=== PATIENT | female | born 1960 | race Caucasian/White ===

== ENCOUNTER 2023-01-07 07:52 | Outpatient (OUT) | payer OTHER, SELFPAY ==
--- NOTE | 2023-01-07 08:11 | XR_ITS ---
The [address] [address] Patient Name: KEYON CHEATHAM MRN: [id number] date: 1960 Sex: F Assigned Patient Location: LAB Current Patient Location: LAB Accession/Order Number: [id number] Exam Date: 01/07/2023 08:23 Report Date: 01/07/2023 08:44 At the request of: KIMMIE NEUMANN Procedure: XR knee ANTONIA 3V EXAMINATION: XR knee ANTONIA 3V HISTORY: Bilateral Osteoarthritis Of Knee M17.0 ; chronic bilateral knee pain COMPARISON: No relevant comparison available. FINDINGS: RIGHT FINDINGS: BONES: No significant arthropathy or acute abnormality. SOFT TISSUES: No visible soft tissue swelling. OTHER: Negative. LEFT FINDINGS: BONES: No significant arthropathy or acute abnormality. SOFT TISSUES: No visible soft tissue swelling. OTHER: Negative. XR/XR knee ANTONIA 3V IMPRESSION: RIGHT CONCLUSION: Minimal degenerative joint disease. No acute findings. LEFT CONCLUSION: Minimal degenerative joint disease. No acute findings. Electronically authenticated by: TELLY LEW Date: 01/07/2023 08:44
[2023-01-07 08:19] LABS: Basophils Absolute Auto 0.1 10^3/uL (0.0-0.1); Basophils Percent Auto 1.3 % (0.2-2.0); Eosinophils Absolute Auto 0.1 10^3/uL (0.0-0.7); Eosinophils Percent Auto 1.9 % (0.9-7.0); Hematocrit 40.8 % (36.0-48.0); Hemoglobin 13.3 g/dL (12.0-16.0); Immature Granulocytes Abs Auto 0.02 10^3/uL (0.00-0.03); Immature Granulocytes Pct Auto 0.4 % (0.0-0.5); Lymphocytes Absolute Auto 1.7 10^3/uL (1.2-3.8); Lymphocytes Percent Auto 35.7 % (20.5-60.0); Mean Corpuscular HGB Conc 32.6 g/dL (29.9-35.2); Mean Corpuscular Hemoglobin 29.5 pg (26.7-34.0); Mean Corpuscular Volume 90.5 fL (81.0-99.0); Monocytes Absolute Auto 0.4 10^3/uL (0.3-0.8); Monocytes Percent Auto 8.2 % (1.7-12.0); Neutrophils Absolute Auto 2.5 10^3/uL (1.4-6.5); Neutrophils Percent Auto 52.5 % (43.0-75.0); Platelet Count 228 10^3/uL (150-450); Red Blood Count 4.51 10^6/uL (4.20-5.40); Red Cell Distribution Width 13.1 % (11.0-15.0); White Blood Count 4.7 10^3/uL (4.0-11.0)
[2023-01-07 08:36] LABS: Estimated Average Glucose 117 mg/dL; Glycohemoglobin A1C 5.7 % (4.5-6.2)
[2023-01-07 09:05] LABS: Alanine Aminotransferase 25 U/L (14-59); Albumin Level 3.6 g/dL (3.4-5.0); Alkaline Phosphatase 82 U/L (46-116); Anion Gap 12.8; Aspartate Amino Transferase 14 U/L (15-37); BUN Creatinine Ratio 18.1; Bilirubin Direct 0.1 mg/dL (0.0-0.2); Bilirubin Total 0.5 mg/dL (0.2-1.0); Calcium 8.6 mg/dL (8.5-10.1); Carbon Dioxide 27.8 mmol/L (21.0-32.0); Chloride 101 mmol/L (98-107); Chol HDL Ratio 3.6; Cholesterol 218 mg/dL (<=200); Estimated GFR (African America >60 (>=60); Estimated GFR (Non-African Ame >60 (>=60); Free T3 2.38 pg/mL (2.18-3.98); Globulin 3.5 g/dL; Glucose 136 mg/dL (74-106); HDL Cholesterol 61 mg/dL (40-60); Potassium 3.6 mmol/L (3.5-5.1); Sodium 138 mmol/L (136-145); Thyroid Stimulating Hormone 1.186 uIU/mL (0.358-3.740); Total Protein 7.1 g/dL (6.4-8.2); Triglycerides 191 mg/dL (<=150); VLDL CHOLESTEROL 38.2 mg/dL
[2023-01-07 10:03] LABS: Free T4 1.13 ng/dL (0.76-1.46)
== END 2023-01-07 07:53 | disposition home or self-care (01) ==
LOC: LAB 07:55
PROVIDERS: PCP Family Medicine; Visit Provider Family Medicine
DX: E55.9 Vitamin D deficiency, unspecified (principal); I10 Essential (primary) hypertension; Z79.899 Other long term (current) drug therapy; E03.9 Hypothyroidism, unspecified; R73.03 Prediabetes; E78.5 Hyperlipidemia, unspecified; M17.0 Bilateral primary osteoarthritis of knee
CPT/HCPCS: 36415; 73562; 80048; 80061; 80076; 82306; 83036; 84439; 84443; 84481; 85025

== ENCOUNTER 2023-02-18 09:43 | Outpatient (OUT) | payer OTHER, SELFPAY ==
--- NOTE | 2023-02-18 09:47 | MM_ITS ---
Patient Name: KEYON VALENZUELA MR#: [id number] : 1960 Exam Date: 02/18/2023 Ordering Doctor: DR Felton Puga . RADIOLOGY REPORT PROCEDURE: MM TOMOSYNTHESIS SCREENING BI COMPARISON: MG MAMM SCREEN 3D ANTONIA CAD, 02/14/2021. MG MAMM SCREEN 3D ANTONIA CAD, 02/17/2022. INDICATIONS: screening Calculator Name NCI Breast Cancer Risk Assessment Tool 5 Year Breast Cancer Risk 1.80% Lifetime Breast Cancer Risk 6.80% Personal Breast Cancer No Personal Ovarian Cancer No Treatments None Family Cancers None LOCATION: The [facility] BREAST COMPOSITION: Scattered areas fibroglandular density. FINDINGS: DIAGNOSTIC CATEGORY 2--BENIGN FINDING. NO CHANGE FROM COMPARISON. Scattered benign-appearing calcifications are present. Scattered benign-appearing lymph nodes are present. RIGHT BREAST: No significant suspicious finding. LEFT BREAST: No significant suspicious finding. RECOMMENDATIONS: ROUTINE MAMMOGRAM AND CLINICAL EVALUATION IN 12 MONTHS. PLEASE NOTE: A NORMAL MAMMOGRAM DOES NOT EXCLUDE THE POSSIBILITY OF BREAST CANCER. A CLINICALLY SUSPICIOUS PALPABLE LUMP SHOULD BE BIOPSIED. Dictated by: Clint Valenzuela MD on 02/18/2023 at 11:37 Approved by: Clint Valenzuela MD on 02/18/2023 at 11:38
--- OUTSIDE RECORDS SUMMARY | 2023-02-18 09:53 | XMS_ITS | CCD ---
Author Name Unknown Address [address] [place] [address] Organization [facility] Care Team Providers Care Wrap Yarn Sorter Name Role Phone Felton Neumann Primary Care Provider THIEN, FELTON DAVE Referring Unavailabl e NADERER, FELTON DAVE Primary Care Unavailabl e REQUEST, DR SEVILLA LISTED Admitting Unavaila ble RIOS, DR NICOLAS A Primary Care Unavailable REQUEST, DR SEVILLA LISTED Attending Unavaila ble REQUEST, DR SEVILLA LISTED Consulting Unavaila ble REQUEST, DR SEVILLA LISTED Admitting Unavaila ble NADERER, DR BURKS A Primary Care Unavailable REQUEST, DR SEVILLA LISTED Attending Unavaila ble REQUEST, DR SEVILLA LISTED Consulting Unavaila ble REQUEST, DR SEVILLA LISTED Consulting Unavaila ble REQUEST, DR SEVILLA LISTED Admitting Unavaila ble NADERER, DR BURKS A Primary Care Unavailable REQUEST, DR SEVILLA LISTED Attending Unavaila ble REQUEST, DR SEVILLA LISTED Admitting Unavaila ble REQUEST, DR SEVILLA LISTED Attending Unavaila ble NADERER, DR BURKS A Primary Care Unavailable ZiMalcolm ashford Consulting Unavailable NADERER, DR BURKS A Primary Care Unavailable NADERER, DR FELTON Lynn Admitting Unavailable NADERER, DR FELTON Lynn Attending Unavailable NADERER, DR FELTON Lynn Consulting Unavailable Problems Active Problems Problem Classification Problem Date Documented Da te Episodic/Chronic Unclassified (2 sources) Patient encounter status; Translations: [Breast cancer screening by mammogram] Past or Other Problems Problem Classification Problem Date Documented Da te Episodic/Chronic Other screening for suspected conditions (not mental disorders or infectious disease) (5 sources) Patient encounter status; Translations: [Encounter for screening mammogram for malignant neoplasm of breast] Onset: 02-17-2022 Episodic Results Test Name Value Interpretation Reference Range Facil ity ELDER - TSHon 06-04-2022 TSH 1.292 uIU/mL Normal 0.358-3.740 [facility] Comment on above: Performed By: #### D ATTSH #### [facility] [address] [address] [address] Mela Billingsley TSH RANGE SEE BELOW Normal [facility] Comment on above: Result Comment: <0.3 4 UIU/ml HYPERTHYROID 0.34-5.60 UIU/ml EUTHYROID >5.60 UIU/ml HYPOTHYROID Performed By: #### D ATTSH #### [facility] [address] [address] [address] Mela Billingsley GLYCOHEMOGLOBIN A1Con 2022 ADA RECOMMENDATION SEE BELOW Normal [facility] Comment on above: Result Comment: ADA RECOMMENDED LIMIT 4.0 - 6.0 ADA THERAPEUTIC TARGET < 7.0 ACTION SUGGESTED > 7.0 Performed By: #### D ATA1C #### [facility] [address] [address] [address] Mela Billingsley Glucose [Mass/Vol] 117 mg/dL Normal [facility] Comment on above: Performed By: #### D ATA1C #### [facility] [address] [address] [address] Mela Billingsley HbA1c (Bld) [Mass fraction] 5.7 % Normal 4.5-6.2 [facility] Comment on above: Performed By: #### D ATA1C #### [facility] [address] [address] [address] Mela Billingsley MG MAMM SCREEN 3D ANTONIA CADon 02-17-2022 MG MAMM SCREEN 3D ANTONIA CAD Patient: KEYON CHEATHAM Exam Date: 02/17/2022 : 1960 Gender:F Ordering : DR FELTON NEUMANN . Admission #: [id number] Family : Order #: [id number] CLICK HERE TO VIEW EXAM RADIOLOGY REPORT PROCEDURE: MAMMOGRAM SCREENING 3D BILATERAL CAD COMPARISON: MG MAMM SCREEN 3D ANTONIA CAD, 02/14/2021. MG MAMM SCREEN ANTONIA W CAD, 12/19/2016. INDICATIONS: Screening mammography Calculator Name NCI Breast Cancer Risk Assessment Tool 5 Year Breast Cancer Risk 1.70% Lifetime Breast Cancer Risk 7.00% Personal Breast Cancer No Personal Ovarian Cancer No Treatments None Family Cancers None LOCATION: [facility] BREAST COMPOSITION: Scattered areas fibroglandular density. FINDINGS: DIAGNOSTIC CATEGORY 2--BENIGN FINDING: RIGHT BREAST: No significant suspicious finding. Scattered benign-appearing nodules are present. No significant change has occurred. LEFT BREAST: No significant suspicious finding. Scattered benign-appearing nodules are present. No significant change has occurred. RECOMMENDATIONS: ROUTINE MAMMOGRAM AND CLINICAL EVALUATION IN 12 MONTHS. PLEASE NOTE: A NORMAL MAMMOGRAM DOES NOT EXCLUDE THE POSSIBILITY OF BREAST CANCER. A CLINICALLY SUSPICIOUS PALPABLE LUMP SHOULD BE BIOPSIED. Dictated by: Malcolm Gramajo M.D. on 02/18/2022 at 10:14 Approved by: Malcolm Gramajo M.D. on 02/18/2022 at 11:38 Normal [facility] ital ELDER - TSHon 11-12-2021 TSH 0.153 uIU/mL Critically low 0.358-3.740 [facility] Comment on above: Performed By: #### D ATTSH #### [facility] [address] [place] [address] Dr. Mela Billingsley TSH RANGE SEE BELOW Normal [facility] Comment on above: Result Comment: <0.3 4 UIU/ml HYPERTHYROID 0.34-5.60 UIU/ml EUTHYROID >5.60 UIU/ml HYPOTHYROID Performed By: #### D ATTSH #### [facility] [address] [place] [address] Dr. Mela Billingsley CBC AUTO DIFFon 10-07-2021 BASO # 0.1 103/ul Normal 0.0-0.1 [facility] Comment on above: Performed By: #### D ATCBC #### [facility] [address] [place] [address] Dr. Mela Billingsley Basophils/100 WBC (Bld) 1.3 % Normal 0.2-2.0 [facility] Comment on above: Performed By: #### D ATCBC #### [facility] [address] [place] [address] Dr. Mela Billingsley EO # 0.1 103/ul Normal 0.0-0.7 [facility] Comment on above: Performed By: #### D ATCBC #### [facility] [address] [place] [address] Dr. Mela Billingsley Eosinophils/100 WBC (Bld) 1.7 % Normal 0.9-7.0 [facility] Comment on above: Performed By: #### D ATCBC #### [facility] [address] [place] [address] Dr. Mela Billingsley Erythrocyte distribution wid th (RBC) [Ratio] 13.3 % Normal 11.0-15.0 [facility] Comment on above: Performed By: #### D ATCBC #### [facility] [address] [place] [address] Dr. Mela Billingsley Hematocrit (Bld) [Volume fraction] 40.1 % Normal 3 6.0-48.0 [facility] Comment on above: Performed By: #### D ATCBC #### [facility] [address] [place] [address] Dr. Mela Billingsley Hemoglobin (Bld) [Mass/Vol] 13.1 g/dL Normal 12.0-16. 0 [facility] Comment on above: Performed By: #### D ATCBC #### [facility] [address] [place] [address] Dr. Mela Billingsley IG # 0.03 10e3/ul Normal 0.00-0.03 [facility] Comment on above: Performed By: #### D ATCBC #### [facility] [address] [place] [address] Dr. Mela Billingsley IG % 0.6 % Critically high 0.0-0.5 [facility] Comment on above: Performed By: #### D ATCBC #### [facility] [address] [place] [address] Dr. Mela Billingsley LYMPH # 1.6 103/ul Normal 1.2-3.8 [facility] Comment on above: Performed By: #### D ATCBC #### [facility] [address] [place] [address] Dr. Mela Billingsley Lymphocytes/100 WBC (Bld) 34.4 % Normal 20.5-60.0 [facility] Comment on above: Performed By: #### D ATCBC #### [facility] [address] [place] [address] Dr. Mela Billingsley MCH (RBC) [Entitic mass] 29.5 pg Normal 26.7-34.0 [facility] Comment on above: Performed By: #### D ATCBC #### [facility] [address] [place] [address] Dr. Mela Billingsley MCHC (RBC) [Mass/Vol] 32.7 g/dL Normal 29.9-35.2 [facility] Comment on above: Performed By: #### D ATCBC #### [facility] [address] [place] [address] Dr. Mela Billingsley MCV (RBC) [Entitic vol] 90.3 fL Normal 81.0-99.0 [facility] Comment on above: Performed By: #### D ATCBC #### [facility] [address] [place] [address] Dr. Mela Billingsley MONO # 0.4 103/ul Normal 0.3-0.8 [facility] Comment on above: Performed By: #### D ATCBC #### [facility] [address] [place] [address] Dr. Mela Billingsley Monocytes/100 WBC (Bld) 9.0 % Normal 1.7-12.0 [facility] Comment on above: Performed By: #### D ATCBC #### [facility] [address] [place] [address] Dr. Mela Billingsley NEUT # 2.5 103/ul Normal 1.4-6.5 [facility] Comment on above: Performed By: #### D ATCBC #### [facility] [address] [place] [address] Dr. Mela Billingsley Neutrophils/100 WBC (Bld) 53.0 % Normal 43.0-75.0 [facility] Comment on above: Performed By: #### D ATCBC #### [facility] [address] [place] [address] Dr. Mela Billingsley Platelet mean volume (Bld) [ Entitic vol] 10.0 fL Normal 9.5-13.5 [facility] pital Comment on above: Performed By: #### D ATCBC #### [facility] [address] [place] [address] Dr. Mela Billingsley PLT 243 103/ul Normal 150-450 [facility] Comment on above: Performed By: #### D ATCBC #### [facility] [address] [place] [address] Dr. Mela Billingsley RBC 4.44 106/ul Normal 4.20-5.40 [facility] Comment on above: Performed By: #### D ATCBC #### [facility] [address] [place] [address] Dr. Mela Billingsley WBC 4.8 103/ul Normal 4.0-11.0 [facility] Comment on above: Performed By: #### D ATCBC #### [facility] [address] [place] [address] Dr. Mela Billingsley ELDER - TSHon 10-07-2021 TSH 0.178 uIU/mL Critically low 0.358-3.[address] [facility] Comment on above: Performed By: #### D ATBMP, DATTS #### [facility] [address] [place] [address] Dr. Mela Billingsley TSH RANGE SEE BELOW Normal [facility] Comment on above: Result Comment: <0.3 4 UIU/ml HYPERTHYROID 0.34-5.60 UIU/ml EUTHYROID >5.60 UIU/ml HYPOTHYROID Performed By: #### D ATBMP, DATTSH #### [facility] [address] [place] [address] Dr. Mela Billingsley ELDER- BMP WITH LIPIDon 2021 Anion gap [Moles/Vol] 13.1 mmol/L Normal [facility] Comment on above: Performed By: #### D ATBMP, DATTSH #### [facility] [address] [place] [address] Dr. Mela Billingsley Calcium [Mass/Vol] 9.0 mg/dL Normal 8.5-10.[address] [facility] Comment on above: Performed By: #### D ATBMP, DATTS #### [facility] [address] [address] [address] Mela Billingsley Chloride [Moles/Vol] 104 mmol/L Normal 98-107 [facility] Comment on above: Performed By: #### D ATBMP, DATTSH #### [facility] [address] [address] [address] Mela Billingsley Cholesterol [Mass/Vol] 193 mg/dL Normal <=200 [facility] Comment on above: Performed By: #### D ATP, DATTSH #### [facility] [address] [place] [address] Dr. Mela Billingsley Cholesterol in HDL [Mass/Vol] 62 mg/dL Critically high 4 0-60 [facility] Comment on above: Performed By: #### D ATBMP, DATTSH #### [facility] [address] [place] [address] Dr. Mela Billingsley Cholesterol in LDL [Mass/Vol] 120.0 mg/dL Normal [facility] Comment on above: Performed By: #### D ATP, DATTSH #### [facility] [address] [place] [address] Dr. Mela Billingsley CO2 [Moles/Vol] 27.0 mmol/L Normal 21.0-32.0 [facility] Comment on above: Performed By: #### D ATBMP, DATTSH #### [facility] [address] [place] [address] Dr. Mela Billingsley Creatinine [Mass/Vol] 0.86 mg/dL Normal 0.55-1.02 [facility] Comment on above: Performed By: #### D ATBMP, DATTSH #### [facility] [address] [place] [address] Dr. Mela Billingsley EGFR-AF PARAGUAYAN >60 Normal >=60 [facility] Comment on above: Performed By: #### D ATBMP, DATTSH #### [facility] [address] [address] [address] Mela Billingsley EGFR-NON AF PARAGUAYAN >60 Normal >=60 [facility] Comment on above: Performed By: #### D ATP, DATTSH #### [facility] [address] [address] [address] Mela Billingsley HDL NORMAL > or = 60 mg/dl - LO W CARDIOVASCULAR RISK <40 mg/dl - HIGH CARDIOVASCULAR RISK Normal [facility] Comment on above: Performed By: #### D [facility], DATTSH #### [facility] [address] [address] [address] Mela Billingsley LDL CALC NORMAL SEE BELOW Normal [facility] Comment on above: Result Comment: <100 mg/dl OPTIMAL 100 - 129 mg/dl NEAR OR ABOVE OPTIMAL 130 - 159 mg/dl BORDERLINE HIGH 160 - 189 mg/dl HIGH >190 mg/dl VERY HIGH Performed By: #### D [facility], DATTS #### [facility] [address] [address] [address] Mela Billingsley Potassium [Moles/Vol] 4.1 mmol/L Normal 3.5-5.1 [facility] Comment on above: Performed By: #### D [facility], DATTSH #### [facility] [address] [address] [address] Mela Billingsley Sodium [Moles/Vol] 140 mmol/L Normal 136-[address] [facility] Comment on above: Performed By: #### D [facility], DATTSH #### [facility] [address] [address] [address] Mela Billingsley Triglyceride [Mass/Vol] 55 mg/dL Normal <=150 [facility] Comment on above: Performed By: #### D ATP, DATTSH #### [facility] [address] [address] [address] Mela Billingsley Urea nitrogen [Mass/Vol] 14.0 mg/dL Normal 7.0-18.0 [facility] Comment on above: Performed By: #### D [facility], DATTSH #### [facility] [address] [address] [address] Mela Billingsley Urea nitrogen/Creatinine [Mass ratio] 16.3 mg/mg Normal [facility] Comment on above: Performed By: #### D ATBMP, DATTSH #### [facility] [address] [address] [address] Mela Billingsley VLDL CALC 11.0 mg/dL Normal [facility] Comment on above: Performed By: #### D ATBMP, DATTSH #### [facility] [address] [address] [address] Mela Billingsley GLYCOHEMOGLOBIN A1Con 2021 ADA RECOMMENDATION SEE BELOW Normal [facility] Comment on above: Result Comment: ADA RECOMMENDED LIMIT 4.0 - 6.0 ADA THERAPEUTIC TARGET < 7.0 ACTION SUGGESTED > 7.0 Performed By: #### D ATA1C #### [facility] [address] [place] [address] Dr. Mela Billingsley Glucose [Mass/Vol] 111 mg/dL Critically high 74-106 T [facility] Comment on above: Performed By: #### D ATA1C #### [facility] [address] [address] [address] Mela Billingsley Performed By: #### D ATBMP, DATTS #### [facility] [address] [address] [address] Mela Billingsley HbA1c (Bld) [Mass fraction] 5.5 % Normal 4.5-6.2 [facility] Comment on above: Performed By: #### D ATA1C #### [facility] [address] [place] [address] Dr. Mela Billingsley [facility] DIGITAL SCREEN TANO [place] 02-14-2021 [facility] DIGITAL SCREEN BILATERAL EXAMINATION: SCREENING DIGITAL BILATERAL MAMMOGRAM WITH TOMOSYNTHESIS, 02/14/2021 TECHNIQUE: Screening mammography was performed with tomosynthesis including MLO and CC views of the bilateral breasts. Computer aided detection was used for the interpretation of this exam. COMPARISON: December 06, 2019 and November 30, 2018 HISTORY: Screening. FINDINGS: The breasts are composed of scattered fibroglandular densities. No dominant mass, architectural distortion or concerning grouping of microcalcification in either breast. IMPRESSION: No mammographic evidence of malignancy. BIRADS: BIRADS - CATEGORY 1 Negative. Normal interval follow-up is recommended in 12 months. OVERALL ASSESSMENT - NEGATIVE A letter of notification will be sent to the patient regarding the results. The [employer] recommends annual mammograms for women 40 years and older. Interpreted by: Case Licona DO Signed by: Case Licona DO 02/14/21 Final result [facility] No mammographic evid ence of malignancy. BIRADS: BIRADS - CATEGORY 1 Negative. Normal interval follow-up is recommended in 12 months. OVERALL ASSESSMENT - NEGATIVE A letter of notification will be sent to the patient regarding the results. The [employer] recommends annual mammograms for women 40 years and older. [facility] D EXAMINATION: SCREENING DIGITAL BILATERAL MAMMOGRAM WITH TOMOSYNTHESIS, 02/14/2021 TECHNIQUE: Screening mammography was performed with tomosynthesis including MLO and CC views of the bilateral breasts. Computer aided detection was used for the interpretation of this exam. COMPARISON: December 06, 2019 and November 30, 2018 HISTORY: Screening. FINDINGS: The breasts are composed of scattered fibroglandular densities. No dominant mass, architectural distortion or concerning grouping of microcalcification in either breast. [facility] R[facility] D Radiology Study observation (narrative) [facility] Work Phone: [facility] DIGITAL SCREEN BILA TERALOrdered By: Case Licona on 02-14-2021 [facility] Work Phone: [facility] DIGITAL SCREEN BILA TERALon 12-06-2019 No evidence of malig frida. Advise annual screening mammography. BI-RADS 1 BIRADS: BIRADS - CATEGORY 1 Negative, no evidence of malignancy in either breast. OVERALL ASSESSMENT - NEGATIVE A letter of notification will be sent to the patient regarding the results. RECOMMENDATION: Routine bilateral annual screening mammography is recommended. Follow-up screening mammogram in 1 year is advised. [facility] [place] [place] EXAMINATION: SCREENI NG DIGITAL BILATERAL MAMMOGRAM WITH TOMOSYNTHESIS, 12/06/2019 TECHNIQUE: Screening mammography was performed with tomosynthesis including MLO and CC views of the bilateral breasts. Computer aided detection was used for the interpretation of this exam. COMPARISON: 30 November 2018, [facility]; 29 February 2016[facility] HISTORY: Screening. Negative family history of breast cancer. Negative history of hormonal replacement therapy. No prior breast interventions. FINDINGS: The breasts are composed of scattered fibroglandular densities. No skin thickening, nipple contour changes, malignant type microcalcifications, areas of architectural distortion, or significant interval changes are noted. [facility] [place] Nayan, Mhpn Incoming R adiant Results From [employer] - 12/06/2019 1:27 PM EDT EXAMINATION: SCREENING DIGITAL BILATERAL MAMMOGRAM WITH TOMOSYNTHESIS, 12/06/2019 TECHNIQUE: Screening mammography was performed with tomosynthesis including MLO and CC views of the bilateral breasts. Computer aided detection was used for the interpretation of this exam. COMPARISON: 30 November 2018, [facility]; 29 February 2016[facility] HISTORY: Screening. Negative family history of breast cancer. Negative history of hormonal replacement therapy. No prior breast interventions. FINDINGS: The breasts are composed of scattered fibroglandular densities. No skin thickening, nipple contour changes, malignant type microcalcifications, areas of architectural distortion, or significant interval changes are noted. IMPRESSION: No evidence of malignancy. Advise annual screening mammography. BI-RADS 1 BIRADS: BIRADS - CATEGORY 1 Negative, no evidence of malignancy in either breast. OVERALL ASSESSMENT - NEGATIVE A letter of notification will be sent to the patient regarding the results. RECOMMENDATION: Routine bilateral annual screening mammography is recommended. Follow-up screening mammogram in 1 year is advised. [facility] LINO TUYET DIGITAL SCREEN W OR WO C AD BILATERALon 11-30-2018 No evidence of malig frida. Advise annual screening mammography. BI-RADS 1 BIRADS: BIRADS - CATEGORY 1 Negative, no evidence of malignancy in either breast. OVERALL ASSESSMENT - NEGATIVE A letter of notification will be sent to the patient regarding the results. RECOMMENDATION: Routine bilateral annual screening mammography is recommended. Follow-up screening mammogram in 1 year is advised. [facility]: BILATER AL DIGITAL SCREENING MAMMOGRAM, 11/30/2018 TECHNIQUE: CC and MLO views of the left and right breasts were obtained. Computer aided detection was utilized in the interpretation of this exam. 3D tomosynthesis images were obtained. COMPARISON: 19 December 2016; 22 February 2016 from [facility]. HISTORY: Screening. Negative family history of breast cancer. Oral contraceptive usage times 6 months. Hormonal replacement therapy times 10 years. No prior breast interventions. FINDINGS: The breasts are composed of scattered fibroglandular densities. No skin thickening, nipple contour changes, or areas of architectural distortion are noted. Prior nodule in the outer half of the right breast is not redemonstrated. [facility] LINO Nayan, Mhpn Incoming R adiant Results From [employer] - 11/30/2018 5:32 PM EDT EXAMINATION: BILATERAL DIGITAL SCREENING MAMMOGRAM, 11/30/2018 TECHNIQUE: CC and MLO views of the left and right breasts were obtained. Computer aided detection was utilized in the interpretation of this exam. 3D tomosynthesis images were obtained. COMPARISON: 19 December 2016; 22 February 2016 from [facility]. HISTORY: Screening. Negative family history of breast cancer. Oral contraceptive usage times 6 months. Hormonal replacement therapy times 10 years. No prior breast interventions. FINDINGS: The breasts are composed of scattered fibroglandular densities. No skin thickening, nipple contour changes, or areas of architectural distortion are noted. Prior nodule in the outer half of the right breast is not redemonstrated. IMPRESSION: No evidence of malignancy. Advise annual screening mammography. BI-RADS 1 BIRADS: BIRADS - CATEGORY 1 Negative, no evidence of malignancy in either breast. OVERALL ASSESSMENT - NEGATIVE A letter of notification will be sent to the patient regarding the results. RECOMMENDATION: Routine bilateral annual screening mammography is recommended. Follow-up screening mammogram in 1 year is advised. [facility] LINO Encounters Encounter Date Encounter Type Care Provider Facility Start: 06-04-2022 End: 06-05-[address] NONE LISTED REQUEST Facility:[facility] Start: 02-17-2022 End: 02-18-2022 ambulatory Malcolm Gramajo Facility:[facility] Start: 11-12-2021 End: 11-13-2021 ambulatory NONE LISTED REQUEST Facility:[facility] Start: 10-07-2021 End: 10-08-[address] NONE LISTED REQUEST Facility:[facility] Start: 10-02-2021 End: 10-03-[address] NONE LISTED REQUEST Facility:[facility] Start: 02-14-2021 End: 02-17-2021 ambulatory FELTON NEUMANN [facility] Start: 02-14-2021 End: 02-16-2021 Subsequent hospital visit by physician [facility] Mammography Room At [facility] Mammography Comment on above: Breast cancer screen ing by mammogram Start: 12-06-2019 End: 12-08-2019 Subsequent hospital visit by physician [facility] Mammography Room At [facility] Mammography Comment on above: Breast cancer screen ing by mammogram Start: 11-30-2018 End: 12-02-2018 Subsequent hospital visit by physician [facility] Mammography Room At [facility] Mammography Comment on above: Breast cancer screen ing by mammogram Procedures Date Procedure Procedure Detail Performing Clinician Start: 02-14-2021 Screening mammograph y bi 2-view breast inc cad Felton Neumann MD Work Phone: Start: 12-06-2019 Screening mammograph y bi 2-view breast inc cad Felton Neumann Work Phone: Start: 11-30-2018 Screening digital br east tomosynthesis bi Felton Neumann Work Phone: Plan of Treatment Date Care Activity Detail Author Start: 02-14-2023 Screening for malign ant neoplasm of breast Breast cancer screen [facility] Start: 12-05-2021 Screening for malign ant neoplasm of breast Breast cancer screen [place], [place] Start: 11-30-2020 Breast cancer screen Breast cancer s creen [place] Start: 10-31-2020 Influenza vaccination Flu vaccine (# 1) [facility] Start: 11-01-2019 Influenza vaccination Flu vaccine (# 1) [place] Start: 10-31-2018 Influenza vaccination Flu vaccine (# 1) [place] Start: 01-19-2008 Colon cancer screen colonoscopy Colon cancer screen colonoscopy [place] Start: 01-19-2008 Screening for malign ant neoplasm of colon Colon cancer screen colonoscopy [place] Start: 01-19-2008 Shingles Vaccine (1 of 2) Shingles Vaccine (1 of 2) [facility] Start: 2003 Screening for malign ant neoplasm of colon Colon cancer screen colonoscopy [facility] Start: 1998 Lipid panel Lipid screen [facility] Start: 1998 Lipid screen Lipid screen [place], [place] Start: 01-19-1988 Screening for malign ant neoplasm of cervix [facility] Start: 1979 Cervical cancer screen Cervical canc er screen [place], [place] Start: 1979 Screening for malign ant neoplasm of cervix [facility] Start: 1977 DTaP/Tdap/Td vaccine (1 - Tdap) DTaP/Tdap/Td vaccine (1 - Tdap) [facility] Start: 1973 HIV screen HIV screen [place], [place] Start: 1973 HIV screening HIV screen [facility] Start: 1970 COVID-19 Vaccine (1) COVID-19 Vaccin e (1) [facility] Start: 1960 Hepatitis C screen Hepatitis C scree n [place], [place] Start: 1958 Hepatitis C screening Hepatitis C sc reen [facility] Payers Date Payer Category Payer Unknown [id number] 2018 Unknown [employer] Pablo [facility] xxxxxxxxxxxx 2018-Present [phone] [address] [place] [address] xxxxxxxxxxxx [id number] 2018 Unknown [employer] Pablo [place] - EXCHANGE [id number] 2018-Present [phone] [address] [place] [address] [id number] 1959 Self-pay 1960 Unknown [id number] 1960 Unknown [id number] Unknown [id number] Unknown Unknown [id number] Unknown [id number] Unknown [id number] Social History Date Type Detail Facility Tobacco smoking stat [facility] Unknown if ever smoked [facility] Start: 1960 Sex Assigned At Not on file [facility] Exposure to SARS-CoV -2 (event) Not sure [place] Tobacco smoking stat [facility] Tobacco smoking consumption unknown [facility] [employer]: Evaluation note Note Date & Type Note Facility Evaluation note Diagnosis Breast cancer screening by mammogram documented in this encounter [facility] [employer]: Reason for Referral Status Reason Specialty Diagnoses / Procedures Referre d By Contact Referred To Contact Closed Radiology Diagnoses Breast cancer screening by mammogram Procedures TUYET DIGITAL SCREEN W OR WO CAD BILATERAL Felton Neumann MD [address] [place] [address] Status Reason Specialty Diagnoses / Procedures Referred By Contact Referred To Contact Authorized Radiology Diagnoses Breast cancer screening by mammogram Procedures TUYET QUEENIE DIGITAL SCREEN BILATERAL Felton Neumann MD [address] [place] [address] Specialty Diagnoses / Procedures Referred By Contac t Referred To Contact Radiology Diagnoses Breast cancer screening by mammogram Procedures TUYET QUEENIE DIGITAL SCREEN BILATERAL Felton Neumann MD [address] [place] [address] Referral ID Status Reason Start Date Expiration Date Visits Re quested Visits Authorized [id number] Closed 11/29/2020 11/29/2021 1 1 Assessments Diagnosis Breast cancer screening by mammogram Diagnosis Breast cancer screening by mammogram Advance Directives No Advanced Directives Records FoundDocuments on File Type Date 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 Advance Directives and Living Will Power of Word Processor Technician Documents on File Type Date 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 ACP-Advance Directive ACP-Power of Word Processor Technician Summary Purpose Family History No Family History Records FoundNo Family History Records Found Additional Source Comments Reason for Visit (unrecogniz ed section and content) Status Reason Specialty Diagnoses / Procedures Referre d By Contact Referred To Contact Closed Radiology Diagnoses Breast cancer screening by mammogram Procedures TUYET DIGITAL SCREEN W OR WO CAD BILATERAL Felton Neumann MD [address] [place] [address] Status Reason Specialty Diagnoses / Procedures Referred By Contact Referred To Contact Pending Review Radiology Diagnoses Encounter for screening mammogram for malignant neoplasm of breast Procedures HC MAMMOGRAM DIGITAL SCREEN BILAT Felton Neumann MD [address] [place] [address] [facility] [address] [address] Specialty Diagnoses / Procedures Referred By Contac t Referred To Contact Radiology Diagnoses Breast cancer screening by mammogram Procedures TUYET QUEENIE DIGITAL SCREEN BILATERAL Felton Neumann MD [address] [place] [address] Referral ID Status Reason Start Date Expiration Date Visits Re quested Visits Authorized [id number] Closed 11/29/2020 11/29/2021 1 1 Care Teams (unrecognized sec tion and content) Wrap Yarn Sorter Relationship Specialty Start Date End Date Felton Neumann MD [address] [place], [place] [address] PCP - General Family Medicine 11/02/18 INFORMATION SOURCE (unrecogn ized section and content) DATE CREATED AUTHOR 02/17/2021 [facility] DATE CREATED AUTHOR AUTHOR'S ORGANIZ ATION 06/06/2022 [facility] FOR RECORDS PERTAINING TO PATIENTS WHO ARE OR HAVE BEEN ENROLLED IN A CHEMICAL DEPENDENCY/SUBSTANCEABUSE PROGRAM, SOME INFORMATION MAY BE OMITTED. This clinical summary was aggregated from multiple sources. Caution should be exercised in using it in the provision of clinical care. This summary normalizes information from multiple sources, and as a consequence, information in this document may materially change the coding, format and clinical context of patient data. In addition, data may be omitted in some cases. CLINICAL DECISIONS SHOULD BE BASED ON THE PRIMARY CLINICAL RECORDS. [facility] [employer] [facility]. provides no warranty or guarantee of the accuracy or completeness of information in this document.
== END 2023-02-18 09:44 | disposition home or self-care (01) ==
LOC: MAMMO 09:44
PROVIDERS: PCP Family Medicine; Visit Provider Family Medicine
DX: Z12.31 Encounter for screening mammogram for malignant neoplasm of breast (principal)
CPT/HCPCS: 77063; 77067

== ENCOUNTER 2023-02-24 08:16 | Outpatient (OUT) | payer OTHER, SELFPAY ==
--- NOTE | 2023-02-24 08:20 | XR_ITS ---
[address] [address] Patient Name: KEYON CHEATHAM MRN: [id number] date: 1960 Sex: F Assigned Patient Location: RAD Current Patient Location: RAD Accession/Order Number: [id number] Exam Date: 02/24/2023 08:30 Report Date: 02/24/2023 08:47 At the request of: KIMMIE NEUMANN Procedure: XR DEXA axial skeleton EXAMINATION: XR DEXA axial skeleton HISTORY: osteoporosis, post-menopausal M81.0 COMPARISON: DEXA bone densitometry 03/24/2017 TECHNIQUE: Dual-energy X-ray absorptiometry (DXA) was performed. FINDINGS: SPINE ANALYSIS: Average bone mineral density is 0.953 g/cm2. T-score (standard deviation relative to young adult mean): -2.1 . +7.8% change since prior study. HIP ANALYSIS: Lowest bone mineral density is within the femoral trochanter, 0.816 g/cm2. T-score (standard deviation relative to young adult mean): -0.3 . -3.2% change since prior study. XR/XR DEXA axial skeleton IMPRESSION: World [employer] Classification: Osteopenia - Moderate Fracture Risk Electronically authenticated by: TELLY LEW Date: 02/24/2023 08:47
== END 2023-02-24 08:17 | disposition home or self-care (01) ==
LOC: RAD 08:16
PROVIDERS: PCP Family Medicine; Visit Provider Family Medicine
DX: M81.0 Age-related osteoporosis without current pathological fracture (principal); M85.80 Other specified disorders of bone density and structure, unspecified site
CPT/HCPCS: 77080

== ENCOUNTER 2023-04-14 13:48 | Outpatient (OUT) | payer OTHER, SELFPAY ==
--- OUTSIDE RECORDS SUMMARY | 2023-04-14 14:10 | XMS_ITS | CCD ---
Author Name Unknown Address [address] [place] [address] Organization [facility] Care Team Providers Care Arbitrator Name Role Phone Felton Neumann Primary Care Provider [phone] THIEN, FELTON DAVE Referring Unavailabl e NADERER, [...] NADERER, DR BURKS A Primary Care Unavailable ZiebMalcolm aguila Consulting Unavailable NADERER, DR FELTON Lynn Primary Care Unavailable NADERER, DR FELTON Lynn Admitting Unavailable NADERER, DR FELTON Lynn Attending Unavailable NADERER, DR FELTON Lynn Consulting Unavailable NILL, Marcin Pinedo Attending Unavailable NADERER, FELTON Referring Unavailable Allergies Allergy Classification Reported Allergen(s) Allergy Type Date of Onset Reaction(s) Facility (1 source) No Known Medication Allergies; Translations: [No Known Medication Allergies] Propensity to adverse reactions (disorder) [facility] Repository Problems Active Problems Problem Classification Problem Date [...] Results Test Name Value Interpretation Reference Range Facility Consent for Procedure/Surger na 04-09-2023 Consent for Procedure/Surgery [id number]#1.0 0TIFF Gerardo [facility] Ambulatory Visit Summaryon 0 04-07-2023 Ambulatory Visit Summary KEYON CHEATHAM :1960 Visit Date:04/07/2023 Ambulatory Visit Instructions Your Care Team Attending Physician - BARBIE VANEGAS, Marcin Pinedo Primary Care Physician - THIEN VANEGAS, FELTON Referring Physician - FELTON NEUMANN MD This Is Your Medications List Contact prescribing physician if questions or concerns hydrochlorothiazide-li sinopril (hydrochlorothiazide-l isinopril 12.5 mg-10 mg Tab) levothyroxine (levothyroxine 100 mcg (0.1 mg) Tab) meloxicam (meloxicam 15 mg Tab) montelukast (montelukast 10 mg Tab) raloxifene (raloxifene 60 mg Tab) Procedures Performed Cholecystectomy, Colonoscopy, MICHELLE BSO - Total abdominal hysterectomy and bilateral salpingo-oophorectomy. Discharge Vitals Heart Rate (Peripheral) 72 Respiratory Rate 16 Blood Pressure 124/88 Height 165 cm Height 65 in Weight 80.3 kg Weight 176.66 lb BMI 29.49 Medications What How Much When Instructions Unchanged hydrochlorothiazide-li sinopril (hydrochlorothiazide-l isinopril 12.5 mg-10 mg Tab) 1 Tablets By Mouth Every day 1 Unknown, Oral, 0 Refill(s), Take 1 tablet by mouth in the morning. Contact prescribing physician if questions or concerns Unchanged levothyroxine (levothyroxine 100 mcg (0.1 mg) Tab) 1 Tablets By Mouth Every day Contact prescribing physician if questions or concerns Unchanged meloxicam (meloxicam 15 mg Tab) 1 Tablets By Mouth Every day 1 Unknown, Oral, 0 Refill(s), Take 1 tablet by mouth in the morning. Contact prescribing physician if questions or concerns Unchanged montelukast (montelukast 10 mg Tab) 1 Tablets By Mouth Once a day (in the evening) Contact prescribing physician if questions or concerns Unchanged raloxifene (raloxifene 60 mg Tab) 1 Tablets By Mouth Every day 1 Unknown, Oral, 0 Refill(s), Take 1 tablet by mouth in the morning. Contact prescribing physician if questions or concerns Medications and Immunizations Administered Not Given influenza virus vaccine, inactivated, Patient Refuses Allergies No Known Allergies No Known Medication Allergies Problems Ongoing - Any problem that you are currently receiving treatment for. Allergic rhinitis due to pollen Benign essential hypertension BMI 29.0-29.9,adult Dyslipidemia Family history of colon cancer Gastroesophageal reflux disease Overweight Postmenopausal osteoporosis Prediabetes Primary hypothyroidism Screening for colorectal cancer Vitamin D deficiency Patient Survey You may receive a survey via text or e-mail asking about your office visit. Please share your experience with us by completing your survey. We appreciate your feedback and thank you for choosing us for your care. Normal [facility] Facesheeton 04-07-2023 Facesheet [id number] 02 [id number]#1. 00TIFF [facility] Insurance Correspondenceon 0 04-07-2023 Insurance Correspondence [id number]#1. 00TIFF Normal [facility] Physician Referralon 024 Physician Referral [id number]#1.0 0TIFF [facility] Physician Referralon 023 Physician Referral [id number] 20 [id number]#1.0 0TIFF [facility] ELDER - TSHon 06-04-2022 TSH 1.292 uIU/mL Normal 0.358-3.740 [facility] Comment on above: Performed By: #### D ATTSH #### [facility] [address] [address] [address] Mela Billingsley TSH RANGE SEE BELOW Normal [facility] Comment on above: Result Comment: <0.3 4 UIU/ml HYPERTHYROID 0.34-5.60 UIU/ml EUTHYROID >5.60 UIU/ml HYPOTHYROID Performed By: #### D ATTSH #### [facility] [address] [address] [address] Mela Billingsley GLYCOHEMOGLOBIN A1Con 2022 ADA RECOMMENDATION SEE BELOW Normal [facility] Comment on above: Result Comment: ADA RECOMMENDED LIMIT 4.0 - 6.0 ADA THERAPEUTIC TARGET < 7.0 ACTION SUGGESTED > 7.0 Performed By: #### D ATA1C #### [facility] [address] [address] [address] Mela Billingsley Glucose [Mass/Vol] 117 mg/dL Normal [facility] Comment on above: Performed By: #### D ATA1C #### [facility] [address] [address] [address] Mela Billingsley HbA1c (Bld) [Mass fraction] 5.7 % Normal 4.5-6.2 [facility] Comment on above: Performed By: #### D ATA1C #### [facility] [address] [address] [address] Mela Billingsley MG MAMM SCREEN 3D ANTONIA CADon 02-17-2022 MG MAMM SCREEN 3D ANTONIA CAD Patient: KEYON CHEATHAM Exam Date: 02/17/2022 : 1960 Gender:F Ordering : DR FELTON NEUMANN . Admission #: [id number] Family : Order #: [id number] CLICK HERE TO VIEW EXAM RADIOLOGY REPORT [...] Treatments None Family Cancers None LOCATION: [facility] BREAST COMPOSITION: Scattered areas fibroglandular density. FINDINGS: [...] M.D. on 02/18/2022 at 11:38 Normal [facility] ELDER - TSHon 11-12-2021 TSH 0.153 uIU/mL Critically low 0.358-3.740 [facility] Comment on above: Performed By: #### D ATTSH #### [facility] [address] [place] [address] Dr. Mela Billingsley TSH RANGE SEE BELOW Normal [facility] Comment on above: Result Comment: <0.3 4 UIU/ml HYPERTHYROID 0.34-5.60 UIU/ml EUTHYROID >5.60 UIU/ml HYPOTHYROID Performed By: #### D ATTSH #### [facility] [address] [place] [address] Dr. Mela Billingsley CBC AUTO DIFFon 10-07-2021 BASO # 0.1 103/ul Normal 0.0-0.1 [facility] Comment on above: Performed By: #### D ATCBC #### [facility] [address] [place] [address] Dr. Mela Billingsley Basophils/100 WBC (Bld) 1.3 % Normal 0.2-2.0 [facility] Comment on above: Performed By: #### D ATCBC #### [facility] [address] [place] [address] Dr. Mela Billingsley EO # 0.1 103/ul Normal 0.0-0.7 [facility] Comment on above: Performed By: #### D ATCBC #### [facility] [address] [place] [address] Dr. Mela Billingsley Eosinophils/100 WBC (Bld) 1.7 % Normal 0.9-7.0 [facility] Comment on above: Performed By: #### D ATCBC #### [facility] [address] [place] [address] Dr. Mela Billingsley Erythrocyte distribution width (RBC) [Ratio] 13.3 % Normal 11.0-15.0 [facility] Comment on above: Performed By: #### D ATCBC #### [facility] [address] [address] [address] Mela Billingsley Hematocrit (Bld) [Volume fraction] 40.1 % Normal 36.0-48.0 [facility] Comment on above: Performed By: #### D ATCBC #### [facility] [address] [place] [address] Dr. Mela Billingsley Hemoglobin (Bld) [Mass/Vol] 13.1 g/dL Normal 12.0-16.0 [facility] Comment on above: Performed By: #### D ATCBC #### [facility] [address] [place] [address] Dr. Mela Billingsley IG # 0.03 10e3/ul Normal 0.00-0.03 [facility] Comment on above: Performed By: #### D ATCBC #### [facility] [address] [place] [address] Dr. Mela Billingsley IG % 0.6 % Critically high 0.0-0.5 [facility] Comment on above: Performed By: #### D ATCBC #### [facility] [address] [place] [address] Dr. Mela Billingsley LYMPH # 1.6 103/ul Normal 1.2-3.8 [facility] Comment on above: Performed By: #### D ATCBC #### [facility] [address] [place] [address] Dr. Mela Billingsley Lymphocytes/100 WBC (Bld) 34.4 % Normal 20.5-60.0 [facility] Comment on above: Performed By: #### D ATCBC #### [facility] [address] [place] [address] Dr. Mela Billingsley MCH (RBC) [Entitic mass] 29.5 pg Normal 26.7-34.0 [facility] Comment on above: Performed By: #### D ATCBC #### [facility] [address] [place] [address] Dr. Mela Billingsley MCHC (RBC) [Mass/Vol] 32.7 g/dL Normal 29.9-35.2 [facility] Comment on above: Performed By: #### D ATCBC #### [facility] [address] [address] [address] Mela Billingsley MCV (RBC) [Entitic vol] 90.3 fL Normal 81.0-99.0 [facility] Comment on above: Performed By: #### D ATCBC #### [facility] [address] [address] [address] Mela Billingsley MONO # 0.4 103/ul Normal 0.3-0.8 [facility] Comment on above: Performed By: #### D ATCBC #### [facility] [address] [address] [address] Mela Billingsley Monocytes/100 WBC (Bld) 9.0 % Normal 1.7-12.0 [facility] Comment on above: Performed By: #### D ATCBC #### [facility] [address] [place] [address] Dr. Mela Billingsley NEUT # 2.5 103/ul Normal 1.4-6.5 [facility] Comment on above: Performed By: #### D ATCBC #### [facility] [address] [place] [address] Dr. Mela Billingsley Neutrophils/100 WBC (Bld) 53.0 % Normal 43.0-75.0 [facility] Comment on above: Performed By: #### D ATCBC #### [facility] [address] [place] [address] Dr. Mela Billingsley Platelet mean volume (Bld) [Entitic vol] 10.0 fL Normal 9.5-13.5 [facility] Comment on above: Performed By: #### D ATCBC #### [facility] [address] [place] [address] Dr. Mela Billingsley PLT 243 103/ul Normal 150-450 [facility] Comment on above: Performed By: #### D ATCBC #### [facility] [address] [place] [address] Dr. Mela Billingsley RBC 4.44 106/ul Normal 4.20-5.40 [facility] Comment on above: Performed By: #### D ATCBC #### [facility] [address] [place] [address] Dr. Mela Billingsley WBC 4.8 103/ul Normal 4.0-11.0 [facility] Comment on above: Performed By: #### D ATCBC #### [facility] [address] [place] [address] Dr. Mela Billingsley ELDER - TSHon 10-07-2021 TSH 0.178 uIU/mL Critically low 0.358-3.740 [facility] Comment on above: Performed By: #### D ATBMP, DATTS #### [facility] [address] [place] [address] Dr. Mela Billingsley TSH RANGE SEE BELOW Normal [facility] Comment on above: Result Comment: <0.3 4 UIU/ml HYPERTHYROID 0.34-5.60 UIU/ml EUTHYROID >5.60 UIU/ml HYPOTHYROID Performed By: #### D ATBMP, DATTS #### [facility] [address] [place] [address] Dr. Mela Billingsley ELDER- BMP WITH LIPIDon 2021 Anion gap [Moles/Vol] 13.1 mmol/L Normal [facility] Comment on above: Performed By: #### D ATBMP, DATTSH #### [facility] [address] [place] [address] Dr. Mela Billingsley Calcium [Mass/Vol] 9.0 mg/dL Normal 8.5-10.1 [facility] Comment on above: Performed By: #### D ATBMP, DATTSH #### [facility] [address] [place] [address] Dr. Mela Billingsley Chloride [Moles/Vol] 104 mmol/L Normal 98-107 [facility] Comment on above: Performed By: #### D ATBMP, DATTSH #### [facility] [address] [place] [address] Dr. Mela Billingsley Cholesterol [Mass/Vol] 193 mg/dL Normal <=200 [facility] Comment on above: Performed By: #### D ATBMP, DATTSH #### [facility] [address] [address] [address] Mela Billingsley Cholesterol in HDL [Mass/Vol] 62 mg/dL Critically high 40-60 [facility] Comment on above: Performed By: #### D ATBMP, DATTSH #### [facility] [address] [address] [address] Mela Billingsley Cholesterol in LDL [Mass/Vol] 120.0 mg/dL Normal [facility] Comment on above: Performed By: #### D ATBMP, DATTSH #### [facility] [address] [address] [address] Mela Billingsley CO2 [Moles/Vol] 27.0 mmol/L Normal 21.0-32.0 [facility] Comment on above: Performed By: #### D ATBMP, DATTSH #### [facility] [address] [address] [address] Mela Billingsley Creatinine [Mass/Vol] 0.86 mg/dL Normal 0.55-1.02 [facility] Comment on above: Performed By: #### D ATBMP, DATTSH #### [facility] [address] [place] [address] Dr. Mela Billingsley EGFR-AF PAKISTANI >60 Normal >=60 [facility] Comment on above: Performed By: #### D ATBMP, DATTSH #### [facility] [address] [address] [address] Mela Billingsley EGFR-NON AF PAKISTANI >60 Normal >=60 [facility] Comment on above: Performed By: #### D ATBMP, DATTSH #### [facility] [address] [address] [address] Mela Billingsley HDL NORMAL > or = 60 mg/dl - LO W CARDIOVASCULAR RISK <40 mg/dl - HIGH CARDIOVASCULAR RISK Normal [facility] Comment on above: Performed By: #### D ATBMP, DATTSH #### [facility] [address] [address] [address] Mela Billingsley LDL CALC NORMAL SEE BELOW Normal [facility] Comment on above: Result Comment: <100 mg/dl OPTIMAL 100 - 129 mg/dl NEAR OR ABOVE OPTIMAL 130 - 159 mg/dl BORDERLINE HIGH 160 - 189 mg/dl HIGH >190 mg/dl VERY HIGH Performed By: #### D ATBMP, DATTSH #### [facility] [address] [address] [address] Mela Billingsley Potassium [Moles/Vol] 4.1 mmol/L Normal 3.5-5.1 [facility] Comment on above: Performed By: #### D ATP, DATTSH #### [facility] [address] [address] [address] Mela Billingsley Sodium [Moles/Vol] 140 mmol/L Normal 136-145 [facility] Comment on above: Performed By: #### D ATP, DATTSH #### [facility] [address] [address] [address] Mela Billingsley Triglyceride [Mass/Vol] 55 mg/dL Normal <=150 [facility] Comment on above: Performed By: #### D [facility], DATTSH #### [facility] [address] [address] [address] Mela Billingsley Urea nitrogen [Mass/Vol] 14.0 mg/dL Normal 7.0-18.0 [facility] Comment on above: Performed By: #### D [facility], DATTS #### [facility] [address] [address] [address] Mela Billingsley Urea nitrogen/Creatinine [Mass ratio] 16.3 mg/mg Normal [facility] Comment on above: Performed By: #### D ATP, DATTSH #### [facility] [address] [address] [address] Mela Billingsley VLDL CALC 11.0 mg/dL Normal [facility] Comment on above: Performed By: #### D ATBMP, DATTSH #### [facility] [address] [address] [address] Mela Billingsley GLYCOHEMOGLOBIN A1Con 2021 ADA RECOMMENDATION SEE BELOW Normal [facility] Comment on above: Result Comment: ADA RECOMMENDED LIMIT 4.0 - 6.0 ADA THERAPEUTIC TARGET < 7.0 ACTION SUGGESTED > 7.0 Performed By: #### D ATA1C #### [facility] [address] [address] [address] Mela Billingsley Glucose [Mass/Vol] 111 mg/dL Critically high 74-106 [facility] Comment on above: Performed By: #### D ATA1C #### [facility] [address] [address] [address] Mela Billingsley Performed By: #### D ATBMP, DATTSH #### [facility] [address] [address] [address] Mela Billingsley HbA1c (Bld) [Mass fraction] 5.5 % Normal 4.5-6.2 [facility] Comment on above: Performed By: #### D ATA1C #### [facility] [address] [place] [address] Dr. Mela Billingsley [facility] [place] DIGITAL SCREEN [facility] 02-14-2021 [facility] [place] DIGITAL SCREEN BILATERAL EXAMINATION: SCREENING [...] to the patient regarding the results. [employer] recommends annual mammograms for women 40 years and older. Interpreted by: Case Licona DO Signed by: Case Licona DO 02/14/21 Final result Normal [facility] No mammographic evidence of malignancy. BIRADS: BIRADS - CATEGORY 1 Negative. Normal interval follow-up is recommended in 12 months. OVERALL ASSESSMENT - NEGATIVE A letter of notification will be sent to the patient regarding the results. [employer] recommends annual mammograms for women 40 years and older. [facility] EXAMINATION: SCREENING DIGITAL BILATERAL MAMMOGRAM WITH TOMOSYNTHESIS, [...] concerning grouping of microcalcification in either breast. [facility] Radiology Study observation (narrative) [employer] Phone: [employer] [place] DIGITAL SCREEN BILA TERALOrdered By: Case Licona on 02-14-2021 [employer] Phone: [facility] [place] DIGITAL SCREEN BILA TERALon 12-06-2019 No evidence of malignancy. Advise annual screening mammography. BI-RADS 1 BIRADS: BIRADS - CATEGORY 1 Negative, no evidence of malignancy in either breast. OVERALL ASSESSMENT - NEGATIVE A letter of notification will be sent to the patient regarding the results. RECOMMENDATION: Routine bilateral annual screening mammography is recommended. Follow-up screening mammogram in 1 year is advised. [place] EXAMINATION: SCREENI NG DIGITAL BILATERAL MAMMOGRAM WITH TOMOSYNTHESIS, 12/06/2019 TECHNIQUE: Screening mammography was performed with tomosynthesis including MLO and CC views of the bilateral breasts. Computer aided detection was used for the interpretation of this exam. COMPARISON: 30 November 2018, [facility]; 29 February 2016, [facility] HISTORY: Screening. Negative family history of breast cancer. Negative history of hormonal replacement therapy. No prior breast interventions. FINDINGS: The breasts are composed of scattered fibroglandular densities. No skin thickening, nipple contour changes, malignant type microcalcifications, areas of architectural distortion, or significant interval changes are noted. [place], [place] Nayan, [facility] Incoming Radiant Results From [employer] - 12/06/2019 1:27 PM EDT EXAMINATION: SCREENING DIGITAL BILATERAL MAMMOGRAM WITH TOMOSYNTHESIS, 12/06/2019 TECHNIQUE: Screening mammography was performed with tomosynthesis including MLO and CC views of the bilateral breasts. Computer aided detection was used for the interpretation of this exam. COMPARISON: 30 November 2018, [facility]; 29 February 2016, [facility] HISTORY: Screening. Negative family history of breast [...] screening mammogram in 1 year is advised. [facility] [place] DIGITAL SCREEN W OR WO C AD BILATERALon 11-30-2018 No evidence of malignancy. Advise annual screening mammography. BI-RADS 1 BIRADS: BIRADS - CATEGORY 1 Negative, no evidence of malignancy in either breast. OVERALL ASSESSMENT - NEGATIVE A letter of notification will be sent to the patient regarding the results. RECOMMENDATION: Routine bilateral annual screening mammography is recommended. Follow-up screening mammogram in 1 year is advised. [facility] EX[facility]ATION: BILATER AL DIGITAL SCREENING MAMMOGRAM, 11/30/2018 TECHNIQUE: CC and MLO views of the left and right breasts were obtained. Computer aided detection was utilized in the interpretation of this exam. 3D tomosynthesis images were obtained. COMPARISON: 19 December 2016; 22 February 2016 from [facility]. HISTORY: Screening. Negative family history of breast cancer. Oral contraceptive usage times 6 months. Hormonal replacement therapy times 10 years. No prior breast interventions. FINDINGS: The breasts are composed of scattered fibroglandular densities. No skin thickening, nipple contour changes, or areas of architectural distortion are noted. Prior nodule in the outer half of the right breast is not redemonstrated. [facility] [place] Nayan, [employer] Incoming Radiant Results From [employer] - 11/30/2018 5:32 PM EDT EXAMINATION: BILATERAL DIGITAL SCREENING MAMMOGRAM, 11/30/2018 TECHNIQUE: CC and MLO views of the left and right breasts were obtained. Computer aided detection was utilized in the interpretation of this exam. 3D tomosynthesis images were obtained. COMPARISON: 19 December 2016; 22 February 2016 from [facility]. HISTORY: Screening. Negative family history of breast [...] screening mammogram in 1 year is advised. [place], [place] Encounters Encounter Date Encounter Type Care Provider Facility Start: 04-07-2023 End: 04-08-2023 ambulatory Marcin VALENTIN Facility:[facility] Start: 02-20-2023 ambulatory Marcin VALENTIN Facility:[facility] [place] Start: 06-04-2022 End: 06-05-[address] NONE LISTED REQUEST Facility:[facility] Start: 02-17-2022 End: 02-18-2022 ambulatory Malcolm Gramajo Facility:[facility] Start: 11-12-2021 End: 11-13-[address] NONE LISTED REQUEST Facility:[facility] Start: 10-07-2021 End: 10-08-[address] NONE LISTED REQUEST Facility:[facility] Start: 10-02-2021 End: 10-03-[address] NONE LISTED REQUEST Facility: Start: 02-14-2021 End: 02-17-2021 ambulatory FELTON NEUMANN [facility] Start: 02-14-2021 End: 02-16-2021 Subsequent hospital visit by physician [facility] Mammography Room At [facility] Mammography Comment on above: Breast cancer screen ing by mammogram Start: 12-06-2019 End: 12-08-2019 Subsequent hospital visit by physician [facility] Mammography Room At [facility] Mammography Comment on above: Breast cancer screen ing by mammogram Start: 11-30-2018 End: 12-02-2018 Subsequent hospital visit by physician [facility] Mammography Room At [facility] Mammography Comment on above: Breast cancer screen [...] ant neoplasm of breast Breast cancer screen [facility] Start: 12-05-2021 Screening for malign ant neoplasm of breast Breast cancer screen [place], [place] Start: 11-30-2020 Breast cancer screen Breast cancer s creen [place], [place] Start: 10-31-2020 Influenza vaccination Flu vaccine (# 1) [facility] Start: 11-01-2019 Influenza vaccination Flu vaccine (# 1) [place], [place] Start: 10-31-2018 Influenza vaccination Flu vaccine (# 1) [place], [place] Start: 01-19-2008 Colon cancer screen colonoscopy Colon cancer screen colonoscopy [place], [place] Start: 01-19-2008 Screening for malign ant neoplasm of colon Colon cancer screen colonoscopy [place], [place] Start: 01-19-2008 Shingles Vaccine (1 of 2) Shingles Vaccine (1 of 2) [facility] Start: 2003 Screening for malign ant neoplasm of colon Colon cancer screen colonoscopy [facility] Start: 1998 Lipid panel Lipid screen [facility] Start: 1998 Lipid screen Lipid screen [place], [place] Start: 01-19-1988 Screening for malign ant neoplasm of cervix [facility] Start: 1979 Cervical cancer screen Cervical canc er screen [place], [place] Start: 1979 Screening for malign ant neoplasm of cervix [facility] Start: 1977 DTaP/Tdap/Td vaccine (1 - Tdap) DTaP/Tdap/Td vaccine (1 - Tdap) [facility] Start: 1973 HIV screen HIV screen [place], [place] Start: 1973 HIV screening HIV screen [facility] Start: 1970 COVID-19 Vaccine (1) COVID-19 Vaccin e (1) [facility] Start: 1958 Hepatitis C screen Hepatitis C callie blackwell [place], [place] Start: 1958 Hepatitis C screening Hepatitis C pr margarita [facility] Payers Date Payer Category Payer Medicare [id number] 2020 Unknown [id number] 2018 Unknown [employer] Pablo JOHNSON HMO NN xxxxxxxxxxxx 2018-Present [phone] [address] [place] [address] xxxxxxxxxxxx [id number] 2018 Unknown [employer] M JEREMY CRAWLEY VIKI - EXCHANGE [id number] 2018-Present [phone] [address] [place] [address] [id number] 1959 Self-pay 1958 Unknown [id number] 1958 Unknown [id number] 1958 Unknown [id number] Unknown [id number] Unknown Unknown [id number] Unknown [id number] Unknown [id number] Social History Date Type Detail Facility Tobacco smoking stat [facility] Unknown if ever smoked [place], [place] Start: 1960 Sex Assigned At Not on file [place] Exposure to SARS-CoV -2 (event) Not sure [place], [place] Tobacco smoking stat [facility] Tobacco smoking consumption unknown [facility] Work Phone: Clinical Note 04-07-2023 Note Date & Type Note Facility 04-07-2023 Note Chief Complaint consultation for colonoscopy HPI Staff 63 year old female presents on consultation from Dr. Neumann for screening colonoscopy. Denies abdominal or rectal pain. No rectal bleeding or change in bowel habits. Denies nausea or vomiting. No unexplained weight loss. Last colonoscopy completed greater than 10 years ago and reported normal per patient. Sister with history of colon cancer, diagnosed age 52. History of Present Illness 63 yo female with h/o htn, hypothyroidism, GERD, referred for colorectal screening; denies change in bms or blood in stools; no abdominal complaints; denies asa, on Meloxicam prn, no SBE prophylaxis; abdominal operations significant for cholecystectomy and MICHELLE, last colonoscopy over 10 years ago, reportedly normal; fmhx of colon cancer in patient's sister, dx at 52, no fmhx of IBD; no tobacco use. Review of Systems PHQ Score Initial Depression Screen Score: 0 SCORE ROS - Provider Constitutional: no fever, no sweats, no weight loss. Eyes: no glasses, no blurred vision, no visual loss. ENMT: no dentures, no hoarseness, no swallowing difficulties, no hearing loss, no ear infection(s), no nose bleeds. Cardiovascular: normal blood pressure, no chest pain, regular heartbeat, no heart murmur. Respiratory: no shortness of breath, no cough, no asthma, no wheezing. Gastrointestinal: no nausea, no vomiting, no diarrhea, no constipation, no blood in stool, no change in bowel habits, no abdominal pain, no hepatitis. Genitourinary: no kidney stones, no urine infection, no dysuria. Musculoskeletal: no pain, no weakness. Skin: no changing moles, no rash, no skin lumps. Neurologic: no seizures, no epilepsy, no headache. Psychiatric: no emotional or psychiatric problem. Heme/Lymph: no bleeding problems, no anemia, no blood clots, no transfusions. Allergy/Immunologic: no swollen lymph nodes/glands, no IV drug abuse. Other: Additional ROS info: Except as noted in the above Review of Systems and in the History of Present Illness, all other systems have been reviewed and are negative or noncontributory. Physical Exam Vitals & Measurements HR: 72(Peripheral) RR: 16 BP: 124/88 HT: 65 in HT: 165 cm WT: 80.3 kg WT: 176.66 lb BMI: 29.49 HEENT: normal conjunctiva, sclera clear, no scleral icterus, EOM intact, PERRLA, oral mucosa moist without lesions. Neck: trachea midline, no mass, symmetric, no thyromegaly or nodules, no adenopathy Respiratory: lungs CTA, respirations non labored. Cardiovascular: regular rate and rhythm, no murmur, no pedal edema or varicosities. Gastrointestinal: obese, soft, non distended, no tenderness, no masses, no palpable hernias, diastasis recti no, no hepatosplenomegaly; normal bs Lymphatic: no cervical adenopathy, no supraclavicular adenopathy. Musculoskeletal: normal gait, digits and nails without infection, nodes, cyanosis, clubbing. Skin: no rashes, no lesions, no ulcers, no subcutaneous nodules, induration. Psychiatric/Neuro: oriented to time, place, person, judgement normal, affect appropriate for age, insight intact, no focal deficits. Tests: review of old records completed , Discussed surgical options, risks, and possible complications with patient. Assessment/Plan 1. Screening for malignant neoplasm of colon (Z12.11: Encounter for screening for malignant neoplasm of colon) plan colonoscopy under anesthesia, informed consent obtained. 2. Family history of colon cancer (Z80.0: Family history of malignant neoplasm of digestive organs) see # 1 Follow-up No qualifying data available Problem List/Past Medical History Ongoing Allergic rhinitis due to pollen Benign essential hypertension BMI 29.0-29.9,adult Dyslipidemia Family history of colon cancer Gastroesophageal reflux disease Overweight Postmenopausal osteoporosis Prediabetes Primary hypothyroidism Screening for colorectal cancer Screening for malignant neoplasm of colon Vitamin D deficiency Historical No qualifying data Procedure/Surgical History Cholecystectomy, Colonoscopy, MICHELLE BSO - Total abdominal hysterectomy and bilateral salpingo-oophorectomy. Medications hydrochlorothiazide-lisinopril 12.5 mg-10 mg Tab, 1 tab(s), Oral, Daily levothyroxine 100 mcg (0.1 mg) Tab, 100 mcg= 1 tab(s), Oral, Daily meloxicam 15 mg Tab, 15 mg= 1 tab(s), Oral, Daily montelukast 10 mg Tab, 10 mg= 1 tab(s), Oral, qPM raloxifene 60 mg Tab, 60 mg= 1 tab(s), Oral, Daily Allergies No Known Allergies No Known Medication Allergies Social History Alcohol Current, Wine, 3-5 times per week, 04/07/2023 Substance Abuse - Denies Substance Abuse, 04/07/2023 Tobacco Former smoker, quit more than 30 days ago Tobacco Use:. Never Smokeless Tobacco Use:. Cigarettes, 3 per day. Started age 28.0 Years. Stopped age 38 Years., 04/07/2023 Family History Aneurysm: Father. Primary malignant neoplasm of colon: Sister. Immunizations Vaccine Date Status Comments influenza virus vaccine, keisha (more content not included)... [facility] Comment on above: Result Comment: Elec tronically Signed By: BARBIE VANEGAS, Marcin Diaz\Date and Time Signed: 04/07/23 19:36 EST Evaluation note Note Date & Type Note Facility Evaluation note Diagnosis Breast cancer screening by mammogram documented in this encounter [facility] Phone: Reason for Referral Status Reason Specialty Diagnoses / Procedures Referre d By Contact Referred To Contact Closed Radiology Diagnoses Breast cancer screening by mammogram Procedures [facility] DIGITAL SCREEN W OR WO CAD BILATERAL Felton Neumann MD [address] [place] [address] Status Reason Specialty Diagnoses / Procedures Referred By Contact Referred To Contact Authorized Radiology Diagnoses Breast cancer screening by mammogram Procedures [facility] QEUENIE DIGITAL SCREEN BILATERAL Felton Neumann MD [address] [place] [address] Specialty Diagnoses / Procedures Referred By Contac t Referred To Contact Radiology Diagnoses Breast cancer screening by mammogram Procedures [facility] DIGITAL SCREEN BILATERAL Felton Neumann MD [address] [place] [address] Referral ID Status Reason Start Date Expiration Date Visits Re quested Visits Authorized [id number] Closed 11/29/2020 11/29/2021 1 1 Assessments Diagnosis Breast cancer screening by mammogram Diagnosis Breast cancer screening by mammogram Advance Directives No Advanced Directives Records FoundDocuments on File Type Date Recorded 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 Expl anation Advance Directives and Living Will Power of Callisthenics Instructor Documents on File Type Date Recorded 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 Expl anation ACP-Advance Directive ACP-Power of Callisthenics Instructor Summary Purpose Family History No Family History Records FoundNo Family History Records FoundNo Family History Records Found Additional Source Comments Reason for Visit (unrecogniz ed section and content) Status Reason Specialty Diagnoses / Procedures Referre d By Contact Referred To Contact Closed Radiology Diagnoses Breast cancer screening by mammogram Procedures [facility] DIGITAL SCREEN W OR WO CAD BILATERAL Felton Neumann MD [address] [place] [address] Status Reason Specialty Diagnoses / Procedures Referred By Contact Referred To Contact Pending Review Radiology Diagnoses Encounter for screening mammogram for malignant neoplasm of breast Procedures [facility] DIGITAL SCREEN BILAT Felton Neumann MD [address] [place] [address] [facility] [address] [address] Specialty Diagnoses / Procedures Referred By Contac t Referred To Contact Radiology Diagnoses Breast cancer screening by mammogram Procedures [facility] [place] DIGITAL SCREEN BILATERAL Felton Neumann MD [address] [place] [address] Referral ID Status Reason Start Date Expiration Date Visits Re quested Visits Authorized [id number] Closed 11/29/2020 11/29/2021 1 1 Care Teams (unrecognized sec tion and content) Arbitrator Relationship Specialty Start Date End Date Felton Neumann MD [address] [place] [address] PCP - General Family Medicine 11/02/18 INFORMATION SOURCE (unrecogn ized section and content) DATE CREATED AUTHOR 02/17/2021 [facility] DATE CREATED AUTHOR AUTHOR'S ORGANIZ ATION 06/06/2022 [facility] DATE CREATED AUTHOR AUTHOR'S ORGANIZ ATION 04/10/2023 [facility] FOR RECORDS PERTAINING TO PATIENTS WHO ARE [...] BE BASED ON THE PRIMARY CLINICAL RECORDS. [facility]. provides no warranty or guarantee of the accuracy or completeness of information in this document.
== END 2023-04-14 13:49 | disposition home or self-care (01) ==
LOC: PST 13:59
PROVIDERS: PCP Family Medicine; Visit Provider Surgery
DX: Z12.11 Encounter for screening for malignant neoplasm of colon (principal)

== ENCOUNTER 2023-04-29 06:15 | Day surgery (SDC) | payer OTHER, SELFPAY ==
--- NOTE | 2023-04-29 | OP_ITS ---
OPERATION DATE: 04/29/2023 PREOPERATIVE DIAGNOSIS: Colorectal screening. POSTOPERATIVE DIAGNOSIS: Mild sigmoid diverticulosis as well as 3 mm rectal polyp. PROCEDURE: Colonoscopy to cecum with cold forceps polypectomy x1 for rectal polyp. SURGEON: Marcin Campos M.D. ANESTHESIA: Monitored anesthesia care. ESTIMATED BLOOD LOSS: Less than 1 mL. INDICATIONS AND CONSENT: Patient is a 63-year-old female presents for colorectal screening. Indications, risks, benefits, alternatives of proceeding with colonoscopy were explained extensively to the patient, including the risks of bleeding, colon perforation or anesthetic complications. All of her questions were answered. Informed consent was obtained. PROCEDURE: Patient brought to the operating room, placed in the left lateral decubitus position. Monitored anesthesia care was provided. Rectal exam was performed which showed no masses or blood. The scope was inserted into the anal canal. Under direct visualization was advanced. It was advanced to the cecum where cecal markings were clearly identified. There was noted to be a good prep. Upon withdrawal of the scope, mucosal surfaces were carefully examined. There were no mass lesions or inflammatory changes. There was mild sigmoid diverticulosis without inflammatory changes or scarring. There also appeared to be a large diverticulum in the cecum, containing some inspissated stool. Within the rectum, there was noted to be a 3 mm, sessile polyp that appeared to be likely hyperplastic. This was removed with cold biopsy forceps with good hemostasis. The scope was retroflexed in the anal canal. There was no significant hemorrhoidal disease. The scope was then withdrawn. Patient tolerated procedure well, was sent to recovery room in good condition. Follow up colonoscopy likely in 10 years, but will depend on the pathology report. CC: Felton Puga M.D. [place]
--- OUTSIDE RECORDS SUMMARY | 2023-04-29 06:18 | XMS_ITS | CCD ---
Author Name Unknown Address [address] [place] [address] Organization [facility] Care Team Providers Care Websphere Architect Name Role Phone Felton Neumann Primary Care [...] Medication Allergies] Propensity to adverse reactions (disorder) [facility] Repository Problems Active Problems Problem Classification Problem [...] for Procedure/Surger na 04-09-2023 Consent for Procedure/Surgery [id number]#1.[address] [facility] Ambulatory Visit Summaryon 0 04-07-2023 Ambulatory Visit [...] for choosing us for your care. Normal [facility] Facesheeton 04-07-2023 Facesheet [id number] 02 [id number]#1. 00TIFF [facility] Insurance Correspondenceon 0 04-07-2023 Insurance Correspondence [id number]#1. 00TIFF Normal [facility] Physician Referralon 024 Physician Referral [id number] 10 [id number]#1.0 0TIFF [facility] Physician Referralon 023 Physician Referral [id number] 20 [id number]#1.0 0TIFF [facility] ELDER - TSHon 06-04-2022 TSH 1.292 uIU/mL Normal 0.358-3.740 [facility] Comment on above: Performed By: #### D ATTSH #### [facility] [address] [address] [address] Mela Billingsley TSH RANGE SEE BELOW Normal [facility] Comment on above: Result Comment: <0.3 4 UIU/ml HYPERTHYROID 0.34-5.60 UIU/ml EUTHYROID >5.60 UIU/ml HYPOTHYROID Performed By: #### D ATTSH #### [facility] [address] [address] [address] Mela Billingsley GLYCOHEMOGLOBIN A1Con 2022 ADA RECOMMENDATION SEE BELOW Normal [facility] Comment on above: Result Comment: ADA RECOMMENDED LIMIT 4.0 - 6.0 ADA THERAPEUTIC TARGET < 7.0 ACTION SUGGESTED > 7.0 Performed By: #### D ATA1C #### [facility] [address] [address] [address] Mela Billingsley Glucose [Mass/Vol] 117 mg/dL Normal [facility] Comment on above: Performed By: #### D ATA1C #### [facility] [address] [address] [address] Mela Billingsley HbA1c (Bld) [Mass fraction] 5.7 % Normal 4.5-6.2 [facility] Comment on above: Performed By: #### D ATA1C #### [facility] [address] [address] [address] Mela Billingsley MG MAMM SCREEN 3D ANTONIA CADon 02-17-2022 MG MAMM SCREEN 3D ANTONIA CAD Patient: KEYON CHEATHAM Exam Date: 02/17/2022 : 1960 Gender:F Ordering : DR FELTON NEUMANN . Admission #: [id number] Family : Order #: [id number] CLICK HERE TO VIEW EXAM RADIOLOGY REPORT [...] Treatments None Family Cancers None LOCATION: [facility] BREAST COMPOSITION: Scattered areas fibroglandular density. FINDINGS: [...] M.D. on 02/18/2022 at 11:38 Normal [facility] ELDER - TSHon 11-12-2021 TSH 0.153 uIU/mL Critically low 0.358-3.740 [facility] Comment on above: Performed By: #### D ATTSH #### [facility] [address] [place] [address] Dr. Mela Billingsley TSH RANGE SEE BELOW Normal [facility] Comment on above: Result Comment: <0.3 4 UIU/ml HYPERTHYROID 0.34-5.60 UIU/ml EUTHYROID >5.60 UIU/ml HYPOTHYROID Performed By: #### D ATTSH #### [facility] [address] [place] [address] Dr. Mela Billingsley CBC AUTO DIFFon 10-07-2021 BASO # 0.1 103/ul Normal 0.0-0.1 [facility] Comment on above: Performed By: #### D ATCBC #### [facility] [address] [place] [address] Dr. Mela Billingsley Basophils/100 WBC (Bld) 1.3 % Normal 0.2-2.0 [facility] Comment on above: Performed By: #### D ATCBC #### [facility] [address] [place] [address] Dr. Mela Billingsley EO # 0.1 103/ul Normal 0.0-0.7 [facility] Comment on above: Performed By: #### D ATCBC #### [facility] [address] [place] [address] Dr. Mela Billingsley Eosinophils/100 WBC (Bld) 1.7 % Normal 0.9-7.0 [facility] Comment on above: Performed By: #### D ATCBC #### [facility] [address] [place] [address] Dr. Mela Billingsley Erythrocyte distribution width (RBC) [Ratio] 13.3 % Normal 11.0-15.0 [facility] Comment on above: Performed By: #### D ATCBC #### [facility] [address] [address] [address] Mela Billingsley Hematocrit (Bld) [Volume fraction] 40.1 % Normal 36.0-48.0 [facility] Comment on above: Performed By: #### D ATCBC #### [facility] [address] [place] [address] Dr. Mela Billignsley Hemoglobin (Bld) [Mass/Vol] 13.1 g/dL Normal 12.0-16.0 [facility] Comment on above: Performed By: #### D ATCBC #### [facility] [address] [place] [address] Dr. Mela Billingsley IG # 0.03 10e3/ul Normal 0.00-0.03 [facility] Comment on above: Performed By: #### D ATCBC #### [facility] [address] [place] [address] Dr. Mela Billingsley IG % 0.6 % Critically high 0.0-0.5 [facility] Comment on above: Performed By: #### D ATCBC #### [facility] [address] [place] [address] Dr. Mela Billingsley LYMPH # 1.6 103/ul Normal 1.2-3.8 [facility] Comment on above: Performed By: #### D ATCBC #### [facility] [address] [place] [address] Dr. Mela Billingsley Lymphocytes/100 WBC (Bld) 34.4 % Normal 20.5-60.0 [facility] Comment on above: Performed By: #### D ATCBC #### [facility] [address] [place] [address] Dr. Mela Billingsley MCH (RBC) [Entitic mass] 29.5 pg Normal 26.7-34.0 [facility] Comment on above: Performed By: #### D ATCBC #### [facility] [address] [place] [address] Dr. Mela Billingsley MCHC (RBC) [Mass/Vol] 32.7 g/dL Normal 29.9-35.2 [facility] Comment on above: Performed By: #### D ATCBC #### [facility] [address] [address] [address] Mela Billingsley MCV (RBC) [Entitic vol] 90.3 fL Normal 81.0-99.0 [facility] Comment on above: Performed By: #### D ATCBC #### [facility] [address] [address] [address] Mela Billingsley MONO # 0.4 103/ul Normal 0.3-0.8 [facility] Comment on above: Performed By: #### D ATCBC #### [facility] [address] [address] [address] Mela Billingsley Monocytes/100 WBC (Bld) 9.0 % Normal 1.7-12.0 [facility] Comment on above: Performed By: #### D ATCBC #### [facility] [address] [place] [address] Dr. Mela Billingsley NEUT # 2.5 103/ul Normal 1.4-6.5 [facility] Comment on above: Performed By: #### D ATCBC #### [facility] [address] [place] [address] Dr. Mela Billingsley Neutrophils/100 WBC (Bld) 53.0 % Normal 43.0-75.0 [facility] Comment on above: Performed By: #### D ATCBC #### [facility] [address] [place] [address] Dr. Mela Billingsley Platelet mean volume (Bld) [Entitic vol] 10.0 fL Normal 9.5-13.5 [facility] Comment on above: Performed By: #### D ATCBC #### [facility] [address] [place] [address] Dr. Mela Billingsley PLT 243 103/ul Normal 150-450 [facility] Comment on above: Performed By: #### D ATCBC #### [facility] [address] [place] [address] Dr. Mela Billingsley RBC 4.44 106/ul Normal 4.20-5.40 [facility] Comment on above: Performed By: #### D ATCBC #### [facility] [address] [place] [address] Dr. Mela Billingsley WBC 4.8 103/ul Normal 4.0-11.0 [facility] Comment on above: Performed By: #### D ATCBC #### [facility] [address] [place] [address] Dr. Mela Billingsley ELDER - TSHon 10-07-2021 TSH 0.178 uIU/mL Critically low 0.358-3.740 [facility] Comment on above: Performed By: #### D ATBMP, DATTS #### [facility] [address] [place] [address] Dr. Mela Billingsley TSH RANGE SEE BELOW Normal [facility] Comment on above: Result Comment: <0.3 4 UIU/ml HYPERTHYROID 0.34-5.60 UIU/ml EUTHYROID >5.60 UIU/ml HYPOTHYROID Performed By: #### D ATBMP, DATTS #### [facility] [address] [place] [address] Dr. Mela Billingsley ELDER- BMP WITH LIPIDon 2021 Anion gap [Moles/Vol] 13.1 mmol/L Normal [facility] Comment on above: Performed By: #### D ATBMP, DATTSH #### [facility] [address] [place] [address] Dr. Mela Billingsley Calcium [Mass/Vol] 9.0 mg/dL Normal 8.5-10.1 [facility] Comment on above: Performed By: #### D ATBMP, DATTSH #### [facility] [address] [place] [address] Dr. Mela Billingsley Chloride [Moles/Vol] 104 mmol/L Normal 98-107 [facility] Comment on above: Performed By: #### D ATBMP, DATTSH #### [facility] [address] [place] [address] Dr. Mela Billingsley Cholesterol [Mass/Vol] 193 mg/dL Normal <=200 [facility] Comment on above: Performed By: #### D ATBMP, DATTSH #### [facility] [address] [address] [address] Mela Billingsley Cholesterol in HDL [Mass/Vol] 62 mg/dL Critically high 40-60 [facility] Comment on above: Performed By: #### D ATBMP, DATTSH #### [facility] [address] [address] [address] Mela Billingsley Cholesterol in LDL [Mass/Vol] 120.0 mg/dL Normal [facility] Comment on above: Performed By: #### D ATBMP, DATTSH #### [facility] [address] [address] [address] Mela Billingsley CO2 [Moles/Vol] 27.0 mmol/L Normal 21.0-32.0 [facility] Comment on above: Performed By: #### D ATBMP, DATTSH #### [facility] [address] [address] [address] Mela Billingsley Creatinine [Mass/Vol] 0.86 mg/dL Normal 0.55-1.02 [facility] Comment on above: Performed By: #### D ATBMP, DATTSH #### [facility] [address] [place] [address] Dr. Mela Billingsley EGFR-AF MAURITANIAN >60 Normal >=60 [facility] Comment on above: Performed By: #### D ATBMP, DATTSH #### [facility] [address] [address] [address] Mela Billingsley EGFR-NON AF MAURITANIAN >60 Normal >=60 [facility] Comment on above: Performed By: #### D ATBMP, DATTSH #### [facility] [address] [address] [address] Mela Billingsley HDL NORMAL > or = 60 mg/dl - LO W CARDIOVASCULAR RISK <40 mg/dl - HIGH CARDIOVASCULAR RISK Normal [facility] Comment on above: Performed By: #### D ATBMP, DATTSH #### [facility] [address] [address] [address] Mela Billingsley LDL CALC NORMAL SEE BELOW Normal [facility] Comment on above: Result Comment: <100 mg/dl OPTIMAL 100 - 129 mg/dl NEAR OR ABOVE OPTIMAL 130 - 159 mg/dl BORDERLINE HIGH 160 - 189 mg/dl HIGH >190 mg/dl VERY HIGH Performed By: #### D ATBMP, DATTSH #### [facility] [address] [address] [address] Mela Billingsley Potassium [Moles/Vol] 4.1 mmol/L Normal 3.5-5.1 [facility] Comment on above: Performed By: #### D ATP, DATTSH #### [facility] [address] [address] [address] Mela Billingsley Sodium [Moles/Vol] 140 mmol/L Normal 136-145 [facility] Comment on above: Performed By: #### D ATP, DATTSH #### [facility] [address] [address] [address] Mela Billingsley Triglyceride [Mass/Vol] 55 mg/dL Normal <=150 [facility] Comment on above: Performed By: #### [facility], [facility] #### [facility] [address] [address] [address] Mela Billingsley Urea nitrogen [Mass/Vol] 14.0 mg/dL Normal 7.0-18.0 [facility] Comment on above: Performed By: #### [facility], DATTS #### [facility] [address] [address] [address] Mela Billingsley Urea nitrogen/Creatinine [Mass ratio] 16.3 mg/mg Normal [facility] Comment on above: Performed By: #### D ATP, DATTSH #### [facility] [address] [address] [address] Mela Billingsley VLDL CALC 11.0 mg/dL Normal [facility] Comment on above: Performed By: #### D ATBMP, DATTSH #### [facility] [address] [address] [address] Mela Billingsley GLYCOHEMOGLOBIN A1Con 2021 ADA RECOMMENDATION SEE BELOW Normal [facility] Comment on above: Result Comment: ADA RECOMMENDED LIMIT 4.0 - 6.0 ADA THERAPEUTIC TARGET < 7.0 ACTION SUGGESTED > 7.0 Performed By: #### D ATA1C #### [facility] [address] [address] [address] Mela Billingsley Glucose [Mass/Vol] 111 mg/dL Critically high 74-106 [facility] Comment on above: Performed By: #### D ATA1C #### [facility] [address] [address] [address] Mela Billingsley Performed By: #### D ATBMP, DATTSH #### [facility] [address] [address] [address] Mela Billingsley HbA1c (Bld) [Mass fraction] 5.5 % Normal 4.5-6.2 [facility] Comment on above: Performed By: #### D ATA1C #### [facility] [address] [place] [address] Dr. Mela Billingsley [facility] DIGITAL SCREEN [facility] 02-14-2021 [facility] DIGITAL SCREEN BILATERAL EXAMINATION: SCREENING DIGITAL [...] to the patient regarding the results. [employer] recommends annual mammograms for women 40 years and older. Interpreted by: Case Licona DO Signed by: Case Licona DO 02/14/21 Final result Normal [facility] No mammographic evidence of malignancy. BIRADS: BIRADS - CATEGORY 1 Negative. Normal interval follow-up is recommended in 12 months. OVERALL ASSESSMENT - NEGATIVE A letter of notification will be sent to the patient regarding the results. [employer] recommends annual mammograms for women 40 years and older[address] [facility] EXAMINATION: SCREENING DIGITAL BILATERAL MAMMOGRAM WITH [...] concerning grouping of microcalcification in either breast. [facility] Radiology Study observation (narrative) [employer] Phone: [facility] DIGITAL SCREEN BILA TERALOrdered By: Case Licona on 02-14-2021 [employer] Phone: [facility] DIGITAL SCREEN BILA TERALon 12-06-2019 No evidence of malignancy. Advise annual screening mammography. BI-RADS 1 BIRADS: BIRADS - CATEGORY 1 Negative, no evidence of malignancy in either breast. OVERALL ASSESSMENT - NEGATIVE A letter of notification will be sent to the patient regarding the results. RECOMMENDATION: Routine bilateral annual screening mammography is recommended. Follow-up screening mammogram in 1 year is advised. [facility] EXAMINATION: SCREENI NG DIGITAL BILATERAL MAMMOGRAM WITH TOMOSYNTHESIS, 12/06/2019 TECHNIQUE: Screening mammography was performed with tomosynthesis including MLO and CC views of the bilateral breasts. Computer aided detection was used for the interpretation of this exam. COMPARISON: 30 November 2018, [facility]; 29 February 2016, [facility] HISTORY: Screening. Negative family history of breast cancer. Negative history of hormonal replacement therapy. No prior breast interventions. FINDINGS: The breasts are composed of scattered fibroglandular densities. No skin thickening, nipple contour changes, malignant type microcalcifications, areas of architectural distortion, or significant interval changes are noted. [employer] [place], [place], [facility] Incoming Radiant Results From [employer] - 12/06/2019 1:27 PM EDT EXAMINATION: SCREENING DIGITAL BILATERAL MAMMOGRAM WITH TOMOSYNTHESIS, 12/06/2019 TECHNIQUE: Screening mammography was performed with tomosynthesis including MLO and CC views of the bilateral breasts. Computer aided detection was used for the interpretation of this exam. COMPARISON: 30 November 2018, [facility]; 29 February 2016, [facility] HISTORY: Screening. Negative family history of breast [...] screening mammogram in 1 year is advised. [facility] [place] DIGITAL SCREEN W OR WO C AD [...] screening mammogram in 1 year is advised. [email or web address] [place] EXAM[facility]ATION: BILATER AL DIGITAL SCREENING MAMMOGRAM, 11/30/2018 TECHNIQUE: CC and MLO views of the left and right breasts were obtained. Computer aided detection was utilized in the interpretation of this exam. 3D tomosynthesis images were obtained. COMPARISON: 19 December 2016; 22 February 2016 from [facility]. HISTORY: Screening. Negative family history of breast cancer. Oral contraceptive usage times 6 months. Hormonal replacement therapy times 10 years. No prior breast interventions. FINDINGS: The breasts are composed of scattered fibroglandular densities. No skin thickening, nipple contour changes, or areas of architectural distortion are noted. Prior nodule in the outer half of the right breast is not redemonstrated. [facility] [place], [facility] Incoming Radiant Results From [employer] - 11/30/2018 5:32 PM EDT EXAMINATION: BILATERAL DIGITAL SCREENING MAMMOGRAM, 11/30/2018 TECHNIQUE: CC and MLO views of the left and right breasts were obtained. Computer aided detection was utilized in the interpretation of this exam. 3D tomosynthesis images were obtained. COMPARISON: 19 December 2016; 22 February 2016 from [facility]. HISTORY: Screening. Negative family history of breast [...] screening mammogram in 1 year is advised. [place], [place] Encounters Encounter Date Encounter Type Care Provider Facility Start: 04-07-2023 End: 04-08-2023 ambulatory Marcin VALENTIN Facility:[facility] Start: 02-20-2023 ambulatory Marcin VALENTIN Facility:[facility] Start: 06-04-2022 End: 06-05-[address] NONE LISTED REQUEST Facility:[facility] Start: 02-17-2022 End: 02-18-2022 ambulatory Malcolm Gramajo Facility:[facility] Start: 11-12-2021 End: 11-13-[address] NONE LISTED REQUEST Facility:[facility] Start: 10-07-2021 End: 10-08-[address] NONE LISTED REQUEST Facility:[facility] Start: 10-02-2021 End: 10-03-[address] NONE LISTED REQUEST Facility: Start: 02-14-2021 End: 02-17-2021 ambulatory FELTON NEUMANN [facility] Start: 02-14-2021 End: 02-16-2021 Subsequent hospital visit by physician [facility] Mammography Room At [facility] Mamm[facility] Comment on above: Breast cancer screen ing by mammogram Start: 12-06-2019 End: 12-08-2019 Subsequent hospital visit by physician [facility] Mamm[facility] Room At [facility] Mammography Comment on above: Breast cancer screen ing by mammogram Start: 11-30-2018 End: 12-02-2018 Subsequent hospital visit by physician [facility] Mammography Room At [facility] Mammography Comment on above: Breast cancer screen [...] ant neoplasm of breast Breast cancer screen [facility] Start: 12-05-2021 Screening for malign ant neoplasm of breast Breast cancer screen [place], [place] Start: 11-30-2020 Breast cancer screen Breast cancer s creen [place] Start: 10-31-2020 Influenza vaccination Flu vaccine (# 1) [facility] Start: 11-01-2019 Influenza vaccination Flu vaccine (# 1) [place] Start: 10-31-2018 Influenza vaccination Flu vaccine (# 1) [place] Start: 01-19-2008 Colon cancer screen colonoscopy Colon cancer screen colonoscopy [place] Start: 01-19-2008 Screening for malign ant neoplasm of colon Colon cancer screen colonoscopy [place] Start: 01-19-2008 Shingles Vaccine (1 of 2) Shingles Vaccine (1 of 2) [facility] Start: 2003 Screening for malign ant neoplasm of colon Colon cancer screen colonoscopy [facility] Start: 1998 Lipid panel Lipid screen [facility] Start: 1998 Lipid screen Lipid screen [place], [place] Start: 01-19-1988 Screening for malign ant neoplasm of cervix [facility] Start: 1979 Cervical cancer screen Cervical canc er screen [place], [place] Start: 1979 Screening for malign ant neoplasm of cervix [facility] Start: 1977 DTaP/Tdap/Td vaccine (1 - Tdap) DTaP/Tdap/Td vaccine (1 - Tdap) [facility] Start: 1973 HIV screen HIV screen [place], [place] Start: 1973 HIV screening HIV screen [facility] Start: 1970 COVID-19 Vaccine (1) COVID-19 Vaccin e (1) [facility] Start: 1960 Hepatitis C screen Hepatitis C callie blackwell [place], [place] Start: 1960 Hepatitis C screening Hepatitis C wa margarita [facility] Payers Date Payer Category Payer Medicare [id number] 2020 Unknown [id number] 2018 Unknown [employer] Pablo JOHNSON HMO NN xxxxxxxxxxxx 2018-Present [phone] [address] [place] [address] xxxxxxxxxxxx [id number] 2018 Unknown [employer] M JEREMY CRAWLEY VIKI - EXCHANGE [id number] 2018-Present [phone] [address] [place] [address] [id number] 1959 Self-pay 1960 Unknown [id number] 1960 Unknown [id number] 1960 Unknown [id number] Unknown [id number] Unknown Unknown [id number] Unknown [id number] Unknown [id number] Social History Date Type Detail Facility Tobacco smoking stat [facility] Unknown if ever smoked [place], [place] Start: 1960 Sex Assigned At Not on file [place] Exposure to SARS-CoV -2 (event) Not sure [place], [place] Tobacco smoking stat [facility] Tobacco smoking consumption unknown [facility] Work Phone: Clinical Note 04-07-2023 Note Date [...] virus vaccine, keisha (more content not included)... [facility] Comment on above: Result Comment: Elec tronically Signed By: BARBIE VANEGAS, Marcin Diaz\Date and Time Signed: 04/07/23 19:36 EST Evaluation note Note Date & Type Note Facility Evaluation note Diagnosis Breast cancer screening by mammogram documented in this encounter [employer] Phone: Reason for Referral Status Reason Specialty Diagnoses / Procedures Referre d By Contact Referred To Contact Closed Radiology Diagnoses Breast cancer screening by mammogram Procedures [facility] DIGITAL SCREEN W OR WO CAD BILATERAL Felton Neumann MD [address] [place] [address] Status Reason Specialty Diagnoses / Procedures Referred By Contact Referred To Contact Authorized Radiology Diagnoses Breast cancer screening by mammogram Procedures [facility] DIGITAL SCREEN BILATERAL Felton Neumann MD [address] [place] [address] Specialty Diagnoses / Procedures Referred By Contac t Referred To Contact Radiology Diagnoses Breast cancer screening by mammogram Procedures [facility] [facility] DIGITAL SCREEN BILATERAL Felton Neumann MD [address] [place] [address] Referral ID Status Reason Start Date Expiration Date Visits Re quested Visits Authorized [id number] Closed 11/29/2020 11/29/2021 1 1 Assessments Diagnosis Breast cancer screening by mammogram Diagnosis Breast cancer screening by mammogram Advance Directives No Advanced Directives Records FoundDocuments on File Type Date Recorded 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 Advance Directives and Living Will Power of Tractor Mechanic Documents on File Type Date Recorded 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 ACP-Advance Directive ACP-Power of Tractor Mechanic Summary Purpose Family History No Family History [...] Felton Neumann MD [address] [place] [address] Status Reason Specialty Diagnoses / Procedures Referred By Contact Referred To Contact Pending Review Radiology Diagnoses Encounter for screening mammogram for malignant neoplasm of breast Procedures [facility] DIGITAL SCREEN BILAT Felton Neumann MD [address] [place] [address] [facility] [address] [address] Specialty Diagnoses / Procedures Referred By Contac t Referred To Contact Radiology Diagnoses Breast cancer screening by mammogram Procedures [facility] DIGITAL SCREEN BILATERAL Felton Neumann MD [address] [place] [address] Referral ID Status Reason Start Date Expiration Date Visits Re quested Visits Authorized [id number] Closed 11/29/2020 11/29/2021 1 1 Care Teams (unrecognized sec tion and content) Websphere Architect Relationship Specialty Start Date End Date Felton Neumann MD [address] [place] [address] PCP - General Family Medicine 11/02/18 INFORMATION SOURCE (unrecogn ized section and content) DATE CREATED AUTHOR 02/17/2021 [facility] DATE CREATED AUTHOR AUTHOR'S ORGANIZ ATION 06/06/2022 [facility] DATE CREATED AUTHOR AUTHOR'S ORGANIZ ATION 04/10/2023 [facility] FOR RECORDS PERTAINING TO PATIENTS WHO [...] BE BASED ON THE PRIMARY CLINICAL RECORDS. [facility]. provides no warranty or guarantee of the accuracy or completeness of information in this document.
[2023-04-29 06:35] VITALS: BP 164/92; PULSE 77; RESP 16; TEMP 36.2; O2SAT 98; BMI 28.8
[2023-04-29] MEDS: LACTATED RINGER'S SOLUTION 1,000 ML 50 ML IV (06:57)
[2023-04-29 07:47] VITALS: BP 106/59; PULSE 80; RESP 16; O2SAT 99
[2023-04-29 08:04] VITALS: BP 109/56; PULSE 69; RESP 16; O2SAT 97
== END 2023-04-29 08:18 | disposition home or self-care (01) ==
PROVIDERS: PCP Family Medicine; Visit Provider Surgery
PROC: (CPT 811; principal; 2023-04-29 07:30)
DX: Z12.11 Encounter for screening for malignant neoplasm of colon (principal); K57.30 Diverticulosis of large intestine without perforation or abscess without bleeding; K62.1 Rectal polyp; I10 Essential (primary) hypertension; E78.2 Mixed hyperlipidemia; K21.9 Gastro-esophageal reflux disease without esophagitis; E03.9 Hypothyroidism, unspecified; M81.0 Age-related osteoporosis without current pathological fracture; E55.9 Vitamin D deficiency, unspecified; Z90.49 Acquired absence of other specified parts of digestive tract; Z90.710 Acquired absence of both cervix and uterus; Z80.0 Family history of malignant neoplasm of digestive organs; Z87.891 Personal history of nicotine dependence
CPT/HCPCS: 45380; 88305; 99999; J2704

== ENCOUNTER 2023-10-08 11:04 | Outpatient (OUT) | payer OTHER, SELFPAY ==
--- NOTE | 2023-10-08 | XR_ITS ---
The [address] [address] Patient Name: KEYON CHEATHAM MRN: [id number] date: 1960 Sex: F Assigned Patient Location: Current Patient Location: Accession/Order Number: [id number] Exam Date: 10/08/2023 11:08 Report Date: 10/12/2023 13:55 At the request of: BYRON ALVAREZ Procedure: XR foot RT min 3V PROCEDURE: XR foot RT min 3V COMPARISON: None. HISTORY: RIGHT FOOT PAIN FINDINGS: BONES:No acute fracture or dislocation. Moderate enthesopathic spurring of the calcaneus at the Achilles and plantar insertions SOFT TISSUES:Negative. No visible soft tissue swelling. EFFUSION:None visible. OTHER: Negative. XR/XR foot RT min 3V IMPRESSION: Mild calcaneal enthesopathy Electronically authenticated by: SHANNA CHEATHAM Date: 10/12/2023 13:55
--- OUTSIDE RECORDS SUMMARY | 2023-10-08 11:08 | XMS_ITS | CCD ---
Author Organization [facility] Care Team Providers Care Mouthpiece Maker Name Role Phone Felton Neumann Primary Care [...] NADERER, DR BURKS A Primary Care Unavailable ZieberMalcolm Consulting Unavailable NADERER, DR FELTON Lynn Primary Care Unavailable NADERER, DR FELTON Lynn Admitting Unavailable NADERER, DR FELTON Lynn Attending Unavailable NADERER, DR FELTON Lynn Consulting Unavailable Nill, Marcin Pinedo Attending Unavailable Nill, Marcin Pinedo Admitting Unavailable NADERER, FELTON Primary Care Physician Marcin CAMPOS Attending Unavailable NADERER, FELTON Referring Unavailable NILL, Marcin Pinedo Attending Unavailable NILL, Marcin Pinedo Attending Unavailable NADERER, FELTON Attending Unavailable NADERER, FELTON Attending Unavailable NADERER, FELTON Attending Unavailable Allergies Allergy Classification Reported Allergen(s) Allergy Type Date of Onset Reaction(s) Facility (1 source) No Known Medication Allergies; Translations: [No Known Medication Allergies] Propensity to adverse reactions (disorder) [facility] Repository Medications Current Medications Medication Drug Class(es) Dates Sig (Normalized) Sig (Original) levothyroxine sodium 0.1 mg oral tablet (1 source) l-Thyroxine Start: 03-18-2023 take 1 tablet by mouth once daily levothyroxine 100 mcg (0.1 mg) Tab 100 mcg = 1 tab(s), Oral, Daily, Refills(s) 0 Start Date: 03/18/23 Status: Ordered montelukast 10 mg oral tablet (1 source) Leukotriene Receptor Antagonist Start: 02-01-2023 take 1 tablet by mouth once daily in the evening montelukast 10 mg Tab 10 mg = 1 tab(s), Oral, qPM, Refills(s) 0 Start Date: 02/01/23 Status: Ordered Completed/Discontinued Medications Medication Drug Class(es) Dates Sig (Normalized) Sig (Original) hydroCHLOROthiazide 12.5 mg / lisinopril 10 mg oral tablet (1 source) Thiazide Diuretic, Angiotensin Converting Enzyme Inhibitor Start: 11-23-2022 meloxicam 15 mg oral tablet (1 source) Nonsteroidal Anti-inflammatory Drug Start: 01-08-2023 raloxifene hydrochloride 60 mg oral tablet (1 source) Estrogen Agonist/Antagonist Start: 01-08-2023 Problems Active Problems Problem Classification Problem Date Documented Date Episodic/Chronic Anal and rectal conditions (1 source) Rectal polyp; Translations: [Rectal polyp] Onset: 05-12-2023 Episodic Diabetes mellitus without complication (1 source) Prediabetes Onset: 02-18-2023 03-18-2023 Episodic Disorders of lipid metabolism (1 source) Dyslipidemia Onset: 02-18-2023 03-18-2023 Chronic Esophageal disorders (1 source) Gastroesophageal reflux disease Onset: 02-18-2023 03-18-2023 Chronic Essential hypertension (1 source) Benign essential hypertension Onset: 02-18-2023 03-18-2023 Chronic Comment on above: Outside Source Comme nt: Last Assessment & Plan: BP controlled and monitor PRN. Nutritional deficiencies (1 source) Vitamin D deficiency Onset: 02-18-2023 03-18-2023 Chronic Osteoporosis (1 source) Postmenopausal osteoporosis Onset: 02-18-2023 03-18-2023 Chronic Other and unspecified benign neoplasm (1 source) Hyperplastic polyp of large intestine 05-12-2023 Episodic Other nutritional; endocrine; and metabolic disorders (1 source) Overweight 04-07-2023 Episodic Other nutritional; endocrine; and metabolic disorders (1 source) Overweight in adulthood with body mass index of 25 or more but less than 30 04-07-2023 Episodic Other upper respiratory disease (1 source) Allergic rhinitis due to pollen Onset: 02-18-2023 03-18-2023 Chronic Comment on above: Outside Source Comme nt: Last Assessment & Plan: Symptoms controlled with medication and continue. Residual codes; unclassified (1 source) Family history of cancer of colon 04-07-2023 Episodic Unclassified (4 sources) Patient encounter status; Translations: [Breast cancer screening by mammogram] 03-18-2023 Unclassified (1 source) Primary hypothyroidism Onset: 02-18-2023 03-18-2023 Comment on above: Outside Source Comme nt: Last Assessment & Plan: No signs of low thyroid and recent labs normal. Continue synthroid. Past or Other Problems Problem Classification Problem Date Documented Da te Episodic/Chronic Other screening for suspected conditions (not mental disorders or infectious disease) (5 sources) Patient encounter status; Translations: [Encounter for screening mammogram for malignant neoplasm of breast] Onset: 02-17-2022 Episodic Results Test Name Value Interpretation Reference Range Facility Ambulatory Visit Summaryon 0 05-12-2023 Ambulatory Visit Summary KEYON CHEATHAM :1960 Visit Date:05/12/2023 Ambulatory Visit Instructions Your Diagnosis Hyperplastic rectal polyp Your Care Team Attending Physician - BARBIE VANEGAS, Marcin Pinedo Primary Care Physician - FELTON NEUMANN MD This Is Your Medications List Contact prescribing physician if questions or concerns hydrochlorothiazide-li sinopril (hydrochlorothiazide-l isinopril 12.5 mg-10 mg Tab) levothyroxine (levothyroxine 100 mcg (0.1 mg) Tab) meloxicam (meloxicam 15 mg Tab) montelukast (montelukast 10 mg Tab) raloxifene (raloxifene 60 mg Tab) Procedures Performed Colonoscopy (04/29/2023), Cholecystectomy, Colonoscopy, MICHELLE BSO - Total abdominal hysterectomy and bilateral salpingo-oophorectomy. Medications What How Much When Instructions Unchanged [...] Contact prescribing physician if questions or concerns Allergies No Known Allergies No Known Medication Allergies Problems Ongoing - Any problem that you are currently receiving treatment for. Allergic rhinitis due to pollen Benign essential hypertension BMI 29.0-29.9,adult Dyslipidemia Family history of colon cancer Gastroesophageal reflux disease Hyperplastic rectal polyp Overweight Postmenopausal osteoporosis Prediabetes Primary hypothyroidism Screening for colorectal cancer Screening for malignant neoplasm of colon Vitamin D deficiency Patient Survey You may receive a survey via text or e-mail asking about your office visit. Please share your experience with us by completing your survey. We appreciate your feedback and thank you for choosing us for your care. Greardo Rice [facility] General Surgery Office/Clini c Noteon 05-12-2023 General Surgery Office/Clinic Note Chief Complaint colonoscopy follow up HPI Staff 13 day post operative follow up post colonoscopy with rectal polypectomy. History of Present Illness s/p colonoscopy with removal of 3 mm serrated hyperplastic rectal polyp, some sigmoid diverticulosis; doing well, denies pain or blood in stools. Review of Systems ROS - Provider Constitutional: no fever, no [...] been reviewed and are negative or noncontributory. Assessment/Plan 1. Hyperplastic rectal polyp (K62.1: Rectal polyp) plan surveillance colonoscopy in 5 years due to fmhx of colon cancer, call sooner if problems/questions. Follow-up No qualifying data available Problem List/Past Medical History Ongoing Allergic rhinitis due to pollen Benign essential hypertension BMI 29.0-29.9,adult Dyslipidemia Family history of colon cancer Gastroesophageal reflux disease Hyperplastic rectal polyp Overweight Postmenopausal osteoporosis Prediabetes Primary hypothyroidism Screening for colorectal cancer Screening for malignant neoplasm of colon Vitamin D deficiency Historical No qualifying data Procedure/Surgical History Colonoscopy (04/29/2023), Cholecystectomy, Colonoscopy, MICHELLE BSO - Total abdominal hysterectomy and bilateral salpingo-oophorectomy. Medications hydrochlorothiazide-li sinopril 12.5 mg-10 mg Tab, 1 tab(s), Oral, [...] Vaccine Date Status Comments influenza virus vaccine, inactivated - Not Given Patient Refuses SARS-CoV-2 (COVID-19) mRNA-1273 vaccine 06/15/2021 Recorded SARS-CoV-2 (COVID-19) mRNA-1273 vaccine 01/03/2021 Recorded SARS-CoV-2 (COVID-19) mRNA-1273 vaccine 06/10/2020 Recorded SARS-CoV-2 (COVID-19) mRNA-1273 vaccine 05/14/2020 Recorded 2023-03-18: [id number] [facility] Comment on above: Result Comment: Elec tronically Signed By: BARBIE VANEGAS, Marcin Diaz\Date and Time Signed: 05/12/23 13:08 EDT Reminderson 05-12-2023 Reminders - From: Nasima Truong LPN To: GSN - Clinical; Sent: 05/12/2023 13:00:44 EDT Show up: 03/29/2028 07:00:00 EST Subject: colonoscopy recall Due Date/Time: 04/29/2028 07:00:00 EST Reminder/Recall Patient due for surveillance colonoscopy 04/29/2028 due to family history of colon cancer. [facility] Pathology Noteon 05-06-2023 Pathology Note [id number]#1.0 0TIFF [facility] Outside Colonoscopyon 2023 Outside Colonoscopy [id number] 20 [id number]#1.0 0TIFF [facility] Victorino 04-29-2023 L Specimen: [id number] Received: 05/01/23-1151 Status: JACQUELIN Alonso Num: [id number] Spec Type: Surgical Subm Dr: Marcin Campos MD FACS Tissues: A Colon Biopsy (RECTAL POLYP) Procedures: HE/2, Gross/Micro L4 Age/ Patient Sex Location Account Attending Physician Keyon Cheatham Xochitl 63/F LABELL [id number] Marcin Campos MD FACS SPEC NUM: [id number] RECD: 05/01/23 STATUS: JACQUELIN ALONSO NUM: [id number] ANDREA: 04/29/23 [facility] DR: Marcin Campos MD FACS ENTERED: 05/01/23 [facility] DR: Magy,Lab SPEC TYPE: Surgical DEPT: OSWALD RADER ORDERED: HE/2, Gross/Micro L4 ORDERED: HE/2, Gross/Micro L4 Pathological Diagnosis Rectal polyp biopsy: -Small serrated hyperplastic polyp Clinical Information Rectal polyp, sigmoid diverticulosis Gross Description Received in formalin labeled with the patient's name, date of and rectal polyp is one reyna tissue measuring 0.3 cm. Entirely submitted in one cassette labeled A1. CPT Codes 59487 ---- ---- Specimen: [id number] Received: 05/01/23 Status: JACQUELIN Alonso Num: [id number] Spec Type: Surgical Subm Dr: Marcin Campos MD FACS Tissues: A Colon Biopsy (RECTAL POLYP) Procedures: HE/2, Gross/Micro L4 ---- Patient: NicolasKeyon D [id number] (Continued) ---- Signed (signature on file) Hugo-Fernando Billingsley MD 05/04/23 1840 [facility] Consent for Procedure/Surger yon 04-09-2023 Consent for Procedure/Surgery [id number]#1.0 0TIFF [facility] Ambulatory Visit Summaryon 0 04-07-2023 Ambulatory Visit Summary KEYON CHEATHAM :1960 Visit Date:04/07/2023 Ambulatory Visit Instructions Your Care Team Attending Physician - BARBIE VANEGAS, Marcin Pinedo Primary Care Physician - THIEN VANEGAS, FELTON Referring Physician - THIEN VANEGAS, FELTON This Is Your Medications List Contact prescribing [...] you for choosing us for your care. [facility] Facesheeton 04-07-2023 Facesheet [id number]#1. 00TIFF [facility] Insurance Correspondenceon 0 04-07-2023 Insurance Correspondence [id number]#1. 00TIFF [facility] Physician Referralon 024 Physician Referral [id number]#1.0 0TIFF [facility] Physician Referralon 023 Physician Referral [id number]#1.0 0TIFF [facility] - TSHon 06-04-2022 TSH 1.292 uIU/mL Normal 0.358-3.740 [facility] Comment on above: Performed By: #### D ATTSH #### [facility] [address] [address] [address] Mela Billingsley TSH RANGE SEE BELOW Normal [facility] Comment on above: Result Comment: <0.3 4 UIU/ml HYPERTHYROID 0.34-5.60 UIU/ml EUTHYROID >5.60 UIU/ml HYPOTHYROID Performed By: #### D ATTSH #### [facility] [address] [address] [address] Mela Billingsley GLYCOHEMOGLOBIN A1Con 2022 ADA RECOMMENDATION SEE BELOW Normal [facility] Comment on above: Result Comment: ADA RECOMMENDED LIMIT 4.0 - 6.0 ADA THERAPEUTIC TARGET < 7.0 ACTION SUGGESTED > 7.0 Performed By: #### D ATA1C #### [facility] [address] [address] [address] Mela Billingsley Glucose [Mass/Vol] 117 mg/dL Normal [facility] Comment on above: Performed By: #### D ATA1C #### [facility] [address] [address] [address] Mela Billingsley HbA1c (Bld) [Mass fraction] 5.7 % Normal 4.5-6.2 [facility] Comment on above: Performed By: #### D ATA1C #### [facility] [address] [address] [address] Mela Billingsley MG MAMM SCREEN 3D ANTONIA CADon 02-17-2022 MG MAMM SCREEN 3D ANTONIA CAD Patient: KEYON CHEATHAM Exam Date: 02/17/2022 : 1960 Gender:F Ordering : DR FELTON NEUMANN . Admission #: [id number] Family : Order #: [id number] CLICK HERE TO VIEW EXAM RADIOLOGY REPORT [...] Family Cancers None LOCATION: [facility] BREAST COMPOSITION: Scattered areas fibroglandular density. FINDINGS: [...] 02/18/2022 at 11:38 Normal [facility] ELDER - TSHon 11-12-2021 TSH 0.153 uIU/mL Critically low 0.358-3.740 [facility] Comment on above: Performed By: #### D ATTSH #### [facility] [address] [place] [address] Dr. Mela Billingsley TSH RANGE SEE BELOW Normal [facility] Comment on above: Result Comment: <0.3 4 UIU/ml HYPERTHYROID 0.34-5.60 UIU/ml EUTHYROID >5.60 UIU/ml HYPOTHYROID Performed By: #### D ATTSH #### [facility] [address] [place] [address] Dr. Mela Billingsley CBC AUTO DIFFon 10-07-2021 BASO # 0.1 103/ul Normal 0.0-0.1 [facility] Comment on above: Performed By: #### D ATCBC #### [facility] [address] [place] [address] Dr. Mela Billingsley Basophils/100 WBC (Bld) 1.3 % Normal 0.2-2.0 [facility] Comment on above: Performed By: #### D ATCBC #### [facility] [address] [place] [address] Dr. Mela Billingsley EO # 0.1 103/ul Normal 0.0-0.7 [facility] Comment on above: Performed By: #### D ATCBC #### [facility] [address] [place] [address] Dr. Mela Billingsley Eosinophils/100 WBC (Bld) 1.7 % Normal 0.9-7.0 [facility] Comment on above: Performed By: #### D ATCBC #### [facility] [address] [place] [address] Dr. Mela Billingsley Erythrocyte distribution width (RBC) [Ratio] 13.3 % Normal 11.0-15.0 [facility] Comment on above: Performed By: #### D ATCBC #### [facility] [address] [place] [address] Dr. Mela Billingsley Hematocrit (Bld) [Volume fraction] 40.1 % Normal 36.0-48.0 [facility] Comment on above: Performed By: #### D ATCBC #### [facility] [address] [place] [address] Dr. Mela Billingsley Hemoglobin (Bld) [Mass/Vol] 13.1 g/dL Normal 12.0-16.0 [facility] Comment on above: Performed By: #### D ATCBC #### [facility] [address] [place] [address] Dr. Mela Billingsley IG # 0.03 10e3/ul Normal 0.00-0.03 [facility] Comment on above: Performed By: #### D ATCBC #### [facility] [address] [place] [address] Dr. Mela Billingsley IG % 0.6 % Critically high 0.0-0.5 [facility] Comment on above: Performed By: #### D ATCBC #### [facility] [address] [place] [address] Dr. Mela Billingsley LYMPH # 1.6 103/ul Normal 1.2-3.8 [facility] Comment on above: Performed By: #### D ATCBC #### [facility] [address] [place] [address] Dr. Mela Billingsley Lymphocytes/100 WBC (Bld) 34.4 % Normal 20.5-60.0 [facility] Comment on above: Performed By: #### D ATCBC #### [facility] [address] [place] [address] Dr. Mela iBllingsley MCH (RBC) [Entitic mass] 29.5 pg Normal 26.7-34.0 [facility] Comment on above: Performed By: #### D ATCBC #### [facility] [address] [place] [address] Dr. Mela Billingsley MCHC (RBC) [Mass/Vol] 32.7 g/dL Normal 29.9-35.2 [facility] Comment on above: Performed By: #### D ATCBC #### [facility] [address] [place] [address] Dr. Mela Billingsley MCV (RBC) [Entitic vol] 90.3 fL Normal 81.0-99.0 [facility] Comment on above: Performed By: #### D ATCBC #### [facility] [address] [place] [address] Dr. Mela Billingsley MONO # 0.4 103/ul Normal 0.3-0.8 [facility] Comment on above: Performed By: #### D ATCBC #### [facility] [address] [place] [address] Dr. Mela Billingsley Monocytes/100 WBC (Bld) 9.0 % Normal 1.7-12.0 [facility] Comment on above: Performed By: #### D ATCBC #### [facility] [address] [place] [address] Dr. Mela Billingsley NEUT # 2.5 103/ul Normal 1.4-6.5 [facility] Comment on above: Performed By: #### D ATCBC #### [facility] [address] [place] [address] Dr. Mela Billingsley Neutrophils/100 WBC (Bld) 53.0 % Normal 43.0-75.0 [facility] Comment on above: Performed By: #### D ATCBC #### [facility] [address] [place] [address] Dr. Mela Billingsley Platelet mean volume (Bld) [Entitic vol] 10.0 fL Normal 9.5-13.5 [facility] Comment on above: Performed By: #### D ATCBC #### [facility] [address] [place] [address] Dr. Mela Billingsley PLT 243 103/ul Normal 150-450 [facility] Comment on above: Performed By: #### D ATCBC #### [facility] [address] [place] [address] Dr. Mela Billingsley RBC 4.44 106/ul Normal 4.20-5.40 [facility] Comment on above: Performed By: #### D ATCBC #### [facility] [address] [place] [address] Dr. Mela Billingsley WBC 4.8 103/ul Normal 4.0-11.0 [facility] Comment on above: Performed By: #### D ATCBC #### [facility] [address] [place] [address] Dr. Mela Billingsley ELDER - TSHon 10-07-2021 TSH 0.178 uIU/mL Critically low 0.358-3.740 [facility] Comment on above: Performed By: #### D ATBMP, DATTS #### [facility] [address] [place] [address] Dr. Mela Billingsley TSH RANGE SEE BELOW Normal [facility] Comment on above: Result Comment: <0.3 4 UIU/ml HYPERTHYROID 0.34-5.60 UIU/ml EUTHYROID >5.60 UIU/ml HYPOTHYROID Performed By: #### D ATBMP, DATTSH #### [facility] [address] [place] [address] Dr. Mela Billingsley ELDER- BMP WITH LIPIDon 2021 Anion gap [Moles/Vol] 13.1 mmol/L Normal [facility] Comment on above: Performed By: #### D ATBMP, DATTSH #### [facility] [address] [place] [address] Dr. Mela Billingsley Calcium [Mass/Vol] 9.0 mg/dL Normal 8.5-10.1 [facility] Comment on above: Performed By: #### D ATBMP, DATTSH #### [facility] [address] [place] [address] Dr. Mela Billingsley Chloride [Moles/Vol] 104 mmol/L Normal 98-107 [facility] Comment on above: Performed By: #### D ATBMP, DATTSH #### [facility] [address] [address] [address] Mela Billingsley Cholesterol [Mass/Vol] 193 mg/dL Normal <=200 [facility] Comment on above: Performed By: #### D ATBMP, DATTSH #### [facility] [address] [place] [address] Dr. Mela Billingsley Cholesterol in HDL [Mass/Vol] 62 mg/dL Critically high 40-60 [facility] Comment on above: Performed By: #### D ATBMP, DATTSH #### [facility] [address] [place] [address] Dr. Mela Billingsley Cholesterol in LDL [Mass/Vol] 120.0 mg/dL Normal [facility] Comment on above: Performed By: #### D ATBMP, DATTSH #### [facility] [address] [place] [address] Dr. Mela Billingsley CO2 [Moles/Vol] 27.0 mmol/L Normal 21.0-32.0 [facility] Comment on above: Performed By: #### D ATBMP, DATTSH #### [facility] [address] [place] [address] Dr. Mela Billingsley Creatinine [Mass/Vol] 0.86 mg/dL Normal 0.55-1.02 [facility] Comment on above: Performed By: #### D ATBMP, DATTSH #### [facility] [address] [place] [address] Dr. Mela Billingsley EGFR-AF PANAMANIAN >60 Normal >=60 [facility] Comment on above: Performed By: #### D ATBMP, DATTSH #### [facility] [address] [address] [address] Mela Billingsley EGFR-NON AF PANAMANIAN >60 Normal >=60 [facility] Comment on above: Performed By: #### D ATP, DATTSH #### [facility] [address] [address] [address] Mela Billingsley HDL NORMAL > or = 60 mg/dl - LO W CARDIOVASCULAR RISK <40 mg/dl - HIGH CARDIOVASCULAR RISK Normal [facility] Comment on above: Performed By: #### D [facility], DATTSH #### [facility] [address] [address] [address] Mela Billingsley LDL CALC NORMAL SEE BELOW Normal [facility] Comment on above: Result Comment: <100 mg/dl OPTIMAL 100 - 129 mg/dl NEAR OR ABOVE OPTIMAL 130 - 159 mg/dl BORDERLINE HIGH 160 - 189 mg/dl HIGH >190 mg/dl VERY HIGH Performed By: #### D ATBMP, DATTSH #### [facility] [address] [address] [address] Mela Billingsley Potassium [Moles/Vol] 4.1 mmol/L Normal 3.5-5.1 [facility] Comment on above: Performed By: #### [facility], DATTSH #### [facility] [address] [address] [address] Mela Billingsley Sodium [Moles/Vol] 140 mmol/L Normal 136-145 [facility] Comment on above: Performed By: #### D [facility], DATTSH #### [facility] [address] [address] [address] Mela Billingsley Triglyceride [Mass/Vol] 55 mg/dL Normal <=150 [facility] Comment on above: Performed By: #### D ATP, DATTSH #### [facility] [address] [address] [address] Mela Billingsley Urea nitrogen [Mass/Vol] 14.0 mg/dL Normal 7.0-18.0 [facility] Comment on above: Performed By: #### D ATP, DATTSH #### [facility] [address] [address] [address] Mela Billingsley Urea nitrogen/Creatinine [Mass ratio] 16.3 mg/mg Normal [facility] Comment on above: Performed By: #### D ATBMP, DATTS #### [facility] [address] [address] [address] Mela Billingsley VLDL CALC 11.0 mg/dL Normal [facility] Comment on above: Performed By: #### D ATBMP, DATTSH #### [facility] [address] [address] [address] Mela Billingsley GLYCOHEMOGLOBIN A1Con 2021 ADA RECOMMENDATION SEE BELOW Normal [facility] Comment on above: Result Comment: ADA RECOMMENDED LIMIT 4.0 - 6.0 ADA THERAPEUTIC TARGET < 7.0 ACTION SUGGESTED > 7.0 Performed By: #### D ATA1C #### [facility] [address] [place] [address] Dr. Mela Billingsley Glucose [Mass/Vol] 111 mg/dL Critically high 74-106 [facility] Comment on above: Performed By: #### D ATA1C #### [facility] [address] [address] [address] Mela Billingsley Performed By: #### D ATBMP, DATTS #### [facility] [address] [address] [address] Mela Billingsley HbA1c (Bld) [Mass fraction] 5.5 % Normal 4.5-6.2 [facility] Comment on above: Performed By: #### D ATA1C #### [facility] [address] [address] [address] Mela Billingsley [facility] DIGITAL SCREEN TANO [place] 02-14-2021 [facility] DIGITAL SCREEN BILATERAL EXAMINATION: [...] to the patient regarding the results. [employer] recommends annual mammograms for women 40 years and older. Interpreted by: Case Licona DO Signed by: Case Licona DO 02/14/21 Final result Normal [facility] No mammographic evidence of malignancy. BIRADS: BIRADS - CATEGORY 1 Negative. Normal interval follow-up is recommended in 12 months. OVERALL ASSESSMENT - NEGATIVE A letter of notification will be sent to the patient regarding the results. [employer] recommends annual mammograms for women 40 years and older. [facility] EXAMINATION: SCREENING DIGITAL BILATERAL MAMMOGRAM [...] concerning grouping of microcalcification in either breast. [facility] Radiology Study observation (narrative) [facility] Phone: [facility] DIGITAL SCREEN BILA TERALOrdered By: Case Licona on 02-14-2021 [facility] Phone: [facility] DIGITAL SCREEN BILA TERALon [...] screening mammogram in 1 year is advised. [facility] [place] EXAMINATION: SCREENI NG DIGITAL BILATERAL MAMMOGRAM WITH TOMOSYNTHESIS, 12/06/2019 TECHNIQUE: Screening mammography was performed with tomosynthesis including MLO and CC views of the bilateral breasts. Computer aided detection was used for the interpretation of this exam. COMPARISON: 30 November 2018, [facility]; 29 February 2016, [facility] HISTORY: Screening. Negative family history of breast cancer. Negative history of hormonal replacement therapy. No prior breast interventions. FINDINGS: The breasts are composed of scattered fibroglandular densities. No skin thickening, nipple contour changes, malignant type microcalcifications, areas of architectural distortion, or significant interval changes are noted. [facility] Incoming Radiant Results From [employer] - 12/06/2019 1:27 PM EDT EXAMINATION: SCREENING DIGITAL BILATERAL MAMMOGRAM WITH TOMOSYNTHESIS, 12/06/2019 TECHNIQUE: Screening mammography was performed with tomosynthesis including MLO and CC views of the bilateral breasts. Computer aided detection was used for the interpretation of this exam. COMPARISON: 30 November 2018, [facility]; 29 February 2016, [facility] HISTORY: Screening. Negative family history of breast [...] mammogram in 1 year is advised. [facility] DIGITAL SCREEN W OR WO C AD [...] mammogram in 1 year is advised. [facility] EXAMINATION: BILATER AL DIGITAL SCREENING MAMMOGRAM, 11/30/2018 TECHNIQUE: CC and MLO views of the left and right breasts were obtained. Computer aided detection was utilized in the interpretation of this exam. 3D tomosynthesis images were obtained. COMPARISON: 19 December 2016; 22 February 2016 from [facility]. HISTORY: Screening. Negative family history of breast cancer. Oral contraceptive usage times 6 months. Hormonal replacement therapy times 10 years. No prior breast interventions. FINDINGS: The breasts are composed of scattered fibroglandular densities. No skin thickening, nipple contour changes, or areas of architectural distortion are noted. Prior nodule in the outer half of the right breast is not redemonstrated. [place], [place] Nayan, Mhpn Incoming Radiant Results From [employer] - 11/30/2018 5:32 PM EDT EXAMINATION: BILATERAL DIGITAL SCREENING MAMMOGRAM, 11/30/2018 TECHNIQUE: CC and MLO views of the left and right breasts were obtained. Computer aided detection was utilized in the interpretation of this exam. 3D tomosynthesis images were obtained. COMPARISON: 19 December 2016; 22 February 2016 from [facility]. HISTORY: Screening. Negative family history of breast [...] screening mammogram in 1 year is advised. [place], [place] Encounters Encounter Date Encounter Type Care Provider Facility Start: 09-29-2023 End: 09-29-2023 ambulatory FELTON NEUMANN Not Available Start: 08-19-2023 End: 08-19-2023 ambulatory FELTON NEUMANN Not Available Start: 05-12-2023 End: 05-13-2023 ambulatory Marcin CAMPOS Facility: [facility] Start: 05-12-2023 End: 05-12-2023 Patient encounter procedure Marcin CAMPOS General Surgery [facility] Start: 04-29-2023 End: 04-30-2023 ambulatory Marcin Campos Facility:[facility] Start: 04-07-2023 End: 04-08-2023 ambulatory FELTON NEUMANN [facility] Start: 02-20-2023 ambulatory Marcin CAMPOS Facility:[facility] Start: 02-18-2023 End: 02-18-2023 ambulatory FELTON NEUMANN Not Available Start: 06-04-2022 End: 06-05-[address] NONE LISTED REQUEST Facility:[facility] Start: 02-17-2022 End: 02-18-2022 ambulatory Malcolm Rox Facility:[facility] Start: 11-12-2021 End: 11-13-[address] NONE LISTED REQUEST Facility:[facility] Start: 10-07-2021 End: 10-08-[address] NONE LISTED REQUEST Facility:[facility] Start: 10-02-2021 End: 10-03-[address] NONE LISTED REQUEST Facility: Start: 02-14-2021 End: 02-17-2021 [facility] Start: 02-14-2021 End: 02-16-2021 Subsequent hospital visit by physician [facility] Comment on above: Breast cancer screen ing by mammogram Start: 12-06-2019 End: 12-08-2019 Subsequent hospital visit by physician [facility] Comment on above: Breast cancer screen ing by mammogram Start: 11-30-2018 End: 12-02-2018 Subsequent hospital visit by physician [facility] Comment on above: Breast cancer screen ing by mammogram Procedures Date Procedure Procedure Detail Performing Clinician Start: 04-29-2023 Colonoscopy Marcin HIRSCH Start: 02-14-2021 Screening mammograph y bi 2-view breast inc cad Felton Neumann MD Work Phone: Start: 12-06-2019 Screening mammograph y bi 2-view breast inc cad Felton Neumann Work Phone: Start: 11-30-2018 Screening digital br east tomosynthesis bi Felton Neumann Work Phone: Cholecystectomy Marcin CAMPOS Colonoscopy Marcin CAMPOS Total abdominal hyst erectomy with bilateral salpingo-oophorectomy Marcin CAMPOS Plan of Treatment Date Care Activity Detail Author Start: 02-14-2023 Screening for malign ant neoplasm of breast Breast cancer screen [facility] Start: 12-05-2021 Screening for malign ant neoplasm of breast Breast cancer screen [place], [place] Start: 11-30-2020 Breast cancer screen Breast cancer s creen [place] Start: 10-31-2020 Influenza vaccination Flu vaccine (# 1) [facility] Start: 11-01-2019 Influenza vaccination Flu vaccine (# 1) [place] Start: 10-31-2018 Influenza vaccination Flu vaccine (# 1) [place] Start: 01-19-2008 Colon cancer screen colonoscopy Colon cancer screen colonoscopy [place] Start: 01-19-2008 Screening for malign ant neoplasm of colon Colon cancer screen colonoscopy [place] Start: 01-19-2008 Shingles Vaccine (1 of 2) Shingles Vaccine (1 of 2) [facility] Start: 2003 Screening for malign ant neoplasm of colon Colon cancer screen colonoscopy [facility] Start: 1998 Lipid panel Lipid screen [facility] Start: 1998 Lipid screen Lipid screen [place], [place] Start: 01-19-1988 Screening for malign ant neoplasm of cervix [facility] Start: 1979 Cervical cancer screen Cervical canc er screen [place], [place] Start: 1979 Screening for malign ant neoplasm of cervix [facility] Start: 1977 DTaP/Tdap/Td vaccine (1 - Tdap) DTaP/Tdap/Td vaccine (1 - Tdap) [facility] Start: 1973 HIV screen HIV screen [place], [place] Start: 1973 HIV screening HIV screen [facility] Start: 1970 COVID-19 Vaccine (1) COVID-19 Vaccin e (1) [facility] Start: 1958 Hepatitis C screen Hepatitis C scree n [place], [place] Start: 1958 Hepatitis C screening Hepatitis C sc reen [facility] Immunizations Immunization Date Immunization Notes Care Provider Fa cility 06-15-2021 SARS-CoV-2 (COVID-19 ) mRNA-1273 vaccine Marcin NILL [facility] 01-03-2021 SARS-CoV-2 (COVID-19 ) mRNA-1273 vaccine Marcin NILL [facility] 06-10-2020 SARS-CoV-2 (COVID-19 ) mRNA-1273 vaccine Marcin NILL [facility] 05-14-2020 SARS-CoV-2 (COVID-19 ) mRNA-1273 vaccine Marcin NILL [facility] Comment on above: Result Comment: 2023: [id number] NEGATED: Highlighted row has not occurred!04-07-2023 influenza virus vaccine, unspecified formulation Marcin PEARSONL [facility] Payers Date Payer Category Payer Medicare [id number] 2020 Unknown [id number] 2018 Unknown [employer] [facility] xxxxxxxxxxxx 2018-Present [phone] [address] [place] [address] xxxxxxxxxxxx [id number] 2018 Unknown MEDICAL MISBAH CRAWLEY VIKI - EXCHANGE [id number] 2018-Present [phone] [address] [place] [address] [id number] 1959 Self-pay 1958 Unknown [id number] 1958 Unknown [id number] 1958 Unknown [id number] 1958 Unknown [id number] 1958 Unknown [id number] 1958 Unknown [id number] [id number] 9 1958 Unknown [id number] 9 1958 Unknown [id number] 9 Unknown [id number] Unknown Unknown [id number] Unknown [id number] Unknown [id number] Social History Date Type Detail [facility] [place] Start: 1960 Sex Assigned At Not on file [place] Exposure to SARS-CoV -2 (event) Not sure [place] [facility] consumption unknown [employer] Work Phone: Start: 04-07-2023 Tobacco smoking status Ex-smoker (fi nding) [facility] Tobacco smoking status Never [facility] Sex Assigned At [facility] Clinical Note 04-07-2023 Note Date & Type [...] virus vaccine, keisha (more content not included)... [facility] Comment on above: Result Comment: Elec tronically Signed By: BARBIE VANEGAS, Marcin Diaz\Date and Time Signed: 04/07/23 19:36 EST Evaluation + Plan note Note Date & Type Note Facility Evaluation + Plan note No data available for this section [facility] Evaluation note Note Date & Type Note Facility Evaluation note Diagnosis Breast cancer screening by mammogram documented in this encounter [facility] Phone: Hospital Discharge instructions Note Date & Type Note Facility Hospital Discharge instructions No data available for this section [facility] Progress note Note Date & Type Note Facility Progress note No data available for this section [facility] Reason for Referral Status Reason Specialty Diagnoses / Procedures Referre d By Contact Referred To Contact Closed Radiology Diagnoses Breast cancer screening by mammogram Procedures TUYET DIGITAL SCREEN W OR WO CAD BILATERAL Felton Neumann MD [address] [place] [address] Status Reason Specialty Diagnoses / Procedures Referred By Contact Referred To Contact Authorized Radiology Diagnoses Breast cancer screening by mammogram Procedures TUYET [facility] DIGITAL SCREEN BILATERAL Felton Neumann MD [address] [place] [address] Specialty Diagnoses / Procedures Referred By Contac t Referred To Contact Radiology Diagnoses Breast cancer screening by mammogram Procedures TUYET [place] DIGITAL SCREEN BILATERAL Felton Neumann MD [address] [place] [address] Referral ID Status Reason Start Date Expiration Date Visits Re quested Visits Authorized [id number] Closed 11/29/2020 11/29/2021 1 1 Assessments Diagnosis Breast cancer screening by mammogram Diagnosis Breast cancer screening by mammogram Advance Directives No Advanced Directives Records FoundDocuments on File Type Date Recorded Patient Orthopedic Podiatrist Expl anation Advance Directives and Living Will Power of Draw Frame Operator Documents on File Type Date Recorded Patient Orthopedic Podiatrist Expl anation ACP-Advance Directive ACP-Power of Draw Frame Operator Summary Purpose Family History No Family History Records FoundNo Family History Records FoundNo Family History Records Found No data available for this section No Family History Records FoundNo Family History Records Found Additional Source Comments Reason for Visit (unrecogniz ed section and content) Status Reason Specialty Diagnoses / Procedures Referre d By Contact Referred To Contact Closed Radiology Diagnoses Breast cancer screening by mammogram Procedures TUYET DIGITAL SCREEN W OR WO CAD BILATERAL Felton Neumann MD [address] [place] [address] Status Reason Specialty Diagnoses / Procedures Referred By Contact Referred To Contact Pending Review Radiology Diagnoses Encounter for screening mammogram for malignant neoplasm of breast Procedures [facility] MAMMOGRAM DIGITAL SCREEN BILAT Felton Neumann MD [address] [place] [address] [facility] [address] [address] Specialty Diagnoses / Procedures Referred By Contac t Referred To Contact Radiology Diagnoses Breast cancer screening by mammogram Procedures TUYET [place] DIGITAL SCREEN BILATERAL Felton Neumann MD [address] [place] [address] Referral ID Status Reason Start Date Expiration Date Visits Re quested Visits Authorized [id number] Closed 11/29/2020 11/29/2021 1 1 Care Teams (unrecognized sec tion and content) Mouthpiece Maker Relationship Specialty Start Date End Date Felton Neumann MD [address] [place] [address] PCP - General Family Medicine 11/02/18 INFORMATION SOURCE (unrecogn ized section and content) DATE CREATED AUTHOR 02/17/2021 [facility] DATE CREATED AUTHOR AUTHOR'S ORGANIZ ATION 06/06/2022 [facility] DATE CREATED AUTHOR AUTHOR'S ORGANIZ ATION 05/05/2023 [facility] DATE CREATED AUTHOR AUTHOR'S ORGANIZ ATION 05/13/2023 [facility] DATE CREATED AUTHOR AUTHOR'S ORGANIZ ATION 10/01/2023 [facility] FOR RECORDS PERTAINING TO PATIENTS WHO ARE [...] BE BASED ON THE PRIMARY CLINICAL RECORDS. [employer] provides no warranty or guarantee of the accuracy or completeness of information in this document.
== END 2023-10-08 11:05 | disposition home or self-care (01) ==
LOC: EC 11:04
PROVIDERS: PCP Family Medicine; Visit Provider Physician Assistant
DX: M79.671 Pain in right foot (principal); M77.31 Calcaneal spur, right foot
CPT/HCPCS: 73630

== ENCOUNTER 2023-10-16 08:49 | Outpatient (RCR) | payer OTHER, SELFPAY | END 2023-10-30 09:56 | disposition home or self-care (01) | LOC: PT 08:49 | PROVIDERS: PCP Family Medicine; Visit Provider Physician Assistant | DX: M72.2 Plantar fascial fibromatosis (principal) | CPT/HCPCS: 97110; 97112; 97140; 97162 ==

== ENCOUNTER 2024-02-16 08:54 | Outpatient (REF) | payer OTHER, SELFPAY | END 2024-02-16 08:55 | disposition home or self-care (01) | LOC: LAB 08:54 | PROVIDERS: PCP Family Medicine; Visit Provider Otolaryngology | DX: G96.01 Cranial cerebrospinal fluid leak, spontaneous (principal) | CPT/HCPCS: 36415; 86335 ==

== ENCOUNTER 2024-02-25 10:08 | Outpatient (OUT) | payer OTHER, SELFPAY ==
--- OUTSIDE RECORDS SUMMARY | 2024-02-25 10:27 | XMS_ITS | CCD ---
Author Organization [facility] Care Team Providers Care Paralegal Supervisor Name Role Phone Felton Neumann Primary Care Provider FELTON NEUMANN Referring Unavailabl e NADERER, FELTON DAVE Primary [...] DR BURKS A Primary Care Unavailable REQUEST, NONE LISTED Attending Unavaila ble REQUEST, DR SEVILLA [...] Referring Unavailable NILL, Marcin Pinedo Attending Unavailable NILEli, Marcin Pinedo Attending Unavailable Felton Neumann MD Unavailable Felton Neumann MD Primary Care Provider FELTON NEUMANN Attending Unavailable NADERER, FELTON Attending Unavailable NADERER, FELTON Attending Unavailable NADERER, FELTON Attending Unavailable NADERER, FELTON Attending Unavailable MADELINE SYKES Attending Unavailable THIEN, FELTON Referring Unavailable Felton Neumann MD Unavailable Allergies Allergy Classification Reported Allergen(s) Allergy Type Date of Onset Reaction(s) Facility (1 source) No Known Medication Allergies; Translations: [No Known Medication Allergies] Propensity to adverse reactions (disorder) [facility] Repository Medications Current Medications Medication Drug Class(es) Dates Sig (Normalized) Sig (Original) calcium carbonate 600 mg / cholecalciferol 0.01 mg oral tablet (10 sources) Vitamin D Start: 01-26-2023 take 1 tablet by mouth in the morning Calcium Carb-Cholecalcife rol 600-10 MG-MCG tablet Take 1 tablet by mouth in the morning and 1 tablet before bedtime. 01/26/2023 Active ciprofloxacin 3 mg/ml / dexamethasone 1 mg/ml otic suspension (3 sources) Corticosteroid, Quinolone Antimicrobial Start: 02-16-2024 End: 02-23-2024 ciprofloxacin-dex AMETHasone (CiproDEX) otic suspension Indications: Chronic myringitis of left ear Administer 4 drops into the left ear in the morning and 4 drops before bedtime. Do all this for 7 days. 7.5 mL 02/16/2024 02/23/2024 Active clotrimazole 10 mg/ml topical solution (3 sources) Azole Antifungal Start: 02-16-2024 clotrimazole (Lotrimin) 1 % external solution Indications: Chronic myringitis of left ear 4 drops to left ear 2 times daily for 7 days 10 mL 1 02/16/2024 Active Start: 02-16-2024 clotrimazole ( Lotrimin) 1 % external solution Indications: Chronic myringitis of left ear 4 drops to left ear 2 times daily for 7 days 10 mL 1 02/16/2024 Active FLUoxetine 20 mg oral capsule (10 sources) Serotonin Reuptake Inhibitor Start: 01-12-2024 take 1 capsule by mouth once daily FLUoxetine (PROzac) 20 MG capsule Indications: ZEESHAN (generalized anxiety disorder) (CMS/HCC) TAKE 1 CAPSULE BY MOUTH DAILY 30 capsule 3 01/12/2024 Active Start: 09-29-2023 take 1 capsule by mo [facility] once daily FLUoxetine (PROzac) 20 MG capsule Indications: ZEESHAN (generalized anxiety disorder) (CMS/HCC) Take 1 capsule (20 mg) by mouth Daily 30 capsule 3 09/29/2023 Active hydroCHLOROthiazide 12.5 mg / lisinopril 10 mg oral tablet (11 sources) Thiazide Diuretic, Angiotensin Converting Enzyme Inhibitor Start: 06-03-2023 End: 11-04-2024 take 1 tablet by mouth once daily lisinopril-hydroCHLOROthiazide 10-12.5 MG tablet Indications: Essential hypertension, benign (CMS/HCC) TAKE 1 TABLET BY MOUTH DAILY 30 tablet 3 11/05/2023 11/04/2024 Active Start: 11-23-2022 levothyroxine sodium 0.1 mg oral tablet (11 sources) l-Thyroxine Start: 11-05-2023 take 1 tablet by mouth once daily levothyroxine (Synthroid, Levoxyl) 100 MCG tablet Indications: Hypothyroidism, unspecified (CMS/HCC) TAKE 1 TABLET BY MOUTH DAILY 90 tablet 3 11/05/2023 Active Start: 03-18-2023 take 1 tablet by [facility] once daily levothyroxine 100 mcg (0.1 mg) Tab 100 mcg = 1 tab(s), Oral, Daily, Refills(s) 0 Start Date: 03/18/23 Status: Ordered take 1 tablet by chevy [facility] before mealtime Synthroid 100 MCG tablet Take 100 mcg by mouth in the morning. Take before meals. Active meloxicam 15 mg oral tablet (11 sources) Nonsteroidal Anti-inflammatory Drug Start: 01-08-2023 take 1 tablet by mouth in the morning meloxicam (Mobic) 15 MG tablet Take 1 tablet by mouth in the morning. 01/09/2023 Active montelukast 10 mg oral tablet (10 sources) Leukotriene Receptor Antagonist Start: 09-08-2023 End: 02-16-2024 take 1 tablet by mouth at bedtime montelukast (Singulair) 10 MG tablet Indications: Allergic rhinitis due to pollen TAKE 1 TABLET BY MOUTH AT BEDTIME 90 tablet 3 09/08/2023 02/16/2024 Discontinued (Therapy completed) Start: 02-01-2023 take 1 tablet by chevy [facility] once daily in the evening montelukast 10 mg Tab 10 mg = 1 tab(s), Oral, qPM, Refills(s) 0 Start Date: 02/01/23 Status: Ordered predniSONE 10 mg oral tablet (3 sources) Start: 09-29-2023 End: 10-30-2023 take 6 tablets by mouth once daily, then take 4 tablets by mouth once daily, then take 2 tablets by mouth once daily, then take 1 tablet by mouth once daily predniSONE (Deltasone) 10 MG tablet Indications: Plantar fasciitis of right foot 6 PO daily x 3 days, 4 PO daily x 3 days, 2 PO daily x 3 days, 1 PO daily x 3 days 39 tablet 09/29/2023 10/30/2023 Discontinued raloxifene hydrochloride 60 mg oral tablet (11 sources) Estrogen Agonist/Antagon ist Start: 07-07-2023 take 1 tablet by mouth once daily raloxifene (Evista) 60 MG tablet Indications: Age-related osteoporosis without current pathological fracture (CMS/HCC) TAKE 1 TABLET BY MOUTH DAILY 90 tablet 3 07/07/2023 Active Start: 01-08-2023 Problems Active Problems Problem Classification Problem Date Documented Date Episodic/Chronic Anal and rectal conditions (1 source) Rectal polyp; Translations: [Rectal polyp] Onset: 05-12-2023 Episodic Anxiety disorders (12 sources) Generalized anxiety disorder; Translations: [Generalized anxiety disorder] Onset: 09-29-2023 09-29-2023 Chronic Disorders of lipid metabolism (13 sources) Dyslipidemia; Translations: [Hyperlipidemia, unspecified] Onset: 02-18-2023 03-18-2023 Chronic Esophageal disorders (11 sources) Gastroesophageal reflux disease; Translations: [Gastro-esophageal reflux disease without esophagitis] Onset: 02-18-2023 03-18-2023 Chronic Essential hypertension (15 sources) Benign essential hypertension; Translations: [Essential (primary) hypertension] Onset: 02-18-2023 03-18-2023 Chronic Comment on above: Outside Source Comme nt: Last Assessment & Plan: BP controlled and monitor PRN. Nutritional deficiencies (11 sources) Vitamin D deficiency; Translations: [Vitamin D deficiency, unspecified] Onset: 02-18-2023 03-18-2023 Chronic Osteoarthritis (10 sources) Primary gonarthrosis, bilateral; Translations: [Bilateral primary osteoarthritis of knee] Onset: 02-18-2023 02-18-2023 Chronic Osteoporosis (11 sources) Postmenopausal osteoporosis; Translations: [Age-related osteoporosis without current pathological fracture] Onset: 02-18-2023 03-18-2023 Chronic Other aftercare (8 sources) Long-term current use of drug therapy; Translations: [Other care home (current) drug therapy] Onset: 02-11-2024 02-11-2024 Episodic Other and unspecified benign neoplasm (1 source) Hyperplastic polyp of large intestine 05-12-2023 Episodic Other ear and sense organ disorders (2 sources) Hearing loss of left ear; Translations: [Other specified hearing loss, left ear] 02-16-2024 Chronic Other ear and sense organ disorders (2 sources) Chronic left myringitis; Translations: [Chronic myringitis, left ear] 02-16-2024 Chronic Other ear and sense organ disorders (10 sources) Otorrhea of left ear; Translations: [Otorrhea, left ear] Onset: 02-11-2024 02-11-2024 Episodic Other ear and sense organ disorders (2 sources) Cerebrospinal fluid otorrhea; Translations: [CSF otorrhea] 02-16-2024 Episodic Other injuries and conditions due to external causes (2 sources) Foreign body in left ear; Translations: [Foreign body in left ear, initial encounter] 02-16-2024 Episodic Other non-traumatic joint disorders (2 sources) Joint pain; Translations: [Pain in unspecified joint] 02-11-2024 Episodic Other nutritional; endocrine; and metabolic disorders (1 source) Overweight 04-07-2023 Episodic Other nutritional; endocrine; and metabolic disorders (1 source) Overweight in adulthood with body mass index of 25 or more but less than 30 04-07-2023 Episodic Other upper respiratory disease (11 sources) Allergic rhinitis due to pollen; Translations: [Allergic rhinitis due to pollen] Onset: 02-18-2023 03-18-2023 Chronic Comment on above: Outside Source Comme nt: Last Assessment & Plan: Symptoms controlled with medication and continue. Otitis media and related conditions (2 sources) Dysfunction of left eustachian tube; Translations: [Unspecified Eustachian tube disorder, left ear] 02-16-2024 Episodic Residual codes; unclassified (1 source) Family history of cancer of colon 04-07-2023 Episodic Thyroid disorders (12 sources) Hypothyroidism, unspecified; Translations: [Unspecified acquired hypothyroidism] Onset: 02-18-2023 02-18-2023 Chronic Unclassified (4 sources) Patient encounter status; Translations: [Breast cancer screening by mammogram] 03-18-2023 Unclassified (1 source) Primary hypothyroidism Onset: 02-18-2023 03-18-2023 Comment on above: Outside Source Comme nt: Last Assessment & Plan: No signs of low thyroid and recent labs normal. Continue synthroid. Past or Other Problems Problem Classification Problem Date Documented Da te Episodic/Chronic Diabetes mellitus without complication (13 sources) Prediabetes; Translations: [Prediabetes] Onset: 02-18-2023 03-18-2023 Episodic Mood disorders (6 sources) Mood disorders Onset: 02-11-2024 02-11-2024 Other connective tissue disease (10 sources) Plantar fasciitis of right foot; Translations: [Plantar fascial fibromatosis] Onset: 08-19-2023 08-19-2023 Episodic Other screening for suspected conditions (not mental disorders or infectious disease) (15 sources) Patient encounter status; Translations: [Encounter for screening mammogram for malignant neoplasm of breast] Onset: 02-17-2022 Episodic Results Test Name Value Interpretation Reference Range Facility ALL MISCELLANEOUS TESTon MISCELLANEOUS TEST COMMENT . [facility] Comment on above: Test Ordered: [id number] Beta-2 Transferrin Beta-2 Transferrin Note: Y8 Not Detected Reference Range: . The sample volume provided is insufficient to achieve the desired testing concentration. This may potentially compromise the assay's sensitivity. If there is a clinical need, it is recommended to submit a new specimen. INTERPRETIVE INFORMATION: Beta-2 Transferrin Detection of a beta-2 transferrin band by immunofixation is indicative of the presence of cerebrospinal fluid in the specimen. This test was developed and its performance characteristics determined by [facility]. It has not been cleared or approved by the [place] Food and Drug Administration. This test was performed in a CLIA certified laboratory and is intended for clinical purposes. Performed at: [facility] [address] [id number] Boat Mechanic: Jarocho Fournier [facility], Phone: [phone] Performed at: [address] [id number] Boat Mechanic: Sam Landin PhD, Phone: [phone] LEFT EAR [id number] Beta-2 Transferrin [facility] Ambulatory Visit Summaryon 0 05-12-2023 Ambulatory Visit Summary KEYON CHEATHAM :1960 Visit Date:05/12/2023 Ambulatory Visit Instructions Your Diagnosis Hyperplastic rectal polyp Your Care Team Attending Physician - BETH VANEGAS, Marcin Pinedo Primary Care Physician - THIEN VANEGAS, FELTON This Is [...] you for choosing us for your care. Gerardo [facility] General Surgery Office/Clini c Noteon 05-12-2023 General [...] data Procedure/Surgical History Colonoscopy (04/29/2023), Cholecystectomy, Colonoscopy, MIHCELLE BSO - Total abdominal hysterectomy and bilateral [...] (COVID-19) mRNA-1273 vaccine 05/14/2020 Recorded 2023-03-18: [id number] Normal [facility] Comment on above: Result Comment: Elec tronically Signed By: BETH VANEGAS, Marcin Diaz\Date and Time Signed: 05/12/23 13:08 EDT Reminderson 05-12-2023 Reminders - From: Nasima Truong LPN To: N - Clinical; Sent: 05/12/2023 13:00:44 EDT Show up: 03/29/2028 07:00:00 EST Subject: colonoscopy recall Due Date/Time: 04/29/2028 07:00:00 EST Reminder/Recall Patient due for surveillance colonoscopy 04/29/2028 due to family history of colon cancer. Normal [facility] Pathology Noteon 05-06-2023 Pathology Note [id number]#1.[address] [facility] Outside Colonoscopyon 2023 Outside Colonoscopy [id number]#1.[address] [facility] Victorino 04-29-2023 L Specimen: [id number] Received: 05/01/23 Status: JACQUELIN Parsonalfred Num: [id number] Spec Type: Surgical Subm Dr: Marcin Campos MD FACS Tissues: A Colon Biopsy (RECTAL POLYP) Procedures: HE/2, Gross/Micro L4 Age/ Patient Sex Location Account Attending Physician Keyon Cheatham 63/F LABELL [id number] Marcin Campos MD FACS SPEC NUM: [id number] RECD: 05/01/23 STATUS: JACQUELIN ALONSO NUM: [id number] ANDREA: 04/29/[address]: Marcin Campos MD FACS ENTERED: 05/01/[address] [facility] DR: Magy,Binta SPEC TYPE: Surgical DEPT: OSWALD RADER ORDERED: HE/2, Gross/Micro L4 ORDERED: HE/2, Gross/Micro L4 Pathological Diagnosis Rectal polyp biopsy: -Small serrated hyperplastic polyp Clinical Information Rectal polyp, sigmoid diverticulosis Gross Description Received in formalin labeled with the patient's name, date of and rectal polyp is one reyna tissue measuring 0.3 cm. Entirely submitted in one cassette labeled A1. CPT Codes 46840 ---- ---- Specimen: [id number] Received: 05/01/23 Status: JACQUELIN Alonso Num: [id number] Spec Type: Surgical Subm Dr: Marcin Campos MD FACS Tissues: A Colon Biopsy (RECTAL POLYP) Procedures: HE/Karthikeyan, Gross/Micro L4 ---- Patient: Keyon Cheatham [id number] (Continued) ---- Signed (signature on file) Enriqueta Billingsley MD 05/04/23 1840 [facility] Consent for Procedure/Surger yon 04-09-2023 Consent for Procedure/Surgery [id number]#1.0 0TIFF [facility] Ambulatory Visit Summaryon 0 04-07-2023 Ambulatory Visit Summary KEYON CHEATHAM :1960 Visit Date:04/07/2023 Ambulatory Visit Instructions Your Care Team Attending Physician - BETH VANEGAS, Marcin Pinedo Primary Care Physician - [...] for choosing us for your care. Normal [facility] Facesheeton 04-07-2023 Facesheet [id number]#1. 00TIFF Normal [facility] Insurance Correspondenceon 0 04-07-2023 Insurance Correspondence [id number]#1. 00TIFF Normal [facility] Physician Referralon 024 Physician Referral [id number]#1.0 0TIFF [facility] Physician Referralon 023 Physician Referral [id number]#1.0 0TIFF [facility] ELDER - TSHon 06-04-2022 TSH 1.292 uIU/mL Normal 0.358-3.740 [facility] Comment on above: Performed By: #### D ATTSH #### [facility] [address] [place] [address] Dr. Mela Billingsley TSH RANGE SEE BELOW Normal [facility] Comment on above: Result Comment: <0.3 4 UIU/ml HYPERTHYROID 0.34-5.60 UIU/ml EUTHYROID >5.60 UIU/ml HYPOTHYROID Performed By: #### D ATTSH #### [facility] [address] [place] [address] Dr. Mela Billingsley GLYCOHEMOGLOBIN A1Con 2022 ADA RECOMMENDATION SEE BELOW Normal [facility] Comment on above: Result Comment: ADA RECOMMENDED LIMIT 4.0 - 6.0 ADA THERAPEUTIC TARGET < 7.0 ACTION SUGGESTED > 7.0 Performed By: #### D ATA1C #### [facility] [address] [place] [address] Dr. Mela Billingsley Glucose [Mass/Vol] 117 mg/dL Normal [facility] Comment on above: Performed By: #### D ATA1C #### [facility] [address] [address] [address] Mela Billingsley HbA1c (Bld) [Mass fraction] 5.7 % Normal 4.5-6.2 [facility] Comment on above: Performed By: #### D ATA1C #### [facility] [address] [address] [address] Mela Billingsley MG MAMM SCREEN 3D ANTONIA CADon 02-17-2022 MG MAMM SCREEN 3D ANTONIA CAD Patient: KEYON CHEATHAM Exam Date: 02/17/2022 : 1960 Gender:F Ordering : DR FELTON NEUMANN . Admission #: [id number] Family : Order #: [id number] CLICK HERE TO VIEW EXAM RADIOLOGY REPORT [...] Treatments None Family Cancers None LOCATION: [facility] BREAST COMPOSITION: Scattered areas fibroglandular density. FINDINGS: [...] M.D. on 02/18/2022 at 11:38 Normal [facility] ELDER - TSHon 11-12-2021 TSH 0.153 uIU/mL Critically low 0.358-3.740 [place] Comment on above: Performed By: #### D ATTSH #### [facility] [address] [address] [address] Mela Billingsley TSH RANGE SEE BELOW Normal [facility] Comment on above: Result Comment: <0.3 4 UIU/ml HYPERTHYROID 0.34-5.60 UIU/ml EUTHYROID >5.60 UIU/ml HYPOTHYROID Performed By: #### D ATTSH #### [facility] [address] [place] [address] Dr. Mela Billingsley CBC AUTO DIFFon 10-07-2021 BASO # 0.1 103/ul Normal 0.0-0.1 [facility] Comment on above: Performed By: #### D ATCBC #### [facility] [address] [place] [address] Dr. Mela Billingsley Basophils/100 WBC (Bld) 1.3 % Normal 0.2-2.0 [facility] Comment on above: Performed By: #### D ATCBC #### [facility] [address] [place] [address] Dr. Mela Billingsley EO # 0.1 103/ul Normal 0.0-0.7 [facility] Comment on above: Performed By: #### D ATCBC #### [facility] [address] [place] [address] Dr. Mela Billingsley Eosinophils/100 WBC (Bld) 1.7 % Normal 0.9-7.0 [facility] Comment on above: Performed By: #### D ATCBC #### [facility] [address] [place] [address] Dr. Mela Billingsley Erythrocyte distribution width (RBC) [Ratio] 13.3 % Normal 11.0-15.0 [facility] Comment on above: Performed By: #### D ATCBC #### [facility] [address] [place] [address] Dr. Mela Billingsley Hematocrit (Bld) [Volume fraction] 40.1 % Normal 36.0-48.0 [facility] Comment on above: Performed By: #### D ATCBC #### [facility] [address] [place] [address] Dr. Mela Billingsley Hemoglobin (Bld) [Mass/Vol] 13.1 g/dL Normal 12.0-16.0 [facility] Comment on above: Performed By: #### D ATCBC #### [facility] [address] [address] [address] Mela Billingsley IG # 0.03 10e3/ul Normal 0.00-0.03 [facility] Comment on above: Performed By: #### D ATCBC #### [facility] [address] [address] [address] Mela Billingsley IG % 0.6 % Critically high 0.0-0.5 [facility] Comment on above: Performed By: #### D ATCBC #### [facility] [address] [address] [address] Mela Billingsley LYMPH # 1.6 103/ul Normal 1.2-3.8 [facility] Comment on above: Performed By: #### D ATCBC #### [facility] [address] [address] [address] Mela Billingsley Lymphocytes/100 WBC (Bld) 34.4 % Normal 20.5-60.0 [facility] Comment on above: Performed By: #### D ATCBC #### [facility] [address] [address] [address] Mela Billingsley MCH (RBC) [Entitic mass] 29.5 pg Normal 26.7-34.0 [facility] Comment on above: Performed By: #### D ATCBC #### [facility] [address] [address] [address] Mela Billingsley MCHC (RBC) [Mass/Vol] 32.7 g/dL Normal 29.9-35.2 [facility] Comment on above: Performed By: #### D ATCBC #### [facility] [address] [address] [address] Mela Billingsley MCV (RBC) [Entitic vol] 90.3 fL Normal 81.0-99.0 [facility] Comment on above: Performed By: #### D ATCBC #### [facility] [address] [address] [address] Mela Billingsley MONO # 0.4 103/ul Normal 0.3-0.8 [facility] Comment on above: Performed By: #### D ATCBC #### [facility] [address] [place] [address] Dr. Mela Billingsley Monocytes/100 WBC (Bld) 9.0 % Normal 1.7-12.0 [facility] Comment on above: Performed By: #### D ATCBC #### [facility] [address] [place] [address] Dr. Mela Billingsley NEUT # 2.5 103/ul Normal 1.4-6.5 [facility] Comment on above: Performed By: #### D ATCBC #### [facility] [address] [place] [address] Dr. Mela Billingsley Neutrophils/100 WBC (Bld) 53.0 % Normal 43.0-75.0 [facility] Comment on above: Performed By: #### D ATCBC #### [facility] [address] [place] [address] Dr. Mela Billingsley Platelet mean volume (Bld) [Entitic vol] 10.0 fL Normal 9.5-13.5 [facility] Comment on above: Performed By: #### D ATCBC #### [facility] [address] [place] [address] Dr. Mela Billingsley PLT 243 103/ul Normal 150-450 [facility] Comment on above: Performed By: #### D ATCBC #### [facility] [address] [place] [address] Dr. Mela Billingsley RBC 4.44 106/ul Normal 4.20-5.40 [facility] Comment on above: Performed By: #### D ATCBC #### [facility] [address] [place] [address] Dr. Mela Billingsley WBC 4.8 103/ul Normal 4.0-11.0 [facility] Comment on above: Performed By: #### D ATCBC #### [facility] [address] [place] [address] Dr. Mela Billingsley ELDER - TSHon 10-07-2021 TSH 0.178 uIU/mL Critically low 0.358-3.740 [place] Comment on above: Performed By: #### D ATBMP, DATTSH #### [facility] [address] [place] [address] Dr. Mela Billingsley TSH RANGE SEE BELOW Normal [facility] Comment on above: Result Comment: <0.3 4 UIU/ml HYPERTHYROID 0.34-5.60 UIU/ml EUTHYROID >5.60 UIU/ml HYPOTHYROID Performed By: #### D ATBMP, DATTSH #### [facility] [address] [place] [address] Dr. Mela Billingsley ELDER- BMP WITH LIPIDon 2021 Anion gap [Moles/Vol] 13.1 mmol/L Normal [facility] Comment on above: Performed By: #### D ATBMP, DATTSH #### [facility] [address] [place] [address] Dr. Mela Billingsley Calcium [Mass/Vol] 9.0 mg/dL Normal 8.5-10.1 [facility] Comment on above: Performed By: #### D ATP, DATTSH #### [facility] [address] [place] [address] Dr. Mela Billingsley Chloride [Moles/Vol] 104 mmol/L Normal 98-107 [facility] Comment on above: Performed By: #### [facility], [facility] #### [facility] [address] [place] [address] Dr. Mela Billingsley Cholesterol [Mass/Vol] 193 mg/dL Normal <=200 [facility] Comment on above: Performed By: #### D ATBMP, DATTSH #### [facility] [address] [place] [address] Dr. Mela Billingsley Cholesterol in HDL [Mass/Vol] 62 mg/dL Critically high 40-60 [facility] Comment on above: Performed By: #### D ATBMP, DATTSH #### [facility] [address] [place] [address] Dr. Mela Billingsley Cholesterol in LDL [Mass/Vol] 120.0 mg/dL Normal [facility] Comment on above: Performed By: #### D ATBMP, DATTSH #### [facility] [address] [address] [address] Mela Billingsley CO2 [Moles/Vol] 27.0 mmol/L Normal 21.0-32.0 [facility] Comment on above: Performed By: #### D ATBMP, DATTSH #### [facility] [address] [place] [address] Dr. Mela Billingsley Creatinine [Mass/Vol] 0.86 mg/dL Normal 0.55-1.02 [facility] Comment on above: Performed By: #### D ATBMP, DATTSH #### [facility] [address] [place] [address] Dr. Mela Billingsley EGFR-AF SINGAPOREAN >60 Normal >=60 [facility] Comment on above: Performed By: #### D ATBMP, DATTSH #### [facility] [address] [place] [address] Dr. Mela Billingsley EGFR-NON AF [place]INGAPOREAN >60 Normal >=60 [facility] Comment on above: Performed By: #### D ATP, DATTSH #### [facility] [address] [place] [address] Dr. Mela Billingsley HDL NORMAL > or = 60 mg/dl - LO W CARDIOVASCULAR RISK <40 mg/dl - HIGH CARDIOVASCULAR RISK Normal [facility] Comment on above: Performed By: #### D ATBMP, DATTSH #### [facility] [address] [place] [address] Dr. Mela Billingsley LDL CALC NORMAL SEE BELOW Normal [facility] Comment on above: Result Comment: <100 mg/dl OPTIMAL 100 - 129 mg/dl NEAR OR ABOVE OPTIMAL 130 - 159 mg/dl BORDERLINE HIGH 160 - 189 mg/dl HIGH >190 mg/dl VERY HIGH Performed By: #### D ATBMP, DATTSH #### [facility] [address] [place] [address] Dr. Mela Billingsley Potassium [Moles/Vol] 4.1 mmol/L Normal 3.5-5.1 [facility] Comment on above: Performed By: #### D ATBMP, DATTSH #### [facility] [address] [address] [address] Mela Billingsley Sodium [Moles/Vol] 140 mmol/L Normal 136-145 [facility] Comment on above: Performed By: #### D ATBMP, DATTSH #### [facility] [address] [address] [address] Mela Billingsley Triglyceride [Mass/Vol] 55 mg/dL Normal <=150 [facility] Comment on above: Performed By: #### D ATBMP, DATTSH #### [facility] [address] [place] [address] Dr. Mela Billingsley Urea nitrogen [Mass/Vol] 14.0 mg/dL Normal 7.0-18.0 [facility] Comment on above: Performed By: #### D ATBMP, DATTSH #### [facility] [address] [place] [address] Dr. Mela Billingsley Urea nitrogen/Creatinine [Mass ratio] 16.3 mg/mg Normal [facility] Comment on above: Performed By: #### D ATBMP, DATTSH #### [facility] [address] [place] [address] Dr. Mela Billingsley VLDL CALC 11.0 mg/dL Normal [facility] Comment on above: Performed By: #### D ATBMP, DATTSH #### [facility] [address] [place] [address] Dr. Mela Billingsley GLYCOHEMOGLOBIN A1Con 2021 ADA RECOMMENDATION SEE BELOW Normal [facility] Comment on above: Result Comment: ADA RECOMMENDED LIMIT 4.0 - 6.0 ADA THERAPEUTIC TARGET < 7.0 ACTION SUGGESTED > 7.0 Performed By: #### D ATA1C #### [facility] [address] [place] [address] Dr. Mela Billingsley Glucose [Mass/Vol] 111 mg/dL Critically high 74-106 [facility] Comment on above: Performed By: #### D ATA1C #### [facility] [address] [address] [address] Mela Billingsley Performed By: #### [facility], DATTS #### [facility] [address] [address] [address] Mela Billingsley HbA1c (Bld) [Mass fraction] 5.5 % Normal 4.5-6.2 [facility] Comment on above: Performed By: #### D ATA1C #### [facility] [address] [address] [address] Mela Billingsley [facility] DIGITAL SCREEN BILA TERALon 02-14-2021 [facility] [place] DIGITAL SCREEN BILATERAL EXAMINATION: SCREENING DIGITAL [...] to the patient regarding the results. [employer] recommends annual mammograms for women 40 years and older. Interpreted by: Case Licona DO Signed by: Case Licona DO 02/14/21 Final result Normal [facility] No mammographic evidence of malignancy. BIRADS: BIRADS - CATEGORY 1 Negative. Normal interval follow-up is recommended in 12 months. OVERALL ASSESSMENT - NEGATIVE A letter of notification will be sent to the patient regarding the results. [employer] recommends annual mammograms for women 40 years and older. [facility] EXAMINATION: SCREENING DIGITAL BILATERAL MAMMOGRAM [...] concerning grouping of microcalcification in either breast. [facility] Radiology Study observation (narrative) [place] Phone: [facility] DIGITAL SCREEN BILA TERALOrdered By: Case Licona on 02-14-2021 [place] Phone: [facility] [place] DIGITAL SCREEN BILA TERALon [...] screening mammogram in 1 year is advised. [facility] [place] EXAMINATION: SCREENI NG DIGITAL BILATERAL MAMMOGRAM WITH TOMOSYNTHESIS, 12/06/2019 TECHNIQUE: Screening mammography was performed with tomosynthesis including MLO and CC views of the bilateral breasts. Computer aided detection was used for the interpretation of this exam. COMPARISON: 30 November 2018, [facility]; 29 February 2016[facility] HISTORY: Screening. Negative family history of breast cancer. Negative history of hormonal replacement therapy. No prior breast interventions. FINDINGS: The breasts are composed of scattered fibroglandular densities. No skin thickening, nipple contour changes, malignant type microcalcifications, areas of architectural distortion, or significant interval changes are noted. [place], [facility] Incoming Radiant Results From [employer] - 12/06/2019 1:27 PM EDT EXAMINATION: SCREENING DIGITAL BILATERAL MAMMOGRAM WITH TOMOSYNTHESIS, 12/06/2019 TECHNIQUE: Screening mammography was performed with tomosynthesis including MLO and CC views of the bilateral breasts. Computer aided detection was used for the interpretation of this exam. COMPARISON: 30 November 2018, [facility]; 29 February 2016[facility] HISTORY: Screening. Negative family history of [...] screening mammogram in 1 year is advised. [facility] W OR WO C [...] screening mammogram in 1 year is advised. [facility] EXAMINATION: BILATER AL DIGITAL SCREENING MAMMOGRAM, 11/30/2018 TECHNIQUE: CC and MLO views of the left and right breasts were obtained. Computer aided detection was utilized in the interpretation of this exam. 3D tomosynthesis images were obtained. COMPARISON: 19 December 2016; 22 February 2016 from [facility]. HISTORY: Screening. Negative family history of breast cancer. Oral contraceptive usage times 6 months. Hormonal replacement therapy times 10 years. No prior breast interventions. FINDINGS: The breasts are composed of scattered fibroglandular densities. No skin thickening, nipple contour changes, or areas of architectural distortion are noted. Prior nodule in the outer half of the right breast is not redemonstrated. [facility] [place] Incoming Radiant Results From [employer] - 11/30/2018 5:32 PM EDT EXAMINATION: BILATERAL DIGITAL SCREENING MAMMOGRAM, 11/30/2018 TECHNIQUE: CC and MLO views of the left and right breasts were obtained. Computer aided detection was utilized in the interpretation of this exam. 3D tomosynthesis images were obtained. COMPARISON: 19 December 2016; 22 February 2016 from [facility]. HISTORY: Screening. Negative family history of breast [...] screening mammogram in 1 year is advised. [facility], [place] Vital Signs Date Time Vital Sign Value Performing Clinician Caio riggs 02-16-2024 08:25-0500 Body height 165.1 cm Madeline Sykes MD Work Phone: [facility] 02-16-2024 08:25-0500 Body mass index (BMI) [Ratio] 29.95 kg/m2 Madeline Sykes MD Work Phone: [facility] 02-16-2024 08:25-0500 Body weight 81.65 kg Madeline Sykes MD Work Phone: [facility] 02-16-2024 08:25-0500 Diastolic blood pressure 80 mm[Hg] Madeline Sykes MD Work Phone: [facility] 02-16-2024 08:25-0500 Systolic blood pressure 137 mm[Hg] Madeline Sykes MD Work Phone: [facility] 02-11-2024 09:19-0500 Body height 162.6 cm Felton Neumann MD Work Phone: [facility] 02-11-2024 09:19-0500 Body mass index (BMI) [Ratio] 30.9 kg/m2 Felton Neumann MD Work Phone: [facility] 02-11-2024 09:19-0500 Body temperature 96.6 [degF] Felton Neumann MD Work Phone: [facility] 02-11-2024 09:19-0500 Body weight 81.65 kg Felton Neumann MD Work Phone: [facility] 02-11-2024 09:19-0500 Diastolic blood pressure 74 mm[Hg] Felton Neumann MD Work Phone: [facility] 02-11-2024 09:19-0500 Heart rate 93 /min Felton Neumann MD Work Phone: [facility] 02-11-2024 09:19-0500 Respiratory rate 22 /min Felton Neumann MD Work Phone: [facility] 02-11-2024 09:19-0500 SaO2% (BldA) [Mass fraction] 98 % Felton Neumann MD Work Phone: [facility] 02-11-2024 09:19-0500 Systolic blood pressure 132 mm[Hg] Felton Neumann MD Work Phone: [facility] 10-30-2023 10:33-0400 Body height 165.1 cm Felton Neumann MD Work Phone: [facility] 10-30-2023 10:33-0400 Body mass index (BMI) [Ratio] 29.95 kg/m2 Felton Neumann MD Work Phone: [facility] 10-30-2023 10:33-0400 Body temperature 97.81 [degF] Felton Neumann MD Work Phone: [facility] 10-30-2023 10:33-0400 Body weight 81.65 kg Felton Neumann MD Work Phone: [facility] 10-30-2023 10:33-0400 Diastolic blood pressure 70 mm[Hg] Felton Neumann MD Work Phone: [facility] 10-30-2023 10:33-0400 Heart rate 93 /min Felton Neumann MD Work Phone: [facility] 10-30-2023 10:33-0400 Respiratory rate 22 /min Felton Neumann MD Work Phone: [facility] 10-30-2023 10:33-0400 SaO2% (BldA) [Mass fraction] 98 % Felton Neumann MD Work Phone: [facility] 10-30-2023 10:33-0400 Systolic blood pressure 138 mm[Hg] Felton Neumann MD Work Phone: [facility] Encounters Encounter Date Encounter Type Care Provider Facility Start: 02-16-2024 End: 02-16-2024 Bamboo flowsheet Madeline Sykes MD Work Phone: [facility] Start: 02-16-2024 End: 02-20-2024 Bamboo flowsheet Madeline Sykes MD Work Phone: [facility] Start: 02-16-2024 End: 02-20-2024 Clinisync Result Encounter Generic External Data Provider [facility] Unsolicited Start: 02-16-2024 End: 02-16-2024 Office outpatient new 45 minutes Madeline Sykes MD Work Phone: [facility] Comment on above: ETD (Eustachian tube dysfunction), left (Primary Dx); CSF otorrhea; Other specified hearing loss of left ear, unspecified hearing status on contralateral side; Chronic myringitis of left ear; Foreign body of left ear, initial encounter Start: 02-16-2024 End: 02-16-2024 ambulatory MADELINE SYKES Not Available Start: 02-11-2024 End: 02-11-2024 Bamboo flowsheet Felton Neumann MD Work Phone: [facility] Start: 02-11-2024 End: 02-11-2024 Bamboo flowsheet Felton Neumann MD Work Phone: [facility] Start: 02-11-2024 End: 02-11-2024 Office outpatient visit 15 minutes Felton Neumann MD Work Phone: [facility] Comment on above: Medicare annual well ness visit, subsequent (Primary Dx); Essential hypertension, benign (CMS/HCC); Prediabetes; Primary hypothyroidism (CMS/HCC); Dyslipidemia (CMS/HCC); Encounter for long-term (current) use of medications; Arthralgia, unspecified joint; Otorrhea of left ear Start: 02-11-2024 End: 02-11-2024 Patient encounter procedure Felton Neumann MD Work Phone: [facility] Start: 02-11-2024 End: 02-11-2024 ambulatory FELTON NEUMANN Not Available Start: 10-30-2023 End: 10-30-2023 Bamboo flowsheet Felton Neumann MD Work Phone: [facility] Start: 10-30-2023 End: 10-30-2023 Bamboo flowsheet Felton Neumann MD Work Phone: [facility] Start: 10-30-2023 End: 10-30-2023 Office outpatient visit 15 minutes Felton Neumann MD Work Phone: [facility] Comment on above: Essential hypertensi on, benign (CMS/HCC) (Primary Dx); ZEESHAN (generalized anxiety disorder) (CMS/HCC) Start: 10-30-2023 End: 10-30-2023 ambulatory FELTON NEUMANN Not Available Start: 09-29-2023 End: 09-29-2023 ambulatory FELTON NEUMANN Not Available Start: 08-19-2023 End: 08-19-2023 ambulatory FELTON NEUMANN Not Available Start: 05-12-2023 End: 05-13-2023 ambulatory Marcin CAMPOS Facility: [facility] Start: 05-12-2023 End: 05-12-2023 Patient encounter procedure Marcin CAMPOS General Surgery Beth/Erendira Bhatti Start: 04-29-2023 End: 04-30-2023 ambulatory Marcin Campos Facility:[facility] Start: 04-07-2023 End: 04-08-2023 ambulatory FELTON NEUMANN Facility: [facility] Start: 02-20-2023 ambulatory Marcin CAMPOS Facility:[facility] Start: 02-18-2023 End: 02-18-2023 ambulatory FELTON NEUMANN Not Available Start: 06-04-2022 End: 06-05-2022 ambulatory NONE LISTED REQUEST Facility:[facility] Start: 02-17-2022 End: 02-18-2022 ambulatory Malcolm Gramajo Facility:[facility] Start: 11-12-2021 End: 11-13-[address] NONE LISTED REQUEST Facility:[facility] Start: 10-07-2021 End: 10-08-2021 ambulatory NONE LISTED REQUEST Facility:[facility] Start: 10-02-2021 End: 10-03-2021 ambulatory NONE LISTED REQUEST Facility: Start: 02-14-2021 End: 02-17-2021 ambulatory FELTON NEUMANN [facility] Start: 02-14-2021 End: 02-16-2021 Subsequent hospital visit by physician [facility] Comment on above: Breast cancer screen ing by mammogram Start: 12-06-2019 End: 12-08-2019 Subsequent hospital visit by physician [facility] Comment on above: Breast cancer screen ing by mammogram Start: 11-30-2018 End: 12-02-2018 Subsequent hospital visit by physician [facility] Comment on above: Breast cancer screen ing by mammogram Procedures Date Procedure Procedure Detail Performing Clinician Start: 02-16-2024 ALL MISCELLANEOUS TEST Madeline Sykes MD Work Phone: Start: 04-29-2023 Colonoscopy Felton aguila MD Work Phone: Start: 04-29-2023 Colonoscopy Marcin HIRSCH Start: 02-18-2023 Mammography Felton aguila MD Work Phone: Start: 02-14-2021 Screening mammograph y bi 2-view [...] Treatment Date Care Activity Detail Author Start: 04-29-2033 Screening for malignant neoplasm of colon [facility] Start: 02-10-2025 Medicare Annual Wellness (AWV) Medicare Annual Wellness (AWV) [facility] Start: 07-11-2024 End: 07-11-2024 Patient encounter procedure 07/11/2024 9:00 AM EDT Office Visit [facility] [address] [place] [address] Felton Neumann MD [address] [place] [address] [facility] Start: 02-29-2024 End: 02-29-2024 Professional / ancillary services management 02/29/2024 2:30 PM EST Ancillary Procedure [facility] [address] [place] [address] [facility] [place] [id number] [facility] Start: 02-19-2024 Screening for malignant neoplasm of breast Mammogram [facility] Start: 02-16-2024 End: 02-16-2024 Patient encounter procedure 02/16/2024 8:40 AM EST Office Visit [facility] [address] [facility] [address] [place] [phone] Madeline Sykes MD [address] [facility] [address] [place] [address] Otorrhea of left ear [facility] Comment on above: Otorrhea of left ear Start: 02-11-2024 End: 02-10-2025 Basic metabolic 1998 panel - Serum or Plasma Basic metabolic panel Lab Routine Essential hypertension, benign (CMS/HCC) Expected: 02/11/2024 (Approximate), Expires: 02/10/2025 [facility] Comment on above: Expected: 02/11/2024 (Approximate), Expi res: 02/10/2025 Start: 02-11-2024 End: 02-10-2025 CBC W Auto Differential panel - Blood CBC and differential Lab Routine Encounter for long-term (current) use of medications Expected: 02/11/2024 (Approximate), Expires: 02/10/2025 [facility] Comment on above: Expected: 02/11/2024 (Approximate), Expi res: 02/10/2025 Start: 02-11-2024 End: 02-10-2025 Erythrocyte sedimentation rate Sedimentation rate, automated Lab Routine Arthralgia, unspecified joint Expected: 02/11/2024 (Approximate), Expires: 02/10/2025 [facility] Comment on above: Expected: 02/11/2024 (Approximate), Expi res: 02/10/2025 Start: 02-11-2024 End: 02-10-2025 Hemoglobin A1c/Hemoglobin.total in Blood Hemoglobin A1c Lab Routine Prediabetes Expected: 02/11/2024 (Approximate), Expires: 02/10/2025 [facility] Work Phone: Comment on above: Expected: 02/11/2024 (Approximate), Expi res: 02/10/2025 Start: 02-11-2024 End: 02-10-2025 Hepatic function 2000 panel - Serum or Plasma Hepatic function panel Lab Routine Encounter for long-term (current) use of medications Expected: 02/11/2024 (Approximate), Expires: 02/10/2025 [facility] Comment on above: Expected: 02/11/2024 (Approximate), Expi res: 02/10/2025 Start: 02-11-2024 End: 02-10-2025 Lipid 1996 panel - Serum or Plasma Lipid panel Lab Routine Dyslipidemia (CMS/HCC) Expected: 02/11/2024 (Approximate), Expires: 02/10/2025 [facility] Comment on above: Expected: 02/11/2024 (Approximate), Expi res: 02/10/2025 Start: 02-11-2024 End: 02-10-2025 Nuclear Ab [Titer] in Serum by Immunofluorescence HIRA Lab Routine Arthralgia, unspecified joint Expected: 02/11/2024 (Approximate), Expires: 02/10/2025 [facility] Comment on above: Expected: 02/11/2024 (Approximate), Expi res: 02/10/2025 Start: 02-11-2024 End: 02-10-2025 Rheumatoid factor [Units/volume] in Serum or Plasma Rheumatoid factor Lab Routine Arthralgia, unspecified joint Expected: 02/11/2024 (Approximate), Expires: 02/10/2025 [facility] Comment on above: Expected: 02/11/2024 (Approximate), Expi res: 02/10/2025 Start: 02-11-2024 End: 02-10-2025 Thyrotropin [Units/volume] in Serum or Plasma TSH Lab Routine Primary hypothyroidism (CMS/HCC) Expected: 02/11/2024 (Approximate), Expires: 02/10/2025 [facility] Comment on above: Expected: 02/11/2024 (Approximate), Expi res: 02/10/2025 Start: 02-11-2024 End: 02-10-2025 Thyroxine (T4) free [Mass/volume] in Serum or Plasma T4, free Lab Routine Primary hypothyroidism (CMS/HCC) Expected: 02/11/2024 (Approximate), Expires: 02/10/2025 [facility] Comment on above: Expected: 02/11/2024 (Approximate), Expi res: 02/10/2025 Start: 02-11-2024 End: 02-11-2024 Patient encounter procedure [facility] Comment on above: Arrived Start: 02-08-2024 End: 02-08-2024 Patient encounter procedure 02/08/2024 8:30 AM EST Office Visit [facility] [address] [place] [phone] Felton Neumann MD [address] [place] [phone] [facility] Start: 11-01-2023 Influenza vaccination Influenza Vaccine (#1) [facility] Start: 10-30-2023 End: 10-30-2023 Patient encounter procedure 10/30/2023 10:30 AM EDT Office Visit [facility] [address] [place] [phone] Felton Neumann MD [address] [place] [phone] Arrived [facility] Comment on above: Arrived Start: 02-14-2023 Screening for malignant neoplasm of breast Breast cancer screen [facility] Start: 2023 Pneumococcal Vaccine: 65+ Years (2 of 2 - PPSV23 or PCV20) Pneumococcal Vaccine: 65+ Years (2 of 2 - PPSV23 or PCV20) [facility] Start: 12-05-2021 Screening for malignant neoplasm of breast Breast cancer screen [place], [place] Start: 11-30-2020 Breast cancer screen Breast cancer screen [place], [place] Start: 10-31-2020 Influenza vaccination Flu vaccine (#1) [facility] Start: 11-01-2019 Influenza vaccination Flu vaccine (#1) [place] Start: 10-31-2018 Influenza vaccination Flu vaccine (#1) [place] Start: 01-15-2017 Pneumococcal Vaccine: 65+ Years (2 of 2 - PPSV23 or PCV20) Pneumococcal Vaccine: 65+ Years (2 of 2 - PPSV23 or PCV20) [facility] Start: 01-19-2008 Colon cancer screen colonoscopy Colon cancer screen colonoscopy [place], [place] Start: 01-19-2008 Screening for malignant neoplasm of colon Colon cancer screen colonoscopy [place], [place] Start: 01-19-2008 Shingles Vaccine (1 of 2) Shingles Vaccine (1 of 2) [facility] Start: 2003 Screening for malignant neoplasm of colon Colon cancer screen colonoscopy [facility] Start: 1998 Lipid panel Lipid screen [facility] Start: 1998 Lipid screen Lipid screen [place], [place] Start: 01-19-1988 Screening for malignant neoplasm of cervix [facility] Start: 1979 Cervical cancer screen Cervical cancer screen [place], [place] Start: 1979 Screening for malignant neoplasm of cervix [facility] Start: 1977 DTaP/Tdap/Td vaccine (1 - Tdap) DTaP/Tdap/Td vaccine (1 - Tdap) [facility] Start: 1973 HIV screen HIV screen [place], [place] Start: 1973 HIV screening HIV screen [facility] Start: 1970 COVID-19 Vaccine (1) COVID-19 Vaccine (1) [facility] Start: 1960 Hepatitis C screen Hepatitis C screen [facility], [place] Start: 1960 Hepatitis C screening Hepatitis C screen [facility] Start: 1960 Medicare Annual Wellness (AWV) Medicare Annual Wellness (AWV) [facility] Start: 1960 Screening for malignant neoplasm of colon [facility] Healthcare Immunizations Immunization Date Immunization Notes Care Provider Fa cility 06-15-2021 SARS-CoV-2 (COVID-19 ) mRNA-1273 vaccine Marcin PEARSONL [facility] [place] 01-03-2021 SARS-CoV-2 (COVID-19 ) mRNA-1273 vaccine Marcin NILL [facility] [place] 06-10-2020 SARS-CoV-2 (COVID-19 ) mRNA-1273 vaccine Marcin NILL [facility] [place] 05-14-2020 SARS-CoV-2 (COVID-19 ) mRNA-1273 vaccine Marcin NILL [facility] [place] Comment on above: Result Comment: 2023: [id number] 11-20-2016 pneumococcal conjugate vaccine, 13 valent Felton Neumann MD Work Phone: [facility] NEGATED: Highlighted row has not occurred!04-07-2023 influenza virus vaccine, unspecified formulation Marcin CAMPOS General [facility] Payers Date Payer Category Payer Medicare (Managed Care) [facility] [id number] 2022 Unknown 2022 Medicare [id number] 2020 Unknown [id number] 2018 Unknown [employer] NN xxxxxxxxxxxx 2018-Present [phone] [address] [place] [address] xxxxxxxxxxxx [id number] 2018 Unknown [employer] M [employer] VIKI - EXCHANGE [id number] 2018-Present [phone] [address] [place] [address] [id number]. [id number] 1959 Self-pay 1958 Unknown [id number] 2.16.840.1.924052.3.579.2. 173 1958 Unknown [id number] 2.16.840.1.317723.3.579.2. 593 1958 Unknown [id number] 2.16.840.1.678467.3.579.2. 727 1958 Unknown [id number] 2.16.840.1.190583.3.579.2. 727 1958 Unknown [id number] 2.16.840.1.934405.3.579.2. 727 1958 Unknown [id number] 2.16.840.1.857898.3.579.2. 1259 1958 Unknown [id number] 2.16.840.1.058502.3.579.2. 1259 1958 Unknown [id number] 2.16.840.1.692484.3.579.2. 1259 1958 Unknown [id number] 2.16.840.1.768816.3.579.2. 1259 1958 Unknown [id number] 2.16.840.1.844416.3.579.2. 1259 1958 Unknown [id number] 2.16.840.1.455155.3.579.2. 1259 Unknown [id number] 2.16.840.1.510932.3.579.2. 593 Unknown [id number] 2.16.840.1.741142.3.579.2. 593 Unknown [id number] 2.16.840.1.611249.3.579.2. 593 Unknown [id number] 2.16.840.1.975106.3.579.2. 593 Social History Date Type Detail Facility Tobacco smoking stat [facility] Unknown if ever smoked [facility] Start: 1960 Sex Assigned At Not on file [facility] [place] Exposure to SARS-CoV -2 (event) Not sure [facility] [place] Tobacco smoking stat [facility] Tobacco smoking consumption unknown [employer] Work Phone: Start: 04-07-2023 End: 02-16-2024 Tobacco smoking status Ex-smoker (finding) [facility] [place] Tobacco smoking status Never [facility] [place] Start: 02-17-2023 End: 02-11-2024 Sex Assigned At Female [facility] Start: 03-02-1989 End: 03-02-1999 History of tobacco use Current smoker [facility] Start: 03-02-1989 End: 03-02-1999 History of tobacco use Cigarette Smoker [facility] Start: 02-17-2023 End: 02-18-2023 Cigarettes smoked current (pack per day) - Reported 3 [facility] Start: 02-18-2023 End: 02-16-2024 Tobacco use and exposure Smokeless tobacco non-user [facility] Within the last year , have you been afraid of your partner or ex-partner? No [facility] Are you now , , , , never or living with a partner? [facility] How often to you hav e a drink containing alcohol? 2-3 time sa week [facility] How many standard drinks containing alcohol do you have on a typical day? 1 or 2 [facility] How often do you hav e 6 or more drinks on 1 occasion? Never [facility] Start: 02-16-2024 Alcoholic beverage intake Ex-drinker (finding) [facility] Clinical Notes 04-07-2023 to 02-16-2024 Madeline Sykes MD - 02/16/2024 8:40 AM Christelle Neumann MD - 02/11/2024 10:11 AM Christelle Neumann MD - 02/11/2024 10:10 AM Christelle Neumann MD - 02/11/2024 9:15 AM EST Note Date & Type Note Facility 02-16-2024 History of Present illness Narrative Images from the original note were not included. Subjective Patient ID: Keyon Cheatham is a 64 y.o. female who presents for Ear Problem (Otorrhea of left ear) Pt reports a lifelong h/o ear trouble. Has taken claratin to keep ears open. Now has had 3 months clear otorrhea on the left. Has always had left hearing loss. No ear surgery. Otorrhea increased when laying down and awakens with a wet pillow Review of Systems All other systems reviewed and are negative. Family History Problem Relation Name Age of Onset Heart disease Father CAD Active Ambulatory Problems Diagnosis Date Noted Essential hypertension, benign ([facility]/HCC) 02/18/2023 Primary osteoarthritis of both knees 02/18/2023 Dyslipidemia (CMS/HCC) 02/18/2023 Gastroesophageal reflux disease 02/18/2023 Primary hypothyroidism (CMS/HCC) 02/18/2023 Osteoporosis, post-menopausal (CMS/HCC) 02/18/2023 Prediabetes 02/18/2023 Vitamin D deficiency 02/18/2023 Seasonal allergic rhinitis due to pollen 02/18/2023 Colon cancer screening 02/18/2023 Plantar fasciitis of right foot 08/19/2023 ZEESHAN (generalized anxiety disorder) ([facility]) 09/29/2023 Medicare annual wellness visit, subsequent 02/11/2024 Encounter for long-term (current) use of medications 02/11/2024 Otorrhea of left ear 02/11/2024 Resolved Ambulatory Problems Diagnosis Date Noted No Resolved Ambulatory Problems Past Medical History: Diagnosis Date At low risk for fall Benign essential hypertension (CMS/HCC) Former smoker GERD without esophagitis Hypothyroidism, adult (CMS/HCC) Non-seasonal allergic rhinitis due to pollen Obesity with body mass index (BMI) of 30.0 to 39.9 Osteoporosis, postmenopausal (CMS/HCC) Right wrist pain Past Surgical History: Procedure Laterality Date CHOLECYSTECTOMY HYSTERECTOMY No Known Allergies Current Outpatient Medications on File Prior to Visit Medication Sig Dispense Refill Calcium Carb-Cholecalciferol 600-10 MG-MCG tablet Take 1 tablet by mouth in the morning and 1 tablet before bedtime. FLUoxetine (PROzac) 20 MG capsule TAKE 1 CAPSULE BY MOUTH DAILY 30 capsule 3 levothyroxine (Synthroid, Levoxyl) 100 MCG tablet TAKE 1 TABLET BY MOUTH DAILY 90 tablet 3 lisinopril-hydroCHLOROthiazide 10-12.5 MG tablet TAKE 1 TABLET BY MOUTH DAILY 30 tablet 3 meloxicam (Mobic) 15 MG tablet Take 1 tablet by mouth in the morning. raloxifene (Evista) 60 MG tablet TAKE 1 TABLET BY MOUTH DAILY 90 tablet 3 [DISCONTINUED] montelukast (Singulair) 10 MG tablet TAKE 1 TABLET BY MOUTH AT BEDTIME 90 tablet 3 No current facility-administered medications on file prior to visit. Objective Last Recorded Vitals Vitals: 02/16/24 0825 BP: 137/80 ENT Physical Exam Constitutional Appearance: patient appears well-developed, well-nourished and well-groomed, Head and Face Appearance: head appears normal and face appears atraumatic; Ear Ear Canals: right ear canal normal; Tympanic Membranes: right tympanic membrane normal; Ear comments: LT - EAC filled with fungal and squamous debris. Post TM severely retracted with granulation evident. No gross cholesteatoma, but tyhere is marked clear otorrhea Nose External Nose: nares patent bilaterally; external nose normal; Internal Nose: septum normal; Oral Cavity/Oropharynx Tongue: normal; Oral mucosa: normal; Hard palate: normal; Soft palate: normal; Tonsils: normal; Neck Neck: neck normal; neck palpation normal; Thyroid: thyroid normal; Respiratory Inspection: breathing unlabored; normal breathing rate; Auscultation: breath sounds are clear; Cardiovascular Inspection: extremities are warm and well perfused; no peripheral edema present; Auscultation: regular rate and rhythm; Patient ID: Keyon Cheatham is a 64 y.o. female. Procedures Foreign body removed from the left ear canal under micro with a suction Assessment/Plan Diagnoses and all orders for this visit: ETD (Eustachian tube dysfunction), left CSF otorrhea - Ambulatory referral to ENT Other specified hearing loss of left ear, unspecified hearing status on contralateral side Chronic myringitis of left ear Pt clearly has had left ETD for decades. There m ay be a cholesteatoma and I am worried she has CSF otorrhea. I will start ciprodex and clotrimazole for her infection. I will also get a specimen of fluid for beta-2 transferrin and check a CT temporal bone to evaluate for a tegmen defect. documented in this encounter [facility] 02-11-2024 History of Present illness Narrative Associated Problem(s): Otorrhea of left ear Drainage for months and not able to visualize TM. Refer to ENT for evaluation. Associated Problem(s): Medicare annual wellness visit, subsequent Due for labs. Discussed proper diet and regular aerobic exercise. Need aerobic exercise 5-6 days a week for 30 minutes at a time. Smaller portions and limit total calories. Colonoscopy every 10 years. Tetanus every 10 years. Advised not to smoke. Discussed daily Aspirin therapy. Images from the original note were not included. Subjective Patient ID: Keyon Cheatham is a 64 y.o. female who presents for Medicare Annual Wellness Visit Initial (WELLNESS). Presents for medicare annual wellness visit. Weight up 4 pounds in past year. Tries to stay active around house but no exercise. C/o increased pain in multiple joints limiting activity. Tries to watch diet and eat healthy. Increased fruits and vegetables. Smaller portions and limits snacking. Tries to limit total daily calories. Due for labs. C/o drainage from left ear for about 2 months. Mild drainage during day but severe at night. Often pillow and hair wet when wake up. Drainage clear and watery but no odor. Occasional pain in ear. No symptoms on right. History of allergies and congestion, uses singulair PRN. Reports history of recurrent OM as a child and seen ENT years ago and was told bones in ears deteriorating but nothing could be done. Continues to have drainage from ear. Review of Systems Respiratory: Negative for cough, shortness of breath and wheezing. Cardiovascular: Negative for chest pain and palpitations. Gastrointestinal: Negative for abdominal pain, diarrhea, nausea and vomiting. Genitourinary: Negative for dysuria. Objective Physical Exam Constitutional: General: She is not in acute distress. Appearance: Normal appearance. HENT: Head: Normocephalic. Right Ear: Tympanic membrane normal. Ears: Comments: Left canal obstructed by debris and fluid, not able to visualize TM. Eyes: Extraocular Movements: Extraocular movements intact. Pupils: Pupils are equal, round, and reactive to light. Cardiovascular: Rate and Rhythm: Normal rate and regular rhythm. Heart sounds: No murmur heard. No friction rub. No gallop. Pulmonary: Effort: Pulmonary effort is normal. Breath sounds: Normal breath sounds. No wheezing, rhonchi or rales. Abdominal: General: Bowel sounds are normal. There is no distension. Palpations: Abdomen is soft. Tenderness: There is no abdominal tenderness. There is no guarding or rebound. Musculoskeletal: General: No swelling or tenderness. Cervical back: Neck supple. Right lower leg: No edema. Left lower leg: No edema. Skin: Findings: No erythema or rash. Neurological: General: No focal deficit present. Mental Status: She is alert and oriented to person, place, and time. Cranial Nerves: No cranial nerve deficit. Motor: No weakness. Gait: Gait normal. Assessment/Plan Problem List Items Addressed This Visit Essential hypertension, benign (CMS/HCC) Relevant Orders Basic metabolic panel Dyslipidemia (CMS/HCC) Relevant Orders Lipid panel Primary hypothyroidism (CMS/HCC) Relevant Orders TSH T4, free Prediabetes Relevant Orders Hemoglobin A1c Medicare annual wellness visit, subsequent - Primary Due for labs. Discussed proper diet and regular aerobic exercise. Need aerobic exercise 5-6 days a week for 30 minutes at a time. Smaller portions and limit total calories. Colonoscopy every 10 years. Tetanus every 10 years. Advised not to smoke. Discussed daily Aspirin therapy. Encounter for long-term (current) use of medications Relevant Orders CBC and differential Hepatic function panel Otorrhea of left ear Drainage for months and not able to visualize TM. Refer to ENT for evaluation. Other Visit Diagnoses Arthralgia, unspecified joint Relevant Orders Sedimentation rate, automated HIRA Rheumatoid factor documented in this encounter [facility] 10-30-2023 History of Present illness Narrative Associated Problem(s): ZEESHAN (generalized anxiety disorder) (CMS/HCC) Symptoms controlled with prozac and continue at current dose. Associated Problem(s): Essential hypertension, benign (CMS/HCC) BP controlled and monitor PRN. Images from the original note were not included. Subjective Patient ID: Keyon Cheatham is a 63 y.o. female who presents for Follow-up (1 m). Follow up HTN and anxiety. Patient feels well today. Checking BP PRN and typically controlled. BP normal today. Taking medication daily and tolerating without side effects. Started prozac last visit and mood much improved. Not as stressed out or overwhelmed. Not as nervous or worry as much. Not as dang or irritable. Tolerating medication without side effects. Review of Systems Respiratory: Negative for cough, shortness of breath and wheezing. Cardiovascular: Negative for chest pain and palpitations. Gastrointestinal: Negative for abdominal pain, diarrhea, nausea and vomiting. Genitourinary: Negative for dysuria. Objective Physical Exam Constitutional: General: She is not in acute distress. Appearance: Normal appearance. HENT: Head: Normocephalic. Right Ear: Tympanic membrane normal. Left Ear: Tympanic membrane normal. Eyes: Extraocular Movements: Extraocular movements intact. Pupils: Pupils are equal, round, and reactive to light. Cardiovascular: Rate and Rhythm: Normal rate and regular rhythm. Heart sounds: No murmur heard. No friction rub. No gallop. Pulmonary: Effort: Pulmonary effort is normal. Breath sounds: Normal breath sounds. No wheezing, rhonchi or rales. Abdominal: General: Bowel sounds are normal. There is no distension. Palpations: Abdomen is soft. Tenderness: There is no abdominal tenderness. There is no guarding or rebound. Musculoskeletal: Cervical back: Neck supple. Right lower leg: No edema. Left lower leg: No edema. Neurological: Mental Status: She is alert. Assessment/Plan Problem List Items Addressed This Visit Essential hypertension, benign (CMS/HCC) - Primary BP controlled and monitor PRN. ZEESHAN (generalized anxiety disorder) (CMS/HCC) Symptoms controlled with prozac and continue at current dose. documented in this encounter [facility] 04-07-2023 Note Chief Complaint consultation for colonoscopy [...] virus vaccine, keisha (more content not included)... [facility] Comment on above: Result Comment: Elec tronically Signed By: BETH VANEGAS, Marcin [email or web address].bev\Date and Time Signed: 04/07/23 19:36 EST Evaluation + Plan note No data available for this section [facility] [place] Evaluation note Diagnosis Breast cancer screening by mammogram documented in this encounter [employer] Work Phone: evaluation note* Diagnosis Essential hypertension, benign (CMS/HCC)- Primary Essential hypertension, benign Seasonal allergic rhinitis due to pollen Primary osteoarthritis of both knees Primary hypothyroidism (CMS/HCC) Unspecified hypothyroidism Colon cancer screening Special screening for malignant neoplasms, colon Osteoporosis, post-menopausal (CMS/HCC) Senile osteoporosis Essential hypertension, benign (CMS/HCC)- Primary Essential hypertension, benign Plantar fasciitis of right foot Primary osteoarthritis of both knees Seasonal allergic rhinitis due to pollen Plantar fasciitis of right foot- Primary ZEESHAN (generalized anxiety disorder) (CMS/HCC) Generalized anxiety disorder Essential hypertension, benign (CMS/HCC)- Primary Essential hypertension, benign ZEESHAN (generalized anxiety disorder) ([facility]/HCC) Generalized anxiety disorder Medicare annual wellness visit, subsequent- Primary Essential hypertension, benign ([facility]) Essential hypertension, benign Prediabetes Other abnormal glucose Primary hypothyroidism ([facility]) Unspecified hypothyroidism Dyslipidemia ([facility]) Other and unspecified hyperlipidemia Encounter for long-term (current) use of medications Encounter for long-term (current) use of other medications Arthralgia, unspecified joint Otorrhea of left ear documented in this encounter [facility] HealthcareEvaluation note* Diagnosis Essential hypertension, benign ([facility]/HCC)- Primary Essential hypertension, benign Seasonal allergic rhinitis due to pollen Primary osteoarthritis of both knees Primary hypothyroidism ([facility]) Unspecified hypothyroidism Colon cancer screening Special screening for malignant neoplasms, colon Osteoporosis, post-menopausal ([facility]) Senile osteoporosis Essential hypertension, benign ([facility])- Primary Essential hypertension, benign Plantar fasciitis of right foot Primary osteoarthritis of both knees Seasonal allergic rhinitis due to pollen Plantar fasciitis of right foot- Primary ZEESHAN (generalized anxiety disorder) ([facility]) Generalized anxiety disorder Essential hypertension, benign ([facility])- Primary Essential hypertension, benign ZEESHAN (generalized anxiety disorder) ([facility]) Generalized anxiety disorder Medicare annual wellness visit, subsequent- Primary Essential hypertension, benign ([facility]) Essential hypertension, benign Prediabetes Other abnormal glucose Primary hypothyroidism ([facility]) Unspecified hypothyroidism Dyslipidemia ([facility]) Other and unspecified hyperlipidemia Encounter for long-term (current) use of medications Encounter for long-term (current) use of other medications Arthralgia, unspecified joint Otorrhea of left ear ETD (Eustachian tube dysfunction), left- Primary CSF otorrhea Other specified hearing loss of left ear, unspecified hearing status on contralateral side Chronic myringitis of left ear Foreign body of left ear, initial encounter documented in this encounter [facility] HealthcareEvaluation note* Diagnosis Essential hypertension, benign ([facility]/HCC)- Primary Essential hypertension, benign ZEESHAN (generalized anxiety disorder) ([facility]) Generalized anxiety disorder documented in this encounter [facility]ospital Discharge instructions No data available for this section [facility] Progress note No data available for this section [facility] [place] Reason for Referral Status Reason Specialty Diagnoses / Procedures Referre d By Contact Referred To Contact Closed Radiology Diagnoses Breast cancer screening by mammogram Procedures TUYET DIGITAL SCREEN W OR WO CAD BILATERAL Felton Neumann MD [address] [place] [address] Status Reason Specialty Diagnoses / Procedures Referred By Contact Referred To Contact Authorized Radiology Diagnoses Breast cancer screening by mammogram Procedures TUYET QUEENIE DIGITAL SCREEN BILATERAL Felton Neumann MD [address] [place] [address] Specialty Diagnoses / Procedures Referred By Contac t Referred To Contact Radiology Diagnoses Breast cancer screening by mammogram Procedures [facility] QUEENIE DIGITAL SCREEN BILATERAL Felton eNumann MD [address] [place] [address] Referral ID Status Reason Start Date Expiration Date Visits Re quested Visits Authorized [id number] Closed 11/29/2020 11/29/2021 1 1 Assessments Diagnosis Breast cancer screening by mammogram Diagnosis Breast cancer screening by mammogram Advance Directives Documents on File Type Date Recorded 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 Advance Directives and Living Will Power of Billboard Poster Helper Documents on File Type Date Recorded 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 ACP-Advance Directive ACP-Power of Billboard Poster Helper Summary Purpose Family History No Family History [...] BILATERAL Felton Neumann MD [address] [place] [address] Status Reason Specialty Diagnoses / Procedures Referred By Contact Referred To Contact Pending Review Radiology Diagnoses Encounter for screening mammogram for malignant neoplasm of breast Procedures [facility] MAMMOGRAM DIGITAL SCREEN BILAT Felton Neumann MD [address] [place] [address] [facility] [address] [address] Specialty Diagnoses / Procedures Referred By Contac t Referred To Contact Radiology Diagnoses Breast cancer screening by mammogram Procedures TUYET QUEENIE DIGITAL SCREEN BILATERAL Felton Neumann MD [address] [place] [address] Referral ID Status Reason Start Date Expiration Date Visits Re quested Visits Authorized [id number] Closed 11/29/2020 11/29/2021 1 1 Reason Comments Medicare Annual Wellness Visit Initial W KYLE Reason Comments Ear Problem Otorrhea of left ear Specialty Diagnoses / Procedures Referred By Contac t Referred To Contact Otolaryngology Diagnoses Otorrhea of left ear Procedures [facility] [place] Felton Neumann MD [address] [place] [address] Phone: tel: fax: Madeline Sykes MD [address] [place] [address] [place] [address] Phone: tel: fax: Referral ID Status Reason Start Date Expiration Date V isits Requested Visits Authorized [id number] Closed Specialty Services Required 02/11/2024 08/09/2024 1 1 Reason Comments Follow-up 1 m Care Teams (unrecognized sec tion and content) Paralegal Supervisor Relationship Specialty Start Date End Date Felton Neumann MD [address] [place] [address] PCP - General Family Medicine 11/02/18 Paralegal Supervisor Relationship Specialty Start Date End Date Felton Neumann MD [address] [place] [address] PCP - Devoted 12/31/22 03/01/24 Felton Neumann MD [address] [place] [address] PCP - General Family Medicine 08/19/23 Paralegal Supervisor Relationship Specialty Start Date End Date Felton Neumann MD [address] [place] [address] PCP - Devoted 12/31/22 03/01/24 Felton Neumann MD [address] [place] [address] PCP - General Family Medicine 08/19/23 Paralegal Supervisor Relationship Specialty Start Date End Date Felton Neumann MD [address] [place] [address] PCP - Devoted 12/31/22 03/01/24 Felton Neumann MD [address] [place] [address] PCP - General Family Medicine 08/19/23 Paralegal Supervisor Relationship Specialty Start Date End Date Felton Neumann MD [address] [place] [address] PCP - Devoted 12/31/22 03/01/24 Felton Neumann MD [address] [place] [address] PCP - General Family Medicine 08/19/23 Paralegal Supervisor Relationship Specialty Start Date End Date Felton Neumann MD [address] [place] [address] PCP - Devoted 12/31/22 Felton Neumann MD [address] [place] [address] PCP - General Family Medicine 08/19/23 Paralegal Supervisor Relationship Specialty Start Date End Date Felton Neumann MD [address] [place] [address] PCP - Devoted 12/31/22 Felton Neumann MD [address] [place] [phone] PCP - General Family Medicine 08/19/23 Paralegal Supervisor Relationship Specialty Start Date End Date Felton Neumann MD [address] [place] [phone] PCP - Devoted 12/31/22 03/01/24 Felton Neumann MD [address] [place] [phone] PCP - General Family Medicine 08/19/23 INFORMATION SOURCE (unrecogn ized section and content) DATE CREATED AUTHOR 02/17/2021 Margaret Meyers [facility] DATE CREATED AUTHOR AUTHOR'S ORGANIZ ATION 06/06/2022 [facility] DATE CREATED AUTHOR AUTHOR'S ORGANIZ ATION 05/05/2023 [facility] DATE CREATED AUTHOR AUTHOR'S ORGANIZ ATION 05/13/2023 [facility] DATE CREATED AUTHOR AUTHOR'S ORGANIZ ATION 02/18/2024 [facility] EPIC FOR RECORDS PERTAINING TO PATIENTS WHO ARE [...] BE BASED ON THE PRIMARY CLINICAL RECORDS. [facility] [employer] [facility]. provides no warranty or guarantee of the accuracy or completeness of information in this document.
--- NOTE | 2024-02-25 10:39 | MM_ITS ---
Patient Name: KEYON CHEATHAM MR#: [id number] : 1960 Exam Date: 02/25/2024 Ordering Doctor: DR Felton Puga . RADIOLOGY REPORT PROCEDURE: MM TOMOSYNTHESIS SCREENING BI COMPARISON: MM TOMOSYNTHESIS SCREENING BI, 02/18/2023. MG MAMM SCREEN 3D ANTONIA CAD, 02/17/2022. MG MAMM SCREEN 3D ANTONIA CAD, 02/14/2021. MG MAMM ANTONIA SCRN W CAD DIG, 02/15/2013. INDICATIONS: Screening Calculator Name NCI Breast Cancer Risk Assessment Tool 5 Year Breast Cancer Risk 1.80% Lifetime Breast Cancer Risk 6.50% Personal Breast Cancer No Personal Ovarian Cancer No Treatments None Family Cancers None LOCATION: [facility] BREAST COMPOSITION: There are scattered areas of fibroglandular density. FINDINGS: DIAGNOSTIC CATEGORY 1--NEGATIVE. RIGHT BREAST: No significant suspicious finding. No significant change has occurred. LEFT BREAST: No significant suspicious finding. No significant change has occurred. RECOMMENDATIONS: ROUTINE MAMMOGRAM AND CLINICAL EVALUATION IN 12 MONTHS. PLEASE NOTE: A NORMAL MAMMOGRAM DOES NOT EXCLUDE THE POSSIBILITY OF BREAST CANCER. A CLINICALLY SUSPICIOUS PALPABLE LUMP SHOULD BE BIOPSIED. Dictated by: Malcolm Gramajo M.D. on 02/25/2024 at 12:00 Approved by: Malcolm Gramajo M.D. on 02/25/2024 at 12:03
[2024-02-25 10:52] LABS: Basophils Absolute Auto 0.1 10^3/uL (0.0-0.1); Basophils Percent Auto 1.2 % (0.2-2.0); Eosinophils Absolute Auto 0.1 10^3/uL (0.0-0.7); Eosinophils Percent Auto 1.6 % (0.9-7.0); Hematocrit 41.1 % (36.0-48.0); Hemoglobin 13.2 g/dL (12.0-16.0); Immature Granulocytes Abs Auto 0.03 10^3/uL (0.00-0.03); Immature Granulocytes Pct Auto 0.5 % (0.0-0.5); Lymphocytes Absolute Auto 1.9 10^3/uL (1.2-3.8); Lymphocytes Percent Auto 32.1 % (20.5-60.0); Mean Corpuscular HGB Conc 32.1 g/dL (29.9-35.2); Mean Corpuscular Volume 90.3 fL (81.0-99.0); Mean Platelet Volume 10.1 fL (9.5-13.5); Monocytes Absolute Auto 0.6 10^3/uL (0.3-0.8); Monocytes Percent Auto 10.1 % (1.7-12.0); Neutrophils Absolute Auto 3.2 10^3/uL (1.4-6.5); Neutrophils Percent Auto 54.5 % (43.0-75.0); Platelet Count 263 10^3/uL (150-450); Red Blood Count 4.55 10^6/uL (4.20-5.40); Red Cell Distribution Width 13.2 % (11.0-15.0); White Blood Count 5.8 10^3/uL (4.0-11.0)
[2024-02-25 11:15] LABS: Erythrocyte Sedimentation Rate 14 mm/hr (<=30)
[2024-02-25 11:26] LABS: Alanine Aminotransferase 25 U/L (14-59); Albumin Globulin Ratio 1.1; Albumin Level 3.7 g/dL (3.4-5.0); Alkaline Phosphatase 80 U/L (46-116); Anion Gap 11.1; Aspartate Amino Transferase 13 U/L (15-37); BUN Creatinine Ratio 19.5; Bilirubin Direct 0.1 mg/dL (0.0-0.2); Bilirubin Total 0.3 mg/dL (0.2-1.0); Calcium 9.3 mg/dL (8.5-10.1); Carbon Dioxide 30.5 mmol/L (21.0-32.0); Chloride 101 mmol/L (98-107); Chol HDL Ratio 3.3; Cholesterol 207 mg/dL (<=200); Estimated GFR (African America >60 (>=60 mL/min/1.73m^2); Estimated GFR (Non-African Ame >60 (>=60 mL/min/1.73m^2); Globulin 3.3 g/dL; Glucose 102 mg/dL (74-106); HDL Cholesterol 63 mg/dL (40-60); Potassium 3.6 mmol/L (3.5-5.1); Sodium 139 mmol/L (136-145); Thyroid Stimulating Hormone 0.981 uIU/mL (0.358-3.740); Triglycerides 99 mg/dL (<=150); VLDL CHOLESTEROL 19.8 mg/dL
[2024-02-25 11:34] LABS: Free T4 1.14 ng/dL (0.76-1.46)
[2024-02-25 11:48] LABS: Estimated Average Glucose 123 mg/dL; Glycohemoglobin A1C 5.9 % (4.5-6.2)
[2024-02-26 04:15] LABS: Rheumatoid Factor (RF) <10.0 IU/mL (<14.0)
[2024-02-26 13:08] LABS: Antinuclear Antibodies, IFA Negative (.)
== END 2024-02-25 10:09 | disposition home or self-care (01) ==
LOC: MAMMO 10:09
PROVIDERS: PCP Family Medicine; Visit Provider Family Medicine
DX: Z12.31 Encounter for screening mammogram for malignant neoplasm of breast (principal); R73.03 Prediabetes; I10 Essential (primary) hypertension; Z79.899 Other long term (current) drug therapy; E78.5 Hyperlipidemia, unspecified; E03.9 Hypothyroidism, unspecified; M25.50 Pain in unspecified joint
CPT/HCPCS: 36415; 77063; 77067; 80048; 80061; 80076; 83036; 84439; 84443; 85025; 85652; 86038; 86431

== ENCOUNTER 2024-05-04 08:13 | Outpatient (OUT) | payer MEDICARE, SELFPAY ==
--- NOTE | 2024-05-04 08:24 | ECG_ITS ---
[facility] Test Date: 2024-05-04 Pat Name: KEYON CHEATHAM Department: Room: - Gender: Female [place]: : 1960 Requested By: [id number] Order Number: [id number] Reading MD: BRAD KUMAR M.D. Measurements Intervals [place] Rate: 87 P: 77 AL: 160 QRS: 22 QRSD: 97 T: 68 QT: 357 QTc: 430 Interpretive Statements SINUS RHYTHM INCOMPLETE RIGHT BUNDLE BRANCH BLOCK [90+ ms QRS DURATION, TERMINAL R IN V1/V2, 40+ ms S IN I/aVL/V4/V5/V6] No previous ECG available for comparison Electronically Signed On 05-04-2024 9:09:06 EST by BRAD KUMAR M.D.
--- OUTSIDE RECORDS SUMMARY | 2024-05-04 08:36 | XMS_ITS | CCD ---
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 Name Role Phone Felton Neumann Primary Care [...] DR SEVILLA LISTED Consulting Unavaila ble REQUEST, NONE LISTED Consulting Unavaila ble REQUEST, DR SEVILLA [...] Attending Unavailable Nill, Marcin Pinedo Admitting Unavailable NADEREKhris, FELTON Primary Care Physician Marcin CAMPOS Attending Unavailable NADERER, FELTON Referring Unavailable NILL, Marcin Pinedo Attending Unavailable NILCarola, Marcin Pinedo Attending Unavailable Thien VANEGAS, Felton Unavailable Felton Neumann MD Primary Care Provider Felton Neumann MD Unavailable MADELINE SYKES Attending Unavailable NADEREKhris, FELTON Attending Unavailable NADEREKhris, FELTON Attending Unavailable NADEREKhris, FELTON Attending Unavailable NADEREKhris, FELTON Attending Unavailable MADELINE SYKES Attending Unavailable FELTON NEUMANN Referring Unavailable MADELINE SYKES Referring Unavailable Allergies Allergy Classification Reported Allergen(s) Allergy Type Date of Onset Reaction(s) Facility (1 source) No Known Medication Allergies; Translations: [No Known Medication Allergies] Propensity to adverse reactions (disorder) [facility] Repository Medications Current Medications Medication Drug Class(es) Dates Sig (Normalized) Sig (Original) calcium carbonate 600 mg / cholecalciferol 0.01 mg oral tablet (14 sources) Vitamin D Start: 01-26-2023 take 1 tablet by mouth in the morning Calcium Carb-Cholecalcif cori 600-10 MG-MCG tablet Take 1 tablet by mouth in the morning and 1 tablet before bedtime. 01/26/2023 Active ciprofloxacin 3 mg/ml / dexamethasone 1 mg/ml otic suspension (5 sources) Corticosteroid, Quinolone Antimicrobial Start: 03-23-2024 End: 03-30-2024 ciprofloxacin-de xAMETHasone (CiproDEX) otic suspension Indications: Otorrhea of left ear Administer 4 drops into the left ear in the morning and 4 drops before bedtime. Do all this for 7 days. 7.5 mL 03/23/2024 03/30/2024 Active Start: 02-16-2024 End: 02-23-2024 ciprofloxacin-dexAMETHasone (CiproDEX) otic suspension Indications: Chronic myringitis of left ear Administer 4 drops into the left ear in the morning and 4 drops before bedtime. Do all this for 7 days. 7.5 mL 02/16/2024 02/23/2024 Active clotrimazole 10 mg/ml topical solution (7 sources) Azole Antifungal Start: 02-16-2024 End: 03-23-2024 clotrimazole (Lotrimin) 1 % external solution Indications: Chronic myringitis of left ear 4 drops to left ear 2 times daily for 7 days 10 mL 1 02/16/2024 03/23/2024 Discontinued (Therapy completed) FLUoxetine 20 mg oral capsule (14 sources) Serotonin Reuptake Inhibitor Start: 01-12-2024 take 1 capsule by mouth once daily FLUoxetine (PROzac) 20 MG capsule Indications: ZEESHAN (generalized anxiety disorder) (CMS/HCC) TAKE 1 CAPSULE BY MOUTH DAILY 30 capsule 3 01/12/2024 Active Start: 09-29-2023 take 1 capsule by mo uth once daily FLUoxetine (PROzac) 20 MG capsule Indications: ZEESHAN (generalized anxiety disorder) (CMS/HCC) Take 1 capsule (20 mg) by mouth Daily 30 capsule 3 09/29/2023 Active hydroCHLOROthiazide 12.5 mg / lisinopril 10 mg oral tablet (15 sources) Thiazide Diuretic, Angiotensin Converting Enzyme Inhibitor Start: 06-03-2023 End: 11-04-2024 take 1 tablet by mouth once daily lisinopril-hydroCHLOROthiazide 10-12.5 MG tablet Indications: Essential hypertension, benign (CMS/HCC) TAKE 1 TABLET BY MOUTH DAILY 30 tablet 3 11/05/2023 11/04/2024 Active Start: 11-23-2022 levothyroxine sodium 0.1 mg oral tablet (15 sources) l-Thyroxine Start: 11-05-2023 take 1 tablet [...] meals. Active meloxicam 15 mg oral tablet (15 sources) Nonsteroidal Anti-inflammatory Drug Start: 01-08-2023 take [...] Discontinued raloxifene hydrochloride 60 mg oral tablet (15 sources) Estrogen Agonist/Antagon ist Start: 07-07-2023 take [...] [Rectal polyp] Onset: 05-12-2023 Episodic Anxiety disorders (16 sources) Generalized anxiety disorder; Translations: [Generalized anxiety disorder] Onset: 09-29-2023 09-29-2023 Chronic Disorders of lipid metabolism (17 sources) Dyslipidemia; Translations: [Hyperlipidemia, unspecified] Onset: 02-18-2023 03-18-2023 Chronic Esophageal disorders (15 sources) Gastroesophageal reflux disease; Translations: [Gastro-esophageal reflux disease without esophagitis] Onset: 02-18-2023 03-18-2023 Chronic Essential hypertension (19 sources) Benign essential hypertension; Translations: [Essential (primary) hypertension] Onset: 02-18-2023 03-18-2023 Chronic Comment on above: Outside Source Comme nt: Last Assessment & Plan: BP controlled and monitor PRN. Nutritional deficiencies (15 sources) Vitamin D deficiency; Translations: [Vitamin D deficiency, unspecified] Onset: 02-18-2023 03-18-2023 Chronic Osteoarthritis (14 sources) Primary gonarthrosis, bilateral; Translations: [Bilateral primary osteoarthritis of knee] Onset: 02-18-2023 02-18-2023 Chronic Osteoporosis (15 sources) Postmenopausal osteoporosis; Translations: [Age-related osteoporosis without current pathological fracture] Onset: 02-18-2023 03-18-2023 Chronic Other aftercare (12 sources) Long-term current use of drug therapy; Translations: [Other jail (current) drug therapy] Onset: 02-11-2024 02-11-2024 Episodic [...] Chronic Other ear and sense organ disorders (16 sources) Otorrhea of left ear; Translations: [Otorrhea, [...] 30 04-07-2023 Episodic Other upper respiratory disease (15 sources) Allergic rhinitis due to pollen; Translations: [...] cancer of colon 04-07-2023 Episodic Thyroid disorders (16 sources) Hypothyroidism, unspecified; Translations: [Unspecified acquired hypothyroidism] [...] Da te Episodic/Chronic Diabetes mellitus without complication (17 sources) Prediabetes; Translations: [Prediabetes] Onset: 02-18-2023 03-18-2023 Episodic Mood disorders (10 sources) Mood disorders Onset: 02-11-2024 02-11-2024 Other connective tissue disease (14 sources) Plantar fasciitis of right foot; Translations: [Plantar fascial fibromatosis] Onset: 08-19-2023 08-19-2023 Episodic Other screening for suspected conditions (not mental disorders or infectious disease) (19 sources) Patient encounter status; Translations: [Encounter for screening mammogram for malignant neoplasm of breast] Onset: 02-17-2022 Episodic Results Test Name Value Interpretation Reference Range Facility CT ORBITS/SELLA WO IV CONTRA STon 02-29-2024 CT ORBITS/SELLA WO IV CONTRAST TITLE OF EXAM: CT ORBITS/SELLA WO IV CONTRAST REASON FOR EXAM: Otorrhea of the left ear TECHNIQUE: Axial CT of the temporal bones COMPARISON: None. FINDINGS: RIGHT: Treatment Changes: No appreciable surgical intervention. EAC/TM: No abnormal opacification. The tympanic membrane is not thickened. Mastoids: Appropriately developed, without abnormal opacification. The tegmen mastoideum is intact. Middle Ear: No opacification of the tympanic cavity. The scutum is sharp, the tegmen tympani is intact. Ossicles are fully formed, with intact ossicular chain. Facial Nerve: The course of the facial nerve through the petrous temporal bone is normal, with no suspicion of osseous uncovering to the fallopian canal. Otic Capsule: Normal mineralization Inner Ear: No dysplasia. Semicircular canals are appropriately covered by bone. No abnormal ossification of the labyrinthine structures. IAC/Vestibular Aqueduct: No enlargement of the internal auditory canal or vestibular aqueduct. Vascular: The carotid, jugular, and sigmoid plates are intact. Petrous Banks: Normal. LEFT: Treatment Changes: No appreciable surgical intervention. EAC/TM: No abnormal opacification. The tympanic membrane cannot be definitively differentiated from secretions within the middle tympanic cavity. Mastoids: Large volume mastoid effusions; the mastoid air cells are entirely filled with secretions. Question erosive changes of the tegmen mastoideum at several locations, perhaps most conspicuously series 400/image 199. No appreciable associated intracranial collection. Middle Ear: Near complete filling of the epitympanic cavity. Partial filling of the middle tympanic cavity. The scutum is sharp, the tegmen tympani is intact. Ossicles are fully formed, with intact ossicular chain. Facial Nerve: The course of the facial nerve through the petrous temporal bone is normal, with no suspicion of osseous uncovering to the fallopian canal. Otic Capsule: Normal mineralization Inner Ear: No dysplasia. Semicircular canals are appropriately covered by bone. No abnormal ossification of the labyrinthine structures. IAC/Vestibular Aqueduct: No enlargement of the internal auditory canal or vestibular aqueduct. Vascular: The carotid, jugular, and sigmoid plates are intact. Petrous Banks: Normal. 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 Paranasal sinuses (included portions): Clear. Brain and intracranial structures (included portions): No appreciable abnormality. Skull/scalp (included portions): Normal. Foramina spinosum are present bilaterally. IMPRESSION: Chronic left otomastoiditis with erosive changes of the tegmen mastoideum. Although suboptimally evaluated on the provided sequences, there is no appreciable associated intracranial collection. DICTATED ON: 02/29/2024 3:22 PM This report has been electronically signed in approved by the interpreting radiologist. Normal Not Available Comment on above: Order Comment: CT Te mporal WO at [facility]. Please call patient to schedule. ALL CBC WITH AUTO DIFFon BASOPHILS ABSOLUTE AUTO 0.1 [facility] Basophils/100 WBC (Bld) 1.2 % 0.2 - 2.0 % [facility] Eosinophils/100 WBC (Bld) 1.6 % 0.9 - 7.0 % [facility] Erythrocyte distribution width (RBC) [Ratio] 13.2 % 11.0 - 15.0 % [facility] Hematocrit (Bld) [Volume fraction] 41.1 % 36.0 - 48.0 % [facility] Hemoglobin (Bld) [Mass/Vol] 13.2 g/dL 12.0 - 16.0 g/dL [facility] IMMATURE GRANULOCYTES ABS AUTO 0.03 [facility] Immature granulocytes/100 WBC (Bld) 0.5 % 0.0 - 0.5 % [facility] LYMPHOCYTES ABSOLUTE AUTO 1.9 [facility] Lymphocytes/100 WBC (Bld) 32.1 % 20.5 - 60.0 % [facility] MCH (RBC) [Entitic mass] 29 pg 26.7 - 34.0 pg [facility] MCHC (RBC) [Mass/Vol] 32.1 g/dL 29.9 - 35.2 g/dL [facility] MCV (RBC) [Entitic vol] 90.3 fL 81.0 - 99.0 fL [facility] MONOCYTES ABSOLUTE AUTO 0.6 [facility] Monocytes/100 WBC (Bld) 10.1 % 1.7 - 12.0 % [facility] NEUTROPHILS ABSOLUTE AUTO 3.2 [facility] Neutrophils/100 WBC (Bld) 54.5 % 43.0 - 75.0 % [facility] Platelet mean volume (Bld) [Entitic vol] 10.1 fL 9.5 - 13.5 fL [facility] TBH EO # 0.1 [facility] PLT 263 [facility] RBC 4.55 [facility] WBC 5.8 [facility] ALL MISCELLANEOUS TESTon MISCELLANEOUS TEST COMMENT . [facility] Comment on above: Test Ordered: [id number] Beta-2 Transferrin Beta-2 Transferrin Note: Y8 Not [...] developed and its performance characteristics determined by [facility]. It has not been cleared or approved by the [place] Food and Drug Administration. This test was performed in a CLIA certified laboratory and is intended for clinical purposes. Performed at: [facility] [address] [place] [id number] Tool Coordinator: Jarocho Fournier [facility]ly [facility], Phone: [phone] Performed at: [address] [id number] Tool Coordinator: Sam Landin PhD, Phone: [phone] LEFT EAR [id number] Beta-2 Transferrin [facility] Ambulatory [...] choosing us for your care. [facility] General Surgery Office/Clini c Noteon 05-12-2023 [...] mRNA-1273 vaccine 05/14/2020 Recorded 2023-03-18: [id number] Normal [facility] Comment on above: Result Comment: Elec [...] to family history of colon cancer. Normal [facility] Pathology Noteon 05-06-2023 Pathology Note [id number]#1.0 0TIFF Normal [facility] Outside Colonoscopyon 2023 Outside Colonoscopy [id number] 20 [id number]#1.0 0TIFF Normal [facility] Victorino 04-29-2023 L Specimen: [id number] Received: 05/01/23 Status: JACQUELIN Alonso Num: [id number] Spec Type: Surgical Subm Dr: Marcin Campos MD FACS Tissues: A Colon Biopsy (RECTAL POLYP) Procedures: HE/2, Gross/Micro L4 Age/ Patient Sex Location Account Attending Physician Keyon Cheatham 63/F LABELL [id number] Marcin Campos MD FACS SPEC NUM: [id number] RECD: 05/01/23 STATUS: JACQUELIN CELESTE NUM: [id number] ANDREA: 04/29/[address]: Marcin Campos MD FACS ENTERED: 05/01/[address]: Magy,Lab SPEC TYPE: Surgical DEPT: OSWALD ARDER ORDERED: HE/2, Gross/Micro L4 ORDERED: HE/2, Gross/Micro L4 Pathological Diagnosis Rectal polyp biopsy: -Small serrated hyperplastic polyp Clinical Information Rectal polyp, sigmoid diverticulosis Gross Description Received in formalin labeled with the patient's name, date of and rectal polyp is one reyna tissue measuring 0.3 cm. Entirely submitted in one cassette labeled A1. CPT Codes 82941 ---- ---- Specimen: [id number] Received: 05/01/23 Status: JACQUELIN Celeste Num: [id number] Spec Type: Surgical Subm Dr: Marcin Campos MD FACS Tissues: A Colon Biopsy (RECTAL POLYP) Procedures: , Gross/Micro L4 ---- Patient: Keyon Cheatham [id number] (Continued) ---- Signed (signature on file) Enriqueta Billingsley MD 05/04/23 1840 [facility] Consent for Procedure/Surger yon 04-09-2023 Consent for Procedure/Surgery [id number]#1.0 0TIFF [facility] Ambulatory Visit Summaryon 0 04-07-2023 Ambulatory [...] you for choosing us for your care. [facility] Facesheeton 04-07-2023 Facesheet [id number]#1. 00TIFF [facility] Insurance Correspondenceon 0 04-07-2023 Insurance Correspondence [id number]#1. 00TIFF [facility] Physician Referralon 024 Physician Referral [id number]#1.0 0TIFF [facility] Physician Referralon 023 Physician Referral [id number]#1.0 0TIFF [facility] ELDER - TSHon 06-04-2022 TSH 1.292 uIU/mL Normal 0.358-3.740 [facility] Comment on above: Performed By: #### D ATTSH #### [facility] [address] [place] [address] Dr. Mela Billingsley TSH RANGE SEE BELOW Normal [facility] Comment on above: Result Comment: <0.3 4 UIU/ml HYPERTHYROID 0.34-5.60 UIU/ml EUTHYROID >5.60 UIU/ml HYPOTHYROID Performed By: #### D ATTSH #### [facility] [address] [place], [place] [address] Dr. Mela Billingsley GLYCOHEMOGLOBIN A1Con 2022 ADA RECOMMENDATION SEE BELOW Normal [facility] Comment on above: Result Comment: ADA RECOMMENDED LIMIT 4.0 - 6.0 ADA THERAPEUTIC TARGET < 7.0 ACTION SUGGESTED > 7.0 Performed By: #### D ATA1C #### [facility] [address] [place] [address] [address] Mela Billingsley Glucose [Mass/Vol] 117 mg/dL Normal [facility] Comment on above: Performed By: #### D ATA1C #### [facility] [address] [address] [address] Mela Billingsley HbA1c (Bld) [Mass fraction] 5.7 % Normal 4.5-6.2 [facility] Comment on above: Performed By: #### D ATA1C #### [facility] [address] [address] [address] Mela Billingsley MG MAMM SCREEN 3D ANTONIA CADon 02-17-2022 MG MAMM SCREEN 3D ANTONIA CAD Patient: KEYON CHEATHAM Exam Date: 02/17/2022 : 1960 Gender:F Ordering : DR FELTON NEUMANN . Admission #: [id number] Family : Order #: [id number] CLICK HERE TO VIEW EXAM RADIOLOGY REPORT [...] Treatments None Family Cancers None LOCATION: [facility] BREAST COMPOSITION: Scattered areas fibroglandular density. FINDINGS: [...] M.D. on 02/18/2022 at 11:38 Normal [facility] ELDER - TSHon 11-12-2021 TSH 0.153 uIU/mL Critically low 0.358-3.740 [facility] Comment on above: Performed By: #### D ATTSH #### [facility] [address] [place] [address] Dr. Mela Billingsley TSH RANGE SEE BELOW Normal [facility] Comment on above: Result Comment: <0.3 4 UIU/ml HYPERTHYROID 0.34-5.60 UIU/ml EUTHYROID >5.60 UIU/ml HYPOTHYROID Performed By: #### D ATTSH #### [facility] [address] [place] [address] Dr. Mela Billingsley CBC AUTO DIFFon 10-07-2021 BASO # 0.1 103/ul Normal 0.0-0.1 [facility] Comment on above: Performed By: #### D ATCBC #### [facility] [address] [place] [address] Dr. Mela Billingsley Basophils/100 WBC (Bld) 1.3 % Normal 0.2-2.0 [facility] Comment on above: Performed By: #### D ATCBC #### [facility] [address] [place] [address] Dr. Mela Billingsley EO # 0.1 103/ul Normal 0.0-0.7 [facility] Comment on above: Performed By: #### D ATCBC #### [facility] [address] [place] [address] Dr. Mela Billingsley Eosinophils/100 WBC (Bld) 1.7 % Normal 0.9-7.0 [facility] Comment on above: Performed By: #### D ATCBC #### [facility] [address] [place] [address] Dr. Mela Billingsley Erythrocyte distribution width (RBC) [Ratio] 13.3 % Normal 11.0-15.0 [facility] Comment on above: Performed By: #### D ATCBC #### [facility] [address] [place] [address] Dr. Mela Billingsley Hematocrit (Bld) [Volume fraction] 40.1 % Normal 36.0-48.0 [facility] Comment on above: Performed By: #### D ATCBC #### [facility] [address] [place] [address] Dr. Mela Billingsley Hemoglobin (Bld) [Mass/Vol] 13.1 g/dL Normal 12.0-16.0 [facility] Comment on above: Performed By: #### D ATCBC #### [facility] [address] [place] [address] Dr. Mela Billingsley IG # 0.03 10e3/ul Normal 0.00-0.03 [facility] Comment on above: Performed By: #### D ATCBC #### [facility] [address] [place] [address] Dr. Mela Billingsley IG % 0.6 % Critically high 0.0-0.5 [facility] Comment on above: Performed By: #### D ATCBC #### [facility] [address] [place] [address] Dr. Mela Billingsley LYMPH # 1.6 103/ul Normal 1.2-3.8 [facility] Comment on above: Performed By: #### D ATCBC #### [facility] [address] [place] [address] Dr. Mela Billingsley Lymphocytes/100 WBC (Bld) 34.4 % Normal 20.5-60.0 [facility] Comment on above: Performed By: #### D ATCBC #### [facility] [address] [place] [address] Dr. Mela Billingsley MCH (RBC) [Entitic mass] 29.5 pg Normal 26.7-34.0 [facility] Comment on above: Performed By: #### D ATCBC #### [facility] [address] [place] [address] Dr. Mela Billingsley MCHC (RBC) [Mass/Vol] 32.7 g/dL Normal 29.9-35.2 [facility] Comment on above: Performed By: #### D ATCBC #### [facility] [address] [place] [address] Dr. Mela Billingsley MCV (RBC) [Entitic vol] 90.3 fL Normal 81.0-99.0 [facility] Comment on above: Performed By: #### D ATCBC #### [facility] [address] [place] [address] Dr. Mela Billingsley MONO # 0.4 103/ul Normal 0.3-0.8 [facility] Comment on above: Performed By: #### D ATCBC #### [facility] [address] [place] [address] Dr. Mela Billingsley Monocytes/100 WBC (Bld) 9.0 % Normal 1.7-12.0 [facility] Comment on above: Performed By: #### D ATCBC #### [facility] [address] [place] [address] Dr. Mela Billingsley NEUT # 2.5 103/ul Normal 1.4-6.5 [facility] Comment on above: Performed By: #### D ATCBC #### [facility] [address] [place] [address] Dr. Mela Billingsley Neutrophils/100 WBC (Bld) 53.0 % Normal 43.0-75.0 [facility] Comment on above: Performed By: #### D ATCBC #### [facility] [address] [place] [address] Dr. Mela Billingsley Platelet mean volume (Bld) [Entitic vol] 10.0 fL Normal 9.5-13.5 [facility] Comment on above: Performed By: #### D ATCBC #### [facility] [address] [place] [address] Dr. Mela Billingsley PLT 243 103/ul Normal 150-450 [facility] Comment on above: Performed By: #### D ATCBC #### [facility] [address] [place] [address] Dr. Mela Billingsley RBC 4.44 106/ul Normal 4.20-5.40 [facility] Comment on above: Performed By: #### D ATCBC #### [facility] [address] [place] [address] Dr. Mela Billingsley WBC 4.8 103/ul Normal 4.0-11.0 [facility] Comment on above: Performed By: #### D ATCBC #### [facility] [address] [place] [address] Dr. Mela Billingsley ELDER - TSHon 10-07-2021 TSH 0.178 uIU/mL Critically low 0.358-3.740 [facility] Comment on above: Performed By: #### D ATBMP, DATTS #### [facility] [address] [place] [address] Dr. Mela Billingsley TSH RANGE SEE BELOW Normal [facility] Comment on above: Result Comment: <0.3 4 UIU/ml HYPERTHYROID 0.34-5.60 UIU/ml EUTHYROID >5.60 UIU/ml HYPOTHYROID Performed By: #### D ATBMP, DATTS #### [facility] [address] [place] [address] Dr. Mela Billingsley ELDER- BMP WITH LIPIDon 2021 Anion gap [Moles/Vol] 13.1 mmol/L Normal [facility] Comment on above: Performed By: #### D ATBMP, DATTSH #### [facility] [address] [place] [address] Dr. Mela Billingsley Calcium [Mass/Vol] 9.0 mg/dL Normal 8.5-10.1 [facility] Comment on above: Performed By: #### D ATBMP, DATTSH #### [facility] [address] [place] [address] Dr. Mela Billingsley Chloride [Moles/Vol] 104 mmol/L Normal 98-107 [facility] Comment on above: Performed By: #### D ATBMP, DATTSH #### [facility] [address] [place] [address] Dr. Mela Billingsley Cholesterol [Mass/Vol] 193 mg/dL Normal <=200 [facility] Comment on above: Performed By: #### D ATBMP, DATTSH #### [facility] [address] [place] [address] Dr. Mela Billingsley Cholesterol in HDL [Mass/Vol] 62 mg/dL Critically high 40-60 [facility] Comment on above: Performed By: #### D ATBMP, DATTSH #### [facility] [address] [place] [address] Dr. Mela Billingsley Cholesterol in LDL [Mass/Vol] 120.0 mg/dL Normal [facility] Comment on above: Performed By: #### D ATBMP, DATTSH #### [facility] [address] [place] [address] Dr. Mela Billingsley CO2 [Moles/Vol] 27.0 mmol/L Normal 21.0-32.0 [facility] Comment on above: Performed By: #### D ATBMP, DATTSH #### [facility] [address] [place] [address] Dr. Mela Billingsley Creatinine [Mass/Vol] 0.86 mg/dL Normal 0.55-1.02 [facility] Comment on above: Performed By: #### D ATBMP, DATTSH #### [facility] [address] [place] [address] Dr. Mela Billingsley EGFR-AF ARGENTINE >60 Normal >=60 [facility] Comment on above: Performed By: #### D ATBMP, DATTSH #### [facility] [address] [place] [address] Dr. Mela Billingsley EGFR-NON AF ARGENTINE >60 Normal >=60 [facility] Comment on above: Performed By: #### D ATBMP, DATTSH #### [facility] [address] [place] [address] Dr. Mela Billingsley HDL NORMAL > or = 60 mg/dl - LO W CARDIOVASCULAR RISK <40 mg/dl - HIGH CARDIOVASCULAR RISK Normal [facility] Comment on above: Performed By: #### D ATBMP, DATTSH #### [facility] [address] [place] [address] Dr. Mela Billingsley LDL CALC NORMAL SEE BELOW Normal The [facility] Comment on above: Result Comment: <100 mg/dl OPTIMAL 100 - 129 mg/dl NEAR OR ABOVE OPTIMAL 130 - 159 mg/dl BORDERLINE HIGH 160 - 189 mg/dl HIGH >190 mg/dl VERY HIGH Performed By: #### D ATBMP, DATTSH #### [facility] [address] [place] [address] Dr. Mela Billingsley Potassium [Moles/Vol] 4.1 mmol/L Normal 3.5-5.1 [facility] Comment on above: Performed By: #### D ATBMP, DATTSH #### [facility] [address] [place] [address] Dr. Mela Billingsley Sodium [Moles/Vol] 140 mmol/L Normal 136-145 [facility] Comment on above: Performed By: #### D ATP, DATTSH #### [facility] [address] [place] [address] Dr. Mela Billingsley Triglyceride [Mass/Vol] 55 mg/dL Normal <=150 [facility] Comment on above: Performed By: #### D ATP, DATTSH #### [facility] [address] [place] [address] Dr. Mela Billingsley Urea nitrogen [Mass/Vol] 14.0 mg/dL Normal 7.0-18.0 [facility] Comment on above: Performed By: #### D ATP, DATTSH #### [facility] [address] [place] [address] Dr. Mela Billingsley Urea nitrogen/Creatinine [Mass ratio] 16.3 mg/mg Normal [facility] Comment on above: Performed By: #### D ATBMP, DATTSH #### [facility] [address] [place] [address] Dr. Mela Billingsley VLDL CALC 11.0 mg/dL Normal [facility] Comment on above: Performed By: #### D ATBMP, DATTSH #### [facility] [address] [address] [address] Mela Blilingsley GLYCOHEMOGLOBIN A1Con 2021 ADA RECOMMENDATION SEE BELOW Normal The [facility] Comment on above: Result Comment: ADA RECOMMENDED LIMIT 4.0 - 6.0 ADA THERAPEUTIC TARGET < 7.0 ACTION SUGGESTED > 7.0 Performed By: #### D ATA1C #### [facility] [address] [address] [address] Mela Billingsley Glucose [Mass/Vol] 111 mg/dL Critically high 74-106 [facility] Comment on above: Performed By: #### D ATA1C #### [facility] [address] [address] [address] Mela Billingsley Performed By: #### D ATBMP, DATTSH #### [facility] [address] [address] [address] Mela Billingsley HbA1c (Bld) [Mass fraction] 5.5 % Normal 4.5-6.2 [facility] Comment on above: Performed By: #### D ATA1C #### [facility] [address] [place] [address] Dr. Mela Billingsley [facility] DIGITAL SCREEN BILATERAL EXAMINATION: SCREENING DIGITAL [...] to the patient regarding the results. [employer] recommends annual mammograms for women 40 years and older. Interpreted by: Case Licona DO Signed by: Case Licona DO 02/14/21 Final result Normal [facility] No mammographic evidence of malignancy. BIRADS: BIRADS - CATEGORY 1 Negative. Normal interval follow-up is recommended in 12 months. OVERALL ASSESSMENT - NEGATIVE A letter of notification will be sent to the patient regarding the results. [employer] recommends annual mammograms for women 40 years and older. [facility] EXAMINATION: SCREENING DIGITAL BILATERAL [...] of microcalcification in either breast. [facility] Radiology Study observation (narrative) [employer] Phone: [facility] DIGITAL SCREEN BILA TERALOrdered By: Case Licona on 02-14-2021 [employer] Phone: [facility] DIGITAL SCREEN BILA TERALon 12-06-2019 No evidence of malignancy. Advise annual screening mammography. BI-RADS 1 BIRADS: BIRADS - CATEGORY 1 Negative, no evidence of malignancy in either breast. OVERALL ASSESSMENT - NEGATIVE A letter of notification will be sent to the patient regarding the results. RECOMMENDATION: Routine bilateral annual screening mammography is recommended. Follow-up screening mammogram in 1 year is advised. [place] EXAMINATION: SCREENI NG DIGITAL BILATERAL MAMMOGRAM WITH TOMOSYNTHESIS, 12/06/2019 TECHNIQUE: Screening mammography was performed with tomosynthesis including MLO and CC views of the bilateral breasts. Computer aided detection was used for the interpretation of this exam. COMPARISON: 30 November 2018, [facility]; 29 February 2016, [facility] HISTORY: Screening. Negative family history of breast cancer. Negative history of hormonal replacement therapy. No prior breast interventions. FINDINGS: The breasts are composed of scattered fibroglandular densities. No skin thickening, nipple contour changes, malignant type microcalcifications, areas of architectural distortion, or significant interval changes are noted. [employer] [place], [facility] Incoming Radiant Results From [employer] - 12/06/2019 1:27 PM EDT EXAMINATION: SCREENING DIGITAL BILATERAL MAMMOGRAM WITH TOMOSYNTHESIS, 12/06/2019 TECHNIQUE: Screening mammography was performed with tomosynthesis including MLO and CC views of the bilateral breasts. Computer aided detection was used for the interpretation of this exam. COMPARISON: 30 November 2018, [facility]; 29 February 2016, [facility] HISTORY: Screening. Negative family history [...] screening mammogram in 1 year is advised. [place] TUYET DIGITAL SCREEN W OR WO [...] screening mammogram in 1 year is advised. [facility] [place] EXAMINATION: BILATER AL DIGITAL SCREENING MAMMOGRAM, 11/30/2018 TECHNIQUE: CC and MLO views of the left and right breasts were obtained. Computer aided detection was utilized in the interpretation of this exam. 3D tomosynthesis images were obtained. COMPARISON: 19 December 2016; 22 February 2016 from [facility]. HISTORY: Screening. Negative family history of breast cancer. Oral contraceptive usage times 6 months. Hormonal replacement therapy times 10 years. No prior breast interventions. FINDINGS: The breasts are composed of scattered fibroglandular densities. No skin thickening, nipple contour changes, or areas of architectural distortion are noted. Prior nodule in the outer half of the right breast is not redemonstrated. [place], [place] [facility], [facility] Incoming Radiant Results From [employer] - 11/30/2018 5:32 PM EDT EXAMINATION: BILATERAL DIGITAL SCREENING MAMMOGRAM, 11/30/2018 TECHNIQUE: CC and MLO views of the left and right breasts were obtained. Computer aided detection was utilized in the interpretation of this exam. 3D tomosynthesis images were obtained. COMPARISON: 19 December 2016; 22 February 2016 from [facility]. HISTORY: Screening. Negative family history of breast [...] screening mammogram in 1 year is advised. [place], [place] Vital Signs Date Time Vital Sign Value Performing Clinician Fabioi lity 03-23-2024 07:49-0500 Body height 165.1 cm Madeline Sykes MD Work Phone: [facility] 03-23-2024 07:49-0500 Body mass index (BMI) [Ratio] 29.95 kg/m2 Madeline Sykes MD Work Phone: [facility] 03-23-2024 07:49-0500 Body weight 81.65 kg Madeline Sykes MD Work Phone: [facility] 03-23-2024 07:49-0500 Diastolic blood pressure 85 mm[Hg] Madeline Sykes MD Work Phone: [facility] 03-23-2024 07:49-0500 Heart rate 78 /min Madeline Sykes MD Work Phone: [facility] 03-23-2024 07:49-0500 Systolic blood pressure 158 mm[Hg] Madeline Sykes MD Work Phone: [facility] 02-16-2024 08:25-0500 Body height 165.1 cm Madeline Sykes MD Work Phone: [facility] 02-16-2024 08:25-0500 Body mass index (BMI) [Ratio] 29.95 kg/m2 Madeline Sykes MD Work Phone: [facility] 02-16-2024 08:25-0500 Body weight 81.65 kg Madeline Sykes MD Work Phone: [facility] 02-16-2024 08:25-0500 Diastolic blood pressure 80 mm[Hg] Madeline Sykes MD Work Phone: [facility] 02-16-2024 08:25-0500 Systolic blood pressure 137 mm[Hg] Madeline Sykes MD Work Phone: [facility] 02-11-2024 09:19-0500 Body height 162.6 cm Felton Neumann MD Work Phone: [facility] 02-11-2024 09:19-0500 Body mass index (BMI) [Ratio] 30.9 kg/m2 Felton Neumann MD Work Phone: [facility] 02-11-2024 09:19-0500 Body temperature 96.6 [degF] Felton Neumann MD Work Phone: [facility] 02-11-2024 09:19-0500 Body weight 81.65 kg Felton Neumann MD Work Phone: [facility] 02-11-2024 09:19-0500 Diastolic blood pressure 74 mm[Hg] Felton Neumann MD Work Phone: [facility] 02-11-2024 09:19-0500 Heart rate 93 /min Felton Neumann MD Work Phone: [facility] 02-11-2024 09:19-0500 Respiratory rate 22 /min Felton Neumann MD Work Phone: [facility] 02-11-2024 09:19-0500 SaO2% (BldA) [Mass fraction] 98 % Felton Neumann MD Work Phone: [facility] 02-11-2024 09:19-0500 Systolic blood pressure 132 mm[Hg] Felton Neumann MD Work Phone: [facility] 10-30-2023 10:33-0400 Body height 165.1 cm Felton Neumann MD Work Phone: [facility] 10-30-2023 10:33-0400 Body mass index (BMI) [Ratio] 29.95 kg/m2 Felton Neumann MD Work Phone: [facility] 10-30-2023 10:33-0400 Body temperature 97.81 [degF] Felton Neumann MD Work Phone: [facility] 10-30-2023 10:33-0400 Body weight 81.65 kg Felton Neumann MD Work Phone: [facility] 10-30-2023 10:33-0400 Diastolic blood pressure 70 mm[Hg] Felton Neumann MD Work Phone: [facility] 10-30-2023 10:33-0400 Heart rate 93 /min Felton Neumann MD Work Phone: [facility] 10-30-2023 10:33-0400 Respiratory rate 22 /min Felton Neumann MD Work Phone: [facility] 10-30-2023 10:33-0400 SaO2% (BldA) [Mass fraction] 98 % Felton Neumann MD Work Phone: [facility] 10-30-2023 10:33-0400 Systolic blood pressure 138 mm[Hg] Felton Neumann MD Work Phone: [facility] Healthcare Encounters Encounter Date Encounter Type Care Provider Facility Start: 03-23-2024 End: 03-23-2024 Marianela flowsheet Madeline Sykes MD Work Phone: [facility] Start: 03-23-2024 End: 03-23-2024 Toddo flowsheet Madeline Sykes MD Work Phone: [facility] Start: 03-23-2024 End: 01-22-2025 Office outpatient visit 15 minutes Madeline Sykes MD Work Phone: [facility] Comment on above: Otorrhea of left ear (Primary Dx) Start: 03-23-2024 End: 03-23-2024 ambulatory MADELINE H TIMMIS Not Available Start: 02-29-2024 End: 02-29-2024 ambulatory MADELINE H TIMMIS Not Available Start: 02-25-2024 End: 02-25-2024 Clinisync Result Encounter Felton Neumann MD Work Phone: [facility] Unsolicited Start: 02-25-2024 End: 02-25-2024 Clinisync Result Encounter Felton Neumann MD Work Phone: [facility] Start: 02-16-2024 End: 02-16-2024 Bamsepideh Sykes MD Work Phone: [facility] Start: 02-16-2024 End: 02-20-2024 Bamboo flowshernandez Sykes MD Work Phone: [facility] [...] encounter Start: 02-16-2024 End: 02-16-2024 ambulatory MADELINE H TIMMIS Not Available Start: 02-11-2024 End: 02-11-2024 Bamboo flowsheet Felton Neumann MD Work Phone: [facility] Start: 02-11-2024 End: 02-11-2024 Bamboo flowsheet Felton Neumann MD Work Phone: [facility] Start: 02-11-2024 End: 02-11-2024 Office outpatient visit 15 minutes Felton Neumann MD Work Phone: [facility] Comment on above: Medicare annual well ness visit, subsequent (Primary Dx); Essential hypertension, benign (CMS/HCC); Prediabetes; Primary hypothyroidism (CMS/HCC); Dyslipidemia (CMS/HCC); Encounter for long-term (current) use of medications; Arthralgia, unspecified joint; Otorrhea of left ear Start: 02-11-2024 End: 02-11-2024 Patient encounter procedure Felton Neumann MD Work Phone: [facility] Start: 02-11-2024 End: 02-11-2024 ambulatory FELTON NEUMANN Not Available Start: 10-30-2023 End: 10-30-2023 BamPunch!o Rally Fitheet Felton Neumann MD Work Phone: [facility] Start: 10-30-2023 End: 10-30-2023 BamPunch!o R[employer] Felton Neumann MD Work Phone: [facility] Start: 10-30-2023 End: 10-30-2023 Office outpatient visit 15 minutes Felton Neumann MD Work Phone: [facility] Comment on above: Essential hypertensi on, benign (CMS/HCC) (Primary Dx); ZEESHAN (generalized anxiety disorder) (CMS/HCC) Start: 10-30-2023 End: 10-30-2023 ambulatory FELTON NEUMANN Not Available Start: 09-29-2023 End: 09-29-2023 ambulatory FELTON NEUMANN Not Available Start: 08-19-2023 End: 08-19-2023 ambulatory FELTON NEUMANN Not Available Start: 05-12-2023 End: 05-13-2023 ambulatory Marcin CAMPOS Facility:[facility] Start: 05-12-2023 End: 05-12-2023 Patient encounter procedure Marcin CAMPOS General Surgery [facility] Start: 04-29-2023 End: 04-30-2023 ambulatory Marcin Campos Facility:[facility] Start: 04-07-2023 End: 04-08-2023 ambulatory FELTON NEUMANN Facility:[facility] Start: 02-20-2023 ambulatory Marcin CAMPOS Facility:[facility] Start: 06-04-2022 End: 06-05-[address] NONE LISTED REQUEST Facility:[facility] Start: 02-17-2022 End: 02-18-2022 ambulatory Malcolm Rox Facility:[facility] Start: 11-12-2021 End: 11-13-[address] NONE LISTED REQUEST Facility:[facility] Start: 10-07-2021 End: 10-08-[address] NONE LISTED REQUEST Facility:[facility] Start: 10-02-2021 End: 10-03-[address] NONE LISTED REQUEST Facility:[facility] Start: 02-14-2021 End: 02-17-2021 [facility] Start: 02-14-2021 End: 02-16-2021 Subsequent hospital visit by physician [facility] Mammography Room At [facility] Mammography Comment on above: Breast cancer screen ing by mammogram Start: 12-06-2019 End: 12-08-2019 Subsequent hospital visit by physician [facility] Mammography Room At [facility] Mammography Comment on above: Breast cancer screen ing by mammogram Start: 11-30-2018 End: 12-02-2018 Subsequent hospital visit by physician [facility] Mammography Room At [facility] Mammography Comment on above: Breast cancer screen ing by mammogram Procedures Date Procedure Procedure Detail Performing Clinician Start: 02-25-2024 ALL CBC WITH AUTO DIFF Felton Neumann MD Work Phone: Start: 02-25-2024 Mammography Madeline calix MD Work Phone: Start: 02-16-2024 ALL MISCELLANEOUS TEST Madeline Sykes [...] bi Felton Neumann Work Phone: Cholecystectomy Marcin PEARSONCarola Colonoscopy Marcin NILL Total abdominal hyst erectomy with bilateral salpingo-oophorectomy Marcin NILCarola Plan of Treatment Date Care Activity Detail Author Start: 04-29-2033 Screening for malignant neoplasm of colon [facility] Start: 02-24-2025 Screening for malignant neoplasm of breast Mammogram [facility] Start: 02-10-2025 Medicare Annual Wellness (AWV) Medicare Annual Wellness (AWV) [facility] Start: 07-11-2024 End: 07-11-2024 Patient encounter procedure 07/11/2024 9:00 AM EDT Office Visit [facility] [address] [place] [phone] Felton Neumann MD [address] [place] [phone] [facility] Start: 03-23-2024 End: 03-23-2024 Patient encounter procedure [facility] Comment on above: Arrived Start: 02-29-2024 End: 02-29-2024 Professional / ancillary services management 02/29/2024 2:30 PM EST Ancillary Procedure [facility] [address] [place] [id number] [facility] [address] [address] Start: 02-19-2024 Screening for malignant neoplasm of breast Mammogram [facility] Start: 02-16-2024 End: 02-16-2024 Patient encounter procedure 02/16/2024 8:40 AM EST Office Visit [facility] [address] [facility] [address] [place] [phone] Madeline Sykes MD [address] [facility] [address] [place] [address] Otorrhea of left ear [facility] Comment on above: Otorrhea of left ear Start: 02-11-2024 End: 02-10-2025 Basic metabolic 1998 panel - Serum or Plasma Basic metabolic panel Lab Routine Essential hypertension, benign (CMS/HCC) Expected: 02/11/2024 (Approximate), Expires: 02/10/2025 [facility] Comment on above: Expected: 02/11/2024 (Approximate), Expi res: 02/10/2025 Start: 02-11-2024 End: 02-10-2025 CBC W Auto Differential panel - Blood CBC and differential Lab Routine Encounter for long-term (current) use of medications Expected: 02/11/2024 (Approximate), Expires: 02/10/2025 [facility] Comment on above: Expected: 02/11/2024 (Approximate), Expi res: 02/10/2025 Start: 02-11-2024 End: 02-10-2025 Erythrocyte sedimentation rate Sedimentation rate, automated Lab Routine Arthralgia, unspecified joint Expected: 02/11/2024 (Approximate), Expires: 02/10/2025 [facility] Comment on above: Expected: 02/11/2024 (Approximate), Expi res: 02/10/2025 Start: 02-11-2024 End: 02-10-2025 Hemoglobin A1c/Hemoglobin.total in Blood Hemoglobin A1c Lab Routine Prediabetes Expected: 02/11/2024 (Approximate), Expires: 02/10/2025 [facility] Work Phone: Comment on above: Expected: 02/11/2024 (Approximate), Expi res: 02/10/2025 Start: 02-11-2024 End: 02-10-2025 Hepatic function 2000 panel - Serum or Plasma Hepatic function panel Lab Routine Encounter for long-term (current) use of medications Expected: 02/11/2024 (Approximate), Expires: 02/10/2025 [facility] Comment on above: Expected: 02/11/2024 (Approximate), Expi res: 02/10/2025 Start: 02-11-2024 End: 02-10-2025 Lipid 1996 panel - Serum or Plasma Lipid panel Lab Routine Dyslipidemia (CMS/HCC) Expected: 02/11/2024 (Approximate), Expires: 02/10/2025 [facility] Comment on above: Expected: 02/11/2024 (Approximate), Expi res: 02/10/2025 Start: 02-11-2024 End: 02-10-2025 Nuclear Ab [Titer] in Serum by Immunofluorescence HIRA Lab Routine Arthralgia, unspecified joint Expected: 02/11/2024 (Approximate), Expires: 02/10/2025 [facility] Comment on above: Expected: 02/11/2024 (Approximate), Expi res: 02/10/2025 Start: 02-11-2024 End: 02-10-2025 Rheumatoid factor [Units/volume] in Serum or Plasma Rheumatoid factor Lab Routine Arthralgia, unspecified joint Expected: 02/11/2024 (Approximate), Expires: 02/10/2025 [facility] Comment on above: Expected: 02/11/2024 (Approximate), Expi res: 02/10/2025 Start: 02-11-2024 End: 02-10-2025 Thyrotropin [Units/volume] in Serum or Plasma TSH Lab Routine Primary hypothyroidism (CMS/HCC) Expected: 02/11/2024 (Approximate), Expires: 02/10/2025 [facility] Comment on above: Expected: 02/11/2024 (Approximate), Expi res: 02/10/2025 Start: 02-11-2024 End: 02-10-2025 Thyroxine (T4) free [Mass/volume] in Serum or Plasma T4, free Lab Routine Primary hypothyroidism (CMS/HCC) Expected: 02/11/2024 (Approximate), Expires: 02/10/2025 [facility] Comment on above: Expected: 02/11/2024 (Approximate), Expi res: 02/10/2025 Start: 02-11-2024 End: 02-11-2024 Patient encounter procedure [facility] Comment on above: Arrived Start: 02-08-2024 End: 02-08-2024 Patient encounter procedure 02/08/2024 8:30 AM EST Office Visit [facility] [address] [place] [phone] Felton Neumann MD [address] [place] [phone] [facility] Start: 11-01-2023 Influenza vaccination Influenza Vaccine (#1) [facility] Start: 10-30-2023 End: 10-30-2023 Patient encounter procedure 10/30/2023 10:30 AM EDT Office Visit [facility] [address] [place] [phone] Felton Neumann MD [address] [place] [phone] Arrived [facility] Comment on above: Arrived Start: 02-14-2023 Screening for malignant neoplasm of breast Breast cancer screen [facility] Start: 2023 Pneumococcal Vaccine: 65+ Years (2 of 2 - PPSV23 or PCV20) Pneumococcal Vaccine: 65+ Years (2 of 2 - PPSV23 or PCV20) [facility] Start: 12-05-2021 Screening for malignant neoplasm of breast Breast cancer screen [place], [place] Start: 11-30-2020 Breast cancer screen Breast cancer screen [place] Start: 10-31-2020 Influenza vaccination Flu vaccine (#1) [facility] Start: 11-01-2019 Influenza vaccination Flu vaccine (#1) [place] Start: 10-31-2018 Influenza vaccination Flu vaccine (#1) [place] Start: 01-15-2017 Pneumococcal Vaccine: 65+ Years (2 of 2 - PPSV23 or PCV20) Pneumococcal Vaccine: 65+ Years (2 of 2 - PPSV23 or PCV20) [facility] Start: 01-19-2008 Colon cancer screen colonoscopy Colon cancer screen colonoscopy [place] Start: 01-19-2008 Screening for malignant neoplasm of colon Colon cancer screen colonoscopy [place] Start: 01-19-2008 Shingles Vaccine (1 of 2) Shingles Vaccine (1 of 2) [facility] Start: 2003 Screening for malignant neoplasm of colon Colon cancer screen colonoscopy [facility] Start: 1998 Lipid panel Lipid screen [facility] Start: 1998 Lipid screen Lipid screen [place] Start: 01-19-1988 Screening for malignant neoplasm of cervix [facility] Start: 1979 Cervical cancer screen Cervical cancer screen [place], [place] Start: 1979 Screening for malignant neoplasm of cervix [facility] Start: 1977 DTaP/Tdap/Td vaccine (1 - Tdap) DTaP/Tdap/Td vaccine (1 - Tdap) [facility] Start: 1973 HIV screen HIV screen [place], [place] Start: 1973 HIV screening HIV screen [facility] Start: 1970 COVID-19 Vaccine (1) COVID-19 Vaccine (1) [facility] Start: 1958 Hepatitis C screen Hepatitis C screen [place], [place] Start: 1958 Hepatitis C screening Hepatitis C screen [facility] Start: 1958 Medicare Annual Wellness (AWV) Medicare Annual Wellness (AWV) [facility] Start: 1958 Screening for malignant neoplasm of colon [facility] Healthcare Immunizations Immunization Date Immunization Notes Care Provider [facility] 06-15-2021 SARS-CoV-2 (COVID-19 ) mRNA-1273 vaccine Marcin NILL [facility] [place] 01-03-2021 SARS-CoV-2 (COVID-19 ) mRNA-1273 vaccine Marcin NILL [facility] [place] 06-10-2020 SARS-CoV-2 (COVID-19 ) mRNA-1273 vaccine Marcin NILL [facility] 05-14-2020 SARS-CoV-2 (COVID-19 ) mRNA-1273 vaccine Marcin NILL [facility] [place] Comment on above: Result Comment: 2023: [id number] 11-20-2016 pneumococcal conjugate vaccine, 13 valent Felton Neumann MD Work Phone: [facility] NEGATED: Highlighted row has not occurred!04-07-2023 influenza virus vaccine, unspecified formulation Marcin CAMPOS [facility] [place] Payers Date Payer Category Payer Medicare [id number] 2022 Medicare (Managed Care) [id number] 2022 Unknown 2022 Medicare [id number] 2020 Unknown [id number]. [id number] 2018 Unknown [employer] Pablo [employer] HMO NN xxxxxxxxxxxx 2018-Present [phone] [address] [place] [address] xxxxxxxxxxxx [id number]. [id number] 2018 Unknown [employer] M JEREMY CRAWLEY VIKI - EXCHANGE [id number] 2018-Present [phone] [address] [place] [address] [id number]. [id number] 1959 Self-pay 1958 Unknown [id number] 2.16.840.1.779163.3.579.2. 173 1958 Unknown [id number] 2.16.840.1.477169.3.579.2. 593 1958 Unknown [id number] 2.16.840.1.544544.3.579.2. 727 1958 Unknown [id number] 2.16.840.1.260795.3.579.2. 727 1958 Unknown [id number] 2.16.840.1.225992.3.579.2. 727 1958 Unknown [id number] 2.16.840.1.650152.3.579.2. 1259 1958 Unknown [id number] 2.16.840.1.948138.3.579.2. 1259 1958 Unknown [id number] 2.16.840.1.231008.3.579.2. 1259 1958 Unknown [id number] 2.16.840.1.265987.3.579.2. 1259 1958 Unknown [id number] 2.16.840.1.064730.3.579.2. 1259 1958 Unknown [id number] 2.16.840.1.363284.3.579.2. 1259 1958 Unknown [id number] 2.16.840.1.931175.3.579.2. 1259 Unknown [id number] 2.16.840.1.566035.3.579.2. 593 Unknown [id number] 2.16.840.1.975181.3.579.2. 593 Unknown [id number] 2.16.840.1.695411.3.579.2. 593 Unknown [id number] 2.16.840.1.621532.3.579.2. 593 Social History Date Type Detail Facility Tobacco smoking stat [facility] Unknown if ever smoked [employer] Start: 1960 [facility] [place] Exposure to SARS-CoV -2 (event) Not sure [employer] [place] Tobacco smoking stat [facility] Tobacco smoking consumption unknown [employer] Phone: Start: 04-07-2023 End: 02-16-2024 Tobacco smoking status Ex-smoker (finding) [facility] Tobacco smoking status Never [facility] [place] Start: 02-17-2023 End: 02-11-2024 Sex Assigned At Female [facility] Start: 03-02-1989 End: 03-02-1999 History of [...] or more drinks on 1 occasion? Never [facility] Start: 02-16-2024 End: 03-23-2024 Alcoholic beverage intake Ex-drinker (finding) [facility] Healthcare Clinical Notes 04-07-2023 to 03-23-2024 Madeline Sykes MD - 03/23/2024 8:00 AM Rylee Sykes MD - 02/16/2024 8:40 AM Christelle Neumann MD - 02/11/2024 10:11 AM Christelle Neumann MD - 02/11/2024 10:10 AM EST Note Date & Type Note Facility 03-23-2024 History of Present illness Narrative Subjective Patient ID: Keyon Cheatham is a 64 y.o. female who presents for Ear Problem (Follow up CT [facility] 02/29/24) F/U CT and beta-2 transferrin. Beta-2 negative, but on CT there is complete opacification of the mastoid and epitympanum with multiple possible tegmen defects. Family History Problem Relation Name Age of Onset Heart disease Father CAD Active Ambulatory Problems Diagnosis Date Noted Essential hypertension, benign (CMS/HCC) 02/18/2023 Primary osteoarthritis of both knees 02/18/2023 Dyslipidemia ([facility]) 02/18/2023 Gastroesophageal reflux disease 02/18/2023 Primary hypothyroidism ([facility]) 02/18/2023 Osteoporosis, post-menopausal ([facility]) 02/18/2023 Prediabetes 02/18/2023 Vitamin D deficiency 02/18/2023 Seasonal allergic rhinitis due to pollen 02/18/2023 Colon cancer screening 02/18/2023 Plantar fasciitis of right foot 08/19/2023 ZEESHAN (generalized anxiety disorder) ([facility]) 09/29/2023 Medicare annual wellness visit, subsequent 02/11/2024 Encounter for long-term (current) use of medications 02/11/2024 Otorrhea of left ear 02/11/2024 Resolved Ambulatory Problems Diagnosis Date Noted No Resolved Ambulatory Problems Past Medical History: Diagnosis Date At low risk for fall Benign essential hypertension ([facility]) Former smoker GERD without esophagitis Hypothyroidism, adult ([facility]) Non-seasonal allergic rhinitis due to pollen Obesity with body mass index (BMI) of 30.0 to 39.9 Osteoporosis, postmenopausal ([facility]) Right wrist pain Past Surgical History: Procedure [...] BY MOUTH DAILY 90 tablet 3 [DISCONTINUED] clotrimazole (Lotrimin) 1 % external solution 4 drops to left ear 2 times daily for 7 days 10 mL 1 No current facility-administered medications on file prior to visit. Objective Last Recorded Vitals Vitals: 03/23/24 0749 BP: 158/85 Pulse: 78 ENT Physical Exam Constitutional Appearance: patient appears well-developed, well-nourished and well-groomed, Communication/Voice: communication appropriate for developmental age; vocal quality normal; Assessment/Plan Diagnoses and all orders for this visit: Otorrhea of left ear Pt reports otorrhea stopped initially with drops, but has recurred. I am still very suspicious of a CSF leak, and/or possibly a cholesteatoma. I will arrange for Keyon to see an decator operator, Dr Victoria Britt, or one of her partners, for eval and tx. In the meantime I will restart drops and have pt get a copy of her CT to take to [facility]. documented in this encounter [facility] 02-16-2024 History of Present illness Narrative Images [...] Problems Diagnosis Date Noted Essential hypertension, benign (CMS/HCC) 02/18/2023 Primary osteoarthritis of both knees 02/18/2023 Dyslipidemia (CMS/HCC) 02/18/2023 Gastroesophageal reflux disease 02/18/2023 Primary hypothyroidism (CMS/HCC) 02/18/2023 Osteoporosis, post-menopausal (CMS/HCC) 02/18/2023 Prediabetes 02/18/2023 Vitamin D deficiency 02/18/2023 Seasonal allergic rhinitis due to pollen 02/18/2023 Colon cancer screening 02/18/2023 Plantar fasciitis of right foot 08/19/2023 ZEESHAN (generalized anxiety disorder) (CMS/HCC) 09/29/2023 Medicare annual wellness visit, subsequent 02/11/2024 Encounter for long-term (current) use of medications 02/11/2024 Otorrhea of left ear 02/11/2024 Resolved Ambulatory Problems Diagnosis Date Noted No Resolved Ambulatory Problems Past Medical History: Diagnosis Date At low risk for fall Benign essential hypertension (CMS/HCC) Former smoker GERD without esophagitis Hypothyroidism, adult ([facility]) Non-seasonal allergic rhinitis due to pollen Obesity with body mass index (BMI) of 30.0 to 39.9 Osteoporosis, postmenopausal ([facility]) Right wrist pain Past Surgical History: Procedure [...] a tegmen defect. documented in this encounter [facility] 02-11-2024 History of Present illness Narrative [...] unspecified joint Relevant Orders Sedimentation rate, automated HRIA Rheumatoid factor documented in this encounter [facility] 10-30-2023 History of Present illness Narrative [...] at current dose. documented in this encounter [facility] 04-07-2023 Note Chief Complaint consultation for [...] virus vaccine, keisha (more content not included)... [facility] Comment on above: Result Comment: Elec tronically Signed By: BARBIE VANEGAS, Marcin Pinedo\.bev\Date and Time Signed: 04/07/23 19:36 EST Evaluation + Plan note No data available for this section [facility] [place] Evaluation note Diagnosis Breast cancer screening by mammogram documented in this encounter [employer] Work Phone: evaluation note* Diagnosis Essential hypertension, [...] Essential hypertension, benign ZEESHAN (generalized anxiety disorder) (CMS/HCC) Generalized anxiety disorder Medicare annual wellness visit, subsequent- Primary Essential hypertension, benign ([facility]/HCC) Essential hypertension, benign Prediabetes Other abnormal glucose Primary hypothyroidism ([facility]/HCC) Unspecified hypothyroidism Dyslipidemia ([facility]) Other and unspecified hyperlipidemia Encounter for long-term (current) use of medications Encounter for long-term (current) use of other medications Arthralgia, unspecified joint Otorrhea of left ear documented in this encounter [facility]* Diagnosis Essential hypertension, benign ([facility]/HCC)- Primary Essential hypertension, benign Seasonal allergic rhinitis due to pollen Primary osteoarthritis of both knees Primary hypothyroidism ([facility]/HCC) Unspecified hypothyroidism Colon cancer screening Special screening for malignant neoplasms, colon Osteoporosis, post-menopausal ([facility]) Senile osteoporosis Essential hypertension, benign ([facility]/HCC)- Primary Essential hypertension, benign Plantar fasciitis of right foot Primary osteoarthritis of both knees Seasonal allergic rhinitis due to pollen Plantar fasciitis of right foot- Primary ZEESHAN (generalized anxiety disorder) ([facility]) Generalized anxiety disorder Essential hypertension, benign ([facility])- Primary Essential hypertension, benign ZEESHAN (generalized anxiety disorder) ([facility]) Generalized anxiety disorder Medicare annual wellness visit, subsequent- Primary Essential hypertension, benign ([facility]/HCC) Essential hypertension, benign Prediabetes Other abnormal glucose Primary hypothyroidism ([facility]) Unspecified hypothyroidism Dyslipidemia ([facility]) Other and unspecified hyperlipidemia Encounter for long-term (current) use of medications Encounter for long-term (current) use of other medications Arthralgia, unspecified joint Otorrhea of left ear ETD (Eustachian tube dysfunction), left- Primary CSF otorrhea Other specified hearing loss of left ear, unspecified hearing status on contralateral side Chronic myringitis of left ear Foreign body of left ear, initial encounter documented in this encounter [facility]* Diagnosis Essential hypertension, benign ([facility]/HCC)- Primary Essential hypertension, benign ZEESHAN (generalized anxiety disorder) ([facility]) Generalized anxiety disorder documented in this encounter [facility]* Diagnosis Essential hypertension, benign ([facility]/HCC)- Primary Essential hypertension, benign Seasonal allergic rhinitis due to pollen Primary osteoarthritis of both knees Primary hypothyroidism ([facility]/HCC) Unspecified hypothyroidism Colon cancer screening Special screening for malignant neoplasms, colon Osteoporosis, post-menopausal ([facility]) Senile osteoporosis Essential hypertension, benign ([facility]/HCC)- Primary Essential hypertension, benign Plantar fasciitis of right foot Primary osteoarthritis of both knees Seasonal allergic rhinitis due to pollen Plantar fasciitis of right foot- Primary ZEESHAN (generalized anxiety disorder) ([facility]/HCC) Generalized anxiety disorder Essential hypertension, benign ([facility]/HCC)- Primary Essential hypertension, benign ZEESHAN (generalized anxiety disorder) ([facility]/HCC) Generalized anxiety disorder Medicare annual wellness visit, subsequent- Primary Essential hypertension, benign ([facility]/HCC) Essential hypertension, benign Prediabetes Other abnormal glucose Primary hypothyroidism ([facility]) Unspecified hypothyroidism Dyslipidemia ([facility]) Other and unspecified hyperlipidemia Encounter for long-term (current) use of medications Encounter for long-term (current) use of other medications Arthralgia, unspecified joint Otorrhea of left ear Otorrhea of left ear- Primary documented in this encounter [facility] HealthcareHospital Discharge instructions No data available for this section General Surgery [place] [employer] Progress note No data available for this section General Surgery [email or web address] Reason for Referral Status Reason Specialty Diagnoses / Procedures Referre d By Contact Referred To Contact Closed Radiology Diagnoses Breast cancer screening by mammogram Procedures [facility] DIGITAL SCREEN W OR WO CAD BILATERAL Felton Neumann MD [address] [place] [address] Status Reason Specialty Diagnoses / Procedures Referred By Contact Referred To Contact Authorized Radiology Diagnoses Breast cancer screening by mammogram Procedures [facility] DIGITAL SCREEN BILATERAL Felton Neumann MD [address] [place] [address] Specialty Diagnoses / Procedures Referred By Contac t Referred To Contact Radiology Diagnoses Breast cancer screening by mammogram Procedures [facility] DIGITAL SCREEN BILATERAL Felton Neumann MD [address] [place] [address] Referral ID Status Reason Start Date Expiration Date Visits Re quested Visits Authorized [id number] Closed 11/29/2020 11/29/2021 1 1 Assessments Diagnosis Breast cancer screening by mammogram Diagnosis Breast cancer screening by mammogram Advance Directives No Advanced Directives Records FoundDocuments on File Type Date Recorded 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 Advance Directives and Living Will Power of Graduate Teaching Assistant Documents on File Type Date Recorded 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 anation ACP-Advance Directive ACP-Power of Graduate Teaching Assistant Summary Purpose Family History No Family History [...] BILATERAL Felton Neumann MD [address] [place] [address] Status Reason Specialty Diagnoses / Procedures Referred By Contact Referred To Contact Pending Review Radiology Diagnoses Encounter for screening mammogram for malignant neoplasm of breast Procedures [facility] DIGITAL SCREEN BILAT Felton Neumann MD [address] [place] [address] [facility] [address] [address] Specialty Diagnoses / Procedures Referred By Contac t Referred To Contact Radiology Diagnoses Breast cancer screening by mammogram Procedures [facility] DIGITAL SCREEN BILATERAL Felton Neumann MD [address] [place] [address] Referral ID Status Reason Start Date Expiration Date Visits Re quested Visits Authorized [id number] Closed 11/29/2020 11/29/2021 1 1 Reason Comments Medicare Annual Wellness Visit Initial W [facility] Reason Comments Ear Problem Otorrhea of left ear Specialty Diagnoses / Procedures Referred By Contac t Referred To Contact Otolaryngology Diagnoses Otorrhea of left ear Procedures [place] OFFICE/OUTPATIENT [facility] Felton Neumann MD [address] [place] [address] Phone: tel: fax: Madeline Sykes MD [address] [facility] [address] [place] [address] Phone: tel: fax: Referral ID Status Reason Start Date Expiration Date V isits Requested Visits Authorized [id number] Closed Specialty Services Required 02/11/2024 08/09/2024 1 1 Reason Comments Follow-up 1 m Reason Comments Ear Problem Follow up [facility] Care Teams (unrecognized sec tion and content) Tree Faller Relationship Specialty Start Date End Date Felton Neumann MD [address] [place], [place] [id number] PCP - General Family Medicine 11/02/18 Tree Faller Relationship Specialty Start Date End Date Felton Neumann MD [address] [place] [address] PCP - Devoted 12/31/22 03/01/24 Felton Neumann MD [address] [place] [address] PCP - General Family Medicine 08/19/23 Tree Faller Relationship Specialty Start Date End Date Felton Neumann MD [address] [place] [address] PCP - Devoted 12/31/22 03/01/24 Felton Neumann MD [address] [place] [address] PCP - General Family Medicine 08/19/23 Tree Faller Relationship Specialty Start Date End Date Felton Neumann MD [address] [place] [address] PCP - Devoted 12/31/22 03/01/24 Felton Neumann MD [address] [place] [address] PCP - General Family Medicine 08/19/23 Tree Faller Relationship Specialty Start Date End Date Felton Neumann MD [address] [place] [address] PCP - Devoted 12/31/22 03/01/24 Felton Neumann MD [address] [place] [address] PCP - General Family Medicine 08/19/23 Tree Faller Relationship Specialty Start Date End Date Felton Neumann MD [address] [place] [address] PCP - Devoted 12/31/22 Felton Neumann MD [address] [place] [address] PCP - General Family Medicine 08/19/23 Tree Faller Relationship Specialty Start Date End Date Felton Neumann MD [address] [place] [address] PCP - Devoted 12/31/22 Felton Neumann MD [address] [place] [address] PCP - General Family Medicine 08/19/23 Tree Faller Relationship Specialty Start Date End Date Felton Neumann MD [address] [place] [address] PCP - Devoted 12/31/22 03/01/24 Felton Neumann MD [address] [place] [phone] PCP - General Family Medicine 08/19/23 Tree Faller Relationship Specialty Start Date End Date Felton Neumann MD [address] [place] [address] PCP - General Family Medicine 08/19/23 Tree Faller Relationship Specialty Start Date End Date Felton Neumann MD [address] [place] [address] PCP - General Family Medicine 08/19/23 INFORMATION SOURCE (unrecogn ized section and content) DATE CREATED AUTHOR 02/17/2021 [facility] DATE CREATED AUTHOR AUTHOR'S ORGANIZ ATION 06/06/2022 [facility] DATE CREATED AUTHOR AUTHOR'S ORGANIZ ATION 05/05/2023 [facility] DATE CREATED AUTHOR AUTHOR'S ORGANIZ ATION 05/13/2023 [facility] DATE CREATED AUTHOR AUTHOR'S ORGANIZ ATION 03/24/2024 [facility] FOR RECORDS PERTAINING TO PATIENTS WHO ARE [...] BE BASED ON THE PRIMARY CLINICAL RECORDS. [employer] provides no warranty or guarantee of the accuracy or completeness of information in this document.
[2024-05-04 08:54] LABS: Basophils Absolute Auto 0.1 10^3/uL (0.0-0.1); Basophils Percent Auto 0.9 % (0.2-2.0); Eosinophils Absolute Auto 0.1 10^3/uL (0.0-0.7); Eosinophils Percent Auto 0.9 % (0.9-7.0); Hematocrit 41.8 % (36.0-48.0); Immature Granulocytes Abs Auto 0.02 10^3/uL (0.00-0.03); Immature Granulocytes Pct Auto 0.4 % (0.0-0.5); Lymphocytes Absolute Auto 1.7 10^3/uL (1.2-3.8); Lymphocytes Percent Auto 29.6 % (20.5-60.0); Mean Corpuscular HGB Conc 33.5 g/dL (29.9-35.2); Mean Corpuscular Hemoglobin 30.2 pg (26.7-34.0); Mean Corpuscular Volume 90.1 fL (81.0-99.0); Mean Platelet Volume 9.8 fL (9.5-13.5); Monocytes Absolute Auto 0.4 10^3/uL (0.3-0.8); Monocytes Percent Auto 7.5 % (1.7-12.0); Neutrophils Absolute Auto 3.4 10^3/uL (1.4-6.5); Neutrophils Percent Auto 60.7 % (43.0-75.0); Platelet Count 262 10^3/uL (150-450); Red Blood Count 4.64 10^6/uL (4.20-5.40); Red Cell Distribution Width 13.5 % (11.0-15.0); White Blood Count 5.6 10^3/uL (4.0-11.0)
[2024-05-04 09:42] LABS: Alanine Aminotransferase 29 U/L (14-59); Albumin Globulin Ratio 1.1; Albumin Level 3.7 g/dL (3.4-5.0); Alkaline Phosphatase 94 U/L (46-116); Anion Gap 14.7; Aspartate Amino Transferase 23 U/L (15-37); BUN Creatinine Ratio 15.2; Bilirubin Total 0.7 mg/dL (0.2-1.0); Calcium 9.9 mg/dL (8.5-10.1); Carbon Dioxide 28.1 mmol/L (21.0-32.0); Chloride 101 mmol/L (98-107); Estimated GFR (African America >60 (>=60 mL/min/1.73m^2); Estimated GFR (Non-African Ame >60 (>=60 mL/min/1.73m^2); Globulin 3.4 g/dL; Glucose 149 mg/dL (74-106); Potassium 3.8 mmol/L (3.5-5.1); Sodium 140 mmol/L (136-145); Total Protein 7.1 g/dL (6.4-8.2)
== END 2024-05-04 08:14 | disposition home or self-care (01) ==
LOC: LAB 08:17
PROVIDERS: PCP Family Medicine; Visit Provider Otolaryngology
DX: Z01.810 Encounter for preprocedural cardiovascular examination (principal); Z01.812 Encounter for preprocedural laboratory examination; G96.01 Cranial cerebrospinal fluid leak, spontaneous; Z01.818 Encounter for other preprocedural examination
CPT/HCPCS: 36415; 80053; 85025; 93005

== ENCOUNTER 2024-07-12 12:55 | Outpatient (OUT) | payer MEDICARE, SELFPAY ==
[2024-07-12 13:47] LABS: Basophils Absolute Auto 0.1 10^3/uL (0.0-0.1); Basophils Percent Auto 0.9 % (0.2-2.0); Eosinophils Absolute Auto 0.1 10^3/uL (0.0-0.7); Eosinophils Percent Auto 1.5 % (0.9-7.0); Hemoglobin 12.7 g/dL (12.0-16.0); Immature Granulocytes Abs Auto 0.04 10^3/uL (0.00-0.03); Immature Granulocytes Pct Auto 0.6 % (0.0-0.5); Lymphocytes Absolute Auto 1.8 10^3/uL (1.2-3.8); Lymphocytes Percent Auto 26.4 % (20.5-60.0); Mean Corpuscular HGB Conc 32.6 g/dL (29.9-35.2); Mean Corpuscular Hemoglobin 29.5 pg (26.7-34.0); Mean Corpuscular Volume 90.5 fL (81.0-99.0); Mean Platelet Volume 10.3 fL (9.5-13.5); Monocytes Absolute Auto 0.6 10^3/uL (0.3-0.8); Monocytes Percent Auto 8.4 % (1.7-12.0); Neutrophils Absolute Auto 4.2 10^3/uL (1.4-6.5); Neutrophils Percent Auto 62.2 % (43.0-75.0); Platelet Count 286 10^3/uL (150-450); Red Blood Count 4.31 10^6/uL (4.20-5.40); Red Cell Distribution Width 13.8 % (11.0-15.0); White Blood Count 6.8 10^3/uL (4.0-11.0)
[2024-07-12 14:00] LABS: Thyroid Stimulating Hormone 1.047 uIU/mL (0.358-3.740)
[2024-07-12 14:20] LABS: Free T4 1.26 ng/dL (0.76-1.46)
== END 2024-07-12 12:56 | disposition home or self-care (01) ==
PROVIDERS: PCP Family Medicine; Visit Provider Family Medicine
DX: E03.9 Hypothyroidism, unspecified (principal); Z79.899 Other long term (current) drug therapy
CPT/HCPCS: 36415; 84439; 84443; 85025

== ENCOUNTER 2024-07-21 07:33 | Outpatient (OUT) | payer MEDICARE, SELFPAY ==
--- OUTSIDE RECORDS SUMMARY | 2023-10-08 07:20 | XMS_ITS ---
Author Organization The [facility] in [place] Address [address] [place] [address] Care Team Providers Care Log Tumbler Name Role Phone Felton Puga MD Primary Care Provider Unavailab Crystal Davila Unavailable [phone] Allergies No Known Allergies Reason For Referral Reason evaluation and treat ment -- see attached order Diagnosis 1 Plantar fascial fibr omatosis (M72.2) Referral Organization [facility] ([facility]) Referring Provider First Name Crystal Referring Provider Last Name Chato Referring Provider Speciality Podiatry Referred Provider [facility], Physical Therap y Referred Provider Specialty Physical Med icine and Rehabilitation Referral Priority Routine REASON FOR VISIT Referral from [facility] for plantar fasciitis Medications Medication SIG (Take, Route, Frequency, Duration) Notes Start Date End Date Status DULoxetine HCl 60 MG 1 capsule Orally On ce a day Active Levothyroxine Sodium 125 MCG 1 tablet in the morning on an empty stomach Orally Once a day Active Lisinopril-hydroCHLOROthiazi de 10-12.5 MG 1 tablet Orally Once a day Active Meloxicam 15 MG 1 tablet Orally Once a day for 30 days 10/08/2023 Active Calcium 600 MG 1 tablet with meals Orally Twice a day Active Meloxicam 15 MG 1 tablet Orally Once a day Active Montelukast Sodium 10 MG 1 tablet Orally Once a day Active predniSONE 10 MG 1 tablet Orally Once a day Active PROzac 20 MG 1 capsule Orally Onc e a day Active Social History Tobacco Use: Social History Observation Description Date Details (start date - stop date) Never Smoker NA - NA Tobacco Control (Standard) Question Answer Notes Tobacco use: Nonsmoker Vital Signs Temperature 98.2 degrees Fahrenheit 10/08/19 24 Heart Rate 82 /min 10/08/2023 Height 64 in 10/08/2023 Weight 179 lbs 10/08/2023 BMI 30.72 kg/m2 10/08/2023 Oximetry 97 % 10/08/2023 Encounters Encounter Location Date Provider Diagnosis The [facility] (PODIATRY) [address] [place] [address] [place] [address] 10/08/2023 Crystal Reis Right foot pain M79.671 ; Plantar fascial fibromatosis M72.2 and Flat foot [pes planus] (acquired), right foot M21.41 Assessments Encounter Date Diagnosis (ICD Code) Assessment Notes Treatment Notes Treatment Clinical Notes Section Notes 10/08/2023 Right foot pain (ICD-10 - M79.671) 10/08/2023 Plantar fascial fibromatosis (ICD-10 - M72.2) The patient is a 63-year-old female referred by Dr. Puga for evaluation of nontraumatic pain to the right foot that has been present for 6 months. History, imaging, and physical examination are consistent with plantar fasciitis. The the patient does not have equinus contracture. I feel her plantar fasciitis is likely flatfoot driven. I recommend: -ASO bracing -Physical therapy -Meloxicam -RICE therapy -We can consider corticosteroid injection if her symptoms do not improve with the above. Follow-up in 6 weeks, sooner if any issues arise. No additional x-rays are necessary at that time. 10/08/2023 Flat foot [pes planus] (acquired), right foot (ICD-10 - M21.41) Plan Of Treatment Medication Medication Name Sig Start Date Stop Date Notes Meloxicam 15 MG 1 tablet Orally Once a day for 30 days 10/2023 Treatment Notes Assessment Notes Plantar fascial fibromatosis The patient is a 63-year-old female referred by Dr. Puga for evaluation of nontraumatic pain to the right foot that has been present for 6 months. History, imaging, and physical examination are consistent with plantar fasciitis. The the patient does not have equinus contracture. I feel her plantar fasciitis is likely flatfoot driven. I recommend: -ASO bracing -Physical therapy -Meloxicam -RICE therapy -We can consider corticosteroid injection if her symptoms do not improve with the above. Follow-up in 6 weeks, sooner if any issues arise. No additional x-rays are necessary at that time. Pending Test Test Name Order Date XR Foot RT (3 views) * 10/08/2023 Referrals Referral Date Details 10/08/2023 10/08/2023, evaluati on and treatment -- see attached order, Physical Therapy [facility] Next Appt Details Follow Up: 6 Weeks, Reason: Progress Notes * Poppy CHEATHAMDOB:1960 ([age] yo F)Acc No.[id number]:10/08/2023 New Patient Patient: Poppy SÁNCHEZ Provider: Cindy Reis PA-C :1960 A ge:63 Y S ex:Female Date:10/08/2023 Address:[address] [place] [address] [place] [id number] Pcp:Felton Puga MD Check In:11:00 AM ESTCheck O ut:11:32 AM EST Subjective: * Chief Complaints: * [facility] * HPI: G eneral: Patient in office today for initial evaluation of right foot pain x 2 months. She rates her pain today 0/10 due to her being on Prednisone x 2 months. She has a follow up appointment with Dr. Puga next Thursday. She states that her pain starts in the arch of her foot and radiates into her achilles. She states before the steroids she was hardly able to walk or put pressure on her right foot with pain being 6/10. Patient thinks her pain stems from having flat feet. She has tried bracing and arch inserts with no relief. * Active Problem List M79.671 Right foot pain Modified On:10/08/2023W/U Status:confirmed * Medical History: * Surgical History: H ysterectomy * Hospitalization/Major Diagno stic Procedure: N o Hospitalization History. * Family History: N o Family History documented.. * Social History: T obacco Use: T obacco Control (Standard) T obacco use: N onsmoker * Medications: T akingCalcium 600 MG Tablet 1 tablet with meals Orally Twice a day DULoxetine HCl 60 MG Capsule Delayed Release Particles 1 capsule Orally Once a day Levothyroxine Sodium 125 MCG Tablet 1 tablet in the morning on an empty stomach Orally Once a day Lisinopril-hydroCHLOROthiazide 10-12.5 MG Tablet 1 tablet Orally Once a day Meloxicam 15 MG Tablet 1 tablet Orally Once a day Montelukast Sodium 10 MG Tablet 1 tablet Orally Once a day predniSONE 10 MG Tablet 1 tablet Orally Once a day PROzac(FLUoxetine HCl) 20 MG Capsule 1 capsule Orally Once a day Medication List reviewed and reconciled with the patientTaking Calcium 600 MG Tablet 1 tablet with meals Orally Twice a day Taking DULoxetine HCl 60 MG Capsule Delayed Release Particles 1 capsule Orally Once a day Taking Levothyroxine Sodium 125 MCG Tablet 1 tablet in the morning on an empty stomach Orally Once a day Taking Lisinopril-hydroCHLOROthiazide 10-12.5 MG Tablet 1 tablet Orally Once a day Taking Meloxicam 15 MG Tablet 1 tablet Orally Once a day Taking Montelukast Sodium 10 MG Tablet 1 tablet Orally Once a day Taking predniSONE 10 MG Tablet 1 tablet Orally Once a day Taking PROzac(FLUoxetine HCl) 20 MG Capsule 1 capsule Orally Once a day Medication List reviewed and reconciled with the patient * Allergies: N .K.D.A.no[Allergies Verified] Objective: * Vitals: W t:179lbs, Ht: 64 in, Temp:98.2F, HR:82/min, BMI:30.72Index, Pain scale:01-10, Oxygen sat %:97%, Ht-cm: 162.56 cm, Wt-k.19 kg. * Examination: P odiatry Examination: SKIN: s kin intact, n o sign of infection. MUSCULOSKELETAL: P ain to the plantar medial instep of the foot and mid-arch. Pain worse with Windlass maneuver No pain with calcaneal squeeze, Ankle joint dorsiflexion is to 3-5 degrees past neutral with knee extended Muscle strength is 5/5 in all planes. NEUROLOGICAL: L ight touch sensation is intact in allnerve distributions, N egative Tinel sign. VASCULAR: P alpable pedal pulses bilaterally, No calf pain on squeeze. X -ray 3 view foot obtained in the office today and reviewed: No evidence of acute trauma or stress fracture. Plantar calcaneal spur noted. No evidence of aggressive osseous lesion identified. Assessment: * Assessment: 1. P nathan fascial fibromatosis - M72.2 (Primary) 2 . R ight foot pain - M79.671 3 . F lat foot [pes planus] (acquired), right foot - M21.41 Plan: * Treatment: 2. R ight foot pain Start Meloxicam Tablet, 15 MG, 1 tablet, Orally, Once a day, 30 days, 30, Refills 1. I maging: XR Foot RT (3 views) * * Procedure Codes: * Follow Up: 6 Weeks * * Sign off status: Completed Visit Status: C HK (Check Out) true * Provider: Cindy Reis PA-C Date: 0 10/08/2023 Generated for [facility] ghada/Joaquin/Demetrioitting on: 0 07/21/2024 07:36 AM EDT History and Physical Notes * HPI (History of Present Illness) Category Sub-Category Detail Notes Category Not es General Patient in offi ce today for initial evaluation of right foot pain x 2 months. She rates her pain today 0/10 due to her being on Prednisone x 2 months. She has a follow up appointment with Dr. Puga next Thursday. She states that her pain starts in the arch of her foot and radiates into her achilles. She states before the steroids she was hardly able to walk or put pressure on her right foot with pain being 6/10. Patient thinks her pain stems from having flat feet. She has tried bracing and arch inserts with no relief. Examination Category Sub-Category Detail Notes Category Not es Podiatry Examination SKIN: skin intact, no sign of infection X-ray 3 view foot obtained in the office today and reviewed: No evidence of acute trauma or stress fracture. Plantar calcaneal spur noted. No evidence of aggressive osseous lesion identified MUSCULOSKELETAL: Pain to the plantar medial instep of the foot and mid-arch. Pain worse with Windlass maneuver No pain with calcaneal squeeze, Ankle joint dorsiflexion is to 3-5 degrees past neutral with knee extended Muscle strength is 5/5 in all planes NEUROLOGICAL: Light touch sensation is intact in all nerve distributions, Negative Tinel sign VASCULAR: Palpable pedal pulse s bilaterally, No calf pain on squeeze Consultation Request Notes Referral Date Referring Provider Referred Provider Not es 10/08/2023 Crystal Reis [facility], Physical Therapy ev aluation and treatment -- see attached order
--- OUTSIDE RECORDS SUMMARY | 2024-07-11 09:00 | XMS_ITS | Encounter Summary ---
Author Organization [facility] Address [address] [place] [address] Care Team Providers Care Coding Manager Name Role Phone Felton Puga MD Primary Care Provider [phone] Felton Puga MD Unavailable Reason for Referral * Imaging (Routine) - Authorized Specialty Diagnoses / Procedures Referred By Contac t Referred To Contact Radiology Diagnoses Chest pain, unspecified type Prediabetes Dyslipidemia ([facility]) Procedures Stress test with myocardial perfusion Felton Puga MD [address] [place] [address] Phone: tel: fax: [facility] [address] [place] [address] Phone: tel: fax: Referral ID Status Reason Start Date Expiration Date V isits Requested Visits Authorized [id number] Authorized 07/11/2024 01/07/2025 3 3 Reason for Visit * Reason Comments Follow-up 6m f/up Fatigue Tired all the time Encounter Details Date Type Department Care Team (Late st Contact Info) Description 07/11/2024 9:00 AM EDT Office Visit [facility] [address] [place] [phone] Felton Puga MD [address] [place] [address] Essential hypertension, benign (CMS/HCC) (Primary Dx); Chest pain, unspecified type; ZEESHAN (generalized anxiety disorder) (CMS/HCC); Primary osteoarthritis of both knees; Primary hypothyroidism (CMS/HCC); Prediabetes; Dyslipidemia (CMS/HCC); Encounter for long-term (current) use of medications Social History Tobacco Use Types Packs/Day Years Used Date Smoking Tobacco: Former Cigarettes 3 10 1 990 - 1999 Smokeless Tobacco: Never Alcohol Use Standard Drinks/Week Comments Not Currently 0 (1 standard drink = 0.6 oz pur e alcohol) Humiliation, Afraid, Rape, and Kick questionnair e Answer Date Recorded Within the last year, have y ou been afraid of your partner or ex-partner? No 02/17/2023 Within the last year, have y ou been humiliated or emotionally abused in other ways by your partner or ex-partner? No Within the last year, have y ou been kicked, hit, slapped, or otherwise physically hurt by your partner or ex-partner? No 02/17/2023 Within the last year, have y ou been raped or forced to have any kind of sexual activity by your partner or ex-partner? No 02/17/2023 Social Connection and Isolat ion Panel [NHANES] Answer Date Recorded In a typical week, how many times do you talk on the phone with family, friends, or neighbors? More than three times a week 02/17/2023 How often do you get togethe r with friends or relatives? Three times a week 02/17/2023 How often do you attend [facility] or worship services? Patient declined 02/17/2023 Do you belong to any clubs o r organizations such as scientologist groups, unions, fraternal or athletic groups, or school groups? No 02/17/2023 How often do you attend meet ings of the clubs or organizations you belong to? Patient declined 02/17/2023 Are you , , di vorced, , never , or living with a partner? 02/17/2023 AUDIT-C Answer Date Recorded Q1: How often do you have a drink containing alc ohol? 2-3 times a week 02/17/2023 Q2: How many drinks containi ng alcohol do you have on a typical day when you are drinking? 1 or 2 02/17/2023 Q3: How often do you have si x or more drinks on one occasion? Never 02/17/2023 Overall Financial Resource Strain (CARDIA) Answe r Date Recorded How hard is it for you to pa y for the very basics like food, housing, medical care, and heating? Patient declined 02/17/2023 PHQ-2 Answer Date Recorded Patient Health Questionnaire-2 Score 0 02/11/2024 Exercise Vital Sign Answer Date Recorde d On average, how many days pe r week do you engage in moderate to strenuous exercise (like a brisk walk)? Patient declined Minutes of Exercise per Session Not on file 02/17/2023 Hunger Vital Sign Answer Date Recorded Within the past 12 months, y ou worried that your food would run out before you got the money to buy more. Patient declined Within the past 12 months, t he food you bought just didn't last and you didn't have money to get more. Patient declined PRAPARE - Transportation Answer Date Re corded In the past 12 months, has l ack of transportation kept you from medical appointments or from getting medications? No 01/30 In the past 12 months, has l ack of transportation kept you from meetings, work, or from getting things needed for daily living? No 02/17/2023 Housing Stability Vital Sign Answer Ever e Recorded In the last 12 months, was t here a time when you were not able to pay the mortgage or rent on time? No 02/17/2023 Number of Places Lived in the Last Year Not on f ile 02/17/2023 Unstable Housing in the Last Year Not on file 02/17/2023 Comments Unknown Sex and Gender Information Value Date Recorded Sex Assigned at Not on file Legal Sex Female 1:25 PM EDT Gender Identity Not on file Sexual Orientation Not on file documented as of this encounter Last Filed Vital Signs Vital Sign Reading Time Taken Comments Blood Pressure 138/76 07/11/2024 9:17 AM EDT Pulse 98 07/11/2024 9:17 AM EDT Temperature 36.2 C (97.1 F) 07/11/2024 9:17 AM EDT Respiratory Rate 22 07/11/2024 9:17 AM EDT Oxygen Saturation 97% 07/11/2024 9:17 AM EDT Inhaled Oxygen Concentration - - Weight 82.6 kg (182 lb) 07/11/2024 9:17 AM EDT Height 165.1 cm (5' 5 ) 07/11/2024 9:17 AM EDT Body Mass Index 30.29 07/11/2024 9:17 AM EDT documented in this encounter Progress Notes * Felton Puga MD - 07/11/2024 9:53 AM EDTAssociated Problem(s): Primary osteoarthritis of both knees Pain stable and continue mobic. Increase activity and walk regularly. * Felton Puga MD - 07/11/2024 9:53 AM EDTAssociated Problem(s): Primary hypothyroidism (CMS/HCC) No signs of low thyroid and repeat labs. Continue synthroid. * Felton Puga MD - 07/11/2024 9:52 AM EDTAssociated Problem(s): ZEESHAN (generalized anxiety disorder) (CMS/HCC) Symptoms controlled with prozac and continue at current dose. * Felton Puga MD - 07/11/2024 9:52 AM EDTAssociated Problem(s): Chest pain Develops severe SOB, fatigue and chest pain with exertion that resolved with rest. Not able to use treadmill due to OA knees and check lexiscan cardiolyte stress test. * Felton Puga MD - 07/11/2024 9:00 AM EDT Images from the original note were not included. Subjective Patient ID: Poppy Valenzuela is a 64 y.o. female who presents for Follow-up (6m f/up) and Fatigue (Tired all the time). Follow up HTN, anxiety, OA knees, and thyroid. C/o chest pain and fatigue with exertion for severalmonths. Notice if try to increase activity developed severe fatigue and SOB. Not able to push mow yard due to symptoms. Develops heaviness in chest and if rest symptoms resolve after few minutes. Prior stress test abnormal but had normal heart cath over 20 years ago. Checking BP PRN and typically controlled. BP normal today. Taking medication daily and tolerating without side effects. Taking prozac and mood stable. Not as stressed out or overwhelmed. Not as nervous or worry as much. Not as dang or irritable. Tolerating medication without side effects. OA knee stable. Occasional aches and pain with activity. Stiff and sore in am but improved once up and moving. Using mobic PRN and helps. Nosigns of low thyroid. No change in hair, nails, or skin. Fatigue Associated symptoms include fatigue. Pertinent negatives include no abdominal pain, chest pain, coughing, nausea or vomiting. Review of Systems Constitutional: Positive for fatigue. Respiratory: Negative for cough, shortness of breath [...] Visit Essential hypertension, benign (CMS/HCC) - Primary Primary osteoarthritis of both knees Pain stable and continue mobic. Increase activity and walk regularly. Dyslipidemia (CMS/HCC) Relevant Orders Stress test with myocardial perfusion Primary hypothyroidism (CMS/HCC) No signs of low thyroid and repeat labs. Continue synthroid. Relevant Orders TSH T4, free Prediabetes Relevant Orders Stress test with myocardial perfusion ZEESHAN (generalized anxiety disorder) (CMS/HCC) Symptoms controlled with prozac and continue at current dose. Encounter for long-term (current) use of medications Relevant Orders CBC and differential Chest pain Develops severe SOB, fatigue and chest pain with exertion that resolved with rest. Not able to use treadmill due to OA knees and check lexiscan cardiolyte stress test. Relevant Orders Stress test with myocardial perfusion documented in this encounter Plan of Treatment Upcoming Encounters Date Type Department Care Team (Late st Contact Info) Description 02/14/2025 9:00 AM EST Office Visit [facility] [address] [place] [address] Felton Puga MD [address] [place] [address] Scheduled Orders Name Type Priority Associated Diagnoses Orde r Schedule Stress test with myocardial perfusion Cardiac Nuclear Medicine Routine Chest pain, unspecified type Prediabetes Dyslipidemia (CMS/HCC) Expected: 07/11/2024 (Approximate), Expires: 07/11/2026 TSH Lab Routine Primary hypothyroidism (CMS/HCC) Expected: 07/11/2024 (Approximate), Expires: 07/11/2025 T4, free Lab Routine Primary hypothyroidism (CMS/HCC) Expected: 07/11/2024 (Approximate), Expires: 07/11/2025 CBC and differential Lab Routine Encounter for long-term (current) use of medications Expected: 07/11/2024 (Approximate), Expires: 07/11/2025 documented as of this encounter Visit Diagnoses Diagnosis Essential hypertension, benign (CMS/HCC)- Primary Essential hypertension, benign Chest pain, unspecified type ZEEHSAN (generalized anxiety disorder) (CMS/HCC) Generalized anxiety disorder Primary osteoarthritis of both knees Primary hypothyroidism (CMS/HCC) Unspecified hypothyroidism Prediabetes Other abnormal glucose Dyslipidemia ([facility]) Other and unspecified hyperlipidemia Encounter for long-term (current) use of medications Encounter for long-term (current) use of other medications documented in this encounter Additional Health Concerns Assessment Noted Time PHQ-9 Depression Total Score: 5 02/11/20 24 9:00 AM EST documented as of this encounter Care Teams Coding Manager Relationship Specialty Start Date End Date Felton Puga MD [address] [place] [address] PCP - General Family Medicine 08/19/23 Felton Puga MD [address] [place] [address] PCP - Medical [facility] 03/02/2403/01 documented as of this encounter
--- NOTE | 2024-07-21 | NM_ITS ---
Patient Name: KEYON CHEATHAM MR#: [id number] : 1960 Exam Date: 07/21/2024 Ordering Doctor: DR KIMMIE NEUMANN . RADIOLOGY REPORT PROCEDURE: NM ABHIJEET PERF SPECT REST STR COMPARISON: None. INDICATIONS: CHEST PAIN, PREDIABETES, DYSLIPIDEMIA TECHNIQUE: Exam Description: Rest/Stress one day protocol gated SPECT Rest Imagin.7 mCi Tc-99m Cardiolite IV on 07/21/2024 Stress Imaging 30.7 mCi Tc-99m Cardiolite IV on 07/21/2024 Exercise Protocol: 0.4 mg Lexiscan given IV Heart Rate (bpm): Rest: 59 Max: 116 PMHR: 75 Blood Pressure: Rest: 174/79 Max: 174/79 Symptoms: Rest and peak stress ECG findings were pending, and the exercise portion of the study was pending per attending physician [facility]. For more details, please see separate cardiac stress test report. FINDINGS: QUALITY OF STUDY: Good PERFUSION DEFECT: LOCATION: N/A SIZE: N/A SEVERITY: N/A TYPE: N/A WALL MOTION: Normal wall motion LV SIZE: 76 mL. TID / TCD: 0.9 LVEF: Calculated EF 82%. SUMMARY: Myocardial perfusion imaging study is normal CONCLUSION: 1. Myocardial perfusion is normal 2. Global left ventricular systolic function is hyperdynamic 3. No evidence of transient ischemic dilatation Dictated by: Magen Guerrero M.D. on 07/21/2024 at 15:21 Approved by: Magen Guerrero M.D. on 07/21/2024 at 15:23
--- OUTSIDE RECORDS SUMMARY | 2024-07-21 07:36 | XMS_ITS | Encounter Summary ---
Author Organization [facility] Address [address] [place] [address] Care Team Providers Care Floral Arranger Name Role Phone Kimmie Neumann MD Primary Care Provider [phone] Kimmie Neumann MD Unavailable Kimmie Neumann MD Primary Care Provider [phone] Kimmie Neumann MD Unavailable Encounter Details Date Type Department Care Team (Late st Contact Info) Description 02/24/2023 Clinisync Result Encounter [facility] External Department Unsolicited Kimmie Neumann MD [address] [place] [phone] Social History Tobacco Use Types Packs/Day Years Used Date Smoking Tobacco: Former Cigarettes 3 10 1 990 - 2000 Smokeless Tobacco: Never Humiliation, Afraid, Rape, and Kick questionnair e [...] week 02/17/2023 How often do you attend chur or christian services? Patient declined 02/17/2023 Do you belong to any clubs o r organizations such as yarsanism groups, unions, fraternal or athletic groups, or [...] medical care, and heating? Patient declined 02/17/2023 Exercise Vital Sign Answer Date Recorde d [...] on file documented as of this encounter Plan of Treatment Upcoming Encounters Date Type Department Care Team (Late st Contact Info) Description 02/14/2025 9:00 AM EST Office Visit [facility] [address] [place] [address] Kimmie Neumann MD [address] [place] [address] documented as of this encounter Procedures Procedure Name Priority Date/Time Associated Diagnosis Comments XR DEXA AXIAL SKELETON 02/24/2023 8:47 AM EST documented in this encounter Results * XR DEXA AXIAL SKELETON (02/24/2023 8:47 AM EST) Anatomical Region Laterality Modality Other 02/24/2023 8:47 AM EST Narrative 02/24/2023 8:50 AM EST The [address] [address] XRay Report Signed Patient: POPPY CHEATHAM MR#: [id number] : 1960 Acct:[id number] Age/Sex: 63 / F ADM Date: 02/24/23 Loc: RAD Attending Dr: Kimmie Neumann M.D. Ordering Physician: Kimmie Neumann M.D. Date of Service: 02/24/23 Procedure(s): XR DEXA axial skeleton Accession Number(s): [id number] cc: Kimmie Neumann M.D. [address] [address] Patient Name: POPPY CHEATHAM MRN: [id number] date: 1960 Sex: F Assigned Patient Location: RAD Current Patient Location: RAD Accession/Order Number: [id number] Exam Date: 02/24/2023 08:30 Report Date: 02/24/2023 08:47 At the request of: KIMMIE NEUMANN Procedure: XR DEXA axial skeleton EXAMINATION: XR DEXA axial skeleton HISTORY: osteoporosis, post-menopausal M81.0 COMPARISON: DEXA bone densitometry 03/24/2017 TECHNIQUE: Dual-energy X-ray absorptiometry (DXA) was performed. FINDINGS: SPINE ANALYSIS: Average bone mineral density is 0.953 g/cm2. T-score (standard deviation relative to young adult mean): -2.1 . +7.8% change since prior study. HIP ANALYSIS: Lowest bone mineral density is within the femoral trochanter, 0.816 g/cm2. T-score (standard deviation relative to young adult mean): -0.3 . -3.2% change since prior study. XR/XR DEXA axial skeleton IMPRESSION: World Rafal Organization Classification: Osteopenia - Moderate Fracture Risk Electronically authenticated by: MALCOLM GRAMAJO Date: 02/24/2023 08:47 Dictated By: Malcolm Gramajo M.D. Signed By: 02/24/2350 DD/ TD/TT: Historical Archeologist: Procedure Note Radiology, Radiologist, MD - 02/24/2023 [place] [address] XRay Report Signed Patient: POPPY CHEATHAM DMR#: [id number] : 1960cct:[id number] Age/Sex: 63 / FADM Date: 02/24/23 Loc: [facility] Attending Dr: Kimmie Neumann M.D. Ordering Physician: Kimmie Neumann M.D. Date of Service: 02/24/23 Procedure(s): XR DEXA axial skeleton Accession Number(s): [id number] cc: Kimmie Neumann M.D. The [address] [address] Patient Name: POPPY CHEATHAM MRN: [id number] date: 1960 Sex: F Assigned Patient Location: RAD Current Patient Location: RAD Accession/Order Number: [id number] Exam Date: 02/24/2023 08:30 Report Date: 02/24/2023 08:47 At the request of: KIMMIE NEUMANN Procedure: XR DEXA axial skeleton EXAMINATION: XR DEXA axial skeleton HISTORY: osteoporosis, post-menopausal M81.0 COMPARISON: DEXA bone densitometry 03/24/2017 TECHNIQUE: Dual-energy X-ray absorptiometry (DXA) was performed. FINDINGS: SPINE ANALYSIS: Average bone mineral density is 0.953 g/cm2. T-score (standard deviation relative to young adult mean): -2.1 . +7.8% change since prior study. HIP ANALYSIS: Lowest bone mineral density is within the femoral trochanter, 0.816 g/cm2. T-score (standard deviation relative to young adult mean): -0.3 . -3.2% change since prior study. XR/XR DEXA axial skeleton IMPRESSION: World Rafal Organization Classification: Osteopenia - Moderate FractureRisk Electronically authenticated by: MALCOLM GRAMAJO Date: 02/24/2023 08:47 Dictated By: Malcolm Gramajo M.D. Signed By:02/24/2350 DD/ TD/TT: Historical Archeologist: Kimmie Neumann MD [facility] Final Result documented in this encounter Visit Diagnoses Not on filedocumented in this encounter Care Teams Floral Arranger Relationship Specialty Start Date End Date Kimmie Neumann MD PCP - General Family Medicine 10/31/22 08/18/23 Kimmie Neumann MD [address] [place] [address] PCP - Devoted 12/31/22 03/01/24 Kimmie Neuamnn MD [address] [place] [address] PCP - General Family Medicine 08/19/23 Kimmie Neumann MD [address] [place] [address] PCP - Medical [facility] 03/02/2403/01 documented as of this encounter
--- OUTSIDE RECORDS SUMMARY | 2024-07-21 07:36 | XMS_ITS | Encounter Summary ---
Author Organization [facility] Address [address] [place] [address] Care Team Providers Care Computer Repair Engineer Name Role Phone Felton Puga MD Primary Care Provider [phone] Felton Puga MD Unavailable Reason for Visit * Reason Comments Med Refill Encounter Details Date Type Department Care Team (Late st Contact Info) Description 05/21/2024 [facility] [address] [place] [address] Felton Puga MD [address] [place] [address] ZEESHAN (generalized anxiety disorder) ([facility]) Social History Tobacco Use Types Packs/Day Years Used Date Smoking Tobacco: Former Cigarettes 3 10 1 990 - 2000 Smokeless Tobacco: Never Alcohol Use Standard Drinks/Week [...] 02/17/2023 How often do you attend chur ch or roman catholic services? Patient declined 02/17/2023 Do you belong to any clubs o r organizations such as mormon groups, unions, fraternal or athletic groups, or [...] on file documented as of this encounter Miscellaneous Notes * Telephone Encounter - ALEX FERRARO - 05/23/2024 9:11 AM EDT MEDICATION SENT TO [facility] documented in this encounter Plan of Treatment Upcoming Encounters Date Type Department Care Team (Late st Contact Info) Description 02/14/2025 9:00 AM EST Office Visit [facility] [address] [place] [address] Felton Puga MD [address] [place] [address] documented as of this encounter Visit Diagnoses Diagnosis ZEESHAN (generalized anxiety disorder) ([facility]) Generalized anxiety disorder documented in this encounter Additional Health Concerns Assessment Noted Time PHQ-9 Depression Total Score: 5 02/11/20 9:00 AM EST documented as of this encounter Care Teams Computer Repair Engineer Relationship Specialty Start Date End Date Felton Puga MD [address] [place] [phone] PCP - General Family Medicine 08/19/23 Felton Puga MD [address] [place] [phone] PCP - Medical [facility] 03/02/2403/01 documented as of this encounter
--- OUTSIDE RECORDS SUMMARY | 2024-07-21 07:36 | XMS_ITS | Encounter Summary ---
Author Organization [facility] Address [address] [place] [address] Phone Care Team Providers Care Manager Project Management Name Role Phone Felton Puga MD Primary Care Provider + Encounter Details Date Type Department Care Team (Late st Contact Info) Description 05/05/2024 Scanned Document [facility] [address] [place] [address] Nadya Blanc RN Social History Tobacco Use Types Packs/Day Years Used Date Smoking Tobacco: Never Passive Smoke Exposure: Never Smokeless Tobacco: Never PHQ-2 Answer Date Recorded Patient Health Questionnaire-2 Score 0 05/03/2024 Comments Unknown Sex and Gender Information Value Date Recorded Sex Assigned at Not on file Legal Sex Female 9:49 AM EST Gender Identity Not on file Sexual Orientation Not on file COVID-19 Exposure Response Date Recorded In the last 10 days, have yo u been in contact with someone who was confirmed or suspected to have Coronavirus/COVID-19? No / Unsure 05/03/2024 10:33 AM EST documented as of this encounter Plan of Treatment Upcoming Encounters Date Type Department Care Team (Late st Contact Info) Description 09/27/2024 10:00 AM EDT Office Visit [facility] [address] [place] [address] [place] [address] [place], [place] [phone] documented as of this encounter Visit Diagnoses Not on filedocumented in this encounter Additional Health Concerns Assessment Noted Time A fall risk assessment has been complete d for the patient 05/03/2024 11:37 AM EST documented as of this encounter Care Teams Manager Project Management Relationship Specialty Start Date End Date Felton Puga MD [address] [place] [address] PCP - General Family Medicine 05/05/24 documented as of this encounter
--- OUTSIDE RECORDS SUMMARY | 2024-07-21 07:36 | XMS_ITS | Encounter Summary ---
Author Organization [facility] Address [address] [facility] [place] [address] Care Team Providers Care Helper Chicken Farm Name Role Phone Felton Puga MD Primary Care Provider [phone] Felton Puga MD Unavailable Felton Puga MD Primary Care Provider [phone] Felton Puga MD Unavailable Encounter Details Date Type Department Care Team (Late st Contact Info) Description 04/09/2023 Abstract [facility] [address] [place] [address] Felton Puga MD [address] [place] [address] Social History Tobacco Use Types Packs/Day Years [...] often do you attend chur ch or amish services? Patient declined 02/17/2023 Do you belong to any clubs o r organizations such as quaker groups, unions, fraternal or athletic groups, or [...] Office Visit [facility] [address] [place] [address] Felton Puga MD [address] [place] [address] documented as of this encounter Visit Diagnoses Not on filedocumented in this encounter Care Teams Helper Chicken Farm Relationship Specialty Start Date End Date Felton Puga MD PCP - General Family Medicine 10/31/22 08/18/23 Felton Puga MD [address] [place] [address] PCP - Devoted 12/31/22 03/01/24 Felton Puga MD [address] [place] [phone] PCP - General Family Medicine 08/19/23 Felton Puga MD [address] [place] [address] PCP - Medical [place] [facility] 03/02/2403/01 documented as of this encounter
--- OUTSIDE RECORDS SUMMARY | 2024-07-21 07:36 | XMS_ITS | Encounter Summary ---
Author Organization [facility] Address [address] [place] [address] Care Team Providers Care Neurosurgery Spine Physician Name Role Phone Felton Puga MD Primary Care Provider [phone] Felton Puga MD Unavailable Encounter Details Date Type Department Care Team (Late st Contact Info) Description 07/12/2024 Clinisync Result Encounter [facility] Unsolicited Felton Puga MD [address] [place] [id number] Social History Tobacco Use Types Packs/Day Years [...] How often do you attend chur or confucianist services? Patient declined 02/17/2023 Do you belong to any clubs o r organizations such as episcopal groups, unions, fraternal or athletic groups, or [...] 9:00 AM EST Office Visit [facility] [address] [place] [address] Felton Puga MD [address] [place] [address] documented as of this encounter Procedures Procedure Name Priority Date/Time Associated Diagnosis Comments ALL THYROXINE (T4) FREE Routine 07/12/2024 1:12 PM EDT ALL THYROID STIM HORMONE Routine 07/12/2024 1:12 PM EDT ALL CBC WITH AUTO DIFF Routine 07/12/2024 1:12 PM EDT documented in this encounter Results * ALL THYROXINE (T4) FREE (07/12/2024 1:12 PM EDT) FREE T4 1.26 0.76 - 1.46 ng/dL TB 07/12/2024 1:12 PM EDT 07/12/2024 1:14 PM EDT Narrative CLINIS[facility] - 07/12/2024 2:20 PM EDT us Felton Puga MD [facility] * ([facility]NORM[facility]) ALL CBC WITH AUTO DIFF (07/12/2024 1:12 PM EDT) [facility] TB WBC 6.8 4.0 - 11.0 10 3/uL TBH TBH RBC 4.31 4.20 - 5.40 10 6/uL TBH TBH HGB 12.7 12.0 - 16.0 g/dL TBH TBH HCT 39.0 36.0 - 48.0 % TBH TBH MCV 90.5 81.0 - 99.0 fL TBH TBH MCH 29.5 26.7 - 34.0 pg TBH TBH MCHC 32.6 29.9 - 35.2 g/dL TBH TBH RDW 13.8 11.0 - 15.0 % TBH TBH PLT 286 150 - 450 10 3/uL TBH TBH MPV 10.3 9.5 - 13.5 fL TBH NEUTROPHILS PERCENT AUTO 62.2 43.0 - 75.0 % TBH LYMPHOCYTES PERCENT AUTO 26.4 20.5 - 60.0 % TBH MONOCYTES PERCENT AUTO 8.4 1.7 - 12.0 % TBH TBH EO % 1.5 0.9 - 7.0 % TBH BASOPHILS PERCENT AUTO 0.9 0.2 - 2.0 % TBH IMMATURE GRANULOCYTES PCT AUTO 0.6(H) 0.0 - 0.5 % TBH NEUTROPHILS ABSOLUTE AUTO 4.2 1.4 - 6.5 10 3/uL TBH LYMPHOCYTES ABSOLUTE AUTO 1.8 1.2 - 3.8 10 3/uL TBH MONOCYTES ABSOLUTE AUTO 0.6 0.3 - 0.8 10 3/uL TBH TBH EO # 0.1 0.0 - 0.7 10 3/uL TBH BASOPHILS ABSOLUTE AUTO 0.1 0.0 - 0.1 10 3/uL TBH IMMATURE GRANULOCYTES ABS AUTO 0.04(H) 0.00 - 0.03 10 3/uL TBH 07/12/2024 1:12 PM EDT 07/12/2024 1:14 PM EDT Narrative [facility] - 07/12/2024 2:19 PM EDT us Felton Puga MD CLINIS[facility]NC Final Result [facility] * ALL THYROID STIM HORMONE (07/12/2024 1:12 PM EDT) THYROID STIMULATING HORMONE 1.047 0.358 - 3.740 uIU/mL TBH 07/12/2024 1:12 PM EDT 07/12/2024 1:14 PM EDT Narrative CLIN[facility] - 07/12/2024 2:02 PM EDT Felton Puga MD CLINISYNC Final Result [facility]IN[facility] documented in this encounter Visit Diagnoses Not on filedocumented in this encounter Additional Health Concerns Assessment Noted Time PHQ-9 Depression Total Score: 5 02/11/20 24 9:00 AM EST documented as of this encounter Care Teams Neurosurgery Spine Physician Relationship Specialty Start Date End Date Felton Puga MD [address] [place] [phone] PCP - General Family Medicine 08/19/23 Felton Puga MD [address] [place] [phone] PCP - Medical [facility] 03/02/2403/01 documented as of this encounter
--- OUTSIDE RECORDS SUMMARY | 2024-07-21 07:36 | XMS_ITS | Encounter Summary ---
Author Organization [facility] Address [address] [place] [address] Care Team Providers Care Processing Tech Name Role Phone Felton Puga MD Primary Care Provider [phone] Felton Puga MD Unavailable Encounter Details Date Type Department Care Team (Late st Contact Info) Description 07/12/2024 Results Follow[facility] [address] [place] [address] Felton Puga MD [address] [place] [address] Social History Tobacco Use Types Packs/Day Years [...] How often do you attend chur or scientologist services? Patient declined 02/17/2023 Do you belong to any clubs o r organizations such as restorationist groups, unions, fraternal or athletic groups, or [...] Office Visit [facility] [address] [place] [address] Felton Puga MD [address] [place] [phone] documented as of this encounter Visit Diagnoses Not on filedocumented in this encounter Additional Health Concerns Assessment Noted Time PHQ-9 Depression Total Score: 5 02/11/20 9:00 AM EST documented as of this encounter Care Teams Processing Tech Relationship Specialty Start Date End Date Felton Puga MD [address] [place] [phone] PCP - General Family Medicine 08/19/23 Felton Puga MD [address] [place] [phone] PCP - Medical [facility] 03/02/2403/01 documented as of this encounter
--- OUTSIDE RECORDS SUMMARY | 2024-07-21 07:36 | XMS_ITS | Clinical Summary ---
Author Organization [facility] Address [address] [place] [address] Care Team Providers Care Key Worker Name Role Phone Felton Puga MD Primary Care Provider [phone] Felton Puga MD Unavailable Allergies No known active allergies Medications Calcium Carb-Cholecalcif cori 600-10 MG-MCG tablet Take 1 tablet by mouth in the morning and 1 tablet before bedtime. 01/27/20 23 Active meloxicam (Mobic) 15 MG tablet Take 1 tablet by mouth in the morning. 01/10/20 23 Active levothyroxine (Synthroid, Levoxyl) 100 MCG tabletIndication s:Hypothyroidism , unspecified TAKE 1 TABLET BY MOUTH DAILY 90 tablet 3 11/05/19 24 Active FLUoxetine (PROzac) 20 MG capsuleIndicatio ns:ZEESHAN (generalized anxiety disorder) (CMS/HCC) TAKE 1 CAPSULE BY MOUTH DAILY 30 capsule 3 05/24/19 25 Active lisinopril-hydro CHLOROthiazide 10-12.5 MG tabletIndication s:Essential hypertension, benign (CMS/HCC) TAKE 1 TABLET BY MOUTH DAILY 30 tablet 3 05/31/19 25 Active raloxifene (Evista) 60 MG tabletIndication s:Age-related osteoporosis without current pathological fracture (CMS/HCC) TAKE 1 TABLET BY MOUTH DAILY 90 tablet 3 07/05/19 25 Active raloxifene (Evista) 60 MG tabletIndication s:Age-related osteoporosis without current pathological fracture (CMS/HCC) TAKE 1 TABLET BY MOUTH DAILY 90 tablet 3 07/07/19 24 025 Discontinued Active Problems Problem Noted Date Diagnosed Date Chest pain 07/11/2024 Assessment & Plan (07/11/2024 9:52 AM EDT): Develops severe SOB, fatigue and chest pain with exertion that resolved with rest. Not able to use treadmill due to OA knees and check lexiscan cardiolyte stress test. Class 1 obesity due to exces s calories with serious comorbidity and body mass index (BMI) of 30.0 to 30.9 in adult 07/11/2024 Medicare annual wellness visit, subsequent 02/10 Assessment & Plan (02/11/2024 10:10 AM EST): Due for labs. Discussed proper diet and regular aerobic exercise. Need aerobic exercise 5-6 days a week for 30 minutes at a time. Smaller portions and limit total calories. Colonoscopy every 10 years. Tetanus every 10 years. Advised not to smoke. Discussed daily Aspirin therapy. Encounter for long-term (current) use of medicat ions 02/11/2024 Otorrhea of left ear 02/11/2024 Assessment & Plan (02/11/2024 10:11 AM EST): Drainage for months and not able to visualize TM. Refer to ENT for evaluation. ZEESHAN (generalized anxiety disorder) 09/29/2023 Assessment & Plan (07/11/2024 9:52 AM EDT): Symptoms controlled with prozac and continue at current dose. Assessment & Plan (10/30/2023 11:21 AM EDT): Symptoms controlled with prozac and continue at current dose. Assessment & Plan (09/29/2023 10:33 AM EDT): Severe symptoms and not functioning well. Start prozac and warned will take 2-3 weeks to notice improvement in mood. Plantar fasciitis of right foot 08/19/2023 Assessment & Plan (09/29/2023 10:34 AM EDT): No change in symptoms and getting worse. Repeat prednisone tapered over 12 days. Refer to podiatry for possible injections. Continue meds as prescribed. If develop new or worsening symptoms contact office. Assessment & Plan (08/19/2023 7:59 AM EDT): History and exam suggestive plantar fasciitis. Start prednisone x 5 days for inflammation and pain. Handout with stretches to patient and ice at end of day. Discussed importance of proper supportive shoes. If continue to have problems will need PT and x-ray. May need podiatry for injections. Continue meds as prescribed. If develop new or worsening symptoms contact office. Essential hypertension, benign 02/18/2023 Assessment & Plan (10/30/2023 11:21 AM EDT): BP controlled and monitor PRN. Assessment & Plan (08/19/2023 7:58 AM EDT): BP controlled and monitor PRN. Assessment & Plan (02/18/2023 8:50 AM EST): BP controlled and monitor PRN. Primary osteoarthritis of both knees 02/18/2023 Assessment & Plan (07/11/2024 9:53 AM EDT): Pain stable and continue mobic. Increase activity and walk regularly. Assessment & Plan (08/19/2023 7:59 AM EDT): Pain stable and continue mobic. Increase activity and walk regularly. Assessment & Plan (02/18/2023 8:51 AM EST): Pain stable and continue mobic. Increase activity and walk regularly. Dyslipidemia 02/18/2023 Gastroesophageal reflux disease 02/18/2023 Primary hypothyroidism 02/18/2023 Assessment & Plan (07/11/2024 9:53 AM EDT): No signs of low thyroid and repeat labs. Continue synthroid. Assessment & Plan (02/18/2023 8:50 AM EST): No signs of low thyroid and recent labs normal. Continue synthroid. Osteoporosis, post-menopausal 02/18/2023 Prediabetes 02/18/2023 Vitamin D deficiency 02/18/2023 Seasonal allergic rhinitis due to pollen 023 Assessment & Plan (08/19/2023 7:59 AM EDT): Symptoms controlled with medication and continue. Assessment & Plan (02/18/2023 8:51 AM EST): Symptoms controlled with medication and continue. Colon cancer screening 02/18/2023 Encounters Date Type Department Care Team Description 07/12/2024 Results Follow-Up [facility] [address] [place] [address] Felton Puga MD 07/12/2024 Clinisync Result Encounter [facility] External Department Unsolicited Felton Puga MD 07/11/2024 9:00 AM EDT Office Visit [facility] [address] [place] [address] Felton Puga MD Essential hypertension, benign (CMS/HCC) (Primary Dx); Chest pain, unspecified type; ZEESHAN (generalized anxiety disorder) (CMS/HCC); Primary osteoarthritis of both knees; Primary hypothyroidism (CMS/HCC); Prediabetes; Dyslipidemia (CMS/HCC); Encounter for long-term (current) use of medications 07/11/2024 Bamboo flowsheet [facility] [address] [place] [phone] Felton Puga MD 07/03/2024 Refill [facility] [address] [place] [address] Felton Puga MD Age-related osteoporosis without current pathological fracture (CMS/HCC) 05/30/2024 Refill [facility] [address] [place] [address] Felton Puga MD Essential hypertension, benign (CMS/HCC) 05/21/2024 Refill [facility] [address] [place] [address] Felton Puga MD ZEESHAN (generalized anxiety disorder) (CMS/[facility]) 05/11/2024 Clinisync Result Encounter [facility] External Department Unsolicited Provider, Generic External Data 05/05/2024 Clinisync Result Encounter [facility] External Department Unsolicited Provider, Generic External Data 05/04/2024 Clinisync Result Encounter [facility] External Department Unsolicited Provider, Generic External Data 05/04/2024 Clinisync Result Encounter [facility] External Department Unsolicited Provider, Generic External Data from Last 3 Months Immunizations Immunization Administration Dates Next Due Pneumococcal Conjugate PCV 13 11/20/2016 Family History Medical History Relation Name Comments Heart disease Father CAD Relation Name Status Comments Father Mother Social History Tobacco Use Types Packs/Day Years Used Date Smoking Tobacco: Former Cigarettes 3 10 1 990 - 2000 Smokeless Tobacco: Never Tobacco Cessation:Counseling Given: Not Answered Alcohol Use Standard Drinks/Week Comments Not Currently [...] often do you attend chur ch or mormonism services? Patient declined 02/17/2023 Do you belong to any clubs o r organizations such as confucianist groups, unions, fraternal or athletic groups, or [...] on file Sexual Orientation Not on file Last Filed Vital Signs Vital Sign Reading [...] Mass Index 30.29 07/11/2024 9:17 AM EDT Plan of Treatment Upcoming Encounters Date Type Department Care Team (Late st Contact Info) Description 02/14/2025 9:00 AM EST Office Visit [facility] [address] [place] [address] Felton Puga MD [address] [place] [address] Health Maintenance Due Date Last Done Comments CT Colonography 1960 FIT-DNA 1960 FIT 1960 FOBT 1960 Sigmoidoscopy 1960 Pneumococcal Vaccine: 65+ Ye ars (2 of 2 - PPSV23) 01/15/2017 11/20/2016 Influenza Vaccine (Season Ended) 2024 Medicare Annual Wellness (AWV) 02/10/2025 02/11/2024 Mammogram 02/24/2025 02/25/2024, 01/31, 02/18/2023, Additional history exists Colonoscopy 04/29/2033 04/29/2023, 04/29/2023 Colorectal Cancer Screening 04/29/2033 Procedures Procedure Name Priority Date/Time Associated Diagnosis Comments ALL THYROXINE (T4) FREE Routine 07/12/2024 1:12 PM EDT ALL CBC WITH AUTO DIFF Routine 1:12 PM EDT ALL THYROID STIM HORMONE Routine 07/12/2024 1:12 PM EDT SURGICAL PATHOLOGY EXAM Routine 05/11/2024 2:[address] TRANSFER OF OUTSIDE FILMS 05/05/2024 2:05 PM EST [facility] CMP (CMP) (FOR REMOTE [facility] USE) Routine 05/04/2024 8:41 AM EST ALL CBC WITH AUTO DIFF Routine 8:41 AM EST ECG 12-LEAD 05/04/2024 8:30 AM EST MM TOMOSYNTHESIS SCREENING BI 02/25/2024 12:03 PM EST from Last 3 Months or Most Recently Relevant to Health Maintenance Results * ALL THYROXINE (T4) FREE (07/12/2024 1:12 PM EDT) FREE T4 1.26 0.76 - 1.46 ng/dL [facility] 07/12/2024 1:12 PM EDT 07/12/2024 1:14 PM EDT Narrative CLINISYNC - 07/12/2024 2:20 PM EDT Felton PARR Final Result CLINISYWI TB * ALL THYROID STIM HORMONE (07/12/2024 1:12 PM EDT) THYROID STIMULATING HORMONE 1.047 0.358 - 3.740 uIU/mL [facility]H 07/12/2024 1:12 PM EDT 07/12/2024 1:14 PM EDT Narrative CLINISYNC - 07/12/2024 2:02 PM EDT Felton PARR Final Result [facility] * (ABNORMAL) ALL CBC WITH AUTO DIFF (07/12/2024 1:12 PM EDT) Only the most recent of2 resultswithin the time period is included. TBH WBC 6.8 4.0 - 11.0 10 3/uL [...] Narrative CLINISYNC - 07/12/2024 2:19 PM EDT Felton Puga MD CLINISYJARET Final Result KAROLYN [facility] * SURGICAL PATHOLOGY EXAM (05/11/2024 2:33 PM EDT) Pathologist [facility] SURG1 SURG Pathology report.total SURG SEE COMMENT SURG Surgical Pathology Case: [id number] [place] [address] Authorizing Provider: Adelina Arce MD Collected: 05/11/2024 1433 SURG Ordering Location: [facility] [place] Received: 05/11/[address] [place] [address] Pathologist: Navneet Grurola MD SURG Specimens: A) - MASTOID CONTENTS LEFT SURG1 B) - EAR, MIDDLE EAR CONTENTS [facility] Path report.final diagnosis SURG SEE COMMENT SURG A. Left mastoid contents: SURG1 - Disorganized gliotic tissue, consistent with encephalocele. [facility] B. Left middle ear contents: SURG - Keratinizing squamous epithelium and keratin debris, consistent with cholesteatoma. SURG - Mucosal fragment with chronic inflammation. [facility] Assistive Technology Specialist: Dr. Will Lu (part A) [facility] SUR[facility]1 jkw [place] [address] SURG Laboratory comment [place] [address] By the signature on this report, the individual or group listed as making the Final Interpretation/Jessi gnosis certifies that they have reviewed this case. [facility]1 Path report.relevant Hx SURG SEE COMMENT SURG Pre-op diagnosis: SURG 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 [G96.01] [facility] Path report.gross observation SURG SEE COMMENT SURG A: Received in formalin, labeled with the patient's name and hospital number and left mastoid contents , are 2 fragments of reyna, soft tissue aggregating to 0.5 x 0.4 x 0.2 cm. The specimen is submitted in toto in one cassette. SURG MRS SURG B: Received in formalin, labeled with the patient's name and hospital number and middle ear contents , is a fragment of pink reyna, soft tissue measuring 0.3 x 0.1 x 0.1 cm. The specimen is submitted in toto in one cassette. SURG1 MRS Tissue 05/11/2024 2:33 PM EDT 05/11/2024 9:01 PM EDT Narrative CLINISYNC - 05/18/2024 1:42 PM EDT Pre-op diagnosis: 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 [G96.01] Original Ordering Provider: ADELINA ARCE Generic External Data Provider [facility] * CT transfer of outside films (05/05/2024 2:05 PM EST) Anatomical Region Laterality Modality Computed Tomogra phy 05/05/2024 2:05 PM EST Narrative 05/05/2024 2:10 PM EST Source Facility: [facility] Outside images for comparison or treatment purposes, not interpreted by Radiologists. Procedure Note Radiology, Radiologist, MD - 05/05/2024 Source Facility: [facility] Outside images for comparison or treatment purposes, not interpreted by Radiologists. Generic External Data Provider IMG CT PROCEDURES Final Result * (ABNORMAL) [facility] CMP (CMP) (FOR REMOTE [facility] USE) (05/04/2024 8:41 AM EST) SODIUM 140 136 - 145 mmol/L TBH POTASSIUM 3.8 3.5 - 5.1 mmol/L TBH CHLORIDE 101 98 - 107 mmol/L TBH CARBON DIOXIDE 28.1 21.0 - 32.0 mmol/L TBH ANION GAP 14.7 TBH GLUCOSE 149(H) 74 - 106 mg/dL TBH BLOOD UREA NITROGEN 14.0 7.0 - 18.0 mg/dL TBH CREATININE 0.92 0.55 - 1.02 mg/dL TBH TBH EGFR-AF ANGOLAN >60 >=60 mL/min/1. 73m 2 TBH TBH EGFR-NON AF ANGOLAN >60 >=60 mL/min/1. 73m 2 TBH BUN CREATININE RATIO 15.2 TBH CALCIUM 9.9 8.5 - 10.1 mg/dL TBH BILIRUBIN TOTAL 0.7 0.2 - 1.0 mg/dL TBH ASPARTATE AMINO TRANSFERASE 23 15 - 37 U/L TBH ALANINE AMINOTRANSFERASE 29 14 - 59 U/L TBH ALKALINE PHOSPHATASE 94 46 - 116 U/L TBH TOTAL PROTEIN 7.1 6.4 - 8.2 g/dL TBH ALBUMIN LEVEL 3.7 3.4 - 5.0 g/dL TBH GLOBULIN 3.4 g/dL TBH ALBUMIN GLOBULIN RATIO 1.1 TBH 05/04/2024 8:41 AM EST 05/04/2024 8:44 AM EST Narrative CLINISYNC - 05/04/2024 9:43 AM EST us Generic External Data Provider CLINISYNC F inal Result Performing Organization Address City/State/[facility] Co de Phone Number [facility] * ECG 12-LEAD (05/04/2024 8:30 AM EST) Anatomical Region Laterality Modality Other 05/04/2024 8:30 AM EST Narrative 05/04/2024 9:09 [place] [address] Electrocardiograph Report Signed Patient: KEYON CHEATHAM MR#: [id number] : 1960 Acct:[id number] Age/Sex: 64 / F ADM Date: 05/04/24 Loc: LAB Attending Dr: Adelina Arce M.D. Ordering Physician: PhysicianNon-Staff Kyara Date of Service: 05/04/24 Procedure(s): ECG 12 lead Accession Number(s): [id number] cc: [facility] Test Date: 2024-05-04 Pat Name: KEYON CHEATHAM Department: Room: - Gender: Female [employer]: : 1960 Requested By: [id number] Order Number: [id number] Reading MD: BRAD KUMAR M.D. Measurements Intervals Anderson Rate: 87 P: 77 SC: 160 QRS: 22 QRSD: 97 T: 68 QT: 357 QTc: 430 Interpretive Statements SINUS RHYTHM INCOMPLETE RIGHT BUNDLE BRANCH BLOCK [90+ ms QRS DURATION, TERMINAL R IN V1/V2, 40+ ms S IN I/aVL/V4/V5/V6] No previous ECG available for comparison Electronically Signed On 05-04-2024 9:09:06 EST by BRAD KUMAR M.D. Dictated By: BRAD KUMAR M.D. Signed By: 05/04/24908 DD/ 9 TD/TT: Order Processing Clerk: Procedure Note Radiology, Radiologist, - 05/04/2024 [place] [address] Electrocardiograph Report Signed Patient: KEYON CHEATHAM [facility]#: [id number] : 1960cct:[id number] Age/Sex: 64 / FADM Date: 05/04/24 Loc: LAB Attending Dr: Adelina Arce M.D. Ordering Physician: PhysicianNon-Staff Kyara Date of Service: 05/04/24 Procedure(s): ECG 12 lead Accession Number(s): [id number] cc: [facility] Test Date: 2024-05-04 Pat Name: KEYON CHEATHAM Department: Room: - Gender: Female [employer]: : 1960 Requested By: [id number] Order Number: [id number] Reading MD: BRAD KUMAR M.D. Measurements Intervals Anderson Rate: 87 P: 77 SC: 160 QRS: 22 QRSD: 97 T: 68 QT: 357 QTc: 430 Interpretive Statements SINUS RHYTHM INCOMPLETE RIGHT BUNDLE BRANCH BLOCK [90+ ms QRS DURATION, TERMINAL R IN V1/V2, 40+ ms S IN I/aVL/V4/V5/V6] No previous ECG available for comparison Electronically Signed On 05-04-2024 9:09:06 EST by BRAD KUMAR M.D. Dictated By: BRAD KUMAR M.D. Signed By:05/04/24908 DD/ 0830 TD/TT: Order Processing Clerk: us Generic External Data Provider CLINISYWI IMAGING Final Result * MM TOMOSYNTHESIS SCREENING BI (02/25/2024 12:03 PM EST) Anatomical Region Laterality Modality Other 02/25/2024 12:0 3 PM EST Narrative 02/25/2024 12:04 [place] [address] Mammography Report Signed Patient: KEYON CHEATHAM MR#: [id number] : 1960 Acct:[id number] Age/Sex: 64 / F ADM Date: 02/25/24 Loc: MAMMO Attending Dr: Felton Puga M.D. Ordering Physician: Felton Puga M.D. Results: Date of Service: 02/25/24 Follow Up: Procedure(s): MM tomosynthesis screening BI Accession Number(s): [id number] cc: Felton Puga M.D. Patient Name: KEYON CHEATHAM MR#: [id number] : 1960 Exam Date: 02/25/2024 Ordering Doctor: DR Felton Puga . RADIOLOGY REPORT PROCEDURE: MM TOMOSYNTHESIS SCREENING BI COMPARISON: MM TOMOSYNTHESIS SCREENING BI, 02/18/2023. MG MAMM SCREEN 3D ANTONIA CAD, 02/17/2022. MG MAMM SCREEN 3D ANTONIA CAD, 02/14/2021. MG MAMM ANTONIA SCRN W CAD DIG, 02/15/2013. INDICATIONS: Screening Calculator Name NCI Breast Cancer Risk Assessment Tool 5 Year Breast Cancer Risk 1.80% Lifetime Breast Cancer Risk 6.50% Personal Breast Cancer No Personal Ovarian Cancer No Treatments None Family Cancers None LOCATION: [facility] BREAST COMPOSITION: There are scattered areas of fibroglandular density. FINDINGS: DIAGNOSTIC CATEGORY 1--NEGATIVE. RIGHT BREAST: No significant suspicious finding. No significant change has occurred. LEFT BREAST: No significant suspicious finding. No significant change has occurred. RECOMMENDATIONS: ROUTINE MAMMOGRAM AND CLINICAL EVALUATION IN 12 MONTHS. PLEASE NOTE: A NORMAL MAMMOGRAM DOES NOT EXCLUDE THE POSSIBILITY OF BREAST CANCER. A CLINICALLY SUSPICIOUS PALPABLE LUMP SHOULD BE BIOPSIED. Dictated by: Malcolm Gramajo M.D. on 02/25/2024 at 12:00 Approved by: Malcolm Gramajo M.D. on 02/25/2024 at 12:03 Dictated By: Malcolm Gramajo M.D. Signed By: 02/25/24 1204 DD/ 120 TD/TT: Order Processing Clerk: Procedure Note Radiology, Radiologist, MD - 02/25/2024 [place] [address] Mammography Report Signed Patient: KEYON CHEATHAM DMR#: [id number] : 1960cct:[id number] Age/Sex: 64 / FADM Date: 02/25/24 Loc: MAMMO Attending Dr: Felton Puga M.D. Ordering Physician: Felton Puga M.D.Results: Date of Service: 02/25/24Follow Up: Procedure(s): MM tomosynthesis screening BI Accession Number(s): [id number] cc: Felton Puga M.D. Patient Name: KEYON CHEATHAM MR#: [id number] : 1960 Exam Date: 02/25/2024 Ordering Doctor: DR Felton Mendosa RADIOLOGY REPORT PROCEDURE: MM TOMOSYNTHESIS SCREENING BI COMPARISON: MM TOMOSYNTHESIS SCREENING BI, 02/18/2023. MG MAMM [id number] ANTONIA CAD, 02/17/2022. MG MAMM SCREEN 3D ANTONIA CAD, 02/14/2021. MG MAMM BILSCRN W CAD DIG, 02/15/2013. INDICATIONS: Screening Calculator Name NCI Breast Cancer Risk Assessment Tool 5 Year Breast Cancer Risk 1.80% Lifetime Breast Cancer Risk 6.50% Personal Breast Cancer No Personal Ovarian Cancer No Treatments None Family Cancers None LOCATION: [facility] BREAST COMPOSITION: There are scattered areas of fibroglandulardensity. FINDINGS: DIAGNOSTIC CATEGORY 1--NEGATIVE. RIGHT BREAST: No significant suspicious finding. No significant changehas occurred. LEFT BREAST: No significant suspicious finding. No significant changehas occurred. RECOMMENDATIONS: ROUTINE MAMMOGRAM AND CLINICAL EVALUATION IN 12 MONTHS. PLEASE NOTE: A NORMAL MAMMOGRAM DOES NOT EXCLUDE THE POSSIBILITY OFBREAST CANCER. A CLINICALLY SUSPICIOUS PALPABLE LUMP SHOULD BE BIOPSIED. Dictated by: Malcolm Gramajo M.D. on 02/25/2024 at 12:00 Approved by: Malcolm Gramajo M.D. on 02/25/2024 at 12:03 Dictated By: Malcolm Gramajo M.D. Signed By:02/25/24 1204 DD/ 1203 TD/TT: Order Processing Clerk: Felton Puga MD CLINISYNC IMAGING Final Result from Last 3 Months or Most Recently Relevant to Health Maintenance Insurance [employer] Care Teams Key Worker Relationship Specialty Start Date End Date Felton Puga MD [address] [place] [phone] PCP - General Family Medicine 08/19/23 Felton Puga MD [address] [place] [address] PCP - Medical [place] 03/02/2403/01
--- OUTSIDE RECORDS SUMMARY | 2024-07-21 07:36 | XMS_ITS | Clinical Summary ---
Author Organization [facility] Address [address] [place] [address] Care Team Providers Care Bunch Maker Name Role Phone Felton Puga MD Primary Care Provider + Social History Tobacco Use Types Packs/Day Years Used Date Smoking Tobacco: Never Assessed Comments Unknown Sex and Gender Information Value Date Recorded Sex Assigned at Not on file Legal Sex Female 2:44 PM EDT Gender Identity Not on file Sexual Orientation Not on file Plan of Treatment Not on file Insurance [employer] Care Teams Bunch Maker Relationship Specialty Start Date End Date Felton Puga MD [address] [place] [phone] PCP - General Family Medicine 11/02/18
--- OUTSIDE RECORDS SUMMARY | 2024-07-21 07:36 | XMS_ITS | Encounter Summary ---
Author Organization [facility] Address [address] [place] [address] Care Team Providers Care City Constable Name Role Phone Felton Puga MD Primary Care Provider [phone] Felton Puga MD Unavailable Felton Puga MD Primary Care Provider [phone] Felton Puga MD Unavailable Encounter Details Date Type Department Care Team (Late st Contact Info) Description 02/18/2023 Clinisync Result Encounter [facility] External Department Unsolicited Felton Puga MD [address] [place] [phone] Social History Tobacco Use Types Packs/Day Years [...] How often do you attend chur or tenriism services? Patient declined 02/17/2023 Do you belong to any clubs o r organizations such as latter day groups, unions, fraternal or athletic groups, or [...] Visit [facility] [address] [place] [address] Felton Puga MD [address] [place] [address] documented as of this encounter Procedures Procedure Name Priority Date/Time Associated Diagnosis Comments MM TOMOSYNTHESIS SCREENING BI 02/18/2023 11:38 AM EST documented in this encounter Results * MM TOMOSYNTHESIS SCREENING BI (02/18/2023 11:38 AM EST) Anatomical Region Laterality Modality Other 02/18/2023 11:3 8 AM EST Narrative 02/18/2023 11:39 [place] [address] Mammography Report Signed Patient: POPPY CHEATHAM MR#: [id number] : 1960 Acct:[id number] Age/Sex: 63 / F ADM Date: 02/18/23 Loc: MAMMO Attending Dr: Felton Puga M.D. Ordering Physician: Felton Puga M.D. Results: Date of Service: 02/18/23 Follow Up: Procedure(s): MM tomosynthesis screening BI Accession Number(s): [id number] cc: Felton Puga M.D. Patient Name: POPPY CHEATHAM MR#: [id number] : 1960 Exam Date: 02/18/2023 Ordering Doctor: DR Felton Mendosa RADIOLOGY REPORT PROCEDURE: MM TOMOSYNTHESIS SCREENING BI COMPARISON: MG MAMM SCREEN 3D ANTONIA CAD, 02/14/2021. MG MAMM SCREEN 3D ANTONIA CAD, 02/17/2022. INDICATIONS: screening Calculator Name NCI Breast Cancer Risk Assessment Tool 5 Year Breast Cancer Risk 1.80% Lifetime Breast Cancer Risk 6.80% Personal Breast Cancer No Personal Ovarian Cancer No Treatments None Family Cancers None LOCATION: [facility] BREAST COMPOSITION: Scattered areas fibroglandular density. FINDINGS: DIAGNOSTIC CATEGORY 2--BENIGN FINDING. NO CHANGE FROM COMPARISON. Scattered benign-appearing calcifications are present. Scattered benign-appearing lymph nodes are present. RIGHT BREAST: No significant suspicious finding. LEFT BREAST: No significant suspicious finding. RECOMMENDATIONS: ROUTINE MAMMOGRAM AND CLINICAL EVALUATION IN 12 MONTHS. PLEASE NOTE: A NORMAL MAMMOGRAM DOES NOT EXCLUDE THE POSSIBILITY OF BREAST CANCER. A CLINICALLY SUSPICIOUS PALPABLE LUMP SHOULD BE BIOPSIED. Dictated by: Clint Cheatham MD on 02/18/2023 at 11:37 Approved by: Clint Cheatham MD on 02/18/2023 at 11:38 Dictated By: Clint Cheatham M.D. Signed By: 02/18/23 1139 DD/ 1138 TD/TT: Radiologic Technology Instructor: Procedure Note Radiology, RadiologistMD - 02/18/2023 [place] [address] Mammography Report Signed Patient: POPPY CHEATHAM DMR#: [id number] : 1960cct:[id number] Age/Sex: 63 / FADM Date: 02/18/23 Loc: MAMMO Attending Dr: Felton Puga M.D. Ordering Physician: Felton Puga M.D.Results: Date of Service: 02/18/23Follow Up: Procedure(s): MM tomosynthesis screening BI Accession Number(s): [id number] cc: Felton Puga M.D. Patient Name: POPPY CHEATHAM MR#: [id number] : 1960 Exam Date: 02/18/2023 Ordering Doctor: DR Felton Puga . RADIOLOGY REPORT PROCEDURE: MM TOMOSYNTHESIS SCREENING BI COMPARISON: MG MAMM SCREEN 3D ANTONIA CAD, 02/14/2021. MG MAMM SCREEN 3DBIL CAD, 02/17/2022. INDICATIONS: screening Calculator Name NCI Breast Cancer Risk Assessment Tool 5 Year Breast Cancer Risk 1.80% Lifetime Breast Cancer Risk 6.80% Personal Breast Cancer No Personal Ovarian Cancer No Treatments None Family Cancers None LOCATION: [facility] BREAST COMPOSITION: Scattered areas fibroglandular density. FINDINGS: DIAGNOSTIC CATEGORY 2--BENIGN FINDING. NO CHANGE FROM COMPARISON. Scattered benign-appearing calcifications are present. Scattered benign-appearing lymph nodes are present. RIGHT BREAST: No significant suspicious finding. LEFT BREAST: No significant suspicious finding. RECOMMENDATIONS: ROUTINE MAMMOGRAM AND CLINICAL EVALUATION IN 12 MONTHS. PLEASE NOTE: A NORMAL MAMMOGRAM DOES NOT EXCLUDE THE POSSIBILITY OFBREAST CANCER. A CLINICALLY SUSPICIOUS PALPABLE LUMP SHOULD BE BIOPSIED. Dictated by: Clint Cheatham MD on 02/18/2023 at 11:37 Approved by: Clint Cheatham MD on 02/18/2023 at 11:38 Dictated By: Clint Cheatham M.D. Signed By:02/18/23 1139 DD/ 1138 TD/TT: Radiologic Technology Instructor: Felton Puga MD [facility] Final Result documented in this encounter Visit Diagnoses Not on filedocumented in this encounter Care Teams City Constable Relationship Specialty Start Date End Date Felton Puga MD PCP - General Family Medicine 10/31/22 08/18/23 Felton Puga MD [address] [place] [address] PCP - Devoted 12/31/22 03/01/24 Felton Puga MD [address] [place] [address] PCP - General Family Medicine 08/19/23 Felton Puga MD [address] [place] [address] PCP - Medical [place] 03/02/2403/01 documented as of this encounter
--- OUTSIDE RECORDS SUMMARY | 2024-07-21 07:36 | XMS_ITS | Encounter Summary ---
Author Organization [facility] Address [address] [place] [address] Care Team Providers Care Compliance Specialist Name Role Phone Felton Puga MD Primary Care Provider [phone] Felton Puga MD Unavailable Reason for Visit * Reason Comments Med Refill Encounter Details Date Type Department Care Team (Late st Contact Info) Description 05/30/2024 [facility] [address] [place] [address] Felton Puga MD [address] [place] [address] Essential hypertension, benign (CMS/HCC) Social History Tobacco Use Types Packs/Day Years [...] often do you attend chur ch or religion services? Patient declined 02/17/2023 Do you belong to any clubs o r organizations such as faith groups, unions, fraternal or athletic groups, or [...] * Telephone Encounter - ALEX FERRARO - 05/30/2024 3:13 PM EDT MEDICATION SENT TO [facility] documented in this encounter Plan of Treatment Upcoming Encounters Date Type Department Care Team (Late st Contact Info) Description 02/14/2025 9:00 AM EST Office Visit [facility] [address] [place] [address] Felton Puga MD [address] [place] [address] documented as of this encounter Visit Diagnoses Diagnosis Essential hypertension, benign (CMS/HCC) Essential hypertension, benign documented in this encounter Additional Health Concerns Assessment Noted Time PHQ-9 Depression Total Score: 5 02/11/20 9:00 AM EST documented as of this encounter Care Teams Compliance Specialist Relationship Specialty Start Date End Date Felton Puga MD [address] [place] [phone] PCP - General Family Medicine 08/19/23 Felton Puga MD [address] [place] [phone] PCP - Medical [place] MA 03/02/2403/01 documented as of this encounter
--- OUTSIDE RECORDS SUMMARY | 2024-07-21 07:36 | XMS_ITS | Encounter Summary ---
Author Organization [facility] Address [address] [place] [address] Phone Care Team Providers Care Industrial Yard Brake Coupler Name Role Phone Felton Puga MD Primary Care Provider + Encounter Details Date Type Department Care Team (Late st Contact Info) Description 05/03/2024 Scanned Document [facility] [address] [place] [phone] Gissel Romero, AUD, CCC-A [address] [place] [address] Social History Tobacco Use Types Packs/Day Years [...] AM EST documented as of this encounter Functional Status * Over the past 2 weeks, how often have you been bothered by any of the following problems? Question Answer Date of Assessment Author Little interest or pleasure in doing things Not at all 05/03/2024 11:37 AM EST Edd Saucedo MA Feeling down, depressed, or hopeless Not at all 05/03/2024 11:37 AM EST Janneth Saucedo MA Patient Health Questionnaire-2 Score 0 05/03/2024 11:37 AM EST Cyndee Saucedo MA documented as of this encounter Plan of Treatment Upcoming Encounters Date Type Department Care Team (Late st Contact Info) Description 09/27/2024 10:00 AM EDT Office Visit [facility] [address] [place] [address] [place] [address] [place] [address] documented as of this encounter Visit Diagnoses Not on filedocumented in this encounter Additional Health Concerns Assessment Noted Time A fall risk assessment has been complete d for the patient 05/03/2024 11:37 AM EST documented as of this encounter Care Teams Industrial Yard Brake Coupler Relationship Specialty Start Date End Date Felton Puga MD [address] [place] [address] PCP - General Family Medicine 05/05/24 documented as of this encounter
--- OUTSIDE RECORDS SUMMARY | 2024-07-21 07:36 | XMS_ITS | Encounter Summary ---
Author Organization [facility] Address [address] [place] [address] Care Team Providers Care Cad Specialist Name Role Phone Felton Puga MD Primary Care Provider [phone] Felton Puga MD Unavailable Encounter Details Date Type Department Care Team (Late st Contact Info) Description 07/11/2024 Bamboo flowsheet [facility] [address] [place] [address] Felton Puga MD [address] [place] [address] Social History Tobacco Use Types Packs/Day Years [...] How often do you attend chur or mormon services? Patient declined 02/17/2023 Do you belong to any clubs o r organizations such as sabianist groups, unions, fraternal or athletic groups, or [...] Office Visit [facility] [address] [place] [address] Felton Puga MD [address] [place] [address] documented as of this encounter Visit Diagnoses Not on filedocumented in this encounter Additional Health Concerns Assessment Noted Time PHQ-9 Depression Total Score: 5 02/11/20 9:00 AM EST documented as of this encounter Care Teams Cad Specialist Relationship Specialty Start Date End Date Felton Puga MD [address] [place] [address] PCP - General Family Medicine 08/19/23 Felton Puga MD [address] [place] [phone] PCP - Medical [place] MA 03/02/2403/01 documented as of this encounter
--- OUTSIDE RECORDS SUMMARY | 2024-07-21 07:36 | XMS_ITS | Encounter Summary ---
Author Organization [facility] Address [address] [place] [address] Care Team Providers Care Veterinary Surgeon Name Role Phone Felton Puga MD Primary Care Provider + Reason for Referral * Other (Routine) - Closed Specialty Diagnoses / Procedures Referred By Contac t Referred To Contact Radiology Diagnoses Breast cancer screening by mammogram Procedures TUYET QUEENIE DIGITAL SCREEN BILATERAL Felton Puga MD [address] [place] [address] Phone: tel: fax: Referral ID Status Reason Start Date Expiration Date Visits Re quested Visits Authorized [id number] Closed 11/29/2020 11/29/2021 1 1 Encounter Details Date Type Department Care Team (Late st Contact Info) Description 11/29/2020 Transcribe Orders [facility] [address] [place] [address] Felton Puga MD [address] [place] [address] Breast cancer screening by mammogram (Primary Dx) Social History Tobacco Use Types Packs/Day Years Used Date Smoking Tobacco: Never Assessed Comments Unknown Sex and Gender Information Value Date Recorded Sex Assigned at Not on file Legal Sex Female 2:44 PM EDT Gender Identity Not on file Sexual Orientation Not on file documented as of this encounter Plan of Treatment Not on file documented as of this encounter Results * TUYET QUEENIE DIGITAL SCREEN BILATERAL (02/14/2021 8:23 AM EST) Anatomical Region Laterality Modality Bilateral Mammography 02/14/2021 8:25 AM EST Impressions 02/14/2021 8:41 AM EST No mammographic evidence of malignancy. BIRADS: BIRADS - CATEGORY 1 Negative. Normal interval follow-up is recommended in 12 months. OVERALL ASSESSMENT - NEGATIVE A letter of notification will be sent to the patient regarding the results. The [employer] recommends annual mammograms for women 40 years and older. Narrative 02/14/2021 8:41 AM EST EXAMINATION: SCREENING DIGITAL BILATERAL MAMMOGRAM WITH TOMOSYNTHESIS, [...] concerning grouping of microcalcification in either breast. Felton Puga MD IMG MAMMOGRAPHY ORDERABL ES Final Result documented in this encounter Visit Diagnoses Diagnosis Breast cancer screening by mammogram- Primary Breast cancer screening by mammogram documented in this encounter Care Teams Veterinary Surgeon Relationship Specialty Start Date End Date Felton Puga MD [address] [place] [address] PCP - General Family Medicine 11/02/18 documented as of this encounter
--- OUTSIDE RECORDS SUMMARY | 2024-07-21 07:36 | XMS_ITS | Encounter Summary ---
Author Organization [facility] Address [address] [place] [address] Care Team Providers Care Bartender Server Name Role Phone Felton Puga MD Unavailable Felton Puga MD Primary Care Provider [phone] Felton Puga MD Unavailable Encounter Details Date Type Department Care Team (Late st Contact Info) Description 02/25/2024 Clinisync Result Encounter [facility] External Department Unsolicited Felton Puga MD [address] [place] [address] Social History Tobacco Use Types Packs/Day Years [...] How often do you attend chur or sikh services? Patient declined 02/17/2023 Do you belong to any clubs o r organizations such as samaritan groups, unions, fraternal or athletic groups, or [...] Office Visit [facility] [address] [place] [address] Felton Puga MD [address] [place] [address] documented as of this encounter Procedures Procedure Name Priority Date/Time Associated Diagnosis Comments MM TOMOSYNTHESIS SCREENING BI 02/25/2024 12:03 PM EST ANTINUCLEAR ANTIBODIES, IFA Routine 02/25/2024 10:26 AM EST [facility] RHEUMATOID FACTOR Routine 02/25/2024 10:26 AM EST documented in this encounter Results * MM TOMOSYNTHESIS SCREENING BI (02/25/2024 12:03 PM EST) Anatomical Region Laterality Modality Other 02/25/2024 12:0 3 PM EST Narrative 02/25/2024 12:04 PM EST The [address] [address] Mammography Report Signed Patient: POPPY CHEATHAM MR#: [id number] : 1960 Acct:[id number] Age/Sex: 64 / F ADM Date: 02/25/24 Loc: MAMMO Attending Dr: Felton Puga M.D. Ordering Physician: Felton Puga M.D. Results: Date of Service: 02/25/24 Follow Up: Procedure(s): MM tomosynthesis screening BI Accession Number(s): [id number] cc: Felton Puga M.D. Patient Name: POPPY CHEATHAM MR#: [id number] : 1960 Exam Date: 02/25/2024 Ordering Doctor: [...] Treatments None Family Cancers None LOCATION: [facility] BREAST COMPOSITION: There are scattered areas [...] Dictated By: Malcolm Gramajo M.D. Signed By: 02/25/241203 DD/ 02 TD/TT: Certified Forklift Operator: Procedure Note Radiology, Radiologist, MD - 02/25/2024 [place] [address] Mammography Report Signed Patient: POPPY CHEATHAM DMR#: [id number] : 1960cct:[id number] Age/Sex: 64 / FADM Date: 02/25/24 Loc: MAMMO Attending Dr: Felton Puga M.D. Ordering Physician: Felton Puga M.D.Results: Date of Service: 02/25/24Follow Up: Procedure(s): MM tomosynthesis screening BI Accession Number(s): [id number] cc: Felton Puga M.D. Patient Name: POPPY CHEATHAM MR#: [id number] : 1960 Exam Date: 02/25/2024 Ordering Doctor: DR Felton Puga . RADIOLOGY REPORT PROCEDURE: MM TOMOSYNTHESIS SCREENING BI COMPARISON: MM TOMOSYNTHESIS SCREENING BI, 02/18/2023. MG MAMM RHSPAV3A ANTONIA CAD, 02/17/2022. MG MAMM SCREEN 3D ANTONIA CAD, 02/14/2021. MG MAMM BILSCRN W CAD DIG, 02/15/2013. INDICATIONS: Screening Calculator Name NCI Breast Cancer Risk Assessment Tool 5 Year Breast Cancer Risk 1.80% Lifetime Breast Cancer Risk 6.50% Personal Breast Cancer No Personal Ovarian Cancer No Treatments None Family Cancers None LOCATION: [facility] BREAST COMPOSITION: There are scattered areas [...] M.D. Signed By:02/25/24 1204 DD/ 1203 TD/TT: Certified Forklift Operator: Felton Puga MD [facility] Final Result * ANTINUCLEAR ANTIBODIES, IFA (02/25/2024 10:26 AM EST) ANTINUCLEAR ANTIBODIES, IFA Negative . [facility] Comment: Negative <1:80 Borderline 1:80 Positive >1:80 ICAP nomenclature: AC-0 For more information about Hep-2 cell patterns use ANApatterns.org, the official website for the International Consensus on Antinuclear Antibody (HIRA) Patterns (ICAP). Performed at: [address] [id number] Boat Mechanic: Sam Landin PhD, Phone: [phone] 02/25/2024 10:2 6 AM EST 02/25/2024 10:30 AM EST Narrative [facility] - 02/26/2024 1:08 PM EST us Felton Puga MD LAB BLOOD ORDERABLES Final Resul t Performing Organization Address City/[facility] Co de Phone Number [facility] * [facility] RHEUMATOID FACTOR (02/25/2024 10:26 AM EST) RHEUMATOID FACTOR (RF) <10.0 <14.0 IU/mL [facility] Comment: Performed at: [facility] [id number] Boat Mechanic: Sam Landin PhD, Phone: [phone] 02/25/2024 10:2 6 AM EST 02/25/2024 10:30 AM EST Narrative [facility] - 02/26/2024 1:08 PM EST us Felton Puga MD [facility] Final Result Performing Organization Address City/[facility]/ZIP Co de Phone Number CL[facility] TB documented in this encounter Visit Diagnoses Not on filedocumented in this encounter Additional Health Concerns Assessment Noted Time PHQ-9 Depression Total Score: 5 02/11/20 24 9:00 AM EST documented as of this encounter Care Teams Bartender Server Relationship Specialty Start Date End Date Felton Puga MD [address] [place] [address] PCP - Devoted 12/31/22 03/01/24 Felton Puga MD [address] [place] [address] PCP - General Family Medicine 08/19/23 Felton Puga MD [address] [place] [address] PCP - Medical [facility] 03/02/2403/01 documented as of this encounter
--- OUTSIDE RECORDS SUMMARY | 2024-07-21 07:36 | XMS_ITS | Patient Health Record ---
Author Organization [facility] [place] Address [address] [place] [address] Care Team Providers Care Placement Coordinator Name Role Phone Felton Puga MD Primary Care Provider Byron Canales [phone] Allergies No Known Allergies Results Component Value Reference Range Notes XR foot RT min 3V (Not yet r eviewed by provider) Interpretation: Performing Lab: Notes/Report: Source Facility: [place] [address] XRay Report Signed Patient: POPPY CHEATHAM MR#: [id number] : 1960 Acct:[id number] Age/Sex: 63 / F ADM Date: 10/08/23 Loc: EC Attending Dr: Byron Alvarez Ordering Physician: Byron Alvarez Date of Service: 10/08/23 Procedure(s): XR foot RT min 3V Accession Number(s): [id number] cc: Byron Alvarez; Felton Puga M.D. The [place] [address] Patient Name: POPPY CHEATHAM MRN: [id number] date: 1960 Sex: F Assigned Patient Location: EC Current Patient Location: PT Accession/Order Number: [id number] Exam Date: 10/08/2023 11:08 Report Date: 10/12/2023 13:55 At the request of: BYRON ALVAREZ Procedure: XR foot RT min 3V PROCEDURE: XR foot RT min 3V COMPARISON: None. HISTORY: RIGHT FOOT PAIN FINDINGS: BONES:No acute fracture or dislocation. Moderate enthesopathic spurring of the calcaneus at the Achilles and plantar insertions SOFT TISSUES:Negative. No visible soft tissue swelling. EFFUSION:None visible. OTHER: Negative. XR/XR foot RT min 3V IMPRESSION: Mild calcaneal enthesopathy Electronically authenticated by: SHANNA CHEATHAM Date: 10/12/2023 13:55 Dictated By: Shanna Cheatham M.D. Signed By: 10/12/23 1406 DD/ 7552 TD/TT: Suction Drum Drier Operator: [place] [address] XRay Report Signed Patient: POPPY CHEATHAM MR#: [id number] : 1960 Acct:[id number] Age/Sex: 63 / F ADM Date: 10/08/23 Loc: EC Attending Dr: Byron Alvarez Ordering Physician: Byron Alvarez Date of Service: 10/08/23 Procedure(s): XR foot RT min 3V Accession Number(s): [id number] cc: Byron Alvarez; Felton Puga M.D. [place] [id number] Patient Name: POPPY CHEATHAM MRN: [id number] date: 1960 Sex: F Assigned Patient Location: Current Patient Location: PT Accession/Order Numb er: [id number] Exam Date: 10/08/2023 11:08 Report Date: 10/12/2023 13:55 At the request of: BYRON ALVAREZ Procedure: XR foot RT min 3V PROCEDURE: XR foot RT min 3V COMPARISON: None. HISTORY: RIGHT FOOT PAIN FINDINGS: BONES:No acute fract ure or dislocation. Moderate enthesopathic spurring of the calcaneus at the Ach illes and plantar insertions SOFT TISSUES:Negativ e. No visible soft tissue swelling. EFFUSION:None visible. OTHER: Negative. X R/XR foot RT min 3V IMPRESSION: Mild calcaneal enthesopathy Electronically authe nticated by: SHANNA CHEATHAM Date: 10/12/2023 13:55 Dictated By: Shanna Cheatham M.D. Signed By: 10/12/23 1408 DD/ 5247 TD/TT: Suction Drum Drier Operator: Reason For Referral Reason evaluation and treat ment -- see attached order Diagnosis 1 Plantar fascial fibr omatosis (M72.2) Referral Organization [facility] (PODIATRY) Referring Provider First Name Byron Referring Provider Last Name Chato Referring Provider Speciality Podiatry Referred Provider [facility], Physical Therap y Referred Provider Specialty Physical Med icine and Rehabilitation Referral Priority Routine Medications Medication SIG (Take, Route, Frequency, Duration) [...] (Standard) Question Answer Notes Tobacco use: Nonsmoker Problems Problem Type SNOMED Code ICD Code Onset Dates Problem Status W/U Status Risk Notes Problem Right foot pain (M79.671) Active confirmed Vital Signs Heart Rate 82 /min 10/08/2023 Temperature 98.2 degrees Fahrenheit 10/08/2023 Oximetry 97 % 10/08/2023 Height 64 in 10/08/2023 Weight 179 lbs 10/08/2023 BMI 30.72 kg/m2 10/08/2023 Encounters Encounter Location Date Provider Diagnosis [facility] (POD[facility]) [address] [place] [address] [place] [address] 10/08/2023 Byron Alvarez Right foot pain M79.671 ; Plantar fascial [...] foot (ICD-10 - M21.41) Plan Of Treatment Pending Test Test Name Order Date XR Foot RT (3 views) * 10/08/2023 XR foot RT min 3V 10/12/2023 Insurance Providers Payer Name Payer Address Payer Phone Subscriber Number Group Number Insured Name Patient Relationship to Insured Coverage Start Date Coverage End Date [employer], [facility] [facility] [address] [place]AVE[place] [phone] [id number] Nicolas Poppy Self - patient is the insured Medical (General) History Medical History History ICD Code Arthritis GERD High blood pressure thyroid issues Surgical History Surgery Date(Month/Year) Hysterectomy
--- OUTSIDE RECORDS SUMMARY | 2024-07-21 07:36 | XMS_ITS | Encounter Summary ---
Author Organization [facility] Address [address] [place] [address] Care Team Providers Care Liner Installer Name Role Phone Felton Puga MD Unavailable Felton Puga MD Primary Care Provider [phone] Felton Puga MD Unavailable Encounter Details Date Type Department Care Team (Late st Contact Info) Description 10/12/2023 Clinisync Result Encounter [facility] External Department Unsolicited Provider, Generic External Data Social History Tobacco Use Types Packs/Day Years [...] often do you attend chur ch or alevism services? Patient declined 02/17/2023 Do you belong to any clubs o r organizations such as judaism groups, unions, fraternal or athletic groups, or [...] Visit [facility] [address] [place] [address] Felton Puga MD [address] [place] [address] documented as of this encounter Procedures Procedure Name Priority Date/Time Associated Diagnosis Comments XR FOOT RT MIN 3V 10/12/2023 1:5 5 PM EDT documented in this encounter Results * XR FOOT RT MIN 3V (10/12/2023 1:55 PM EDT) Anatomical Region Laterality Modality Other 10/12/2023 1:55 PM EDT Narrative 10/12/2023 2:02 PM EDT The [address] [address] XRay Report Signed Patient: POPPY CHEATHAM MR#: [id number] : 1960 Acct:[id number] Age/Sex: 63 / F ADM Date: 10/08/23 Loc: EC Attending Dr: Byron Alvarez Ordering Physician: Byron Alvarez Date of Service: 10/08/23 Procedure(s): XR foot RT min 3V Accession Number(s): [id number] cc: Byron Alvarez; Felton Puga M.D. The [address] [address] Patient Name: POPPY CHEATHAM MRN: [id number] date: 1960 Sex: F Assigned Patient Location: EC Current Patient Location: PT Accession/Order Number: [id number] Exam Date: 10/08/2023 11:08 Report Date: 10/12/2023 [...] By: Shanna Cheatham M.D. Signed By: 10/12/23 1402 DD/ 1355 TD/TT: Metal Casket Assembler: Procedure Note Radiology, Radiologist, MD - 10/12/2023 [place] [address] XRay Report Signed Patient: POPPY CHEATHAM DMR#: [id number] : 1960cct:[id number] Age/Sex: 63 / FADM Date: 10/08/23 Loc: Attending Dr: Byron Alvarez Ordering Physician: Byron Alvarez Date of Service: 10/08/23 Procedure(s): XR foot RT min 3V Accession Number(s): [id number] cc: Byron Alvarez; Felton Puga M.D. The [place] [id number] Patient Name: POPPY CHEATHAM MRN: [id number] date: 1960 Sex: F Assigned Patient Location: Current Patient Location: Accession/Order Number: [id number] Exam Date: 10/08/2023 11:08 Report Date: 10/12/2023 13:55 At the request of: BYRON ALVAREZ Procedure: XR foot RT min 3V PROCEDURE: XR foot RT min 3V COMPARISON: None. HISTORY: RIGHT FOOT PAIN FINDINGS: BONES:No acute fracture or dislocation. Moderate enthesopathic spurring ofthe calcaneus at the Achilles and plantar insertions SOFT TISSUES:Negative. No visible soft tissue swelling. EFFUSION:None visible. OTHER: Negative. XR/XR foot RT min 3V IMPRESSION: Mild calcaneal enthesopathy Electronically authenticated by: SHANNA CHEATHAM Date: 10/12/2023 13:55 Dictated By: Shanna Cheatham M.D. Signed By:10/12/23 1402 DD/ 7015 TD/TT: Metal Casket Assembler: us Generic External Data Provider [facility] Final Result documented in this encounter Visit Diagnoses Not on filedocumented in this encounter Care Teams Liner Installer Relationship Specialty Start Date End Date Felton Puga MD [address] [place] [address] PCP - [facility] 12/31/22 03/01/24 Felton Puga MD [address] [place] [address] PCP - General Family Medicine 08/19/23 Felton Puga MD [address] [place] [address] PCP - Medical [facility] 03/02/2403/01 documented as of this encounter
--- OUTSIDE RECORDS SUMMARY | 2024-07-21 07:36 | XMS_ITS | Encounter Summary ---
Author Organization [facility] Address [address] [place] [address] Phone Care Team Providers Care French Edge Operator Name Role Phone Felton Puga MD Primary Care Provider + Encounter Details Date Type Department Care Team (Late st Contact Info) Description 05/05/2024 Scanned Document [facility] [address] [place] [address] Nadya Blanc RN Social History [...] Description 09/27/2024 10:00 AM EDT Office Visit [facility] [address] [place] [address] [place] [address] [place], [place] [phone] documented as of this encounter Visit Diagnoses Not on filedocumented in this encounter Additional Health Concerns Assessment Noted Time A fall risk assessment has been complete d for the patient 05/03/2024 11:37 AM EST documented as of this encounter Care Teams French Edge Operator Relationship Specialty Start Date End Date Felton Puga MD [address] [place] [address] PCP - General Family Medicine 05/05/24 documented as of this encounter
--- NOTE | 2024-07-21 09:33 | PC.NURSE ---
Nursing Note Cardiac Stress Test Reviewed: Medication, allergies and patient history reviewed. Stress Test: [x ] Patient tolerated stress test well. [ ] Patient unable to tolerate walking on treadmill. Switched to Lexiscan stress test. [x ] No chest pain noted per patient [ ] Chest pain that resolved prior to leaving stress lab. [ x] No dyspnea noted. [ ] Dyspnea that resolved prior to leaving stress lab. [x ] Patient left stress lab asymptomatic and hemodynamically stable. [ ] Patient taken to the Emergency Room due to non-resolving symptoms following stress test. [ ] Patient achieved target heart rate. [ ] Patient unable to achieve target heart rate. [ ] Aminophylline administered as reversal agent to Lexiscan (Regadenoson). [ ] Nitro administered. Nursing Comments:Pt had Lexiscan test done. Pt had generalized whole body heaviness that resolved within 2 minutes after Lexiscan was given. NO symptoms at end of exam. Pt ambulated to cafeteria for breakfast prior to second set of images.
[2024-07-21] MEDS: REGADENOSON 0.4 MG/5 ML SYRINGE IV (09:34)
--- NOTE | 2024-07-21 10:28 | PM.STRESS ---
Stress Test Stress Test Allergies Allergy/AdvReac Type Severity Reaction Status Date / Time No Known Drug Allergies Allergy Verified 04/14/23 12:04 Requesting physician: Felton Puga Procedure: Lexiscan Stress test General Information: Reason for Stress Test: [Chest pain, shortness of breath] Cardiac History and Risk Factors: [HTN, dyslipidemia] Resting 12 - Lead Electrocardiogram: Sinus bradycardia Otherwise normal ECG Stress Test: Protocol: [Lexiscan pharmacological stress] Exercise Capacity: [N/A] Blood Pressure Response: [Appropriate response] Rhythm: [Sinus] ST - Response: [No significant ST T wave abnormalities] Patient Response: [The patient had chest heaviness after Lexiscan infusion] Interpretation: 1. No ischemic EKG changes on Lexiscan pharmacological stress test 2. Significant resting hypertension 3. Nuclear images are to be read, interpreted, and reported separately
== END 2024-07-21 07:34 | disposition home or self-care (01) ==
LOC: NM 07:33
PROVIDERS: PCP Family Medicine; Visit Provider Family Medicine
DX: R07.9 Chest pain, unspecified (principal); R73.03 Prediabetes; E78.5 Hyperlipidemia, unspecified
CPT/HCPCS: 78452; 93017; A9500; J2785

== ENCOUNTER 2024-10-27 08:04 | Outpatient (OUT) | payer MEDICARE, SELFPAY ==
--- OUTSIDE RECORDS SUMMARY | 2023-10-08 07:20 | XMS_ITS ---
Author Organization The [facility] in [place] Address [address] [place] [address] Care Team Providers Care Senior Visual Designer Name Role Phone Felton Puga MD Primary Care Provider Unavailab Crystal Davila Unavailable [phone] Allergies No Known Allergies Reason For Referral Reason evaluation and treat ment -- see attached order Diagnosis 1 Plantar fascial fibr omatosis (M72.2) Referral Organization [facility] ([facility]) Referring Provider First Name Crystal Referring Provider Last Name Chato Referring Provider Speciality Podiatry Referred Provider [facility], Physical Therap y Referred Provider Specialty Physical [...] Encounters Encounter Location Date Provider Diagnosis [facility] (PODIATRY) [address] [place] [address] [place] [address] 10/08/2023 Crystal Reis Right foot pain M79.671 [...] treatment -- see attached order, Physical Therapy [facility] Next Appt Details Follow Up: 6 Weeks, Reason: Progress Notes * Poppy CHEATHAMDOB:1960 ([age] yo F)Acc No.[id number]:10/08/2023 New Patient Patient: Poppy SÁNCHEZ Provider: Cindy Reis PA-C :1960 A ge:63 Y S ex:Female Date:10/08/2023 Address:[address] [place] [address] [place] [id number] Pcp:Felton Puga MD Check In:11:00 AM ESTCheck O ut:11:32 AM EST Subjective: * Chief Complaints: * [facility] * HPI: G eneral: [...] Reis PA-C Date: 0 10/08/2023 Generated for [facility] ghada/Joaquin/Demetrioitting on: 0 10/27/2024 08:10 AM EDT History and Physical Notes * [...] Referred Provider Not es 10/08/2023 Crystal Reis [facility], Physical Therapy ev aluation and treatment -- see attached order
--- OUTSIDE RECORDS SUMMARY | 2024-10-27 08:10 | XMS_ITS | Encounter Summary ---
Author Organization [facility] Address [address] [place] [address] Care Team Providers Care Digital Data Analyst Name Role Phone Felton Puga MD Primary Care Provider [phone] Felton Puga MD Unavailable Felton Puga MD Primary Care Provider [phone] Felton Puga MD Unavailable Encounter Details Date Type Department Care Team (Late st Contact Info) Description 02/18/2023 Clinisync Result Encounter [facility] External Department Unsolicited Felton Puga MD [address] [place] [address] Social History Tobacco Use Types Packs/Day Years [...] How often do you attend chur or jainism services? Patient declined 02/17/2023 Do you belong [...] Visit [facility] [address] [place] [address] Felton Puga MD [address] [place] [address] documented as of this encounter Procedures Procedure Name Priority Date/Time Associated Diagnosis Comments MM TOMOSYNTHESIS SCREENING BI 02/18/2023 11:38 AM EST documented in this encounter Results * MM TOMOSYNTHESIS SCREENING BI (02/18/2023 11:38 AM EST) Anatomical Region Laterality Modality Other 02/18/2023 11:3 8 AM EST Narrative 02/18/2023 11:39 [place] [address] Mammography Report Signed Patient: POPPY CHEATHAM MR#: [id number] : 1960 Acct:[id number] Age/Sex: 63 / F ADM Date: 02/18/23 Loc: MAMMO Attending Dr: Felton Puga M.D. Ordering Physician: Felton Puga M.D. Results: Date of Service: 02/18/23 Follow Up: Procedure(s): MM tomosynthesis screening BI Accession Number(s): [id number] cc: Felton Puga M.D. Patient Name: POPPY CHEATHAM MR#: [id number] : 1960 Exam Date: 02/18/2023 Ordering Doctor: [...] Treatments None Family Cancers None LOCATION: The [facility] BREAST COMPOSITION: Scattered areas fibroglandular density. [...] Signed By: 02/18/23 1139 DD/ 1138 TD/TT: Hammer Operator: Procedure Note Radiology, RadiologistMD - 02/18/2023 [place] [address] Mammography Report Signed Patient: POPPY CHEATHAM DMR#: [id number] : 1960cct:[id number] Age/Sex: 63 / FADM Date: 02/18/23 Loc: MAMMO Attending Dr: Felton Puga M.D. Ordering Physician: Felton Puga M.D.Results: Date of Service: 02/18/23Follow Up: Procedure(s): MM tomosynthesis screening BI Accession Number(s): [id number] cc: Felton Puga M.D. Patient Name: POPPY CHEATHAM MR#: [id number] : 1960 Exam Date: 02/18/2023 Ordering Doctor: [...] Treatments None Family Cancers None LOCATION: The [facility] BREAST COMPOSITION: Scattered areas fibroglandular density. [...] M.D. Signed By:02/18/23 1139 DD/ 1138 TD/TT: Hammer Operator: Felton Puga MD [facility] Final Result documented in this encounter Visit Diagnoses Not on filedocumented in this encounter Care Teams Digital Data Analyst Relationship Specialty Start Date End Date Felton Puga MD PCP - General Family Medicine 10/31/22 08/18/23 Felton Puga MD [address] [place] [address] PCP - [facility] 12/31/22 03/01/24 Felton Puga MD [address] [place] [address] PCP - General Family Medicine 08/19/23 Felton Puga MD [address] [place] [address] PCP - Medical [place] [facility] 03/02/2403/01 documented as of this encounter
--- OUTSIDE RECORDS SUMMARY | 2024-10-27 08:10 | XMS_ITS | Encounter Summary ---
Author Organization [facility] Address [address] [place] [address] Phone Care Team Providers Care Allergy Physician Name Role Phone Felton Puga MD Primary Care Provider + Encounter Details Date Type Department Care Team (Late st Contact Info) Description 05/05/2024 Scanned Document [facility] [address] [place] [address] Nadya Blanc RN Social History [...] Upcoming Encounters Date Type Department Care Team (Latest Contact Info) Description 11/14/2024 5:30 AM EDT Hospital Encounter [facility] Rehana ARGUETA [address] [place] [address] [place] [address] [place] [address] 11/14/2024 7:00 AM EDT - 11/14/2024 10:10 AM EDT Surgery [facility] Rehana ARGUETA [address] [place] [address] [place] [address] [place], [place] [id number] Left Side Tympanoplasty with cartilage graft, possible OCR [[id number] (CPT ) +1 more] 11/29/2024 11:30 AM EDT Office Visit [facility] [address] [place] [address] [place] [address] [place], [place] [phone] Scheduled Procedures Name Priority Associated Diagnoses Date/Ti me TYMPANOPLASTY 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
--- OUTSIDE RECORDS SUMMARY | 2024-10-27 08:10 | XMS_ITS | Encounter Summary ---
Author Organization [facility] Address [address] [place] [address] Care Team Providers Care Motor Patrol Operator Name Role Phone Felton Puga MD Unavailable Felton Puga MD Primary Care Provider [phone] Felton Puga MD Unavailable Encounter Details Date Type Department Care Team (Late st Contact Info) Description 02/25/2024 Clinisync Result Encounter [facility] External Department Unsolicited Felton Puga MD [address] [place] [address] Social History Tobacco Use Types Packs/Day Years [...] How often do you attend chur or voodoo services? Patient declined 02/17/2023 Do you belong to any clubs o r organizations such as buddhism groups, unions, fraternal or athletic groups, or [...] Office Visit [facility] [address] [place] [address] Felton Puga MD [address] [place] [address] documented as of this encounter Procedures Procedure [...] Narrative 02/25/2024 12:04 PM EST The [address] [address] Mammography Report Signed Patient: POPPY CHEATHAM MR#: [id number] : 1960 Acct:[id number] Age/Sex: 64 / F ADM Date: 02/25/24 Loc: MAMMO Attending Dr: Felton Puga M.D. Ordering Physician: Felton Puga M.D. Results: Date of Service: 02/25/24 Follow Up: Procedure(s): MM tomosynthesis screening BI Accession Number(s): [id number] cc: Felton Puga M.D. Patient Name: POPPY CHEATHAM MR#: [id number] : 1960 Exam Date: 02/25/2024 Ordering Doctor: [...] Treatments None Family Cancers None LOCATION: The [facility] BREAST COMPOSITION: There are scattered areas of [...] M.D. Signed By: 02/25/241203 DD/ 02 TD/TT: Filler Blender: Procedure Note Radiology, Radiologist, MD - 02/25/2024 [place] [address] Mammography Report Signed Patient: POPPY CHEATHAM DMR#: [id number] : 1960cct:[id number] Age/Sex: 64 / FADM Date: 02/25/24 Loc: MAMMO Attending Dr: Felton Puga M.D. Ordering Physician: Felton Puga M.D.Results: Date of Service: 02/25/24Follow Up: Procedure(s): MM tomosynthesis screening BI Accession Number(s): [id number] cc: Felton Puga M.D. Patient Name: POPPY CHEATHAM MR#: [id number] : 1960 Exam Date: 02/25/2024 Ordering Doctor: DR Felton Puga . RADIOLOGY REPORT PROCEDURE: MM TOMOSYNTHESIS SCREENING BI COMPARISON: MM TOMOSYNTHESIS SCREENING BI, 02/18/2023. MG MAMM [id number] ANTONIA CAD, 02/17/2022. MG MAMM SCREEN 3D ANTONIA CAD, 02/14/2021. MG MAMM BILSCRN W CAD DIG, 02/15/2013. INDICATIONS: Screening Calculator Name NCI Breast Cancer Risk Assessment Tool 5 Year Breast Cancer Risk 1.80% Lifetime Breast Cancer Risk 6.50% Personal Breast Cancer No Personal Ovarian Cancer No Treatments None Family Cancers None LOCATION: The [facility] BREAST COMPOSITION: There are scattered areas of [...] M.D. Signed By:02/25/24 1204 DD/ 1203 TD/TT: Filler Blender: Felton Puga MD [facility] Final Result * ANTINUCLEAR ANTIBODIES, IFA (02/25/2024 10:26 AM EST) ANTINUCLEAR ANTIBODIES, IFA Negative . [facility] Comment: Negative <1:80 Borderline 1:80 Positive >1:80 ICAP nomenclature: AC-0 For more information about Hep-2 cell patterns use ANApatterns.org, the official website for the International Consensus on Antinuclear Antibody (HIRA) Patterns (ICAP). Performed at: [address] [id number] Carton Gluing Machine Operator: Sam Landin PhD, Phone: [phone] 02/25/2024 10:2 6 AM EST 02/25/2024 10:30 AM EST Narrative [facility] - 02/26/2024 1:08 PM EST us Felton Puga MD LAB BLOOD ORDERABLES Final Resul t Performing Organization Address City/[facility] Co de Phone Number [facility] * [facility] RHEUMATOID FACTOR (02/25/2024 10:26 AM EST) RHEUMATOID FACTOR (RF) <10.0 <14.0 IU/mL [facility] Comment: Performed at: [facility] [id number] Carton Gluing Machine Operator: Sam Landin PhD, Phone: [phone] 02/25/2024 10:2 6 AM EST 02/25/2024 10:30 AM EST Narrative [facility] - 02/26/2024 1:08 PM EST us Felton Puga MD [facility] Final Result Performing Organization Address City/[facility]/ZIP Co de Phone Number [facility] TB documented in this encounter Visit Diagnoses Not on filedocumented in this encounter Additional Health Concerns Assessment Noted Time PHQ-9 Depression Total Score: 5 02/11/20 24 9:00 AM EST documented as of this encounter Care Teams Motor Patrol Operator Relationship Specialty Start Date End Date Felton Puga MD [address] [place] [address] PCP - [facility] 12/31/22 03/01/24 Felton Puga MD [address] [place] [address] PCP - General Family Medicine 08/19/23 Felton Puga MD [address] [place] [address] PCP - Medical [facility] 03/02/2403/01 documented as of this encounter
--- OUTSIDE RECORDS SUMMARY | 2024-10-27 08:10 | XMS_ITS | Encounter Summary ---
Author Organization [facility] Address [address] [place] [address] Care Team Providers Care Suction Drum Drier Operator Name Role Phone Kimmie Neumann MD Primary Care Provider [phone] Kimmie Neumann MD Unavailable Kimmie Neumann MD Primary Care Provider [phone] Kimmie Neumann MD Unavailable Encounter Details Date Type Department Care Team (Late st Contact Info) Description 02/24/2023 Clinisync Result Encounter [facility] External Department Unsolicited Kimmie Neumann MD [address] [place] [address] Social History Tobacco Use Types Packs/Day Years [...] How often do you attend chur or sabianist services? Patient declined 02/17/2023 Do you belong to any clubs o r organizations such as tenriism groups, unions, fraternal or athletic groups, or [...] Visit [facility] [address] [place] [address] Kimmie Neumann MD [address] [place] [address] documented as of this encounter Procedures Procedure Name Priority Date/Time Associated Diagnosis Comments XR DEXA AXIAL SKELETON 02/24/2023 8:47 AM EST documented in this encounter Results * XR DEXA AXIAL SKELETON (02/24/2023 8:47 AM EST) Anatomical Region Laterality Modality Other 02/24/2023 8:47 AM EST Narrative 02/24/2023 8:50 AM EST The [address] [address] XRay Report Signed Patient: POPPY CHEATHAM MR#: [id number] : 1960 Acct:[id number] Age/Sex: 63 / F ADM Date: 02/24/23 Loc: RAD Attending Dr: Kimmie Neumann M.D. Ordering Physician: Kimmie Neumann M.D. Date of Service: 02/24/23 Procedure(s): XR DEXA axial skeleton Accession Number(s): [id number] cc: Kimmie Neumann M.D. [address] [address] Patient Name: POPPY CHEATHAM MRN: [id number] date: 1960 Sex: F Assigned Patient Location: RAD Current Patient Location: RAD Accession/Order Number: [id number] Exam Date: 02/24/2023 08:30 Report Date: 02/24/2023 [...] Gramajo M.D. Signed By: 02/24/2350 DD/ TD/TT: Secondary Spanish Teacher: Procedure Note Radiology, Radiologist, MD - 02/24/2023 [place] [address] XRay Report Signed Patient: POPPY CHEATHAM DMR#: [id number] : 1960cct:[id number] Age/Sex: 63 / FADM Date: 02/24/23 Loc: [place] Attending Dr: Kimmie Neumann M.D. Ordering Physician: Kimmie Neumann M.D. Date of Service: 02/24/23 Procedure(s): XR DEXA axial skeleton Accession Number(s): [id number] cc: Kimmie Neumann M.D. The [address] [address] Patient Name: POPPY CHEATHAM MRN: [id number] date: 1960 Sex: F Assigned Patient Location: RAD Current Patient Location: RAD Accession/Order Number: [id number] Exam Date: 02/24/2023 08:30 Report Date: 02/24/2023 [...] Malcolm Gramajo M.D. Signed By:02/24/2350 DD/ TD/TT: Secondary Spanish Teacher: Kimmie Neumann MD [facility] Final Result documented in this encounter Visit Diagnoses Not on filedocumented in this encounter Care Teams Suction Drum Drier Operator Relationship Specialty Start Date End Date Kimmie Neumann MD PCP - General Family Medicine 10/31/22 08/18/23 Kimmie Neumann MD [address] [place] [address] PCP - [facility] 12/31/22 03/01/24 Kimmie Neumann MD [address] [place] [address] PCP - General Family Medicine 08/19/23 Kimmie Neumann MD [address] [place] [address] PCP - Medical [facility] 03/02/2403/01 documented as of this encounter
--- OUTSIDE RECORDS SUMMARY | 2024-10-27 08:10 | XMS_ITS | Encounter Summary ---
Author Organization [facility] Address [address] [facility] [place] [address] Care Team Providers Care Senior Financial Name Role Phone Felton Puga MD Primary Care Provider [phone] Felton Puga MD Unavailable Felton Puga MD Primary Care Provider [phone] Felton Puga MD Unavailable Encounter Details Date Type Department Care Team (Late st Contact Info) Description 04/09/2023 Abstract [facility] [address] [place] [address] Felton Puga MD [address] [place] [address] Social History Tobacco Use Types Packs/Day Years [...] often do you attend chur ch or latter-day services? Patient declined 02/17/2023 Do you belong to any clubs o r organizations such as yarsani groups, unions, fraternal or athletic groups, or [...] Visit [facility] [address] [place] [address] Felton Puga MD [address] [place] [address] documented as of this encounter Visit Diagnoses Not on filedocumented in this encounter Care Teams Senior Financial Relationship Specialty Start Date End Date Felton Puga MD PCP - General Family Medicine 10/31/22 08/18/23 Felton Puga MD [address] [place] [address] PCP - [facility] 12/31/22 03/01/24 Felton Puga MD [address] [place] [address] PCP - General Family Medicine 08/19/23 Felton Puga MD [address] [place] [address] PCP - Medical [facility] 03/02/2403/01 documented as of this encounter
--- OUTSIDE RECORDS SUMMARY | 2024-10-27 08:11 | XMS_ITS | Encounter Summary ---
Author Organization [facility] Address [address] [place] [address] Care Team Providers Care Soaker Meat Name Role Phone Felton Puga MD Primary Care Provider [phone] Felton Puga MD Unavailable Encounter Details Date Type Department Care Team (Late st Contact Info) Description 07/21/2024 Results Follow-Up [facility] [address] [place] [address] Felton Puga MD [address] [place] [address] [place] ABHIJEET PERF SPECT REST STR Social History Tobacco Use Types Packs/Day Years [...] often do you attend chur ch or christian services? Patient declined 02/17/2023 Do you belong to any clubs o r organizations such as adventist groups, unions, fraternal or athletic groups, or [...] Visit [facility] [address] [place] [address] Felton Puga MD [address] [place] [address] documented as of this encounter Visit Diagnoses Not on filedocumented in this encounter Additional Health Concerns Assessment Noted Time PHQ-9 Depression Total Score: 5 02/11/20 9:00 AM EST documented as of this encounter Care Teams Soaker Meat Relationship Specialty Start Date End Date Felton Puga MD [address] [place] [address] PCP - General Family Medicine 08/19/23 Felton Puga MD [address] [place] [address] PCP - Medical [place] [facility] 03/02/2403/01 documented as of this encounter
--- OUTSIDE RECORDS SUMMARY | 2024-10-27 08:11 | XMS_ITS | Encounter Summary ---
Author Organization [facility] Address [address] [place] [address] Care Team Providers Care Floor Covering Contractor Name Role Phone Felton Puga MD Primary Care Provider [phone] Felton Puga MD Unavailable Reason for Visit * Reason Comments Med Refill Encounter Details Date Type Department Care Team (Late st Contact Info) Description 05/21/2024 [facility]ill [facility] [address] [place] [address] Felton Puga MD [address] [place] [address] ZEESHAN (generalized anxiety disorder) Social History Tobacco Use Types Packs/Day Years [...] often do you attend chur ch or temple services? Patient declined 02/17/2023 Do you belong to any clubs o r organizations such as mandaeism groups, unions, fraternal or athletic groups, or [...] 05/23/2024 9:11 AM EDT MEDICATION SENT TO [facility] documented in this encounter Plan of Treatment Upcoming Encounters Date Type Department Care Team (Late st Contact Info) Description 02/14/2025 9:00 AM EST Office Visit [facility] [address] [place] [address] Felton Puga MD [address] [place] [address] documented as of this encounter Visit Diagnoses Diagnosis ZEESHAN (generalized anxiety disorder) Generalized anxiety disorder documented in this encounter Additional Health Concerns Assessment Noted Time PHQ-9 Depression Total Score: 5 02/11/20 9:00 AM EST documented as of this encounter Care Teams Floor Covering Contractor Relationship Specialty Start Date End Date Felton Puga MD [address] [place] [address] PCP - General Family Medicine 08/19/23 Felton Puga MD [address] [place] [address] PCP - Medical [place] KAUSHIK 03/02/2403/01 documented as of this encounter
--- OUTSIDE RECORDS SUMMARY | 2024-10-27 08:11 | XMS_ITS | Clinical Summary ---
Author Organization [facility] Address [address] [place] [address] Phone Care Team Providers Care Parent Coach Name Role Phone Felton Puga MD Primary Care Provider + Allergies No known active allergies Medications calcium carbonate-vit D3-min 600 mg-10 mcg (400 unit) tablet Take 1 tablet by mouth twice a day. 01/26/2023 Active FLUoxetine (PROzac) 20 mg capsule Take 1 capsule (20 mg) by mouth once daily. 01/12/2024 Active levothyroxine (Synthroid, Levoxyl) 100 mcg tablet Take 1 tablet (100 mcg) by mouth once daily. 03/18/2023 Active lisinopriL-hydr ochlorothiazide 10-12.5 mg tablet Take 1 tablet by mouth once daily. 11/23/2022 Active raloxifene (Evista) 60 mg tablet Take 1 tablet (60 mg) by mouth once daily. 01/08/2023 Active melatonin 5 mg capsule Take 1 capsule (5 mg) by mouth once daily at bedtime. 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 Encounters Date Type Department Care Team Description 09/27/2024 10:00 AM EDT Office Visit [facility] [address] [place] [address] Victoria Britt MD Cholesteatoma of left ear (Primary Dx); Mixed conductive and sensorineural hearing loss of left ear with restricted hearing of right ear; 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; Pre-op testing 09/27/2024 Scanned Document [facility] [address] [place] [address] Gissel Romero, STEVE, CCC-A 09/27/2024 Travel from Last 3 Months Social History Tobacco Use Types Packs/Day Years Used Date Smoking Tobacco: Never Passive Smoke Exposure: Never Smokeless Tobacco: Never Tobacco Cessation:Counseling Given: Not Answered PHQ-2 Answer Date Recorded Patient Health Questionnaire-2 Score 0 09/27/2024 Comments Unknown Sex and Gender Information Value Date Recorded Sex Assigned at Not on file Legal Sex Female 9:49 AM EST Gender Identity Not on file Sexual Orientation Not on file Last Filed Vital Signs Vital Sign Reading Time Taken Comments Blood Pressure 143/84 05/11/2024 6:15 PM EDT Pulse 91 05/11/2024 6:15 PM EDT Temperature 36.3 C (97.3 F) 05/11/2024 6:15 PM EDT Respiratory Rate 16 05/11/2024 6:15 PM EDT Oxygen Saturation 95% 05/11/2024 6:15 PM EDT Inhaled Oxygen Concentration - - Weight 86.2 kg (190 lb) 09/27/2024 9:35 AM EDT Height 165.1 cm (5' 5 ) 09/27/2024 9:35 AM EDT Body Mass Index 31.62 09/27/2024 9:35 AM EDT Plan of Treatment Upcoming Encounters Date Type Department Care Team (Latest Contact Info) Description 11/14/2024 5:30 AM EDT Hospital Encounter [facility] [place] [place] [address] [place] [address] [place] [address] 11/14/2024 7:00 AM EDT - 11/14/2024 10:[address] [place] [address] [place] [address] [place] [address] [place], [place] [phone] Left Side Tympanoplasty with cartilage graft, possible OCR [97224 (CPT ) +1 more] 11/29/2024 11:30 AM EDT Office Visit [facility] [address] [place] [address] [place] [address] [place], [place] [phone] Scheduled Procedures Name Priority Associated Diagnoses Date/Ti me TYMPANOPLASTY 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 11/14/2024 7:00 AM EDT Health Maintenance Due Date Last Done Comments CT Colonography 1960 FIT-DNA (Cologuard) 1960 FIT 1960 Lipid Panel 1960 Sigmoidoscopy 1960 TSH Level 1960 Welcome to Medicare Visit 1960 MMR Vaccines (1 of 1 - Standard series) 1959 Hepatitis C Screening 01/19/1976 DTaP/Tdap/Td Vaccines (1 - Tdap) 01/19/1980 Zoster Vaccines (1 of 2) 01/19/2008 Pneumococcal Vaccine (2 of 2 - PPSV23, PCV20, or PCV21) 01/15/2017 11/20/2016 Mammogram 02/14/2022 02/14/2021, 01/30, 12/06/2019 Bone Density Scan 2023 COVID-19 Vaccine ( - season) 2023 06/15/2021, 01/03/2021, 06/10/2020, Additional history exists Influenza Vaccine (#1) 2024 RSV High Risk: (Elderly (60+) or Population) (1 - 1-dose 75+ series) 2033 Colonoscopy 04/29/2033 04/29/2023 Colorectal Cancer Screening 04/29/2033 HIB Vaccines Aged Out No longer eligi ble based on patient's age to complete this topic HPV Vaccines Aged Out No longer eligi ble based on patient's age to complete this topic Hepatitis A Vaccines Aged Out No long er eligible based on patient's age to complete this topic Hepatitis B Vaccines Aged Out No long er eligible based on patient's age to complete this topic IPV Vaccines Aged Out No longer eligi ble based on patient's age to complete this topic Meningococcal Vaccine Aged Out No dwight jenise eligible based on patient's age to complete this topic Rotavirus Vaccines Aged Out No longer eligible based on patient's age to complete this topic Goals Goal Patient Goal Type Associated Problems Recent Progress Patient-Stated? Author Autogenerat ed Goal Care Plan Autogenerated Problem No Mary James, JOSUE Medical Devices Implanted Type Area Fire Pot Operator Device Identifier Shelf Expiration Date Model / Serial / Lot Graft Matrix, Dural, Duragen Plus 1x1 - [id number] Implanted:Qty : 1 on 05/11/2024 by Victoria Britt MD at [facility] Graft Left: Cranial [employer]:NEUR OSCI [id number] 11/29/2026 [id number] / / [id number] Additional Health Concerns Active Problems Noted Date Diagnosed Date Autogenerated Problem 09/27/2024 Insurance [facility] MEDICARE [facility] MEDICARE Care Teams Parent Coach Relationship Specialty Start Date End Date Felton Puga MD [address] [place] [address] PCP - General Family Medicine 05/05/24
--- OUTSIDE RECORDS SUMMARY | 2024-10-27 08:11 | XMS_ITS | Encounter Summary ---
Author Organization [facility] Address [address] [place] [address] Phone Care Team Providers Care Keg Varnisher Name Role Phone Felton Puga MD Primary Care Provider + Encounter Details Date Type Department Care Team (Late st Contact Info) Description 09/27/2024 Scanned Document [facility] [address] [place] [phone] Gissel Romero, AUD, CCC-A [address] [place] [address] Social History Tobacco Use Types Packs/Day Years [...] on file documented as of this encounter Functional Status * Over the past 2 weeks, how often have you been bothered by any of the following problems? Question Answer Date of Assessment Author Little interest or pleasure in doing things Not at all 09/27/2024 9:36 AM Desiree Cerda MA Feeling down, depressed, or hopeless Not at all 09/27/2024 9:36 AM Desiree Cerda MA Patient Health Questionnaire-2 Score 0 09/27/2024 9:36 AM Jes Cerda MA documented as of this encounter Plan of Treatment Upcoming Encounters Date Type Department Care Team (Latest Contact Info) Description 11/14/2024 5:30 AM EDT Hospital Encounter [facility] [place] [address] [place] [address] [place] [address] [place] [address] 11/14/2024 7:00 AM EDT - 11/14/2024 10:10 AM EDT Surgery [facility] [place] [address] [place] [address] Victoria Britt MD [address] [place] [phone] Left Side Tympanoplasty with cartilage graft, possible OCR [79128 (CPT ) +1 more] 11/29/2024 11:30 AM EDT Office Visit [facility] [address] [facility] [address] [place] [address] Victoria Britt MD [address] [place] [phone] Scheduled Procedures Name Priority Associated Diagnoses Date/Ti me TYMPANOPLASTY 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 11/14/2024 7:00 AM EDT documented as of this encounter Goals Goal Patient Goal Type Associated Problems Recent Progress Patient-Stated? Author Autogenerat ed Goal Care Plan Autogenerated Problem No Mary James, RN documented as of this encounter Visit Diagnoses Not on filedocumented in this encounter Additional Health Concerns Active Problems Noted Date Diagnosed Date Autogenerated Problem 09/27/2024 Assessment Noted Time A fall risk assessment has been complete d for the patient 09/27/2024 9:36 AM EDT documented as of this encounter Care Teams Keg Varnisher Relationship Specialty Start Date End Date Felton Puga MD [address] [place] [address] PCP - General Family Medicine 05/05/24 documented as of this encounter
--- OUTSIDE RECORDS SUMMARY | 2024-10-27 08:11 | XMS_ITS | Encounter Summary ---
Author Organization [facility] Address [address] [place] [address] Phone Care Team Providers Care Lobster Fisherman Name Role Phone Felton Puga MD Primary Care Provider + Encounter Details Date Type Department Care Team (Late st Contact Info) Description 05/05/2024 Scanned Document [facility] [address] [place] [address] Nadya Blanc RN Social History [...] Description 11/14/2024 5:30 AM EDT Hospital Encounter [facility] [address] [place] [place] [address] [place] [address] [place] [address] 11/14/2024 7:00 AM EDT - 11/14/2024 10:10 AM EDT Surgery [facility] Reh[place]GUETA [address] [place] [address] [place] [address] [place], [place] [phone] Left Side Tympanoplasty with cartilage graft, possible OCR [33410 (CPT ) +1 more] 11/29/2024 11:30 AM EDT Office Visit [facility] [address] [place] [address] [place] [address] [place], [place] [phone] Scheduled Procedures Name Priority Associated Diagnoses Date/Ti [...] documented as of this encounter Care Teams Lobster Fisherman Relationship Specialty Start Date End Date Felton Puga MD [address] [place] [address] PCP - General Family Medicine 05/05/24 documented as of this encounter
--- OUTSIDE RECORDS SUMMARY | 2024-10-27 08:11 | XMS_ITS | Encounter Summary ---
Author Organization [facility] Address [address] [place] [address] Care Team Providers Care Offline Cutter Name Role Phone Felton Puga MD Primary Care Provider [phone] Felton Puga MD Unavailable Reason for Visit * Reason Comments Med Refill Encounter Details Date Type Department Care Team (Late st Contact Info) Description [facility] [address] [place] [address] Felton Puga MD [address] [place] [address] Essential hypertension, benign Social History Tobacco Use Types Packs/Day Years [...] often do you attend chur ch or adventist services? Patient declined 02/17/2023 Do you belong to any clubs o r organizations such as uatsdin groups, unions, fraternal or athletic groups, or [...] 05/30/2024 3:13 PM EDT MEDICATION SENT TO [facility] documented in this encounter Plan of Treatment Upcoming Encounters Date Type Department Care Team (Late st Contact Info) Description 02/14/2025 9:00 AM EST Office Visit [facility] [address] [place] [address] Felton Puga MD [address] [place] [address] documented as of this encounter Visit Diagnoses Diagnosis Essential hypertension, benign Essential hypertension, benign documented in this encounter Additional Health Concerns Assessment Noted Time PHQ-9 Depression Total Score: 5 02/11/20 9:00 AM EST documented as of this encounter Care Teams Offline Cutter Relationship Specialty Start Date End Date Felton Puga MD [address] [place] [address] PCP - General Family Medicine 08/19/23 Felton Puga MD [address] [place] [address] PCP - Medical [place] 03/02/2403/01 documented as of this encounter
--- OUTSIDE RECORDS SUMMARY | 2024-10-27 08:11 | XMS_ITS | Patient Health Record ---
Author Organization [facility] [place] Address [address] [place] [address] Care Team Providers Care Machine Operator Name Role Phone Felton Puga MD Primary Care Provider Unavailab le Allergies No Known Allergies Reason For Referral No Information Medications Medication SIG (Take, Route, Frequency, Duration) [...] Problem Right foot pain (M79.671) Active confirmed Plan Of Treatment Pending Test Test Name Order Date XR Foot RT (3 views) * 10/08/2023 XR foot RT min 3V 10/12/2023 Insurance Providers Payer Name Payer Address Payer Phone Subscriber Number Group Number Insured Name Patient Relationship to Insured Coverage Start Date Coverage End Date [employer] [address] [place] [phone] [id number] Poppy Valenzuela Self - patient is the insured Medical (General) History Medical History History ICD Code Arthritis GERD High blood pressure thyroid issues Surgical History Surgery Date(Month/Year) Hysterectomy
--- OUTSIDE RECORDS SUMMARY | 2024-10-27 08:11 | XMS_ITS | Encounter Summary ---
Author Organization [facility] Address [address] [place] [address] Care Team Providers Care Hand Suture Winder Name Role Phone Felton Puga MD Unavailable Felton Puga MD Primary Care Provider [phone] Felton Puga MD Unavailable Encounter Details Date [...] often do you attend chur ch or hoahaoism services? Patient declined 02/17/2023 Do you belong to any clubs o r organizations such as shinto groups, unions, fraternal or athletic groups, or [...] Visit [facility] [address] [place] [address] Felton Puga MD [address] [place] [address] documented as of this encounter Procedures Procedure Name Priority Date/Time Associated Diagnosis Comments XR FOOT RT MIN 3V 10/12/2023 1:5 5 PM EDT documented in this encounter Results * XR FOOT RT MIN 3V (10/12/2023 1:55 PM EDT) Anatomical Region Laterality Modality Other 10/12/2023 1:55 PM EDT Narrative 10/12/2023 2:02 PM EDT The [address] [address] XRay Report Signed Patient: POPPY CHEATHAM MR#: [id number] : 1960 Acct:[id number] Age/Sex: 63 / F ADM Date: 10/08/23 Loc: EC Attending Dr: Byron Alvarez Ordering Physician: Byron Alvarez Date of Service: 10/08/23 Procedure(s): XR foot RT min 3V Accession Number(s): [id number] cc: Byron Alvarez; Felton Puga M.D. The [address] [address] Patient Name: POPPY CHEATHAM MRN: [id number] date: 1960 Sex: F Assigned Patient Location: EC Current Patient Location: PT Accession/Order Number: [id number] Exam Date: 10/08/2023 11:08 Report Date: 10/12/2023 [...] Signed By: 10/12/23 1402 DD/ 1355 TD/TT: Freelance Translator: Procedure Note Radiology, Radiologist, MD - 10/12/2023 [place] [address] XRay Report Signed Patient: POPPY CHEATHAM DMR#: [id number] : 1960cct:[id number] Age/Sex: 63 / FADM Date: 10/08/23 Loc: Attending Dr: Byron Alvarez Ordering Physician: Byron Alvarez Date of Service: 10/08/23 Procedure(s): XR foot RT min 3V Accession Number(s): [id number] cc: Byron Alvarez; Felton Puga M.D. The [place] [id number] Patient Name: POPPY CHEATHAM MRN: [id number] date: 1960 Sex: F Assigned Patient Location: Current Patient Location: Accession/Order Number: [id number] Exam Date: 10/08/2023 11:08 Report Date: 10/12/2023 [...] Shanna Cheatham M.D. Signed By:10/12/23 1402 DD/ 3895 TD/TT: Freelance Translator: us Generic External Data Provider [facility] Final Result documented in this encounter Visit Diagnoses Not on filedocumented in this encounter Care Teams Hand Suture Winder Relationship Specialty Start Date End Date Felton Puga MD [address] [place] [address] PCP - Devoted 12/31/22 03/01/24 Felton Puga MD [address] [place] [address] PCP - General Family Medicine 08/19/23 Felton Puga MD [address] [place] [address] PCP - Medical [facility] 03/02/2403/01 documented as of this encounter
--- OUTSIDE RECORDS SUMMARY | 2024-10-27 08:11 | XMS_ITS | Clinical Summary ---
Author Organization [facility] Address [address], [address] [place] [address] Care Team Providers Care Orthopedic Surgeon Name Role Phone Felton Puga MD [...] file Insurance CATARINO GRIMALDO VIKI Care Teams Orthopedic Surgeon Relationship Specialty Start Date End Date Felton Puga MD [address] [place] [address] PCP - General Family Medicine 11/02/18
--- OUTSIDE RECORDS SUMMARY | 2024-10-27 08:11 | XMS_ITS | Encounter Summary ---
Author Organization [facility] Address [address] [place] [address] Care Team Providers Care School Lunch Monitor Name Role Phone Felton Puga MD Primary Care Provider [phone] Felton Puga MD Unavailable Encounter Details Date Type Department Care Team (Late st Contact Info) Description 07/12/2024 [facility] [address] [place] [address] Felton Puga MD [address] [place] [address] ALL THYROID STIM HORMONE, ALL CBC WITH AUTO DIFF, ALL THYROXINE (T4) FREE Social History Tobacco Use Types Packs/Day Years [...] often do you attend chur ch or yarsani services? Patient declined 02/17/2023 Do you belong to any clubs o r organizations such as methodist groups, unions, fraternal or athletic groups, or [...] Office Visit [facility] [address] [place] [address] Felton Puga MD [address] [place] [address] documented as of this encounter Visit Diagnoses Not on filedocumented in this encounter Additional Health Concerns Assessment Noted Time PHQ-9 Depression Total Score: 5 02/11/20 24 9:00 AM EST documented as of this encounter Care Teams School Lunch Monitor Relationship Specialty Start Date End Date Felton Puga MD [address] [place] [address] PCP - General Family Medicine 08/19/23 Felton Puga MD [address] [place] [address] PCP - Medical [place] MA 03/02/2403/01 documented as of this encounter
--- OUTSIDE RECORDS SUMMARY | 2024-10-27 08:11 | XMS_ITS | Encounter Summary ---
Author Organization [facility] Address [address], [address] [place] [address] Care Team Providers Care Instructional Leader Name Role Phone Felton Puga MD Primary Care Provider + Reason for Referral * Other (Routine) - Closed Specialty Diagnoses / Procedures Referred By Contac t Referred To Contact Radiology Diagnoses Breast cancer screening by mammogram Procedures TUYET QUEENIE DIGITAL SCREEN BILATERAL Felton Puga MD [address] [place] [address] Phone: tel: fax: Referral ID Status Reason Start Date Expiration Date Visits Re quested Visits Authorized [id number] Closed 11/29/2020 11/29/2021 1 1 Encounter Details Date Type Department Care Team (Late st Contact Info) Description 11/29/2020 Transcribe Orders [facility] [address] [place] [address] Felton Puga MD [address] [place] [address] Breast cancer screening by mammogram [...] to the patient regarding the results. [employer] recommends annual mammograms for [...] mammogram documented in this encounter Care Teams Instructional Leader Relationship Specialty Start Date End Date Felton Puga MD [address] [place] [address] PCP - General Family Medicine 11/02/18 documented as of this encounter
--- OUTSIDE RECORDS SUMMARY | 2024-10-27 08:11 | XMS_ITS | Encounter Summary ---
Author Organization [facility] Address [address] [place] [address] Care Team Providers Care Sales Trader Name Role Phone Felton Puga MD Primary Care Provider [phone] Felton Puga MD Unavailable Encounter Details Date Type Department Care Team (Late st Contact Info) Description 07/21/2024 Results [facility] [address] [place] [address] Felton Puga MD [address] [place] [address] Stress test with myocardial perfusion Social History Tobacco Use Types Packs/Day Years [...] often do you attend chur ch or yazidi services? Patient declined 02/17/2023 Do you belong [...] Office Visit [facility] [address] [place] [address] Felton Puga MD [address] [place] [address] documented as of this encounter Visit Diagnoses Not on filedocumented in this encounter Additional Health Concerns Assessment Noted Time PHQ-9 Depression Total Score: 5 02/11/20 9:00 AM EST documented as of this encounter Care Teams Sales Trader Relationship Specialty Start Date End Date Felton Puga MD [address] [place] [address] PCP - General Family Medicine 08/19/23 Felton Puga MD [address] [place] [address] PCP - Medical [place] 03/02/2403/01 documented as of this encounter
--- OUTSIDE RECORDS SUMMARY | 2024-10-27 08:11 | XMS_ITS | Encounter Summary ---
Author Organization [facility] Address [address] [place] [address] Phone Care Team Providers Care Religious Educator Name Role Phone Felton Puga MD Primary Care Provider + Encounter Details Date Type Department Care Team (Late st Contact Info) Description 05/03/2024 Scanned Document [facility] [address] [place] [phone] Gissel Romero, AUD, CCC-A [address] [place] [address] Social History Tobacco Use Types Packs/Day Years [...] Description 11/14/2024 5:30 AM EDT Hospital Encounter [facility] [id number] [place] [phone] Victoria Britt MD [id number] [place] [id number] 11/14/2024 7:00 AM EDT - 11/14/2024 10:10 AM EDT Surgery [address] [phone] Victoria Britt MD [address] [place] [address] [phone] Left Side Tympanoplasty with cartilage graft, possible OCR [00144 (CPT ) +1 more] 11/29/2024 11:30 AM EDT Office Visit [facility] [address] [facility] [address] [place] [address] Victoria Britt MD [id number] [place] [address] [phone] Scheduled Procedures Name Priority Associated Diagnoses Date/Ti [...] documented as of this encounter Care Teams Religious Educator Relationship Specialty Start Date End Date Felton Puga MD [address] [place] [address] PCP - General Family Medicine 05/05/24 documented as of this encounter
--- OUTSIDE RECORDS SUMMARY | 2024-10-27 08:12 | XMS_ITS | CCD ---
Author Organization [facility] Care Team Providers Care Chartered Wealth Manager Name Role Phone Felton Neumann Primary Care Provider [phone] FELTON NEUMANN Referring Unavailabl e NADERER, FELTON [...] Unavailable ZiMalcolm ashford Consulting Unavailable NADERER, DR FELTON Lynn Primary Care Unavailable NADERER, DR FELTON Lynn Admitting Unavailable NADERER, DR FELTON Lynn Attending Unavailable NADERER, DR FELTON Lynn Consulting Unavailable Nill, Marcin Pinedo Attending Unavailable Nill, Marcin Pinedo Admitting Unavailable NADEREKhris, FELTON Primary Care Physician [phone] Marcin CAMPOS Attending Unavailable NADEREKhris, FELTON Referring Unavailable NILL, Marcin Pinedo Attending Unavailable NILEli, Marcin Pinedo Attending Unavailable Thien VANEGAS, Felton Unavailable Felton Neumann MD Primary Care Provider Felton Neumann MD Unavailable Felton Neumann MD Unavailable Unavailable Primary Care Provider Austin Neumann MD, Felton Dave Primary Care Provider CONSTANCE SYKES Attending Unavailable NADERER, FELTON Attending Unavailable NADERER, FELTON Attending Unavailable NADERER, FELTON Attending Unavailable NADERER, FELTON Attending Unavailable NADERER, FELTON Attending Unavailable MONY, CONSTANCE Mcdonough Attending Unavailable NADEREKhris, FELTON Referring Unavailable MONY, CONSTANCE Mcdonough Referring Unavailable ARCHANA MARTIN Attending Unavailable YAZMIN, VICTORIA E Admitting Unavailable YAZMIN, VICTORIA E Attending Unavailable CONSTANCE SYKES Referring Unavaila ble NADERER, FELTON MESA Primary Care Unavailabl e YAZMIN, VICTORIA E Referring Unavailable NADERER, FELTON MESA Primary Care Unavailabl e ARCHANA MARTIN Attending Unavailable NADERER, FELTON [facility] Unavailabl e YAZMIN, VICTORIA E Admitting Unavailable YAZMIN, VICTORIA E Attending Unavailable NADEREKhris, FELTON MESA Primary [facility] Unavailabl e YAZMIN, VICTORIA E Attending Unavailable NADERER, FELTON [facility] Unavailabl e YAZMIN, VICTORIA E Attending Unavailable YAZMIN, VICTORIA E Attending Unavailable NADERER, [facility] Primary Care Unavailabl e Allergies Allergy Classification Reported Allergen(s) Allergy Type Date of Onset Reaction(s) Facility (1 source) No Known Medication Allergies; Translations: [No Known Medication Allergies] Propensity to adverse reactions (disorder) [facility] Repository Medications Current Medications Medication Drug Class(es) Dates Sig (Normalized) Sig (Original) amoxicillin 875 mg / clavulanate 125 mg oral tablet (1 source) Penicillin-class Antibacterial Start: 05-11-2024 End: 05-18-2024 take 1 tablet by mouth twice daily amoxicillin-pot clavulanate (Augmentin) 875-125 mg tablet Indications: 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 , Cholesteatoma of left ear Take 1 tablet (875 mg) by mouth 2 times a day for 7 days. 14 tablet 05/11/2024 05/18/2024 Active calcium carbonate 600 mg / cholecalciferol 0.01 mg oral tablet (20 sources) Vitamin D Start: 01-26-2023 take 1 tablet by mouth in the morning Calcium Carb-Cholecalcifer ol 600-10 MG-MCG tablet Take 1 tablet by mouth in the morning and 1 tablet before bedtime. 01/26/2023 Active calcium carbonate-vit D3-min 600 mg-10 mcg (400 unit) tablet (5 sources) Start: 01-26-2023 take 1 tablet by mouth twice daily calcium carbonate-vit D3-min 600 mg-10 mcg (400 unit) tablet Take 1 tablet by mouth twice a day. 01/26/2023 Active calcium chloride 0.0014 meq/ml / potassium chloride 0.004 meq/ml / sodium chloride 0.103 meq/ml / sodium lactate 0.028 meq/ml injectable solution (1 source) Start: 05-11-2024 End: 05-12-2024 take 50 mL intravenously every hour 50 mL/hr, intravenous, Continuous, Starting on Thu05/11/24 at 1745, For 1 day, Recovery (only) ciprofloxacin 3 mg/ml / dexamethasone 1 mg/ml otic suspension (9 sources) Corticosteroid, Quinolone Antimicrobial Start: 05-11-2024 End: 05-18-2024 ciprofloxacin-dexa methasone (CiproDEX) otic suspension Indications: 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 , Cholesteatoma of left ear Administer 4 drops into the left ear 2 times a day for 7 days. 7.8 mL 05/11/2024 05/18/2024 Active Start: 03-23-2024 End: 05-10-2024 ciprofloxacin-dexamethasone (CiproDEX) otic suspension 03/23/2024 05/10/2024 Discontinued (Entered in Error) Start: 03-23-2024 End: 03-30-2024 ciprofloxacin-dexAMETHasone (CiproDEX) otic suspension Indications: Otorrhea of left [...] mL 1 02/16/2024 03/23/2024 Discontinued (Therapy completed) docusate sodium 50 mg / sennosides, care home 8.6 mg oral tablet (1 source) Start: 05-11-2024 End: 05-21-2024 take 1 tablet by mouth once daily sennosides-docusate sodium (Senna with Docusate Sodium) 8.6-50 mg tablet Indications: 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 , Cholesteatoma of left ear Take 1 tablet by mouth once daily for 10 days. 10 tablet 05/11/2024 05/21/2024 Active FLUoxetine 20 mg oral capsule (20 sources) Serotonin Reuptake Inhibitor Start: 01-12-2024 take 1 capsule by mouth once daily FLUoxetine (PROzac) 20 MG capsule Indications: ZEESHAN (generalized anxiety disorder) TAKE 1 CAPSULE BY MOUTH DAILY 30 capsule 3 09/19/2024 Active Start: 09-29-2023 take 1 capsule by [facility] once daily FLUoxetine (PROzac) 20 MG capsule Indications: ZEESHAN (generalized anxiety disorder) ([facility]) Take 1 capsule (20 mg) by mouth Daily 30 capsule 3 09/29/2023 Active hydroCHLOROthiazide 12.5 mg / lisinopril 10 mg oral tablet (20 sources) Thiazide Diuretic, Angiotensin Converting Enzyme Inhibitor Start: 09-30-2024 take 1 tablet by mouth once daily lisinopril-hydroCHLOROthiazide 10-12.5 MG tablet Indications: Essential hypertension, benign Take 1 tablet by mouth Daily 90 tablet 3 09/30/2024 Active Start: 11-23-2022 End: 11-04-2024 take 1 tablet by mouth once daily lisinopriL-hydrochlorothiazide 10-12.5 m g tablet Take 1 tablet by mouth once daily. 11/23/2022 11/04/2024 Active 0.5 ml HYDROmorphone hydrochloride 1 mg/ml prefilled syringe (2 sources) Opioid Agonist Start: 05-11-2024 0.5 mg, intrav enous, Every 5 min PRN, pain severe (7-10), first line, Starting on Thu05/11/24 at 1726, Recovery (only), Max total of 4 mg regardless of dose. Start: 05-11-2024 0.2 mg, intrav enous, Every 5 min PRN, pain moderate (4-6), first line, Starting on Thu05/11/24 at 1726, Recovery (only), Max total of 4 mg regardless of dose. levothyroxine sodium 0.1 mg oral tablet (20 sources) l-Thyroxine Start: 03-18-2023 take 1 tablet by mouth once daily levothyroxine (Synthroid, Levoxyl) 100 mcg tablet Take 1 tablet (100 mcg) by mouth once daily. 03/18/2023 Active Start: 03-18-2023 take 1 tablet by [facility] once daily levothyroxine 100 mcg (0.1 mg) Tab 100 mcg = 1 tab(s), Oral, Daily, Refills(s) 0 Start Date: 03/18/23 Status: Ordered melatonin 5 mg oral capsule (3 sources) take 1 capsule by mouth once daily at bedtime melatonin 5 mg capsule Take 1 capsule (5 mg) by mouth once daily at bedtime. Active meloxicam 15 mg oral tablet (20 sources) Nonsteroidal Anti-inflammatory Drug Start: 01-09-20 End: 05-11-19 take 1 tablet by mouth in the morning meloxicam (Mobic) 15 MG tablet Take 1 tablet by mouth in the morning. 01/09/2023 Active 2 ml ondansetron 2 mg/ml injection (1 source) Serotonin-3 Receptor Antagonist Start: 05-12-19 4 mg, intravenous, Once as needed, nausea/vomiting, first line, Starting on Thu05/11/24 at 1726, For 1 dose, Recovery (only), When administering via IV Push, administer over 3-5 minutes. oxyCODONE hydrochloride 5 mg oral tablet (1 source) Opioid Agonist Start: 05-12-19 End: 05-15-19 take 1 tablet by mouth every six hours for pain oxyCODONE (Roxicodone) 5 mg immediate release tablet Indications: 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 , Cholesteatoma of left ear Take 1 tablet (5 mg) by mouth every 6 hours if needed for severe pain (7 - 10) for up to 3 days. 12 tablet 05/11/2024 05/14/2024 Active predniSONE 10 mg oral tablet (6 sources) Start: 09-29-19 End: 10-30-19 take 6 tablets by mouth once daily, [...] 3 days 39 tablet 09/29/2023 10/30/2023 Discontinued End: 05-10-2024 take 1 tablet by mouth once daily predniSONE 10 mg tablets,dose pack Take 1 tablet by mouth once daily. 05/10/2024 Discontinued (Entered in Error) promethazine (Phenergan) 12.5 mg in sodium chloride 0.9% 50 mL IV (1 source) Start: 05-11-2024 12.5 mg, intravenous, Administer over 15 Minutes, Once as needed, nausea/vomiting, first line, Nausea/vomiting, second line, Starting on Thu05/11/24 at 1726, For 1 dose, Recovery (only) raloxifene hydrochloride 60 mg oral tablet (20 sources) Estrogen Agonist/Antagon ist Start: 01-08-2023 take 1 tablet by mouth once daily raloxifene (Evista) 60 MG tablet Indications: Age-related osteoporosis without current pathological fracture TAKE 1 TABLET BY MOUTH DAILY 90 tablet 3 07/04/2024 Active Completed/Discontinued Medications Medication Drug Class(es) Dates Sig (Normalized) Sig (Original) acetaminophen 325 mg oral tablet (2 sources) Start: 05-11-2024 End: 05-11-2024 take 975 mg by mouth once as needed for pain 975 mg, oral, Once, On Thu05/11/24 at 1830, For 1 dose, Recovery (only), If ordered PRN for pain, nurse is permitted to administer this medication for higher pain scores based on patient preference? Yes Start: 05-11-2024 End: 05-26-2024 take 2 tablets by mouth every eight hours for pain acetaminophen (Tylenol) 500 mg tablet Indications: 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 , Cholesteatoma of left ear Take 2 tablets (1,000 mg) by mouth every 8 hours if needed for mild pain (1 - 3) for up to 15 days. 90 tablet 05/11/2024 05/26/2024 Active DULoxetine 60 mg delayed release oral capsule (3 sources) Serotonin and Norepinephrine Reuptake Inhibitor End: 05-10-2024 take 1 capsule by mouth every twenty-four hours DULoxetine (Cymbalta) [address] capsule Take 1 capsule (60 mg) by mouth once every 24 hours. 05/10/2024 Discontinued (Entered in Error) montelukast 10 mg oral tablet (13 sources) Leukotriene Receptor Antagonist Start: 02-01-2023 End: 05-10-2024 take 1 tablet by mouth once daily montelukast (Singulair) 10 mg tablet Take 1 tablet (10 mg) by mouth once daily. 02/01/2023 05/10/2024 Discontinued (Entered in Error) Problems Active Problems Problem Classification Problem Date Documented Date Episodic/Chronic Anal and rectal conditions (1 source) Rectal polyp; Translations: [Rectal polyp] Onset: 05-12-2023 Episodic Anxiety disorders (20 sources) Generalized anxiety disorder; Translations: [Generalized anxiety disorder] Onset: 09-29-2023 09-29-2023 Chronic Disorders of lipid metabolism (20 sources) Dyslipidemia; Translations: [Hyperlipidemia, unspecified] Onset: 02-18-2023 03-18-2023 Chronic Esophageal disorders (20 sources) Gastroesophageal reflux disease; Translations: [Gastro-esophageal reflux disease without esophagitis] Onset: 02-18-2023 03-18-2023 Chronic Essential hypertension (20 sources) Benign essential hypertension; Translations: [Essential (primary) hypertension] Onset: 02-18-2023 03-18-2023 Chronic Comment on above: Outside Source Comme nt: Last Assessment & Plan: BP controlled and monitor PRN. Mood disorders (4 sources) Depressive disorder; Translations: [Depression] Onset: 05-11-2024 05-11-2024 Chronic Nonspecific chest pain (8 sources) Chest pain; Translations: [Chest pain, unspecified] Onset: 07-11-2024 07-11-2024 Episodic Nutritional deficiencies (20 sources) Vitamin D deficiency; Translations: [Vitamin D deficiency, unspecified] Onset: 02-18-2023 03-18-2023 Chronic Osteoarthritis (20 sources) Primary gonarthrosis, bilateral; Translations: [Bilateral primary osteoarthritis of knee] Onset: 02-18-2023 02-18-2023 Chronic Osteoporosis (20 sources) Postmenopausal osteoporosis; Translations: [Age-related osteoporosis without current pathological fracture] Onset: 02-18-2023 03-18-2023 Chronic Other and unspecified [...] Chronic Other ear and sense organ disorders (8 sources) Mixed conductive AND sensorineural hearing loss; Translations: [Mixed conductive and sensorineural hearing loss, unilateral, left ear with restricted hearing on the contralateral side] Onset: 05-03-2024 05-03-2024 Chronic Other ear and sense organ disorders (4 sources) Mixed conductive and sensorineural hearing loss, unilateral, left ear with restricted hearing on the contralateral side; Translations: [Mixed conductive and sensorineural hearing loss, unilateral, left ear with restricted hearing on the contralateral side] Onset: 05-03-2024 Chronic Other ear and sense organ disorders (2 sources) Sensorineural hearing loss, unilateral, right ear, with restricted hearing on the contralateral side; Translations: [Sensorineural hearing loss, unilateral, right ear, with restricted hearing on the contralateral side] Onset: 05-03-2024 Chronic Other ear and sense organ disorders (13 sources) Cerebrospinal fluid otorrhea; Translations: [CSF otorrhea] Onset: 05-03-2024 02-16-2024 Episodic Other ear and sense organ disorders (9 sources) Cholesteatoma; Translations: [Unspecified cholesteatoma, left ear] Onset: 05-03-2024 05-03-2024 Episodic Other ear and sense organ disorders (4 sources) Unspecified cholesteatoma, left ear; Translations: [Unspecified cholesteatoma, left ear] Onset: 05-03-2024 Episodic Other injuries and conditions due to external causes (2 sources) Foreign body in left ear; Translations: [Foreign body in left ear, initial encounter] 02-16-2024 Episodic Other non-traumatic joint disorders (2 sources) Joint pain; Translations: [Pain in unspecified joint] 02-11-2024 Episodic Other nutritional; endocrine; and metabolic disorders (4 sources) Obesity caused by energy imbalance; Translations: [Class 1 obesity due to excess calories with serious comorbidity and body mass index (BMI) of 30.0 to 30.9 in adult] Onset: 07-11-2024 07-11-2024 Chronic Other nutritional; endocrine; and metabolic disorders (1 source) Overweight 04-07-2023 Episodic Other nutritional; endocrine; and metabolic disorders (1 source) Overweight in adulthood with body mass index of 25 or more but less than 30 04-07-2023 Episodic Other upper respiratory disease (20 sources) Allergic rhinitis due to pollen; Translations: [Allergic rhinitis due to pollen] Onset: 02-18-2023 03-18-2023 Chronic Comment on above: Outside Source Comme nt: Last Assessment & Plan: Symptoms controlled with medication and continue. Residual codes; unclassified (1 source) Family history of cancer of colon 04-07-2023 Episodic Residual codes; unclassified (1 source) Preoperative state 05-03-2024 Episodic Residual codes; unclassified (1 source) Postoperative state; Translations: [Other specified postprocedural states] 05-27-2024 Episodic Thyroid disorders (20 sources) Hypothyroidism, unspecified; Translations: [Unspecified acquired hypothyroidism] Onset: 02-18-2023 02-18-2023 Chronic Unclassified (5 sources) Patient encounter status; Translations: [Breast cancer screening by mammogram] 03-18-2023 Unclassified (1 source) Primary hypothyroidism Onset: 02-18-2023 03-18-2023 Comment on above: Outside Source Comme nt: Last Assessment & Plan: No signs of low thyroid and recent labs normal. Continue synthroid. Unclassified (2 sources) Cranial cerebrospinal fluid leak, spontaneous; Translations: [Cranial cerebrospinal fluid leak, spontaneous] Onset: 05-03-2024 Unclassified (1 source) Autogenerated Problem Onset: 09-27-2024 09-27-2024 Unclassified (2 sources) Post-op; Translations: [Post-op] Onset: 05-27-2024 Unclassified (2 sources) Referral; Translations: [Referral] Onset: 05-03-2024 Past or Other Problems Problem Classification Problem Date Documented Date Episodic/Chronic Diabetes mellitus without complication (20 sources) Prediabetes; Translations: [Prediabetes] Onset: 02-18-2023 03-18-2023 Episodic Mood disorders (18 sources) Mood disorders Onset: 02-11-2024 02-11-2024 Other aftercare (20 sources) Long-term current use of drug therapy; Translations: [Other terminal carman (current) drug therapy] Onset: 02-11-2024 02-11-2024 Episodic Other connective tissue disease (20 sources) Plantar fasciitis of right foot; Translations: [Plantar fascial fibromatosis] Onset: 08-19-2023 08-19-2023 Episodic Other ear and sense organ disorders (20 sources) Otorrhea of left ear; Translations: [Otorrhea, left ear] Onset: 02-11-2024 02-11-2024 Episodic Other ear and sense organ disorders (2 sources) Tinnitus, left ear; Translations: [Tinnitus, left ear] Onset: 05-03-2024 Episodic Other ear and sense organ disorders (2 sources) Other specified disorders of left ear; Translations: [Other specified disorders of left ear] Onset: 05-03-2024 Episodic Other screening for suspected conditions (not mental disorders or infectious disease) (20 sources) Patient encounter status; Translations: [Encounter for screening mammogram for malignant neoplasm of breast] Onset: 02-17-2022 Episodic Otitis media and related conditions (8 sources) Dysfunction of left eustachian tube; Translations: [Unspecified Eustachian tube disorder, left ear] Onset: 05-03-2024 02-16-2024 Episodic Unclassified (5 sources) Onset: 05-03-2024 Resolved: 09-27-2024 05-03-2024 Unclassified (2 sources) Cranial cerebrospinal fluid leak, spontaneous; Translations: [Cranial cerebrospinal fluid leak, spontaneous] Onset: 05-11-2024 Results Test Name Value Interpretation Reference Range Facility ALL THYROID STIM HORMONEon 0 07-12-2024 TSH Qn 1.047 m[IU]/L [facility] Surgical pathology studyon 0 05-11-2024 Surgical pathology study Pathology report.total SEE COMMENT Surgical Pathology Case: [id number] Authorizing Provider: Victoria Arce MD Collected: 05/11/2024 1433 Ordering Location: [facility] Received: 05/11/2024 [address] [facility] [place] OR Pathologist: Navneet Gurrola MD Specimens: A) - MASTOID CONTENTS LEFT B) - EAR, MIDDLE EAR CONTENTS LEFT Path report.final diagnosis SEE COMMENT A. Left mastoid contents: - Disorganized gliotic tissue, consistent with encephalocele. B. Left middle ear contents: - Keratinizing squamous epithelium and keratin debris, consistent with cholesteatoma. - Mucosal fragment with chronic inflammation. Quality Assurance Supervisor: Dr. Will Lu (part A) jkw Laboratory comment By the signature on this report, the individual or group listed as making the Final Interpretation/Diagnos is certifies that they have reviewed this case. 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 The specimen is submitted in toto in one cassette. MRS B: Received in formalin, labeled with the patient's name and hospital number and middle ear contents , is a fragment of pink reyna, soft tissue measuring 0.3 x 0.1 x 0.1 cm. The specimen is submitted in toto in one cassette. MRS Normal [facility] Comment on above: Order Comment: Pre-o p diagnosis: 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 [G96.01] CT TRANSFER OF OUTSIDE FILMS on 05-05-2024 CT TRANSFER OF OUTSIDE FILMS Outside images for comparison or treatment purposes, not interpreted by Radiologists. Normal [facility] CT transfer of outside films on 05-05-2024 Source Facility: [facility] Outside images for comparison or treatment purposes, not interpreted by Radiologists. Mary Srivastava MD - 05/05/2024 Source Facility: [facility] Outside images for comparison or treatment purposes, not interpreted by Radiologists. [facility] Study observation (narrative) [facility] CT transfer of outside films Ordered By: Radiologist Radiology on 05-05-2024 [facility] Work Phone: Study Interpretation of outs ivon studyon 05-05-2024 Outside images for comparison or treatment purposes, not interpreted by Radiologists. IMAGING ALL CBC WITH AUTO DIFFon BASOPHILS ABSOLUTE AUTO 0.1 [facility] Basophils/100 WBC (Bld) 0.9 % 0.2 - 2.0 % [facility] Eosinophils/100 WBC (Bld) 0.9 % 0.9 - 7.0 % [facility] Erythrocyte distribution width (RBC) [Ratio] 13.5 % 11.0 - 15.0 % [facility] Hematocrit (Bld) [Volume fraction] 41.8 % 36.0 - 48.0 % [facility] Hemoglobin (Bld) [Mass/Vol] 14 g/dL 12.0 - 16.0 g/dL [facility] IMMATURE GRANULOCYTES ABS AUTO 0.02 [facility] Immature granulocytes/100 WBC (Bld) 0.4 % 0.0 - 0.5 % [facility] LYMPHOCYTES ABSOLUTE AUTO 1.7 [facility] Lymphocytes/100 WBC (Bld) 29.6 % 20.5 - 60.0 % [facility] MCH (RBC) [Entitic mass] 30.2 pg 26.7 - 34.0 pg [facility] MCHC (RBC) [Mass/Vol] 33.5 g/dL 29.9 - 35.2 g/dL [facility] MCV (RBC) [Entitic vol] 90.1 fL 81.0 - 99.0 fL [facility] MONOCYTES ABSOLUTE AUTO 0.4 [facility] Monocytes/100 WBC (Bld) 7.5 % 1.7 - 12.0 % [facility] NEUTROPHILS ABSOLUTE AUTO 3.4 [facility] Neutrophils/100 WBC (Bld) 60.7 % 43.0 - 75.0 % [facility] Platelet mean volume (Bld) [Entitic vol] 9.8 fL 9.5 - 13.5 fL [facility] TBH EO # 0.1 [facility] TB[facility] PLT 262 [facility] RBC 4.64 [facility] WBC 5.6 [facility] ECG 12-LEADon 05-04-[address] [address] Electrocardiograph Report Signed Patient: KEYON CHEATHAM MR#: [id number] : 1960 Acct:[id number] Age/Sex: 64 / F ADM Date: 05/04/24 Loc: LAB Attending Dr: Victoria Arce M.D. Ordering Physician: Ddoie Hussein M.D. Date of Service: 05/04/24 Procedure(s): ECG 12 lead Accession Number(s): [id number] cc: [facility] Test Date: 2024-05-04 Pat Name: KEYON CHEATHAM Department: Room: - Gender: Female Special Shopper: : 1960 Requested By: [id number] Order Number: [id number] Reading MD: BRAD KUMAR M.D. Measurements Intervals [place] Rate: 87 P: 77 MT: 160 QRS: 22 QRSD: 97 T: 68 QT: 357 QTc: 430 Interpretive Statements SINUS RHYTHM INCOMPLETE RIGHT BUNDLE BRANCH BLOCK [90+ ms QRS DURATION, TERMINAL R IN V1/V2, 40+ ms S IN I/aVL/V4/V5/V6] No previous ECG available for comparison Electronically Signed On 05-04-2024 9:09:06 EST by BRAD KUMAR M.D. Dictated By: BRAD KUMAR M.D. Signed By: 05/04/24908 DD/ 0830 TD/TT: Director Medical Affairs: [facility] Radiology, Radiologist, MD - 05/04/[address] [address] Electrocardiograph Report Signed Patient: KEYON CHEATHAM MR#: [id number] : 1960 Acct:[id number] Age/Sex: 64 / F ADM Date: 05/04/24 Loc: LAB Attending Dr: Victoria Arce M.D. Ordering Physician: Dodie Hussein M.D. Date of Service: 05/04/24 Procedure(s): ECG 12 lead Accession Number(s): [id number] cc: [facility] Test Date: 2024-05-04 Pat Name: KEYON NILES Department: Room: - Gender: Female Special Shopper: : 1960 Requested By: [id number] Order Number: [id number] Reading MD: BRAD KUMAR M.D. Measurements Intervals [place] Rate: 87 P: 77 MT: 160 QRS: 22 QRSD: 97 T: 68 QT: 357 QTc: 430 Interpretive Statements SINUS RHYTHM INCOMPLETE RIGHT BUNDLE BRANCH BLOCK [90+ ms QRS DURATION, TERMINAL R IN V1/V2, 40+ ms S IN I/aVL/V4/V5/V6] No previous ECG available for comparison Electronically Signed On 05-04-2024 9:09:06 EST by BRAD KUMAR M.D. Dictated By: BRAD KUMAR M.D. Signed By: 05/04/24908 DD/ 9 TD/TT: Director Medical Affairs: [facility] Radiology Study observation (narrative) [facility] ECG 12-LEADOrdered By: Radio logist Radiology on [facility]-04-2024 [facility] CT ORBITS/SELLA WO IV CONTRA STon 02-29-2024 [...] jugular, and sigmoid plates are intact. Petrous Mason: Normal. LEFT: Treatment Changes: No appreciable surgical [...] jugular, and sigmoid plates are intact. Petrous Mason: Normal. Orbits and face (included portions): Mild [...] WITH AUTO DIFFon BASOPHILS ABSOLUTE AUTO 0.1 [facility] Basophils/100 WBC (Bld) 1.2 % 0.2 - 2.0 % [facility] Eosinophils/100 WBC (Bld) 1.6 % 0.9 - 7.0 % [facility] Erythrocyte distribution width (RBC) [Ratio] 13.2 % 11.0 - 15.0 % [facility] Hematocrit (Bld) [Volume fraction] 41.1 % 36.0 - 48.0 % [facility] Hemoglobin (Bld) [Mass/Vol] 13.2 g/dL 12.0 - 16.0 g/dL [facility] IMMATURE GRANULOCYTES ABS AUTO 0.03 [facility] Immature granulocytes/100 WBC (Bld) 0.5 % 0.0 - 0.5 % [facility] LYMPHOCYTES ABSOLUTE AUTO 1.9 [facility] Lymphocytes/100 WBC (Bld) 32.1 % 20.5 - 60.0 % [facility] MCH (RBC) [Entitic mass] 29 pg 26.7 - 34.0 pg [facility] MCHC (RBC) [Mass/Vol] 32.1 g/dL 29.9 - 35.2 g/dL [facility] MCV (RBC) [Entitic vol] 90.3 fL 81.0 - 99.0 fL [facility] MONOCYTES ABSOLUTE AUTO 0.6 [facility] Monocytes/100 WBC (Bld) 10.1 % 1.7 - 12.0 % [facility] NEUTROPHILS ABSOLUTE AUTO 3.2 [facility] Neutrophils/100 WBC (Bld) 54.5 % 43.0 - 75.0 % [facility] Platelet mean volume (Bld) [Entitic vol] 10.1 fL 9.5 - 13.5 fL [facility] TBH EO # 0.1 [facility] TB PLT 263 [facility] TB RBC 4.55 [facility] e TB WBC 5.8 [facility] e [facility] e ALL MISCELLANEOUS TESTon MISCELLANEOUS TEST COMMENT . [facility] Comment on above: Test Ordered: [id number] Beta-2 Transferrin Beta-2 Transferrin Note: Y8 Not [...] developed and its performance characteristics determined by [employer]. It has not been cleared or approved by the [place] Food and Drug Administration. This test was performed in a CLIA certified laboratory and is intended for clinical purposes. Performed at: Y8 - [employer] [address] [id number] Corrections Counselor: Jarocho Fournier [facility], Phone: [phone] Performed at: - [facility] [id number] Corrections Counselor: Sam Landin PhD, Phone: [phone] LEFT EAR [id number] Beta-2 Transferrin [facility] Ambulatory Visit Summaryon 0 05-12-2023 Ambulatory Visit Summary KEYON CHEATHAM :1960 Visit Date:05/12/2023 Ambulatory Visit Instructions Your Diagnosis Hyperplastic rectal polyp Your Care Team Attending Physician - BARBEI VANEGAS, Marcin Pinedo Primary Care Physician - [...] for choosing us for your care. Normal [facility] General Surgery Office/Clini [...] vaccine 05/14/2020 Recorded 2023-03-18: TPV60 Normal [facility] Comment on above: Result Comment: Elec [...] to family history of colon cancer. Normal [facility] Pathology Noteon 05-06-2023 Pathology Note [id number]#1.0 0TIFF Normal [facility] Outside Colonoscopyon 2023 Outside Colonoscopy [id number] 20 [id number]#1.0 0TIFF Normal [facility] Victorino 04-29-2023 L Specimen: [id number] Received: 05/01/23 Status: JACQUELIN Alonso Num: [id number] Spec Type: Surgical Subm Dr: Marcin Campos MD FACS Tissues: A Colon Biopsy (RECTAL POLYP) Procedures: HE/2, Gross/Micro L4 Age/ Patient Sex Location Account Attending Physician Keyon Cheatham 63/F LABELL [id number] Marcin Campos MD FACS SPEC NUM: [id number] RECD: 05/01/23 STATUS: [facility] NUM: [id number] ANDREA: 04/29/[address]: Marcin Campos MD FACS ENTERED: 05/01/23 [facility] DR: Magy,Binta SPEC TYPE: Surgical DEPT: [facility]ER ORDERED: HE/2, Gross/Micro L4 ORDERED: HE/2, Gross/Micro L4 Pathological Diagnosis Rectal polyp biopsy: -Small serrated hyperplastic polyp Clinical Information Rectal polyp, sigmoid diverticulosis Gross Description Received in formalin labeled with the patient's name, date of and rectal polyp is one reyna tissue measuring 0.3 cm. Entirely submitted in one cassette labeled A1. CPT Codes 55774 ---- ---- Specimen: [id number] Received: 05/01/23 Status: JACQUELIN Celeste Num: [id number] Spec Type: Surgical Subm Dr: Marcin Campos MD [facility] Tissues: A Colon Biopsy (RECTAL POLYP) Procedures: KIKA/Steven Napier/Terrie L4 ---- Patient: Keyon Cheatham [id number] (Continued) ---- Signed (signature on file) Enriqueta Billingsley MD 05/04/23 6231 [facility] Consent for Procedure/Surger yon 04-09-2023 Consent for Procedure/Surgery [id number]#1.0 0TIFF Gerardo [facility] Ambulatory Visit Summaryon 0 04-07-2023 Ambulatory Visit [...] for choosing us for your care. Normal [facility] Facesheeton 04-07-2023 Facesheet [id number]#1. 00TIFF [facility] Insurance Correspondenceon 0 04-07-2023 Insurance Correspondence [id number]#1. 00TIFF [facility] Physician Referralon 024 Physician Referral [id number]#1.0 0TIFF [facility] Physician Referralon 023 Physician Referral [id number] 20 [id number]#1.0 0TIFF [facility] ELDER - TSHon 06-04-2022 TSH 1.292 uIU/mL Normal 0.358-3.740 [facility] Comment on above: Performed By: #### D ATTSH #### [facility] [address] [address] [address] Mela Billingsley TSH RANGE SEE BELOW Normal [facility] Comment on above: Result Comment: <0.3 4 UIU/ml HYPERTHYROID 0.34-5.60 UIU/ml EUTHYROID >5.60 UIU/ml HYPOTHYROID Performed By: #### D ATTSH #### [facility] [address] [address] [address] Mela Billingsley GLYCOHEMOGLOBIN A1Con 2022 ADA RECOMMENDATION SEE BELOW Normal [facility] Comment on above: Result Comment: ADA RECOMMENDED LIMIT 4.0 - 6.0 ADA THERAPEUTIC TARGET < 7.0 ACTION SUGGESTED > 7.0 Performed By: #### D ATA1C #### [facility] [address], [place] [address] Dr. Mela Billingsley Glucose [Mass/Vol] 117 mg/dL Normal [facility] Comment on above: Performed By: #### D ATA1C #### [facility] [address], [place] [address] Dr. Mela Billingsley HbA1c (Bld) [Mass fraction] 5.7 % Normal 4.5-6.2 [facility] Comment on above: Performed By: #### D ATA1C #### [facility] [address] [address] [address] Mela Billingsley MG MAMM SCREEN 3D ANTONIA CADon 02-17-2022 MG MAMM SCREEN 3D ANTONIA CAD Patient: KEYON CHEATHAM Exam Date: 02/17/2022 : 1960 Gender:F Ordering : DR FELTON NEUMANN . Admission #: [id number] Family : Order #: [id number] CLICK HERE TO VIEW EXAM RADIOLOGY REPORT [...] Treatments None Family Cancers None LOCATION: [facility] BREAST COMPOSITION: Scattered areas fibroglandular density. [...] M.D. on 02/18/2022 at 11:38 Normal [facility] ELDER - TSHon 11-12-2021 TSH 0.153 uIU/mL Critically low 0.358-3.740 [facility] Comment on above: Performed By: #### D ATTSH #### [facility] [address] [place] [address] Dr. Mela Billingsley TSH RANGE SEE BELOW Normal [facility] Comment on above: Result Comment: <0.3 4 UIU/ml HYPERTHYROID 0.34-5.60 UIU/ml EUTHYROID >5.60 UIU/ml HYPOTHYROID Performed By: #### D ATTSH #### [facility] [address] [place] [address] Dr. Mela Billingsley CBC AUTO DIFFon 10-07-2021 BASO # 0.1 103/ul Normal 0.0-0.1 [facility] Comment on above: Performed By: #### D ATCBC #### [facility] [address] [place] [address] Dr. Mela Billingsley Basophils/100 WBC (Bld) 1.3 % Normal 0.2-2.0 [facility] Comment on above: Performed By: #### D ATCBC #### [facility] [address] [place] [address] Dr. Mela Billingsley EO # 0.1 103/ul Normal 0.0-0.7 [facility] Comment on above: Performed By: #### D ATCBC #### [facility] [address] [place] [address] Dr. Mela Billingsley Eosinophils/100 WBC (Bld) 1.7 % Normal 0.9-7.0 [facility] Comment on above: Performed By: #### D ATCBC #### [facility] [address] [place] [address] Dr. Mela Billingsley Erythrocyte distribution width (RBC) [Ratio] 13.3 % Normal 11.0-15.0 [facility] Comment on above: Performed By: #### D ATCBC #### [facility] [address] [place] [address] Dr. Mela Billingsley Hematocrit (Bld) [Volume fraction] 40.1 % Normal 36.0-48.0 [facility] Comment on above: Performed By: #### D ATCBC #### [facility] [address] [place] [address] Dr. Mela Billingsley Hemoglobin (Bld) [Mass/Vol] 13.1 g/dL Normal 12.0-16.0 [facility] Comment on above: Performed By: #### D ATCBC #### [facility] [address] [address] [address] Mela Billingsley IG # 0.03 10e3/ul Normal 0.00-0.03 [facility] Comment on above: Performed By: #### D ATCBC #### [facility] [address] [place] [address] Dr. Mela Billingsley IG % 0.6 % Critically high 0.0-0.5 [facility] Comment on above: Performed By: #### D ATCBC #### [facility] [address] [place] [address] Dr. Mela Billingsley LYMPH # 1.6 103/ul Normal 1.2-3.8 [facility] Comment on above: Performed By: #### D ATCBC #### [facility] [address] [place] [address] Dr. Mela Billingsley Lymphocytes/100 WBC (Bld) 34.4 % Normal 20.5-60.0 [facility] Comment on above: Performed By: #### D ATCBC #### [facility] [address] [place] [address] Dr. Mela Billingsley MCH (RBC) [Entitic mass] 29.5 pg Normal 26.7-34.0 [facility] Comment on above: Performed By: #### D ATCBC #### [facility] [address] [place] [address] Dr. Mela Billingsley MCHC (RBC) [Mass/Vol] 32.7 g/dL Normal 29.9-35.2 [facility] Comment on above: Performed By: #### D ATCBC #### [facility] [address] [place] [address] Dr. Mela Billingsley MCV (RBC) [Entitic vol] 90.3 fL Normal 81.0-99.0 [facility] Comment on above: Performed By: #### D ATCBC #### [facility] [address] [place] [address] Dr. Mela Billingsley MONO # 0.4 103/ul Normal 0.3-0.8 [facility] Comment on above: Performed By: #### D ATCBC #### [facility] [address] [place] [address] Dr. Mela Billingsley Monocytes/100 WBC (Bld) 9.0 % Normal 1.7-12.0 [facility] Comment on above: Performed By: #### D ATCBC #### [facility] [address] [place] [address] Dr. Mela Billingsley NEUT # 2.5 103/ul Normal 1.4-6.5 [facility] Comment on above: Performed By: #### D ATCBC #### [facility] [address] [place] [address] Dr. Mela Billingsley Neutrophils/100 WBC (Bld) 53.0 % Normal 43.0-75.0 [facility] Comment on above: Performed By: #### D ATCBC #### [facility] [address] [place] [address] Dr. Mela Billingsley Platelet mean volume (Bld) [Entitic vol] 10.0 fL Normal 9.5-13.5 [facility] Comment on above: Performed By: #### D ATCBC #### [facility] [address] [place] [address] Dr. Mela Billingsley PLT 243 103/ul Normal 150-450 [facility] Comment on above: Performed By: #### D ATCBC #### [facility] [address] [place] [address] Dr. Mela Billingsley RBC 4.44 106/ul Normal 4.20-5.40 [facility] Comment on above: Performed By: #### D ATCBC #### [facility] [address] [place] [address] Dr. Mela Billingsley WBC 4.8 103/ul Normal 4.0-11.0 [facility] Comment on above: Performed By: #### D ATCBC #### [facility] [address] [place] [address] Dr. Mela Billingsley ELDER - TSHon 10-07-2021 TSH 0.178 uIU/mL Critically low 0.358-3.740 [facility] Comment on above: Performed By: #### D ATBMP, DATTSH #### [facility] [address] [place] [address] Dr. Mela Billingsley TSH RANGE SEE BELOW Normal [facility] Comment on above: Result Comment: <0.3 4 UIU/ml HYPERTHYROID 0.34-5.60 UIU/ml EUTHYROID >5.60 UIU/ml HYPOTHYROID Performed By: #### D ATBMP, DATTSH #### [facility] [address] [place] [address] Dr. Mela Billingsley ELDER- BMP WITH LIPIDon 2021 Anion gap [Moles/Vol] 13.1 mmol/L Normal [facility] Comment on above: Performed By: #### D ATBMP, DATTSH #### [facility] [address] [place] [address] Dr. Mela Billingsley Calcium [Mass/Vol] 9.0 mg/dL Normal 8.5-10.1 [facility] Comment on above: Performed By: #### D ATBMP, DATTSH #### [facility] [address] [place] [address] Dr. Mela Billingsley Chloride [Moles/Vol] 104 mmol/L Normal 98-107 [facility] Comment on above: Performed By: #### D ATBMP, DATTSH #### [facility] [address] [place] [address] Dr. Mela Billingsley Cholesterol [Mass/Vol] 193 mg/dL Normal <=200 [facility] Comment on above: Performed By: #### D ATBMP, DATTSH #### [facility] [address] [place] [address] Dr. Mela Billingsley Cholesterol in HDL [Mass/Vol] 62 mg/dL Critically high 40-60 [facility] Comment on above: Performed By: #### D ATBMP, DATTSH #### [facility] [address] [address] [address] Mela Billingsley Cholesterol in LDL [Mass/Vol] 120.0 mg/dL Normal [facility] Comment on above: Performed By: #### D ATBMP, DATTSH #### [facility] [address] [address] [address] Mela Billingsley CO2 [Moles/Vol] 27.0 mmol/L Normal 21.0-32.0 [facility] Comment on above: Performed By: #### D ATBMP, DATTSH #### [facility] [address] [place] [address] Dr. Mela Billingsley Creatinine [Mass/Vol] 0.86 mg/dL Normal 0.55-1.02 [facility] Comment on above: Performed By: #### D ATP, DATTSH #### [facility] [address] [place] [address] Dr. Mela Billingsley EGFR-AF HAITIAN >60 Normal >=60 [facility] Comment on above: Performed By: #### D ATP, DATTSH #### [facility] [address] [place] [address] Dr. Mela Billingsley EGFR-NON AF HAITIAN >60 Normal >=60 [facility] Comment on above: Performed By: #### D ATP, DATTSH #### [facility] [address] [place] [address] Dr. Mela Billingsley HDL NORMAL > or = 60 mg/dl - LO W CARDIOVASCULAR RISK <40 mg/dl - HIGH CARDIOVASCULAR RISK Normal [facility] Comment on above: Performed By: #### D ATP, DATTSH #### [facility] [address] [place] [address] Dr. Mela Billingsley LDL CALC NORMAL SEE BELOW Normal [facility] Comment on above: Result Comment: <100 mg/dl OPTIMAL 100 - 129 mg/dl NEAR OR ABOVE OPTIMAL 130 - 159 mg/dl BORDERLINE HIGH 160 - 189 mg/dl HIGH >190 mg/dl VERY HIGH Performed By: #### D ATBMP, DATTSH #### [facility] [address] [place] [address] Dr. Mela Billingsley Potassium [Moles/Vol] 4.1 mmol/L Normal 3.5-5.1 [facility] Comment on above: Performed By: #### D ATBMP, DATTSH #### [facility] [address] [address] [address] Mela Billingsley Sodium [Moles/Vol] 140 mmol/L Normal 136-145 [facility] Comment on above: Performed By: #### D ATP, DATTSH #### [facility] [address] [place] [address] Dr. Mela Billingsley Triglyceride [Mass/Vol] 55 mg/dL Normal <=150 [facility] Comment on above: Performed By: #### D ATP, DATTS #### [facility] [address] [place] [address] Dr. Mela Billingsley Urea nitrogen [Mass/Vol] 14.0 mg/dL Normal 7.0-18.0 [facility] Comment on above: Performed By: #### D [facility], DATTS #### [facility] [address] [place] [address] Dr. Mela Billingsley Urea nitrogen/Creatinine [Mass ratio] 16.3 mg/mg Normal [facility] Comment on above: Performed By: #### D ATP, DATTS #### [facility] [address] [place] [address] Dr. Mela Billingsley VLDL CALC 11.0 mg/dL Normal [facility] Comment on above: Performed By: #### D ATP, DATTSH #### [facility] [address] [place] [address] Dr. Mela Billingsley GLYCOHEMOGLOBIN A1Con 2021 ADA RECOMMENDATION SEE BELOW Normal [facility] Comment on above: Result Comment: ADA RECOMMENDED LIMIT 4.0 - 6.0 ADA THERAPEUTIC TARGET < 7.0 ACTION SUGGESTED > 7.0 Performed By: #### D ATA1C #### [facility] [address] [address] [address] Mela Billingsley Glucose [Mass/Vol] 111 mg/dL Critically high 74-106 [facility] Comment on above: Performed By: #### D ATA1C #### [facility] [address] [address] [address] Mela Billingsley Performed By: #### D ATBMP, DATTSH #### [facility] [address] [address] [address] Mela Billingsley HbA1c (Bld) [Mass fraction] 5.5 % Normal 4.5-6.2 [facility] Comment on above: Performed By: #### D ATA1C #### [facility] [address] [address] [address] [facility] DIGITAL SCREEN BILA [facility] 02-14-2021 [facility] DIGITAL SCREEN BILATERAL EXAMINATION: SCREENING [...] to the patient regarding the results. The [employer] recommends annual mammograms for women 40 years and older. Interpreted by: Case Licona DO Signed by: Case Licona DO 02/14/21 Final result Normal [facility] No mammographic evidence of malignancy. BIRADS: BIRADS - CATEGORY 1 Negative. Normal interval follow-up is recommended in 12 months. OVERALL ASSESSMENT - NEGATIVE A letter of notification will be sent to the patient regarding the results. The [employer] recommends annual mammograms for women 40 years and older. [facility] EXAMINATION: SCREENING DIGITAL BILATERAL [...] concerning grouping of microcalcification in either breast. [facility] Radiology Study observation (narrative) [employer] Phone: [facility] DIGITAL SCREEN BILA TERALOrdered By: Case Licona on 02-14-2021 [employer] Phone: [facility] DIGITAL SCREEN BILA TERALon 12-06-2019 No evidence of malignancy. Advise annual screening mammography. BI-RADS 1 BIRADS: BIRADS - CATEGORY 1 Negative, no evidence of malignancy in either breast. OVERALL ASSESSMENT - NEGATIVE A letter of notification will be sent to the patient regarding the results. RECOMMENDATION: Routine bilateral annual screening mammography is recommended. Follow-up screening mammogram in 1 year is advised. [employer] EXAMINATION: SCREENI NG DIGITAL BILATERAL MAMMOGRAM WITH TOMOSYNTHESIS, 12/06/2019 TECHNIQUE: Screening mammography was performed with tomosynthesis including MLO and CC views of the bilateral breasts. Computer aided detection was used for the interpretation of this exam. COMPARISON: 30 November 2018, [facility]; 29 February 2016, [facility] HISTORY: Screening. Negative family history of breast cancer. Negative history of hormonal replacement therapy. No prior breast interventions. FINDINGS: The breasts are composed of scattered fibroglandular densities. No skin thickening, nipple contour changes, malignant type microcalcifications, areas of architectural distortion, or significant interval changes are noted. [employer] [place]ayan, [facility] Incoming Radiant Results From [employer] - 12/06/2019 1:27 PM EDT EXAMINATION: SCREENING DIGITAL BILATERAL MAMMOGRAM WITH TOMOSYNTHESIS, 12/06/2019 TECHNIQUE: Screening mammography was performed with tomosynthesis including MLO and CC views of the bilateral breasts. Computer aided detection was used for the interpretation of this exam. COMPARISON: 30 November 2018, [facility]; 29 February 2016, [facility] HISTORY: Screening. Negative family history of [...] screening mammogram in 1 year is advised. [facility] [place] TU[place]ET DIGITAL SCREEN W OR WO [...] screening mammogram in 1 year is advised. [facility] [place] EXAMINATION: BILATER AL DIGITAL SCREENING MAMMOGRAM, 11/30/2018 TECHNIQUE: CC and MLO views of the left and right breasts were obtained. Computer aided detection was utilized in the interpretation of this exam. 3D tomosynthesis images were obtained. COMPARISON: 19 December 2016; 22 February 2016 from [facility]. HISTORY: Screening. Negative family history of breast cancer. Oral contraceptive usage times 6 months. Hormonal replacement therapy times 10 years. No prior breast interventions. FINDINGS: The breasts are composed of scattered fibroglandular densities. No skin thickening, nipple contour changes, or areas of architectural distortion are noted. Prior nodule in the outer half of the right breast is not redemonstrated. [place], [place] [employer], [employer] Incoming Radiant Results From [employer] - 11/30/2018 5:32 PM EDT EXAMINATION: BILATERAL DIGITAL SCREENING MAMMOGRAM, 11/30/2018 TECHNIQUE: CC and MLO views of the left and right breasts were obtained. Computer aided detection was utilized in the interpretation of this exam. 3D tomosynthesis images were obtained. COMPARISON: 19 December 2016; 22 February 2016 from [facility]. HISTORY: Screening. Negative family history of [...] screening mammogram in 1 year is advised. [facility] [place] Vital Signs Date Time Vital Sign Value Performing Clinician Facility 09-27-2024 09:35-0400 Body height 165.1 cm Victoria Arce MD Work Phone: [facility] 09-27-2024 09:35-0400 Body mass index (BMI) [Ratio] 31.62 kg/m2 Victoria Arce MD Work Phone: [facility] 09-27-2024 09:35-0400 Body weight 86.18 kg Victoria Arce MD Work Phone: [facility] 07-11-2024 09:17-0400 Body height 165.1 cm Felton Neumann MD Work Phone: [facility] 07-11-2024 09:17-0400 Body mass index (BMI) [Ratio] 30.29 kg/m2 Felton Neumann MD Work Phone: [facility] 07-11-2024 09:17-0400 Body temperature 97.11 [degF] Felton Neumann MD Work Phone: [facility] 07-11-2024 09:17-0400 Body weight 82.56 kg Felton Neumann MD Work Phone: [facility] 07-11-2024 09:17-0400 Diastolic blood pressure 76 mm[Hg] Felton Neumann MD Work Phone: [facility] 07-11-2024 09:17-0400 Heart rate 98 /min Felton Neumann MD Work Phone: [facility] 07-11-2024 09:17-0400 Respiratory rate 22 /min Felton Neumann MD Work Phone: [facility] 07-11-2024 09:17-0400 SaO2% (BldA) [Mass fraction] 97 % Felton Neumann MD Work Phone: [facility] 07-11-2024 09:17-0400 Systolic blood pressure 138 mm[Hg] Felton Neumann MD Work Phone: [facility] 05-27-2024 12:01-0400 Body height 165.1 cm Victoria Arce MD Work Phone: 7(664)092-279891 [place] [address] 05-27-2024 12:01-0400 Body mass index (BMI) [Ratio] 31.62 kg/m2 Victoria Arce MD Work Phone: 0(213)158-233091 [place] [address] 05-27-2024 12:01-0400 Body weight 86.18 kg Victoria Arce MD Work Phone: 9(476)526-314591 [place] [address] 05-11-2024 18:15-0400 Body temperature 97.3 [degF] Victoria Arce MD Work Phone: 5(811)567-517791 [place] [address] 05-11-2024 18:15-0400 Diastolic blood pressure 84 mm[Hg] Victoria Arce MD Work Phone: 2(564)230-513591 [place] [address] 05-11-2024 18:15-0400 Heart rate 91 /min Victoria Arce MD Work Phone: 8(340)892-491691 [place] [address] 05-11-2024 18:15-0400 Respiratory rate 16 /min Victoria Arce MD Work Phone: 2(351)393-647591 [place] [address] 05-11-2024 18:15-0400 SaO2% (BldA) [Mass fraction] 95 % Victoria Arce MD Work Phone: 9(558)296-963791 [place] [address] 05-11-2024 18:15-0400 Systolic blood pressure 143 mm[Hg] Victoria Arce MD Work Phone: [facility] 05-03-2024 11:35-0500 Body height 165.1 cm Victoria Arce MD Work Phone: [facility] 05-03-2024 11:35-0500 Body mass index (BMI) [Ratio] 31.62 kg/m2 Victoria Arce MD Work Phone: [facility] 05-03-2024 11:35-0500 Body weight 86.18 kg Victoria Arce MD Work Phone: [facility] 03-23-2024 07:49-0500 Body height 165.1 cm Constance Sykes MD Work Phone: [facility] 03-23-2024 07:49-0500 Body mass index (BMI) [Ratio] 29.95 kg/m2 Constance Sykes MD Work Phone: [facility] 03-23-2024 07:49-0500 Body weight 81.65 kg Constance Sykes MD Work Phone: [facility] 03-23-2024 07:49-0500 Diastolic blood pressure 85 mm[Hg] Constance Sykes MD Work Phone: [facility] 03-23-2024 07:49-0500 Heart rate 78 /min Constance Sykes MD Work Phone: [facility] 03-23-2024 07:49-0500 Systolic blood pressure 158 mm[Hg] Constance Sykes MD Work Phone: [facility] 02-16-2024 08:25-0500 Body height 165.1 cm Constance Sykes MD Work Phone: [facility] 02-16-2024 08:25-0500 Body mass index (BMI) [Ratio] 29.95 kg/m2 Constance Sykes MD Work Phone: [facility] 02-16-2024 08:25-0500 Body weight 81.65 kg Constance Sykes MD Work Phone: [facility] 02-16-2024 08:25-0500 Diastolic blood pressure 80 mm[Hg] Cosntance Sykes MD Work Phone: [facility] 02-16-2024 08:25-0500 Systolic blood pressure 137 mm[Hg] Constance Sykes MD Work Phone: [facility] 02-11-2024 09:19-0500 Body height 162.6 cm Felton Neumann MD Work Phone: [facility] 02-11-2024 09:19-0500 Body mass index (BMI) [Ratio] 30.9 kg/m2 Felton Neumann MD Work Phone: [facility] 02-11-2024 09:19-0500 Body temperature 96.6 [degF] Felton Neumann MD Work Phone: [facility] 02-11-2024 09:19-0500 Body weight 81.65 kg Felton Neumann MD Work Phone: [facility] 02-11-2024 09:19-0500 Diastolic blood pressure 74 mm[Hg] Felton Neumann MD Work Phone: [facility] 02-11-2024 09:19-0500 Heart rate 93 /min Felton Neumann MD Work Phone: [facility] 02-11-2024 09:19-0500 Respiratory rate 22 /min Felton Neumann MD Work Phone: [facility] 02-11-2024 09:19-0500 SaO2% (BldA) [Mass fraction] 98 % Felton Neumann MD Work Phone: [facility] 02-11-2024 09:19-0500 Systolic blood pressure 132 mm[Hg] Felton Neumann MD Work Phone: [facility] 10-30-2023 10:33-0400 Body height 165.1 cm Felton Neumann MD Work Phone: [facility] 10-30-2023 10:33-0400 Body mass index (BMI) [Ratio] 29.95 kg/m2 eFlton Neumann MD Work Phone: [facility] 10-30-2023 10:33-0400 Body temperature 97.81 [degF] Felton Neumann MD Work Phone: [facility] 10-30-2023 10:33-0400 Body weight 81.65 kg Felton Neumann MD Work Phone: [facility] 10-30-2023 10:33-0400 Diastolic blood pressure 70 mm[Hg] Felton Neumann MD Work Phone: [facility] 10-30-2023 10:33-0400 Heart rate 93 /min Felton Neumann MD Work Phone: [facility] 10-30-2023 10:33-0400 Respiratory rate 22 /min Felton Neumann MD Work Phone: [facility] 10-30-2023 10:33-0400 SaO2% (BldA) [Mass fraction] 98 % Felton Neumann MD Work Phone: [facility] 10-30-2023 10:33-0400 Systolic blood pressure 138 mm[Hg] Felton Neumann MD Work Phone: [facility] Encounters Encounter Date Encounter Type Care Provider Facility Start: 09-29-2024 End: 09-30-2024 Refill Felton Neumann MD Work Phone: 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; Pre-op testing Start: 09-27-2024 End: 09-27-2024 Patient encounter status Victoria Arce MD Work Phone: [facility] Start: 09-27-2024 End: 09-27-2024 ambulatory [facility] Ambulatory Start: 09-27-2024 End: 09-27-2024 Encounter for other preprocedural examination [facility] Ambulatory Start: 07-12-2024 End: 07-12-2024 Clinisync Result Encounter Felton Neumann MD Work Phone: [facility] Unsolicited Start: 07-12-2024 End: 07-12-2024 Clinisync Result Encounter Felton Neumann MD Work Phone: [facility] Unsolicited Start: 07-11-2024 End: 07-11-2024 Bamboo flowsheet Felton Neumann MD Work Phone: [facility] Start: 07-11-2024 End: 07-11-2024 Bamboo flowsheet Felton Neumann MD Work Phone: [facility] Start: 07-11-2024 End: 07-11-2024 Office outpatient visit 25 minutes Felton Neumann MD Work Phone: [facility] Comment on above: Essential hypertensi on, benign (CMS/HCC) (Primary Dx); Chest pain, unspecified type; ZEESHAN (generalized anxiety disorder) (CMS/HCC); Primary osteoarthritis of both knees; Primary hypothyroidism (CMS/HCC); Prediabetes; Dyslipidemia (CMS/HCC); Encounter for long-term (current) use of medications Start: 07-11-2024 End: 07-11-2024 ambulatory FELTON NEUMANN Not Available Start: 05-27-2024 End: 05-27-2024 Postop follow up visit related to original px Victoria Arce MD Work Phone: [facility] Comment on above: Cholesteatoma of lef t ear (Primary Dx); Mixed conductive and sensorineural hearing loss of left ear with restricted hearing of right ear; 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; Post-operative state Start: 05-27-2024 End: 05-27-2024 ambulatory [facility]ulatory Start: 05-11-2024 End: 05-11-2024 Subsequent hospital visit by physician Victoria Arce MD Work Phone: [facility] [place] Comment on above: 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 (P rimary Dx); Cholesteatoma of left ear Start: 05-11-2024 Evaluation and manag ement of inpatient [facility] Start: 05-05-2024 End: 05-05-2024 Subsequent hospital visit by physician Rad External Film [facility] Comment on above: Arrived Start: 05-05-2024 End: 05-05-2024 ambulatory [facility] Start: 05-05-2024 End: 05-05-2024 Clinisync Result Encounter Generic External Data Provider [facility] Unsolicited Start: 05-05-2024 End: 05-05-2024 Clinisync Result Encounter Generic External Data Provider [facility] External [facility] Unsolicited Start: 05-04-2024 End: 05-04-2024 Clinisync Result Encounter Generic External Data Provider [facility] External [facility] Unsolicited Start: 05-04-2024 End: 05-04-2024 Clinisync Result Encounter Generic External Data Provider [facility] External [facility] Unsolicited Start: 05-03-2024 End: 05-03-2024 Office outpatient new 60 minutes Victoria Arce MD Work Phone: [facility] Comment on above: Cholesteatoma of lef t ear (Primary Dx); 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; Preoperative clearance; Mixed conductive and sensorineural hearing loss of left ear with restricted hearing of right ear; Discontinuity of ossicles of left ear Start: 05-03-2024 End: 05-03-2024 Preoperative state Victoria Arce MD Work Phone: [facility] Work Phone: Start: 05-03-2024 End: 05-03-2024 ambulatory ARCHANA J [facility] Start: 03-23-2024 End: 03-23-2024 Bamsepideh Sykes MD Work Phone: [facility] Start: 03-23-2024 End: 03-23-2024 Marianela Sykes MD Work Phone: [facility] Start: 03-23-2024 End: 03-23-2024 Office outpatient visit 15 minutes Constance Sykes MD Work Phone: [facility] Comment on above: Otorrhea of left ear (Primary Dx) Start: 03-23-2024 End: 03-23-2024 ambulatory CONSTANCE H TIMMIS Not Available Start: 02-29-2024 End: 02-29-2024 ambulatory CONSTANCE H TIMMIS Not Available Start: 02-25-2024 End: 02-25-2024 Clinisync Result Encounter Felton Neumann MD Work Phone: [facility] Unsolicited Start: 02-25-2024 End: 02-25-2024 Clinisync Result Encounter Felton Neumann MD Work Phone: [facility] Unsolicited Start: 02-16-2024 End: 02-16-2024 Marianela Sykes MD Work Phone: [facility] Start: 02-16-2024 End: 02-20-2024 Bamboo liliya Sykes MD Work Phone: [facility] Start: 02-16-2024 End: 02-20-2024 Clinisync Result Encounter Generic External Data Provider [facility] External [facility] Unsolicited Start: 02-16-2024 End: 02-16-2024 Office outpatient new 45 minutes Constance Sykes MD Work Phone: [facility] Comment on above: ETD (Eustachian tube dysfunction), left (Primary Dx); CSF otorrhea; Other specified hearing loss of left ear, unspecified hearing status on contralateral side; Chronic myringitis of left ear; Foreign body of left ear, initial encounter Start: 02-16-2024 End: 02-16-2024 ambulatory CONSTANCE SYKES Not Available Start: 02-11-2024 End: 02-11-2024 Bamboo flowsheet Felton Neumann MD Work Phone: [facility] Start: 02-11-2024 End: 02-11-2024 Bamboo flowsheet Felton Neumann MD Work Phone: [facility] Start: 02-11-2024 End: 02-11-2024 Office outpatient visit 15 minutes Felton Neumann MD Work Phone: [facility] Comment on above: Medicare annual well ness visit, subsequent (Primary Dx); Essential hypertension, benign (CMS/HCC); Prediabetes; Primary hypothyroidism (CMS/HCC); Dyslipidemia (CMS/HCC); Encounter for long-term (current) use of medications; Arthralgia, unspecified joint; Otorrhea of left ear Start: 02-11-2024 End: 02-11-2024 Patient encounter procedure Felton Neumann MD Work Phone: [facility] Start: 02-11-2024 End: 02-11-2024 ambulatory FELTON NEUMANN Not Available Start: 10-30-2023 End: 10-30-2023 Bamboo flowsheet Felton Neumann MD Work Phone: [facility] Start: 10-30-2023 End: 10-30-2023 Bamboo flowsheet Felton Neumann MD Work Phone: [facility] Start: 10-30-2023 End: 10-30-2023 Office outpatient visit 15 minutes Felton Neumann MD Work Phone: [facility] Comment on above: Essential hypertensi on, benign (CMS/HCC) (Primary Dx); ZEESHAN (generalized anxiety disorder) (CMS/HCC) Start: 10-30-2023 End: 10-30-2023 ambulatory FELTON NEUMANN Not Available Start: 09-29-2023 End: 09-29-2023 ambulatory FELTON NEUMANN Not Available Start: 08-19-2023 End: 08-19-2023 ambulatory FELTON NEUMANN Not Available Start: 05-12-2023 End: 05-13-2023 ambulatory Marcin R MICHELL Facility:[facility] Start: 05-12-2023 End: 05-12-2023 Patient encounter procedure Marcin R NILL General Surgery Nill/[facility] Start: 04-29-2023 End: 04-30-2023 ambulatory Marcin R Micehll Facility:[facility] Start: 04-07-2023 End: 04-08-2023 ambulatory FELTON NEUMANN Facility:[facility] Start: 02-20-2023 ambulatory Marcin CAMPOS Facility:[facility] Start: 06-04-2022 End: 06-05-[address] NONE LISTED REQUEST Facility:[facility] Start: 02-17-2022 End: 02-18-2022 ambulatory Malcolm Gramajo Facility:[facility] Start: 11-12-2021 End: 11-13-[address] NONE LISTED REQUEST Facility:[facility] Start: 10-07-2021 End: 10-08-[address] NONE LISTED REQUEST Facility:[facility] Start: 10-02-2021 End: 10-03-[address] NONE LISTED REQUEST Facility:[facility] Start: 02-14-2021 End: 02-17-2021 ambulatory FELTON NEUMANN [facility] Start: 02-14-2021 End: 02-16-2021 Subsequent hospital visit by physician [facility] Mamm[facility] Comment on above: Breast cancer screen ing by mammogram Start: 12-06-2019 End: 12-08-2019 Subsequent hospital visit by physician [facility] Mammography Comment on above: Breast cancer screen ing by mammogram Start: 11-30-2018 End: 12-02-2018 Subsequent hospital visit by physician [facility] Mammography Comment on above: Breast cancer screen ing by mammogram Procedures Date Procedure Procedure Detail Performing Clinician Start: 07-12-2024 ALL THYROID STIM HORMONE Felton Neumann MD Work Phone: Start: 05-11-2024 PULSE OXIMETRY, CONTINUOUS Debra Owens MD Work Phone: Start: 05-05-2024 Study Interpretation of outside study Victoria Arce MD Work Phone: Start: 05-05-2024 CT TRANSFER OF OUTSIDE FILMS Generic External Data Provider Start: 05-04-2024 ALL CBC WITH AUTO DIFF Generic External Data Provider Start: 05-04-2024 ECG 12-LEAD Generic Ex ternal Data Provider Start: 02-25-2024 ALL CBC WITH AUTO DIFF Felton Neumann MD Work Phone: Start: 02-25-2024 Mammography Constance calix MD Work Phone: Start: 02-16-2024 ALL MISCELLANEOUS TEST Constance Sykes MD Work Phone: Start: 04-29-2023 Colonoscopy Felton aguila MD Work Phone: Start: 04-29-2023 Colonoscopy Marcin HIRSCH Start: 02-18-2023 Mammography Felton aguila MD Work Phone: Start: 02-14-2021 End: 02-14-2021 Screening mammography bi 2-view breast inc cad Felton Neumann [...] 04-29-2033 Screening for malignant neoplasm of colon [facility] Start: 2033 RSV High Risk: (Elderly (60+) or Population) (1 - 1-dose 75+ series) RSV High Risk: (Elderly (60+) or Population) (1 - 1-dose 75+ series) [facility] Start: 02-24-2025 Screening for malignant neoplasm of breast Mammogram [facility] Start: 02-14-2025 End: 02-14-2025 Patient encounter procedure 02/14/2025 9:00 AM EST [facility] [address] [place] [address] Felton Neumann MD [address] [place] [address] [facility] Start: 02-10-2025 Medicare Annual Wellness (AWV) Medicare Annual Wellness (AWV) [facility] Start: 11-14-2024 End: 11-14-2024 Admission to same day surgery center 11/14/2024 7:00 AM EDT - 11/14/2024 10:10 AM EDT Surgery [facility] [place] [address] [place] [address] [place] [address] [place], [place] [id number] Left Side Tympanoplasty with cartilage graft, possible OCR [20878 (CPT ) +1 more] [facility] [place] Comment on above: Left Side Tympanoplasty with cartilage g raft, possible OCR [95987 (CPT ) +1 more] Start: 11-14-2024 End: 11-14-2024 Tympanoplasty w/o mastoidect w/o ossicle recnstj TYMPANOPLASTY 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 11/14/2024 7:[address] [facility] [place] Start: 11-14-2024 Subsequent hospital visit by physician 11/14/2024 5:30 AM EDT Hospital Encounter [facility] [place] [address] [place] [address] [place] [address] [place] [address] [facility] [place] Start: 10-31-2024 Influenza vaccination [facility] Start: 09-27-2024 End: 09-27-2025 CBC panel - Blood by Automated count CBC Lab Routine Pre-op testing Expected: 09/27/2024 (Approximate), Expires: 09/27/2025 [facility] Service Area Work Phone: Comment on above: Expected: 09/27/2024 (Approximate), Expi res: 09/27/2025 Start: 09-27-2024 End: 09-27-2025 Comprehensive metabolic 2000 panel - Serum or Plasma Comprehensive Metabolic Panel Lab Routine Pre-op testing Expected: 09/27/2024 (Approximate), Expires: 09/27/2025 [facility] Work Phone: Comment on above: Expected: 09/27/2024 (Approximate), Expi res: 09/27/2025 Start: 09-27-2024 End: 09-27-2025 ECG 12 lead ECG 12 lead ECG Routine Pre-op testing Expected: 09/27/2024 (Approximate), Expires: 09/27/2025 [facility] Work Phone: Comment on above: Expected: 09/27/2024 (Approximate), Expi res: 09/27/2025 Start: 09-27-2024 End: 09-27-2024 Patient encounter procedure 09/27/2024 10:00 AM EDT Office Visit [facility] [address] [place] [address] [place] [address] [place] [address] [facility] Start: 07-11-2024 End: 07-11-2025 CBC W Auto Differential panel - Blood CBC and differential Lab Routine Encounter for long-term (current) use of medications Expected: 07/11/2024 (Approximate), Expires: 07/11/2025 [facility] Comment on above: Expected: 07/11/2024 (Approximate), Expi res: 07/11/2025 Start: 07-11-2024 End: 07-11-2026 NM Heart Perfusion W single state of exercise Stress test with myocardial perfusion Cardiac Nuclear Medicine Routine Chest pain, unspecified type Prediabetes Dyslipidemia (CMS/HCC) Expected: 07/11/2024 (Approximate), Expires: 07/11/2026 [facility] Work Phone: Comment on above: Expected: 07/11/2024 (Approximate), Expi res: 07/11/2026 Start: 07-11-2024 End: 07-11-2025 Thyrotropin [Units/volume] in Serum or Plasma TSH Lab Routine Primary hypothyroidism (CMS/HCC) Expected: 07/11/2024 (Approximate), Expires: 07/11/2025 [facility] Comment on above: Expected: 07/11/2024 (Approximate), Expi res: 07/11/2025 Start: 07-11-2024 End: 07-11-2025 Thyroxine (T4) free [Mass/volume] in Serum or Plasma T4, free Lab Routine Primary hypothyroidism (CMS/HCC) Expected: 07/11/2024 (Approximate), Expires: 07/11/2025 [facility] Comment on above: Expected: 07/11/2024 (Approximate), Expi res: 07/11/2025 Start: 07-11-2024 End: 07-11-2024 Patient encounter procedure [facility] Comment on above: Arrived Start: 05-27-2024 End: 05-27-2024 Patient encounter procedure 05/27/2024 12:00 PM EDT Office Visit [facility] [address] [place] [phone] [place] [address] [place] [address] [facility] Start: 05-11-2024 End: 05-11-2024 Admission to same day surgery center 05/11/2024 12:30 PM EDT - 05/11/2024 5:00 PM EDT Surgery [facility] [place] [address] [place] [address] [place] [address] [place] [address] LEFT SIDE CANAL WALL UP TYMPANOMASTOIDECTOMY, POSSIBLE OSSICULOPLASTY, POSSIBLE CARTILAGE GRAFT, POSSIBLE MIDDLE CRANIAL FOSSA APPROACH FOR ENCEPHALOCELE REPAIR, POSSIBLE LUMBAR DRAIN PLACEMENT [87536 (CPT ) +1 more] [facility] [place] Comment on above: LEFT SIDE CANAL WALL UP TYMPANOMASTOIDEC KRISTIE, POSSIBLE OSSICULOPLASTY, POSSIBLE CARTILAGE GRAFT, POSSIBLE MIDDLE CRANIAL FOSSA APPROACH FOR ENCEPHALOCELE REPAIR, POSSIBLE LUMBAR DRAIN PLACEMENT [08243 (CPT ) +1 more] Start: 05-11-2024 End: 05-11-2024 Tmpp mastoidect ntc/rcnsted canal wall ocr TYMPANOPLASTY, WITH MASTOIDECTOMY 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 05/11/2024 12:[address] [facility] [place] Start: 05-11-2024 Subsequent hospital visit by physician 05/11/2024 11:00 AM EDT Hospital Encounter [facility] [place] [address] [place] [address] [place] [address] [place] [address] [facility] [place] [place] Start: 05-03-2024 End: 05-03-2025 Blood type and Indirect antibody screen panel - Blood Type And Screen Is this order related to or an upcoming surgery? Yes; [facility]; What is the date of the surgery? 05/11/2024; Has this patient ever had a transfusion? Unknown; ... 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 Preoperative clearance Expected: 05/03/2024 (Approximate), Expires: 05/03/2025 [facility] Work Phone: Comment on above: Expected: 05/03/2024 (Approximate), Expi res: 05/03/2025 Start: 05-03-2024 End: 05-03-2025 CBC panel - Blood by Automated count CBC 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 Preoperative clearance Expected: 05/03/2024 (Approximate), Expires: 05/03/2025 [facility] Service Area Work Phone: Comment on above: Expected: 05/03/2024 (Approximate), Expi res: 05/03/2025 Start: 05-03-2024 End: 05-03-2025 Comprehensive metabolic 2000 panel - Serum or Plasma Comprehensive Metabolic Panel 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 Preoperative clearance Expected: 05/03/2024 (Approximate), Expires: 05/03/2025 [facility] Work Phone: Comment on above: Expected: 05/03/2024 (Approximate), Expi res: 05/03/2025 Start: 05-03-2024 End: 09-02-2024 Request for Pre-Admission Testing Visit Request for Pre-Admission Testing Visit Procedures Routine 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 Preoperative clearance Expected: 05/03/2024 (Approximate), Expires: 09/02/2024 [facility] Work Phone: Comment on above: Expected: 05/03/2024 (Approximate), Expi res: 09/02/2024 Start: 03-23-2024 End: 03-23-2024 Patient encounter procedure [facility] Comment on above: Arrived Start: 02-29-2024 End: 02-29-2024 Professional / ancillary services management 02/29/2024 2:30 PM EST Ancillary Procedure [facility] [address] [facility] [address] [place] [id number] Start: 02-19-2024 Screening for malignant neoplasm of breast Mammogram [facility] Start: 02-16-2024 End: 02-16-2024 Patient encounter procedure 02/16/2024 8:40 AM EST Office Visit [facility] [address] [facility] [address] [place] [id number] Constance Sykes MD [address] [facility] [address] [place] [address] Otorrhea of left ear [facility] Comment on above: Otorrhea of left ear Start: 02-11-2024 End: 02-10-2025 Basic metabolic 1998 panel - Serum or Plasma Basic metabolic panel Lab Routine Essential hypertension, benign (CMS/HCC) Expected: 02/11/2024 (Approximate), Expires: 02/10/2025 [facility] Comment on above: Expected: 02/11/2024 (Approximate), Expi res: 02/10/2025 Start: 02-11-2024 End: 02-10-2025 CBC W Auto Differential panel - Blood CBC and differential Lab Routine Encounter for long-term (current) use of medications Expected: 02/11/2024 (Approximate), Expires: 02/10/2025 [facility] Comment on above: Expected: 02/11/2024 (Approximate), Expi res: 02/10/2025 Start: 02-11-2024 End: 02-10-2025 Erythrocyte sedimentation rate Sedimentation rate, automated Lab Routine Arthralgia, unspecified joint Expected: 02/11/2024 (Approximate), Expires: 02/10/2025 [facility] Comment on above: Expected: 02/11/2024 (Approximate), Expi res: 02/10/2025 Start: 02-11-2024 End: 02-10-2025 Hemoglobin A1c/Hemoglobin.total in Blood Hemoglobin A1c Lab Routine Prediabetes Expected: 02/11/2024 (Approximate), Expires: 02/10/2025 [facility] Work Phone: Comment on above: Expected: 02/11/2024 (Approximate), Expi res: 02/10/2025 Start: 02-11-2024 End: 02-10-2025 Hepatic function 2000 panel - Serum or Plasma Hepatic function panel Lab Routine Encounter for long-term (current) use of medications Expected: 02/11/2024 (Approximate), Expires: 02/10/2025 [facility] Comment on above: Expected: 02/11/2024 (Approximate), Expi res: 02/10/2025 Start: 02-11-2024 End: 02-10-2025 Lipid 1996 panel - Serum or Plasma Lipid panel Lab Routine Dyslipidemia (CMS/HCC) Expected: 02/11/2024 (Approximate), Expires: 02/10/2025 [facility] Comment on above: Expected: 02/11/2024 (Approximate), Expi res: 02/10/2025 Start: 02-11-2024 End: 02-10-2025 Nuclear Ab [Titer] in Serum by Immunofluorescence HIRA Lab Routine Arthralgia, unspecified joint Expected: 02/11/2024 (Approximate), Expires: 02/10/2025 [facility] Comment on above: Expected: 02/11/2024 (Approximate), Expi res: 02/10/2025 Start: 02-11-2024 End: 02-10-2025 Rheumatoid factor [Units/volume] in Serum or Plasma Rheumatoid factor Lab Routine Arthralgia, unspecified joint Expected: 02/11/2024 (Approximate), Expires: 02/10/2025 [facility] Comment on above: Expected: 02/11/2024 (Approximate), Expi res: 02/10/2025 Start: 02-11-2024 End: 02-10-2025 Thyrotropin [Units/volume] in Serum or Plasma TSH Lab Routine Primary hypothyroidism (CMS/HCC) Expected: 02/11/2024 (Approximate), Expires: 02/10/2025 [facility] Comment on above: Expected: 02/11/2024 (Approximate), Expi res: 02/10/2025 Start: 02-11-2024 End: 02-10-2025 Thyroxine (T4) free [Mass/volume] in Serum or Plasma T4, free Lab Routine Primary hypothyroidism (CMS/HCC) Expected: 02/11/2024 (Approximate), Expires: 02/10/2025 [facility] Comment on above: Expected: 02/11/2024 (Approximate), Expi res: 02/10/2025 Start: 02-11-2024 End: 02-11-2024 Patient encounter procedure [facility] Comment on above: Arrived Start: 02-08-2024 End: 02-08-2024 Patient encounter procedure 02/08/2024 8:30 AM EST Office Visit [facility] [address] [place] [address] Felton Neumann MD [address] [place] [id number] [facility] Start: 11-01-2023 COVID-19 Vaccine ( season) COVID-19 Vaccine ( season) [facility] Start: 11-01-2023 Influenza vaccination Influenza Vaccine (#1) [facility] Start: 10-30-2023 End: 10-30-2023 Patient encounter procedure 10/30/2023 10:30 AM EDT Office Visit [facility] [address] [place] [id number] Felton Neumann MD [address] [place] [phone] Arrived [facility] Comment on above: Arrived Start: 02-14-2023 Screening for malignant neoplasm of breast Breast cancer screen [facility] Start: 2023 Pneumococcal Vaccine: 65+ Years (2 of 2 - PPSV23 or PCV20) Pneumococcal Vaccine: 65+ Years (2 of 2 - PPSV23 or PCV20) [facility] Start: 2023 Screening for osteoporosis Bone Density Scan [facility] Start: 02-14-2022 Screening for malignant neoplasm of breast Mammogram [facility] Start: 12-05-2021 Screening for malignant neoplasm of breast Breast cancer screen [place], [place] Start: 11-30-2020 Breast cancer screen Breast cancer screen [place] Start: 10-31-2020 Influenza vaccination Flu vaccine (#1) [facility] Start: 11-01-2019 Influenza vaccination Flu vaccine (#1) [place] Start: 10-31-2018 Influenza vaccination Flu vaccine (#1) [place] Start: 01-15-2017 Pneumococcal vaccination [facility] Start: 01-15-2017 Pneumococcal Vaccine: 65+ Years (2 of 2 - PPSV23 or PCV20) Pneumococcal Vaccine: 65+ Years (2 of 2 - PPSV23 or PCV20) [facility] Start: 01-15-2017 Pneumococcal Vaccine: 65+ Years (2 of 2 - PPSV23) Pneumococcal Vaccine: 65+ Years (2 of 2 - PPSV23) [facility] Start: 01-19-2008 Colon cancer screen colonoscopy Colon cancer screen colonoscopy [place] Start: 01-19-2008 Screening for malignant neoplasm of colon Colon cancer screen colonoscopy [place] Start: 01-19-2008 Shingles Vaccine (1 of 2) Shingles Vaccine (1 of 2) [facility] Start: 01-19-2008 Zoster Vaccines (1 of 2) Zoster Vaccines (1 of 2) [facility] Start: 2003 Screening for malignant neoplasm of colon Colon cancer screen colonoscopy [facility] Start: 1998 Lipid panel Lipid screen [facility] Start: 1998 Lipid screen Lipid screen [place] Start: 01-19-1988 Screening for malignant neoplasm of cervix [facility] Start: 01-19-1980 DTaP/Tdap/Td Vaccines (1 - Tdap) DTaP/Tdap/Td Vaccines (1 - Tdap) [facility] Start: 1979 Cervical cancer screen Cervical cancer screen [place], [place] Start: 1979 Screening for malignant neoplasm of cervix [facility] Start: 1977 DTaP/Tdap/Td vaccine (1 - Tdap) DTaP/Tdap/Td vaccine (1 - Tdap) [facility] Start: 01-19-1976 Hepatitis C screening Hepatitis C Screening [facility] Start: 1973 HIV screen HIV screen [place], [place] Start: 1973 HIV screening HIV screen [facility] Start: 1970 COVID-19 Vaccine (1) COVID-19 Vaccine (1) [facility] Start: 1959 MMR Vaccines (1 of 1 - Standard series) MMR Vaccines (1 of 1 - Standard series) [facility] Start: 1958 Annual wellness visit Welcome to Medicare Visit [facility] Start: 1958 Hepatitis C screen Hepatitis C screen [place], [place] Start: 1958 Hepatitis C screening Hepatitis C screen [facility] Start: 1958 Lipid panel Lipid Panel [facility] Start: 1958 Medicare Annual Wellness (AWV) Medicare Annual Wellness (AWV) [facility] Start: 1958 Screening for malignant neoplasm of colon 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 Release Upon Ordering for 1 Occurrences starting 05/11/2024 [facility] Service Area Work Phone: Comment on above: Release Upon Ordering for 1 Occurrences starting 05/11/2024 Immunizations Immunization Date Immunization Notes Care Provider [facility] 06-15-2021 SARS-CoV-2 (COVID-19 ) mRNA-1273 vaccine Marcin CAMPOS [facility] [place] 01-03-2021 SARS-CoV-2 (COVID-19 ) mRNA-1273 vaccine Marcin CAMPOS [facility] 06-10-2020 SARS-CoV-2 (COVID-19 ) mRNA-1273 vaccine Marcin CAMPOS [facility] [place] 05-14-2020 SARS-CoV-2 (COVID-19 ) mRNA-1273 vaccine Marcin CAMPOS [facility] Comment on above: Result Comment: 2023: [id number] 11-20-2016 pneumococcal conjugate vaccine, 13 valent Felton Neumann MD Work Phone: [facility] NEGATED: Highlighted row has not occurred!04-07-2023 influenza virus vaccine, unspecified formulation Marcin CAMPOS [facility] [place] Payers Date Payer Category Payer Medicare [id number] 2022 Medicare (Managed Care) [id number] 2022 Unknown 2022 Medicare [id number] 2020 Unknown [id number]. [id number] 2018 Unknown MEDICAL M[employer]UAL M [employer] M[employer] HMO NN xxxxxxxxxxxx 2018-Present [phone] [address] [place] [address] xxxxxxxxxxxx [id number]. [id number] 2018 Unknown MEDICAL MUTUAL M EDICAL MUTUAL VIKI - EXCHANGE [id number] 2018-Present [phone] [address] [place] [address] [id number] [id number]. [id number] 1959 Self-pay 1958 Unknown [id number] 2.16.840.1.547551.3.579.2. 173 1958 Unknown [id number] 2.16.840.1.286903.3.579.2. 593 1958 Unknown [id number] 2.16.840.1.969887.3.579.2. 727 1958 Unknown [id number] 2.16.840.1.134322.3.579.2. 727 1958 Unknown [id number] 2.16.840.1.741045.3.579.2. 727 1958 Unknown [id number] 2.16.840.1.604132.3.579.2. 1259 1958 Unknown [id number] 2.16.840.1.389358.3.579.2. 1259 1958 Unknown [id number] 2.16.840.1.411674.3.579.2. 1259 1958 Unknown [id number] 2.16.840.1.431019.3.579.2. 1259 1958 Unknown [id number] 2.16.840.1.671906.3.579.2. 1259 1958 Unknown [id number] 2.16.840.1.676088.3.579.2. 125 1958 Unknown [id number] 2.16.840.1.994176.3.579.2. 1259 1958 Unknown [id number] 2.16.840.1.594868.3.579.2. 125 1958 Unknown [id number] 2.16.840.1.101198.3.579.2. 1244 1958 Unknown [id number] 2.16.840.1.900778.3.579.2. 1244 1958 Unknown [id number] 2.16.840.1.688771.3.579.2. 124 1958 Unknown [id number] 2.16.840.1.658011.3.579.2. 1244 1958 Unknown [id number] 2.16.840.1.626950.3.579.2. 5 1958 Unknown [id number] 2.16.840.1.450060.3.579.2. 4 1958 Unknown [id number] 2.16.840.1.022453.3.579.2. 1244 1958 Unknown [id number] 2.16.840.1.482926.3.579.2. 1244 Unknown [id number] 2.16.840.1.415230.3.579.2. 593 Unknown [id number] 2.16.840.1.697356.3.579.2. 593 Unknown [id number] 2.16.840.1.436216.3.579.2. 593 Unknown [id number] 2.16.840.1.599981.3.579.2. 593 Social History Date Type Detail Facility Tobacco smoking status NHIS Unknown if ever smoked [place], [place] Start: 1960 Sex Assigned At Not on file [place] Start: 04-23-2024 End: 05-27-2024 Exposure to SARS-CoV-2 (event) Not sure [place] Tobacco smoking status NHIS Tobacco smoking consumption unknown [facility] Work Phone: Start: 04-07-2023 End: 02-16-2024 Tobacco smoking status Ex-smoker (finding) [facility] [place] Start: 03-30-2024 Tobacco smoking status Never [facility] [place] Start: 02-17-2023 End: 09-27-2024 Sex Assigned At Female [facility] Start: 03-02-1989 End: 03-02-1999 History of tobacco use Current smoker [facility] Start: 03-02-1989 End: 03-02-1999 History of tobacco use Cigarette Smoker [facility] Start: 02-18-2023 End: 09-27-2024 Cigarettes smoked current (pack per day) - Reported 3 [facility] Start: 02-18-2023 End: 05-03-2024 Tobacco use and exposure Smokeless tobacco non-user [...] 1 occasion? Never [facility] Start: 02-16-2024 End: 07-11-2024 Alcoholic beverage intake Ex-drinker (finding) [facility] Start: 05-03-2024 Tobacco smoking status NHIS Never smoked tobacco [facility] Work Phone: NEGATED: Highlighted rowStart: DONAF History of tobacco use Passive smoker [facility] Work Phone: Medical Equipment Procedure Code Equipment Code Equipment Origin al Text Equipment Identifier Dates Graft Marty, Sterling hernandez, Duragen Plus 1x1 - [id number] Start: 05-11-2024 Goals Date Patient Goal Desired Activity /State Personal health goal Functional Status Date Assessment Result Facility 09-27-2024 Patient Health [facility] ionnaire 2 item (PHQ-2) [Reported] [facility] Work Phone: Clinical Notes 04-07-2023 to 09-30-2024 Telephone Encounter - Felton Neumann MD - 09/30/2024 12:15 PM EDTTelephone Encounter - Felton Neumann MD - 09/30/2024 12:15 PM Joann Arce MD - 09/27/2024 10:00 AM EDTDischarge Instructions Note Date & Type Note Facility 09-30-2024 Telephone encounter Note [facility] 09-30-2024 Miscellaneous Notes documented in this encounter [facility] 09-27-2024 History of Present illness Narrative History Of Present Illness: Keyon Cheatham is a 64 y.o. 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 Recall 05/27/24: Keyon Cheatham is a 64 y.o. 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 O[place]icles not reconstructed at the time due to erosion of the footplate. Here for follow up. Doing well. No dizziness. Still has tinnitus in the left ear. Worsening left ear pain since surgery. Did have new false teeth fitted earlier this year that she has been exchanging use. Will be seeing her dentist in 2 weeks. Surgical History: She has no past surgical history on file. Allergies: Patient has no known allergies. Medications: Current Outpatient Medications Medication Instructions calcium carbonate-vit D3-min 600 mg-10 mcg (400 unit) tablet 1 tablet, 2 times daily FLUoxetine (PROZAC) 20 mg, Daily RT levothyroxine (SYNTHROID, LEVOXYL) 100 mcg, Daily RT lisinopriL-hydrochlorothiazide 10-12.5 mg tablet 1 tablet, Daily RT melatonin 5 mg capsule 1 capsule, Nightly raloxifene (EVISTA) 60 mg, Daily RT Review of Systems: A comprehensive 10-point review of systems was obtained including constitutional, neurological, HEENT, pulmonary, cardiovascular, genito-urinary, and other pertinent systems and was negative except as noted in the HPI. Physical Exam: Constitutional General appearance: Healthy-appearing, well-nourished, well groomed, in no acute distress. Ability to communicate: Normal communication without aids, normal voice quality. Head and face: Atraumatic with no masses, lesions, or scarring. Facial strength: Normal strength and symmetry, no synkinesis or facial tic. Ears Otoscopic examination: Right: normal otoscopy of the tympanic membrane Left: TM intact with mild posterior retraction in pars flaccida, no cholesteatoma Nose: Dorsum symmetric with no visible or palpable deformities. Oral Cavity/Mouth Lips, teeth, and gums: Normal lips, gums, and dentition. Tenderness to palpation of left pterygoid muscles Oropharynx: Mucosa moist, no lesions. Neck: Symmetrical, trachea midline. No masses visible. Neurological/Psychiatric Cranial Nerve Examination: II - XII grossly intact. Orientation to person, place, and time: Normal. Mood and affect: Normal. Skin: Normal without rashes or lesions. Pulmonary Respiratory effort: Chest expands symmetrically. Cardiovascular: Good peripheral pulses Peripheral vascular system: No varicosities, carotid pulse normal, no edema. No jugular venous distension. Extremities: Appearance of extremities: Normal. Gait normal. Last Recorded Vitals: There were no vitals taken for this visit. Relevant Results: Assessment/Plan 64 y.o. 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 Discussed her left ear pain is likely temporomandibular dysfunction due to her exchanging her false teeth. She will trial NSAIDs and will discuss her teeth fitting with her dentist. Tympanic membrane healing well with small posterior retraction in pars flaccida, but no obvious cholesteatoma. Will plan for 2nd look procedure with possible mastoidectomy and ossiculoplasty. We discussed the risks and benefits of a second look procedure. These risks include damage to the ear bone, damage to the inner ear, hearing loss, dizziness, facial nerve injury, and taste disturbance. The patient opted to undergo this procedure and will be scheduled at their earliest convenience. Patient seen and discussed with Dr. Arce. Reena Jimenez MD Neurotology Fellow I saw and evaluated the patient. I personally obtained the aburto and critical portions of the history and physical exam or was physically present for aburto and critical portions performed by the resident/fellow. I reviewed the resident/fellow's documentation and discussed the patient with the resident/fellow. I agree with the resident/fellow's medical decision making as documented in the note. Victoria Arce MD documented in this encounter [facility] Work Phone: 07-11-2024 History of Present illness Narrative Associated Problem(s): Primary osteoarthritis of both knees Pain stable and continue mobic. Increase activity and walk regularly. Associated Problem(s): Primary hypothyroidism (CMS/HCC) No signs of low thyroid and repeat labs. Continue synthroid. Associated Problem(s): ZEESHAN (generalized anxiety disorder) (CMS/HCC) Symptoms controlled with prozac and continue at current dose. Associated Problem(s): Chest pain Develops severe SOB, fatigue and chest pain with exertion that resolved with rest. Not able to use treadmill due to OA knees and check lexiscan cardiolyte stress test. Images from the original note were not included. Subjective Patient ID: Keyon Cheatham is a 64 y.o. female who presents for Follow-up (6m f/up) and Fatigue (Tired all the time). Follow up HTN, anxiety, OA knees, and thyroid. C/o chest pain and fatigue with exertion for several months. Notice if try to increase activity developed [...] and moving. Using mobic PRN and helps. No signs of low thyroid. No change in hair, [...] with myocardial perfusion documented in this encounter [facility] 05-27-2024 History of Present illness Narrative History Of Present Illness: Keyon Cheatham is a 64 y.o. 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 Ossicles not reconstructed at the time due to erosion of the footplate. Here for follow up Doing well Some mild dizziness yesterday when she got out of bed but not before. Pain controlled No drainage from the ear or post nasal drainage. Surgical History: She has no past surgical history on file. Allergies: Patient has no known allergies. Medications: Current Outpatient Medications Medication Instructions calcium carbonate-vit D3-min 600 mg-10 mcg (400 unit) tablet 1 tablet, 2 times daily FLUoxetine (PROZAC) 20 mg, Daily RT levothyroxine (SYNTHROID, LEVOXYL) 100 mcg, Daily RT lisinopriL-hydrochlorothiazide 10-12.5 mg tablet 1 tablet, Daily RT melatonin 5 mg capsule 1 capsule, Nightly raloxifene (EVISTA) 60 mg, Daily RT Review of Systems: A comprehensive 10-point review of systems was obtained including constitutional, neurological, HEENT, pulmonary, cardiovascular, genito-urinary, and other pertinent systems and was negative except as noted in the HPI. Physical Exam: Constitutional General appearance: Healthy-appearing, well-nourished, well groomed, in no acute distress. Ability to communicate: Normal communication without aids, normal voice quality. Head and face: Atraumatic with no masses, lesions, or scarring. Facial strength: Normal strength and symmetry, no synkinesis or facial tic. Ears Otoscopic examination: suctioned gelfoam from EAC, bulging in the attic at the site of the defect repair. Not pulsating. TM appears intact. Nose: Dorsum symmetric with no visible or palpable deformities. Oral Cavity/Mouth Lips, teeth, and gums: Normal lips, gums, and dentition. Oropharynx: Mucosa moist, no lesions. Neck: Symmetrical, trachea midline. No masses visible. Neurological/Psychiatric Cranial Nerve Examination: II - XII grossly intact. Orientation to person, place, and time: Normal. Mood and affect: Normal. Skin: Normal without rashes or lesions. Pulmonary Respiratory effort: Chest expands symmetrically. Cardiovascular: Good peripheral pulses Peripheral vascular system: No varicosities, carotid pulse normal, no edema. No jugular venous distension. Extremities: Appearance of extremities: Normal. Gait normal. Last Recorded Vitals: Height 1.651 m (5' 5 ), weight 86.2 kg (190 lb). Relevant Results: Pathology: A. Left mastoid contents: - Disorganized gliotic tissue, consistent with encephalocele. B. Left middle ear contents: - Keratinizing squamous epithelium and keratin debris, consistent with cholesteatoma. - Mucosal fragment with chronic inflammation. 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 S/p transmastoid repair of both. Had footplate erosion by cholesteatoma. Plan 3 mo follow up for exam OR for 2nd look in 6 mo. Victoria Arce MD documented in this encounter [facility] Work Phone: 05-11-2024 Attending History and physical note H&P reviewed. The patient was examined and there are no changes to the H&P. Source Note - Victoria Arce MD - 05/03/2024 11:45 AM EST History Of Present Illness: Keyon Cheatham is a 64 y.o. female who presents to me as a new patient for tegmen defect, referred here today by Constance Sykes MD. She reports an approximately 8-month history of daily clear fluid drainage from the left ear. It is worse at night and she typically wakes up with staining of her pillow and wet hair. She sent some of this fluid for beta-2 testing, but the lab told her it could not be completed with what she provided. The drainage only had a colored appearance to it once, associated with an ear infection; it is otherwise typically clear like water. Her hearing is down on this side, but she says that this has been the case for much of her life as she had recurrent ear infections particularly in childhood. She denies any prior ear surgeries. No vertigo. 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 No known history of EDILBERTO. Past Medical History: She has no past medical history on file. Surgical History: She has no past surgical history on file. Social History: She reports that she has never smoked. She has never been exposed to tobacco smoke. She has never used smokeless tobacco. No history on file for alcohol use and drug use. Family History: No family history on file. Medications: Current Outpatient Medications Medication Instructions calcium carbonate-vit D3-min 600 mg-10 mcg (400 unit) tablet 1 tablet, 2 times daily ciprofloxacin-dexamethasone (CiproDEX) otic suspension DULoxetine (Cymbalta) [address] capsule 1 capsule, Every 24 hours FLUoxetine (PROZAC) 20 mg, Daily RT levothyroxine (SYNTHROID, LEVOXYL) 100 mcg, Daily RT lisinopriL-hydrochlorothiazide 10-12.5 mg tablet 1 tablet, Daily RT meloxicam (Mobic) 15 mg tablet 1 tablet, Daily montelukast (Singulair) 10 mg tablet 1 tablet, Daily predniSONE 10 mg tablets,dose pack 1 tablet, Daily raloxifene (EVISTA) 60 mg, Daily RT Allergies: Patient has no known allergies. Review of Systems: A comprehensive 10-point review of systems was obtained including constitutional, neurological, HEENT, pulmonary, cardiovascular, genito-urinary, and other pertinent systems and was negative except as noted in the HPI. Physical Exam: Constitutional General appearance: Healthy-appearing, well-nourished, well groomed, in no acute distress. Ability to communicate: Normal communication without aids, normal voice quality. Head and face: Atraumatic with no masses, lesions, or scarring. Facial strength: Normal strength and symmetry, no synkinesis or facial tic. Ears Otoscopic examination: Normal otoscopy of the right tympanic membrane. On the left, the TM is intact with a deep posterosuperior attic retraction eroding the scutum and collecting skin debris. The incus and stapes are not visualized, and the drum is retracted onto the tympanic facial nerve. On Valsalva, a small amount of clear fluid collects over the retraction pocket. Nose: Dorsum symmetric with no visible or palpable deformities. Oral Cavity/Mouth Lips, teeth, and gums: Normal lips, gums, and dentition. Oropharynx: Mucosa moist, no lesions. Neck: Symmetrical, trachea midline. No masses visible. Neurological/Psychiatric Cranial Nerve Examination: II - XII grossly intact. Orientation to person, place, and time: Normal. Mood and affect: Normal. Skin: Normal without rashes or lesions. Pulmonary Respiratory effort: Chest expands symmetrically. Cardiovascular: Good peripheral pulses Peripheral vascular system: No varicosities, carotid pulse normal, no edema. No jugular venous distension. Extremities: Appearance of extremities: Normal. Gait normal. Procedure: None Last Recorded Vitals: Height 1.651 m (5' 5 ), weight 86.2 kg (190 lb). Relevant Results: I personally reviewed the OSH audiogram that shows right normal hearing up to 2000 Hz, then gradually sloping to a moderate sensory loss, WRS 100%, Type A tympanogram. On the left, there is a moderately severe rising to moderate sloping back to moderately severe mixed hearing loss with max ABG 35dB at 1000 Hz, WRS 100%, Type B tympanogram with normal ECV. I personally reviewed the OSH CT scan that shows normal aeration of the right middle ear and mastoid with normal appearance of the ossicles and temporal bone. On the left, there is complete opacification of the middle ear and mastoid air cells with erosion of the head of the malleus, the incus is not visualized and there is not a definite stapes suprastructure appreciated. There is scutal erosion and multiple regions of tegmen dehiscence both in the mastoideum and more medially just lateral to the superior semicircular canal. Assessment/Plan 64 y.o. female who presents to me as a new patient for tegmen defect, referred here today by Constance Sykes MD. On examination, she has evidence of a left middle ear and attic cholesteatoma with ossicular erosion. Her imaging showing areas of tegmen dehiscence and her clinical history of nightly copious clear fluid drainage from the left ear is also suggestive of a CSF leak. 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 Given her likely CSF otorrhea, we did discuss that observation would place her at higher risk for meningitis particularly if she develops an infection of the existing cholesteatoma. 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 We will attempt to repair the tegmen defect from below, but discussed that a craniotomy may be required to adequately repair the more medial defect. These risks include, but are not limited to facial nerve injury, deafness in the operated ear, vertigo, dizziness, imbalance, facial weakness or paralysis, change in sense of taste, perforation of eardrum, pain, bleeding, infection, scarring, need for further surgery, cholesteatoma recurrence, prosthesis extrusion, persistent spinal fluid leak, meningitis. The family and patient elected to proceed. We will schedule this in the near future, with our Neurosurgery team available if a middle fossa craniotomy is necessary. Nadya Thakkar MD Neurotology Fellow I saw and evaluated the patient. I personally obtained the aburto and critical portions of the history and physical exam or was physically present for aburto and critical portions performed by the resident/fellow. I reviewed the resident/fellow's documentation and discussed the patient with the resident/fellow. I agree with the resident/fellow's medical decision making as documented in the note. Victoria Arce MD [facility] Work Phone: 05-11-2024 History and physical note H&P reviewed. The patient was examined and there are no changes to the H&P. Source Note - Victoria Arce MD - 05/03/2024 11:45 AM EST History Of Present Illness: Keyon Cheatham is a 64 y.o. female who presents to me as a new patient for tegmen defect, referred here today by Constance Sykes MD. She reports an approximately 8-month history of daily clear fluid drainage from the left ear. It is worse at night and she typically wakes up with staining of her pillow and wet hair. She sent some of this fluid for beta-2 testing, but the lab told her it could not be completed with what she provided. The drainage only had a colored appearance to it once, associated with an ear infection; it is otherwise typically clear like water. Her hearing is down on this side, but she says that this has been the case for much of her life as she had recurrent ear infections particularly in childhood. She denies any prior ear surgeries. No vertigo. 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 No known history of EDILBERTO. Past Medical History: She has no past medical history on file. Surgical History: She has no past surgical history on file. Social History: She reports that she has never smoked. She has never been exposed to tobacco smoke. She has never used smokeless tobacco. No history on file for alcohol use and drug use. Family History: No family history on file. Medications: Current Outpatient Medications Medication Instructions calcium carbonate-vit D3-min 600 mg-10 mcg (400 unit) tablet 1 tablet, 2 times daily ciprofloxacin-dexamethasone (CiproDEX) otic suspension DULoxetine (Cymbalta) [address] capsule 1 capsule, Every 24 hours FLUoxetine (PROZAC) 20 mg, Daily RT levothyroxine (SYNTHROID, LEVOXYL) 100 mcg, Daily RT lisinopriL-hydrochlorothiazide 10-12.5 mg tablet 1 tablet, Daily RT meloxicam (Mobic) 15 mg tablet 1 tablet, Daily montelukast (Singulair) 10 mg tablet 1 tablet, Daily predniSONE 10 mg tablets,dose pack 1 tablet, Daily raloxifene (EVISTA) 60 mg, Daily RT Allergies: Patient has no known allergies. Review of Systems: A comprehensive 10-point review of systems was obtained including constitutional, neurological, HEENT, pulmonary, cardiovascular, genito-urinary, and other pertinent systems and was negative except as noted in the HPI. Physical Exam: Constitutional General appearance: Healthy-appearing, well-nourished, well groomed, in no acute distress. Ability to communicate: Normal communication without aids, normal voice quality. Head and face: Atraumatic with no masses, lesions, or scarring. Facial strength: Normal strength and symmetry, no synkinesis or facial tic. Ears Otoscopic examination: Normal otoscopy of the right tympanic membrane. On the left, the TM is intact with a deep posterosuperior attic retraction eroding the scutum and collecting skin debris. The incus and stapes are not visualized, and the drum is retracted onto the tympanic facial nerve. On Valsalva, a small amount of clear fluid collects over the retraction pocket. Nose: Dorsum symmetric with no visible or palpable deformities. Oral Cavity/Mouth Lips, teeth, and gums: Normal lips, gums, and dentition. Oropharynx: Mucosa moist, no lesions. Neck: Symmetrical, trachea midline. No masses visible. Neurological/Psychiatric Cranial Nerve Examination: II - XII grossly intact. Orientation to person, place, and time: Normal. Mood and affect: Normal. Skin: Normal without rashes or lesions. Pulmonary Respiratory effort: Chest expands symmetrically. Cardiovascular: Good peripheral pulses Peripheral vascular system: No varicosities, carotid pulse normal, no edema. No jugular venous distension. Extremities: Appearance of extremities: Normal. Gait normal. Procedure: None Last Recorded Vitals: Height 1.651 m (5' 5 ), weight 86.2 kg (190 lb). Relevant Results: I personally reviewed the OSH audiogram that shows right normal hearing up to 2000 Hz, then gradually sloping to a moderate sensory loss, WRS 100%, Type A tympanogram. On the left, there is a moderately severe rising to moderate sloping back to moderately severe mixed hearing loss with max ABG 35dB at 1000 Hz, WRS 100%, Type B tympanogram with normal ECV. I personally reviewed the OSH CT scan that shows normal aeration of the right middle ear and mastoid with normal appearance of the ossicles and temporal bone. On the left, there is complete opacification of the middle ear and mastoid air cells with erosion of the head of the malleus, the incus is not visualized and there is not a definite stapes suprastructure appreciated. There is scutal erosion and multiple regions of tegmen dehiscence both in the mastoideum and more medially just lateral to the superior semicircular canal. Assessment/Plan 64 y.o. female who presents to me as a new patient for tegmen defect, referred here today by Constance Sykes MD. On examination, she has evidence of a left middle ear and attic cholesteatoma with ossicular erosion. Her imaging showing areas of tegmen dehiscence and her clinical history of nightly copious clear fluid drainage from the left ear is also suggestive of a CSF leak. 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 Given her likely CSF otorrhea, we did discuss that observation would place her at higher risk for meningitis particularly if she develops an infection of the existing cholesteatoma. 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 We will attempt to repair the tegmen defect from below, but discussed that a craniotomy may be required to adequately repair the more medial defect. These risks include, but are not limited to facial nerve injury, deafness in the operated ear, vertigo, dizziness, imbalance, facial weakness or paralysis, change in sense of taste, perforation of eardrum, pain, bleeding, infection, scarring, need for further surgery, cholesteatoma recurrence, prosthesis extrusion, persistent spinal fluid leak, meningitis. The family and patient elected to proceed. We will schedule this in the near future, with our Neurosurgery team available if a middle fossa craniotomy is necessary. Nadya Thakkar MD Neurotology Fellow I saw and evaluated the patient. I personally obtained the aburto and critical portions of the history and physical exam or was physically present for aburto and critical portions performed by the resident/fellow. I reviewed the resident/fellow's documentation and discussed the patient with the resident/fellow. I agree with the resident/fellow's medical decision making as documented in the note. Victoria Arce MD documented in this encounter [facility] Work Phone: 05-11-2024 Hospital Note Formatting of t his note might be different from the original. Keyon Cheatham is a 64 y.o. 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 Arce on 05/11/24. Patient had an uncomplicated surgical course. Patient recovered in PACU and was transferred to [address] for post-operative care. Patient post-operative course was uncomplicated. On day of discharge, post-operative pain was well controlled with enteral pain medication, breathing on room air, voiding spontaneously ambulating well, and was tolerating a diet. Follow-up arranged. [facility] Work Phone: 05-11-2024 Miscellaneous Notes Keyon Cheatham is a 64 y.o. 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 Arce on 05/11/24. Patient had an uncomplicated surgical course. Patient recovered in PACU and was transferred to [address] for post-operative care. Patient post-operative course was uncomplicated. On day of discharge, post-operative pain was well controlled with enteral pain medication, breathing on room air, voiding spontaneously ambulating well, and was tolerating a diet. Follow-up arranged. documented in this encounter [facility] Work Phone: 05-11-2024 Hospital Discharge instructions De'Osmin Bill MD - 05/11/2024 10:14 AM EDT POST OPERATIVE INSTRUCTIONS AFTER EAR SURGERY Victoria Arce MD ? Romero Cruz MD ? Rhona Lin MD? Dallin Hopkins MD Most ear surgeries should have a 2-4 week postoperative appointment. Please be sure to call the doctor's office and make a follow-up appointment, if you don't already have it. Dressing or Band-Aid can be removed the day after surgery. Once removed, replace the cotton ball in the ear as needed. Once the dressing is off, and if you have an incision behind your ear with stitches, clean the incision twice daily with soap and water and apply Vaseline or antibiotic ointment after cleaning. If you have paper strips or surgical glue over the incision, Do not apply anything behind the ear. Bloody drainage from the ear is common. Call the office if discharge from the ear last longer than 21 days or develops an odor or color. Water should be kept out of the ear until it is healed. You may shower the day after surgery, if you keep your head dry. The hair may be shampooed 2 days following surgery, providing water is not allowed into the ear canal. A cotton ball covered with Vaseline should be used in the ear whenever you are around water. Bloody discharge from incision area may occur during the first 10 days following surgery. If this persists or increases, please call the office. A full sensation with popping sounds may be noticed during the healing process. DO NOT BLOW YOUR NOSE FOR THREE WEEKS FOLLOWING SURGERY. If you sneeze, do so with your mouth open for three weeks following surgery. Do not use a straw to drink beverages for 3 weeks following surgery. Do not use Q-Tips or put anything in the canal, until approved by your doctor. Do not be concerned regarding your hearing for a period of six to eight weeks following surgery. Your hearing will be evaluated at this time; until then, your hearing may sound muffled and your voice may echo in your ear during speech. Minor swelling of the face on the same side of the surgery is not uncommon. Small bruising near the eye or mouth is not uncommon from the facial nerve monitor. Dizziness, ringing in the ear, taste disturbance, and after surgery are common. Call if severe. You might notice pain when chewing, please use soft diet for 2 weeks if you experience this. No lifting (more than 10 lbs) or straining until follow up. You will be discharged on pain medications and usually antibiotics. You may resume your routine medications as directed, unless you have been instructed otherwise by the prescribing healthcare provider. Should you experience any difficulty upon returning home, or if you simply have questions, please contact us. As your surgeons, we are most familiar with your operation and postoperative procedures. We are accessible by telephone 24 hours a day, 7 days a week. Once we have assessed your situation, we will be prepared to make specific suggestions for your care. Call [phone] ([phone]) or [phone] (after-hours) any time day or night if you have any of the following: Bad smell coming out of your ear Severe swelling around your ear Any questions Pain in your ear Redness around your ear Severe dizziness Please practice CSF Leak precautions for the next 2 weeks: Avoid blowing your nose or breathing in strongly through your nose Please avoid straining with exertion, heavy lifting, or straining during bowel movements Please avoid using a straw documented in this encounter [facility] Work Phone: 05-10-2024 History of Present illness Narrative Pharmacy Medication History Review Keyon Cheatham is a 64 y.o. 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 Pharmacy called the patient prior to their scheduled procedure and reviewed the patient's [id number] medications for accuracy. Medications ADDED: Melatonin 5mg Medications CHANGED: none Medications REMOVED: Ciprodex Duloxetine 60mg Meloxicam 15mg Montelukast 10mg Prednisone 10mg Please review updated prior to admission medication list and comments regarding how patient may be taking medications differently by going to Admission tab --> Admission Orders --> Admit Orders / Review prior to admission medications. Preferred pharmacy, last doses of medications, and allergies to be confirmed with patient by nursing the day of procedure. Sources used to complete the med history include: [facility] Pharmacy dispense history Patient interview Chart Review Care Everywhere Below are additional concerns with the patient's AUDIT PRACTICE INTERN list. Patient states they are taking #1 tablet of levothyroxine 100mcg daily. There is NO fill history but shows ordered 11/05/23 #90 per [facility] clinical summary Victoira Aníbal [facility] Please reach out via Secure Chat for questions documented in this encounter [facility] Work Phone: 05-03-2024 History of Present illness Narrative History Of Present Illness: Keyon Cheatham is a 64 y.o. female who presents to me as a new patient for tegmen defect, referred here today by Constance Sykes MD. She reports an approximately 8-month history of daily clear fluid drainage from the left ear. It is worse at night and she typically wakes up with staining of her pillow and wet hair. She sent some of this fluid for beta-2 testing, but the lab told her it could not be completed with what she provided. The drainage only had a colored appearance to it once, associated with an ear infection; it is otherwise typically clear like water. Her hearing is down on this side, but she says that this has been the case for much of her life as she had recurrent ear infections particularly in childhood. She denies any prior ear surgeries. No vertigo. 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 No known history of EDILBERTO. Past Medical History: She has no past medical history on file. Surgical History: She has no past surgical history on file. Social History: She reports that she has never smoked. She has never been exposed to tobacco smoke. She has never used smokeless tobacco. No history on file for alcohol use and drug use. Family History: No family history on file. Medications: Current Outpatient Medications Medication Instructions calcium carbonate-vit D3-min 600 mg-10 mcg (400 unit) tablet 1 tablet, 2 times daily ciprofloxacin-dexamethasone (CiproDEX) otic suspension DULoxetine (Cymbalta) [address] capsule 1 capsule, Every 24 hours FLUoxetine (PROZAC) 20 mg, Daily RT levothyroxine (SYNTHROID, LEVOXYL) 100 mcg, Daily RT lisinopriL-hydrochlorothiazide 10-12.5 mg tablet 1 tablet, Daily RT meloxicam (Mobic) 15 mg tablet 1 tablet, Daily montelukast (Singulair) 10 mg tablet 1 tablet, Daily predniSONE 10 mg tablets,dose pack 1 tablet, Daily raloxifene (EVISTA) 60 mg, Daily RT Allergies: Patient has no known allergies. Review of Systems: A comprehensive 10-point review of systems was obtained including constitutional, neurological, HEENT, pulmonary, cardiovascular, genito-urinary, and other pertinent systems and was negative except as noted in the HPI. Physical Exam: Constitutional General appearance: Healthy-appearing, well-nourished, well groomed, in no acute distress. Ability to communicate: Normal communication without aids, normal voice quality. Head and face: Atraumatic with no masses, lesions, or scarring. Facial strength: Normal strength and symmetry, no synkinesis or facial tic. Ears Otoscopic examination: Normal otoscopy of the right tympanic membrane. On the left, the TM is intact with a deep posterosuperior attic retraction eroding the scutum and collecting skin debris. The incus and stapes are not visualized, and the drum is retracted onto the tympanic facial nerve. On Valsalva, a small amount of clear fluid collects over the retraction pocket. Nose: Dorsum symmetric with no visible or palpable deformities. Oral Cavity/Mouth Lips, teeth, and gums: Normal lips, gums, and dentition. Oropharynx: Mucosa moist, no lesions. Neck: Symmetrical, trachea midline. No masses visible. Neurological/Psychiatric Cranial Nerve Examination: II - XII grossly intact. Orientation to person, place, and time: Normal. Mood and affect: Normal. Skin: Normal without rashes or lesions. Pulmonary Respiratory effort: Chest expands symmetrically. Cardiovascular: Good peripheral pulses Peripheral vascular system: No varicosities, carotid pulse normal, no edema. No jugular venous distension. Extremities: Appearance of extremities: Normal. Gait normal. Procedure: None Last Recorded Vitals: Height 1.651 m (5' 5 ), weight 86.2 kg (190 lb). Relevant Results: I personally reviewed the OSH audiogram that shows right normal hearing up to 2000 Hz, then gradually sloping to a moderate sensory loss, WRS 100%, Type A tympanogram. On the left, there is a moderately severe rising to moderate sloping back to moderately severe mixed hearing loss with max ABG 35dB at 1000 Hz, WRS 100%, Type B tympanogram with normal ECV. I personally reviewed the OSH CT scan that shows normal aeration of the right middle ear and mastoid with normal appearance of the ossicles and temporal bone. On the left, there is complete opacification of the middle ear and mastoid air cells with erosion of the head of the malleus, the incus is not visualized and there is not a definite stapes suprastructure appreciated. There is scutal erosion and multiple regions of tegmen dehiscence both in the mastoideum and more medially just lateral to the superior semicircular canal. Assessment/Plan 64 y.o. female who presents to me as a new patient for tegmen defect, referred here today by Constance Sykes MD. On examination, she has evidence of a left middle ear and attic cholesteatoma with ossicular erosion. Her imaging showing areas of tegmen dehiscence and her clinical history of nightly copious clear fluid drainage from the left ear is also suggestive of a CSF leak. 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 Given her likely CSF otorrhea, we did discuss that observation would place her at higher risk for meningitis particularly if she develops an infection of the existing cholesteatoma. 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 We will attempt to repair the tegmen defect from below, but discussed that a craniotomy may be required to adequately repair the more medial defect. These risks include, but are not limited to facial nerve injury, deafness in the operated ear, vertigo, dizziness, imbalance, facial weakness or paralysis, change in sense of taste, perforation of eardrum, pain, bleeding, infection, scarring, need for further surgery, cholesteatoma recurrence, prosthesis extrusion, persistent spinal fluid leak, meningitis. The family and patient elected to proceed. We will schedule this in the near future, with our Neurosurgery team available if a middle fossa craniotomy is necessary. Nadya Thakkar MD Neurotology Fellow I saw and evaluated the patient. I personally obtained the aburto and critical portions of the history and physical exam or was physically present for aburto and critical portions performed by the resident/fellow. I reviewed the resident/fellow's documentation and discussed the patient with the resident/fellow. I agree with the resident/fellow's medical decision making as documented in the note. Victoria Arce MD documented in this encounter [facility] Work Phone: 05-03-2024 Instructions Nadya Gifford - 05/03/2024 11:45 AM EST Welcome to Dr. Arce's clinic. We are here to assist you through your ENT care at [facility]. Dr. Arce is an Ear surgeon. This means that she specializes in taking care of patients with complex ear problems. Dr. Arce's office number is [phone]. While you may see her at a satellite office, she has a team committed to help meet your healthcare needs at [facility]'s main campus. This number is the most direct way to communicate with the office. Cathy is Dr. Arce's workers compensation legal secretary and she answers the office phone from 8am-4pm Thu-Thu. She can help you with many general questions and information. Questions that she cannot answer will be directed to the appropriate staff. You may need to leave a message. In this case, someone from the team will call you back. Preet Blanc RN, is Dr. Arce's primary nurse and can be reached by calling the office. Preet is in clinic with Dr. Arce'dale on Mondays and Tuesdays. Non-urgent calls will be returned on non-clinic days typically . Sometimes, other team members will also be involved in your care. These people may include dieticians, social workers, speech therapists, oceanographer assistant, neurologist, and physical therapist. Dr. Arce will provide these referrals as needed. Please let her know if you would like to request a specific referral. For your convenience, Dr. Arce sees patients at several [facility] locations including [facility] and [facility] at the main campus of [facility]. While we try to make your appointments as convenient as possible, occasionally a visit to another location may be necessary to provide the best care for you. We look forward to working with you to meet your healthcare goals. Dr. Arce makes every effort to run on time for your appointments. Therefore, if you are more than 30 minutes late unrelated to a scan or another appointment such therapy or audio you will have to reschedule. documented in this encounter [facility] Work Phone: 03-23-2024 History of Present illness Narrative Subjective [...] will arrange for Keyon to see an commercial roofer, Dr Victoria Arce, or one of her partners, for eval and tx. In the meantime I will restart drops and have pt get a copy of her CT to take to [facility]. documented in this encounter [facility] 02-16-2024 History of Present illness Narrative [...] Problems Diagnosis Date Noted Essential hypertension, benign ([facility]) 02/18/2023 Primary osteoarthritis of both knees 02/18/2023 Dyslipidemia ([facility]) 02/18/2023 Gastroesophageal reflux disease 02/18/2023 Primary hypothyroidism ([facility]) 02/18/2023 Osteoporosis, post-menopausal ([facility]) 02/18/2023 Prediabetes 02/18/2023 Vitamin D deficiency 02/18/2023 Seasonal allergic rhinitis due to pollen 02/18/2023 Colon cancer screening 02/18/2023 Plantar fasciitis of right foot 08/19/2023 ZEESHAN (generalized anxiety disorder) ([facility]) 09/29/2023 Medicare annual wellness visit, subsequent 02/11/2024 Encounter for long-term (current) use of medications 02/11/2024 Otorrhea of left ear 02/11/2024 Resolved Ambulatory Problems Diagnosis Date Noted No Resolved Ambulatory Problems Past Medical History: Diagnosis Date At low risk for fall Benign essential hypertension ([facility]) Former smoker GERD without esophagitis Hypothyroidism, adult ([facility]) Non-seasonal allergic rhinitis due to pollen Obesity with body mass index (BMI) of 30.0 to 39.9 Osteoporosis, postmenopausal ([facility]) Right wrist pain Past Surgical History: Procedure [...] a tegmen defect. documented in this encounter [facility] 02-11-2024 History of Present illness [...] HIRA Rheumatoid factor documented in this encounter [facility] 10-30-2023 History of Present illness [...] at current dose. documented in this encounter [facility] 04-07-2023 Note Chief Complaint consultation [...] virus vaccine, keisha (more content not included)... [facility] Comment on above: Result Comment: Elec tronically Signed By: BARBIE VANEGAS, Marcin Diaz\Date and Time Signed: 04/07/23 19:36 EST Evaluation + Plan note No data available for this section General Surgery [place] Evaluation note Diagnosis Breast cancer screening by mammogram documented in this encounter [employer] Phone: evaluation note* Diagnosis Essential hypertension, benign [...] wellness visit, subsequent- Primary Essential hypertension, benign (CMS/HCC) Essential hypertension, benign Prediabetes Other abnormal glucose Primary hypothyroidism (CMS/HCC) Unspecified hypothyroidism Dyslipidemia (CMS/HCC) Other and unspecified hyperlipidemia Encounter for long-term (current) use of medications Encounter for long-term (current) use of other medications Arthralgia, unspecified joint Otorrhea of left ear [facility] Diagnosis Essential hypertension, benign (CMS/HCC)- Primary [...] right foot- Primary ZEESHAN (generalized anxiety disorder) ([facility]/HCC) Generalized anxiety disorder Essential hypertension, benign ([facility]/HCC)- Primary Essential hypertension, benign ZEESHAN (generalized anxiety disorder) ([facility]/HCC) Generalized anxiety disorder Medicare annual wellness visit, subsequent- Primary Essential hypertension, benign ([facility]/HCC) Essential hypertension, benign Prediabetes Other abnormal glucose Primary hypothyroidism ([facility]/HCC) Unspecified hypothyroidism Dyslipidemia ([facility]) Other and unspecified hyperlipidemia Encounter for long-term [...] [facility] Diagnosis Essential hypertension, benign ([facility]/HCC)- Primary Essential hypertension, benign ZEESHAN (generalized anxiety disorder) ([facility]) Generalized anxiety disorder documented [facility]* Diagnosis Essential hypertension, benign ([facility]/HCC)- Primary Essential hypertension, benign Seasonal allergic rhinitis due to pollen Primary osteoarthritis of both knees Primary hypothyroidism ([facility]/HCC) Unspecified hypothyroidism Colon cancer screening Special screening for malignant neoplasms, colon Osteoporosis, post-menopausal ([facility]) Senile osteoporosis Essential hypertension, benign ([facility]/HCC)- Primary Essential hypertension, benign Plantar fasciitis of right foot Primary osteoarthritis of both knees Seasonal allergic rhinitis due to pollen Plantar fasciitis of right foot- Primary ZEESHAN (generalized anxiety disorder) ([facility]/HCC) Generalized anxiety disorder Essential hypertension, benign ([facility]/HCC)- Primary Essential hypertension, benign ZEESHAN (generalized anxiety disorder) ([facility]/HCC) Generalized anxiety disorder Medicare annual wellness visit, subsequent- Primary Essential hypertension, benign ([facility]/HCC) Essential hypertension, benign Prediabetes Other abnormal glucose Primary hypothyroidism ([facility]/HCC) Unspecified hypothyroidism Dyslipidemia ([facility]) Other and unspecified hyperlipidemia Encounter for long-term (current) use of medications Encounter for long-term (current) use of other medications Arthralgia, unspecified joint Otorrhea of left ear Otorrhea of left ear- Primary [facility]* Diagnosis Cholesteatoma of left ear- Primary 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 Preoperative clearance Unspecified pre-operative examination 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- Primary 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 documented in this encounter [facility] Work Phone: Evaluation note* Diagnosis 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- Primary 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 Cholesteatoma of left ear HTN (hypertension) Unspecified essential hypertension Depression Depressive disorder, not elsewhere classified Hypothyroidism Unspecified hypothyroidism documented in this encounter [facility] Work Phone: Evaluation note* Diagnosis Cholesteatoma of left ear- Primary 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 Post-operative state Other postprocedural status documented in this encounter [facility] Work Phone: Evaluation note* Diagnosis Essential hypertension, benign (CMS/HCC)- Primary [...] wellness visit, subsequent- Primary Essential hypertension, benign (CMS/HCC) Essential hypertension, benign Prediabetes Other abnormal glucose Primary hypothyroidism (CMS/HCC) Unspecified hypothyroidism Dyslipidemia (CMS/HCC) Other and unspecified hyperlipidemia Encounter for long-term (current) use of medications Encounter for long-term (current) use of other medications Arthralgia, unspecified joint Otorrhea of left ear Essential hypertension, benign (CMS/HCC)- Primary Essential hypertension, benign Chest pain, unspecified type ZEESHAN (generalized anxiety disorder) (CMS/HCC) Generalized anxiety disorder Primary osteoarthritis of both knees Primary hypothyroidism (CMS/HCC) Unspecified hypothyroidism Prediabetes Other abnormal glucose Dyslipidemia ([facility]) Other and unspecified hyperlipidemia Encounter for long-term (current) use of medications Encounter for long-term (current) use of other medications documented [facility]* Diagnosis Essential hypertension, benign- Primary Essential hypertension, benign Seasonal allergic rhinitis due to pollen Primary osteoarthritis of both knees Primary hypothyroidism Unspecified hypothyroidism Colon cancer screening Special screening for malignant neoplasms, colon Osteoporosis, post-menopausal Senile osteoporosis Essential hypertension, benign- Primary Essential hypertension, benign Plantar fasciitis of right foot Primary osteoarthritis of both knees Seasonal allergic rhinitis due to pollen Plantar fasciitis of right foot- Primary ZEESHAN (generalized anxiety disorder) Generalized anxiety disorder Essential hypertension, benign- Primary Essential hypertension, benign ZEESHAN (generalized anxiety disorder) Generalized anxiety disorder Medicare annual wellness visit, subsequent- Primary Essential hypertension, benign Essential hypertension, benign Prediabetes Other abnormal glucose Primary hypothyroidism Unspecified hypothyroidism Dyslipidemia Other and unspecified hyperlipidemia Encounter for long-term (current) use of medications Encounter for long-term (current) use of other medications Arthralgia, unspecified joint Otorrhea of left ear Essential hypertension, benign- Primary Essential hypertension, benign Chest pain, unspecified type ZEESHAN (generalized anxiety disorder) Generalized anxiety disorder Primary osteoarthritis of both knees Primary hypothyroidism Unspecified hypothyroidism Prediabetes Other abnormal glucose Dyslipidemia Other and unspecified hyperlipidemia Encounter for long-term (current) use of medications Encounter for long-term (current) use of other medications Essential hypertension, benign Essential hypertension, benign documented in this encounter [facility]* Diagnosis Cholesteatoma of left ear- Primary 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 Pre-op testing Unspecified pre-operative examination 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 documented in this encounter [facility] Work Phone: Hospital Discharge instructions No data available for this section General Surgery [place] Progress note No data available for this section General Surgery [place] Reason for visit Narrative* Auth/Cert Specialty Diagnoses / Procedures Referred By Elsa trent Referred To Contact Diagnoses 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 [G96.01] Procedures MT TMPP MASTOIDECT NTC/RCNSTED CANAL WALL OCR MT CRANIOTOMY FOR ENCEPHALOCELE REPAIR SKULL BASE MT GRAFT EAR CRTLG AUTOGENOUS NOSE/EAR MT THERAPEUTIC SPINAL PUNCTURE DRAINAGE CSF LEFT SIDE CANAL WALL UP TYMPANOMASTOIDECTOMY, POSSIBLE OSSICULOPLASTY, POSSIBLE CARTILAGE GRAFT, POSSIBLE MIDDLE CRANIAL FOSSA APPROACH FOR ENCEPHALOCELE REPAIR, POSSIBLE LUMBAR DRAIN PLACEMENT LEFT SIDE CANAL WALL UP TYMPANOMASTOIDECTOMY, POSSIBLE OSSICULOPLASTY, POSSIBLE CARTILAGE GRAFT, POSSIBLE MIDDLE CRANIAL FOSSA APPROACH FOR ENCEPHALOCELE REPAIR, POSSIBLE [place] [address] [place] [address] Phone: tel: fax: [facility] Rehana ARGUETA [address] [place] [address] fax: Referral ID Status Reason Start Date Expiration Date Visits Re quested Visits Authorized [id number] 1 1 [facility] Work Phone: Reason for Referral Status Reason Specialty Diagnoses / Procedures Referre d By Contact Referred To Contact Closed Radiology Diagnoses Breast cancer screening by mammogram Procedures TUYET DIGITAL SCREEN W OR WO CAD BILATERAL Felton Neumann MD [address] [place] [address] Status Reason Specialty Diagnoses / Procedures Referred By Contact Referred To Contact Authorized Radiology Diagnoses Breast cancer screening by mammogram Procedures TUYET [place] DIGITAL SCREEN BILATERAL Felton Neumann MD [address] [place] [address] Specialty Diagnoses / Procedures Referred By Elsa t Referred To Contact Radiology Diagnoses Breast cancer screening by mammogram Procedures [facility] DIGITAL SCREEN BILATERAL Felton Neumann MD [address] [place] [address] Referral ID Status Reason Start Date Expiration Date Visits Re quested Visits Authorized [id number] Closed 11/29/2020 11/29/2021 1 1 Assessments Diagnosis Breast cancer screening by mammogram Diagnosis Breast cancer screening by mammogram Advance Directives No Advanced Directives Records FoundDocuments on File Type Date Recorded Patient Supervisor Lime Expl anation Advance Directives and Living Will Power of Virtual Customer Assistant Documents on File Type Date Recorded Patient Supervisor Lime Expl anation ACP-Advance Directive ACP-Power of Virtual Customer Assistant Summary Purpose Family History No Family [...] CAD BILATERAL Felton Neumann MD [address] [place] [address] Status Reason Specialty Diagnoses / Procedures Referred By Contact Referred To Contact Pending Review Radiology Diagnoses Encounter for screening mammogram for malignant neoplasm of breast Procedures [facility] MAMMOGRAM DIGITAL SCREEN BILAT Felton Neumann MD [address] [place] [address] [facility] [address] [address] Specialty Diagnoses / Procedures Referred By Contac t Referred To Contact Radiology Diagnoses Breast cancer screening by mammogram Procedures TUYET QUEENIE DIGITAL SCREEN BILATERAL Felton Neumann MD [address] [place] [address] Referral ID Status Reason Start Date Expiration Date Visits Re quested Visits Authorized [id number] Closed 11/29/2020 11/29/2021 1 1 Reason Comments Medicare Annual Wellness Visit Initial W [facility]YLE Reason Comments Ear Problem Otorrhea of left ear Specialty Diagnoses / Procedures Referred By Contac t Referred To Contact Otolaryngology Diagnoses Otorrhea of left ear Procedures MT OFFICE/OUTPATIENT [facility] Felton Neumann MD [address] [place] [address] Phone: tel: fax: Constance Sykes MD [address] [place] [address] Phone: tel: fax: Referral ID Status Reason Start Date Expiration Date V isits Requested Visits Authorized [id number] Closed Specialty Services Required 02/11/2024 08/09/2024 1 1 Reason Comments Follow-up 1 m Reason Comments Ear Problem Follow up [facility] Reason Comments Referral Ear fluid leaking ou t of ear Reason Comments Post-op Reason Comments Follow-up 6m f/up Fatigue Tired all the time Reason Onset Date Comments Med Refill 09/29/2024 Reason Comments Follow-up 3 month follow up vi sit. Care Teams (unrecognized sec tion and content) Chartered Wealth Manager Relationship Specialty Start Date End Date Felton Neumann MD [address] [place], [place] [address] PCP - General Family Medicine 11/02/18 Chartered Wealth Manager Relationship Specialty Start Date End Date Felton Neumann MD [address] [place] [address] PCP - Devoted 12/31/22 03/01/24 Felton Neumann MD [address] [place] [address] PCP - General Family Medicine 08/19/23 Chartered Wealth Manager Relationship Specialty Start Date End Date Felton Neumann MD [address] [place] [address] PCP - Devoted 12/31/22 03/01/24 Felton Neumann MD [address] [place] [address] PCP - General Family Medicine 08/19/23 Chartered Wealth Manager Relationship Specialty Start Date End Date Felton Neumann MD [address] [place] [address] PCP - Devoted 12/31/22 03/01/24 Felton Neumann MD [address] [place] [address] PCP - General Family Medicine 08/19/23 Chartered Wealth Manager Relationship Specialty Start Date End Date Felton Neumann MD [address] [place] [address] PCP - [facility]oted 12/31/22 03/01/24 Felton Neumann MD [address] [place] [address] PCP - General Family Medicine 08/19/23 Chartered Wealth Manager Relationship Specialty Start Date End Date Felton Neumann MD [address] [place] [address] PCP - Devoted 12/31/22 Felton Neumann MD [address] [place] [address] PCP - General Family Medicine 08/19/23 Chartered Wealth Manager Relationship Specialty Start Date End Date Felton Neumann MD [address] [place] [address] PCP - [facility]oted 12/31/22 Felton Neumann MD [address] [place] [address] PCP - General Family Medicine 08/19/23 Chartered Wealth Manager Relationship Specialty Start Date End Date Felton Neumann MD [address] [place] [address] PCP - [facility]oted 12/31/22 03/01/24 Felton Neumann MD [address] [place] [address] PCP - General Family Medicine 08/19/23 Chartered Wealth Manager Relationship Specialty Start Date End Date Felton Neumann MD [address] [place] [address] PCP - General Family Medicine 08/19/23 Chartered Wealth Manager Relationship Specialty Start Date End Date Felton Neumann MD [address] [place] [address] PCP - General Family Medicine 08/19/23 Chartered Wealth Manager Relationship Specialty Start Date End Date Felton Neumann MD [address] [place] [address] PCP - General Family Medicine 08/19/23 Felton Neumann MD [address] [place] [address] PCP - Medical [facility] 03/02/2403/01 Chartered Wealth Manager Relationship Specialty Start Date End Date Felton Neumann MD [address] [place] [address] PCP - General Family Medicine 05/05/24 Chartered Wealth Manager Relationship Specialty Start Date End Date Felton Neumann MD [address] [place] [address] PCP - General Family Medicine 05/05/24 Chartered Wealth Manager Relationship Specialty Start Date End Date Felton Neumann MD [address] [place] [address] PCP - General Family Medicine 05/05/24 Chartered Wealth Manager Relationship Specialty Start Date End Date Felton Neumann MD [address] [place] [address] PCP - General Family Medicine 08/19/23 Felton Neumann MD [address] [place] [address] PCP - Medical [facility] 03/02/2403/01 Chartered Wealth Manager Relationship Specialty Start Date End Date Felton Neumann MD [address] [place] [address] PCP - General Family Medicine 08/19/23 Felton Neumann MD [address] [place] [address] PCP - Medical [facility] 03/02/2403/01 Chartered Wealth Manager Relationship Specialty Start Date End Date Felton Neumann MD [address] [place] [address] PCP - General Family Medicine 08/19/23 Felton Neumann MD [address] [place] [address] PCP - Medical [facility] 03/02/2403/01 Chartered Wealth Manager Relationship Specialty Start Date End Date Felton Neumann MD [address] [place] [address] PCP - General Family Medicine 08/19/23 Felton Neumann MD [address] [place] [address] PCP - Medical [facility] 03/02/2403/01 Chartered Wealth Manager Relationship Specialty Start Date End Date Felton Neumann MD [address] [place] [phone] PCP - General Family Medicine 05/05/24 INFORMATION SOURCE (unrecogn ized section and content) DATE CREATED AUTHOR 02/17/2021 [facility] DATE CREATED AUTHOR AUTHOR'S ORGANIZ ATION 06/06/2022 [facility] DATE CREATED AUTHOR AUTHOR'S ORGANIZ ATION 05/05/2023 [facility] DATE CREATED AUTHOR AUTHOR'S ORGANIZ ATION 05/13/2023 [facility] DATE CREATED AUTHOR AUTHOR'S ORGANIZ ATION 07/11/2024 [facility] DATE CREATED AUTHOR AUTHOR'S ORGANIZ ATION 09/28/2024 [facility] DATE CREATED AUTHOR AUTHOR'S ORGANIZ ATION 10/03/2024 [facility] Ambulatory Scheduled Active and Recently Administ ered Medications (unrecognized section and content) Medication Order 05/09/2024 05/10/2024 05/11/2024 acetaminophen (Tylenol) tablet 975 mg (COMPLETED) 975 mg, oral, Once, On Thu05/11/24 at 1830, For 1 dose, Recovery (only), If ordered PRN for pain, nurse is permitted to administer this medication for higher pain scores based on patient preference? Yes 1812 (Given - Provid er: Clover Worrell RN) lidocaine (Xylocaine) 10 mg/mL (1 %) injection 0.1 mL 0.1 mL, subcutaneous, Once, On Thu05/11/24 at 1745, For 1 dose, Recovery (only), To be used for IV insertion ONLY 1744 (Due) oxygen (O2) therapy inhalation, Once, On Thu05/11/24 at 1745, For 1 dose, Recovery (only), Device: Nasal Cannula, Rate in liters per minute: Other, Custom Value: 1-6 LPM, Keep O2 Sat Above: 92% 174 (Due) Continuous Medication Order 05/09/2024 05/10/2024 05/11/2024 lactated Ringer's infusion 50 mL/hr, intravenous, Continuous, Starting on Thu05/11/24 at 1745, For 1 day, Recovery (only) 1745 (Due) PRN Medication Order 05/09/2024 05/10/2024 05/11/2024 balanced salts (BSS) intraocular solution (CANCELED) As needed, Starting on Thu05/11/24 at 1419, Intraprocedure 1419 (Given - Provid er: Victoria Arce MD) ciprofloxacin-dexamethasone (CiproDEX) otic suspension (CANCELED) As needed, Starting on Thu05/11/24 at 1636, Intraprocedure 1636 (Given - Provid er: Victoria Arce MD - Comment: TOPICAL ON GELFOAM) EPINEPHrine HCl (PF) (Adrenalin) injection (CANCELED) As needed, Starting on Thu05/11/24 at 1420, Intraprocedure 1420 (Given - Provid er: Victoria Arce MD - Comment: IN 19ML NACL 0.9% INJECTABLE) gelatin absorbable (Gelfoam) 100 sponge (CANCELED) As needed, Starting on Thu05/11/24 at 1637, Intraprocedure 1637 (Given - Provid er: Victoria Arce MD - Comment: WITH CIPRODEX) HYDROmorphone (Dilaudid) injection 0.5 mg 0.5 mg, intravenous, Every 5 min PRN, pain severe (7-10), first line, Starting on Thu05/11/24 at 1726, Recovery (only), Max total of 4 mg regardless of dose. HYDROmorphone PF (Dilaudid) injection 0.2 mg 0.2 mg, intravenous, Every 5 min PRN, pain moderate (4-6), first line, Starting on Thu05/11/24 at 1726, Recovery (only), Max total of 4 mg regardless of dose. lidocaine-epinephrine (Xylocaine W/EPI) 1 %-1:100,000 injection (CANCELED) As needed, Starting on Thu05/11/24 at 1421, Intraprocedure 1421 (Given - Provid er: Victoria Arce MD) ondansetron (Zofran) injection 4 mg 4 mg, intravenous, Once as needed, nausea/vomiting, first line, Starting on Thu05/11/24 at 1726, For 1 dose, Recovery (only), When administering via IV Push, administer over 3-5 minutes. promethazine (Phenergan) 12.5 mg in sodium chloride 0.9% 50 mL IV 12.5 mg, intravenous, Administer over 15 Minutes, Once as needed, nausea/vomiting, first line, Nausea/vomiting, second line, Starting on Thu05/11/24 at 1726, For 1 dose, Recovery (only) sodium chloride bacteriostatic 0.9 % injection (CANCELED) As needed, Starting on Thu05/11/24 at 1421, Intraprocedure 1421 (Given - Provid er: Victoria Arce MD - Comment: WITH 1ML EPINEPHRINE) FOR RECORDS PERTAINING TO PATIENTS WHO ARE [...] BE BASED ON THE PRIMARY CLINICAL RECORDS. [facility]. provides no warranty or guarantee of the accuracy or completeness of information in this document.
--- NOTE | 2024-10-27 08:24 | ECG_ITS ---
[facility] Test Date: 2024-10-27 Pat Name: KEYON CHEATHAM Department: Room: - Gender: Female Internet Sourcer: : 1960 Requested By: [id number] Order Number: [id number] Reading MD: Tom Khan Measurements Intervals [place] Rate: 78 P: 60 NM: 158 QRS: 29 QRSD: 92 T: 59 QT: 366 QTc: 417 Interpretive Statements SINUS RHYTHM Compared to ECG 05/04/2024 08:30:39 Incomplete right bundle-branch block no longer present Electronically Signed On 10-28-2024 13:33:40 EDT by Tom Khan
[2024-10-27 08:54] LABS: Hematocrit 41.5 % (36.0-48.0); Hemoglobin 13.5 g/dL (12.0-16.0); Immature Granulocytes Abs Auto 0.05 10^3/uL (0.00-0.03); Immature Granulocytes Pct Auto 0.9 % (0.0-0.5); Lymphocytes Absolute Auto 1.8 10^3/uL (1.2-3.8); Mean Corpuscular HGB Conc 32.5 g/dL (29.9-35.2); Mean Corpuscular Hemoglobin 29.5 pg (26.7-34.0); Mean Corpuscular Volume 90.8 fL (81.0-99.0); Platelet Count 246 10^3/uL (150-450); Red Blood Count 4.57 10^6/uL (4.20-5.40); White Blood Count 5.5 10^3/uL (4.0-11.0)
[2024-10-27 09:25] LABS: Alanine Aminotransferase 26 U/L (14-59); Albumin Globulin Ratio 1.0; Albumin Level 3.6 g/dL (3.4-5.0); Alkaline Phosphatase 84 U/L (46-116); Anion Gap 13.4; Aspartate Amino Transferase 18 U/L (15-37); Blood Urea Nitrogen 18.0 mg/dL (7.0-18.0); Calcium 9.2 mg/dL (8.5-10.1); Carbon Dioxide 28.6 mmol/L (21.0-32.0); Chloride 103 mmol/L (98-107); Estimated GFR (African America >60 (>=60 mL/min/1.73m^2); Estimated GFR (Non-African Ame >60 (>=60 mL/min/1.73m^2); Globulin 3.6 g/dL; Glucose 135 mg/dL (74-106); Potassium 4.0 mmol/L (3.5-5.1); Sodium 141 mmol/L (136-145); Total Protein 7.2 g/dL (6.4-8.2)
== END 2024-10-27 08:05 | disposition home or self-care (01) ==
PROVIDERS: PCP Family Medicine; Visit Provider Otolaryngology
DX: Z01.818 Encounter for other preprocedural examination (principal)
CPT/HCPCS: 36415; 80053; 85025; 93005

== ENCOUNTER 2025-02-27 07:09 | Outpatient (OUT) | payer MEDICARE, SELFPAY ==
--- OUTSIDE RECORDS SUMMARY | 2025-02-14 05:14 | XMS_ITS | Continuity of Care Document ---
Author Organization [facility] Address [address] [place] [address] Phone Care Team Providers Care Loan Services Professional Name Role Phone Felton Puga MD Primary Care Provider Felton Puga MD Attending Provider Care Teams Patient Care Team Team Status: Active Member Role/Relationship Status Dates Felton Pgua MD Primary Care Provider Active Patient Care Team Team Status: Inactive Member Role/Relationship Status Dates Felton Puga MD Primary Care Provider Active S tart: February 14, 2025 End: February 14, 2025Mar MARIA EUGENIA Pugattending ProviderActiveStart: February 14, 2025 End: February 14, 2025 Chief Complaint and Reason for Visit Reason for Visit Admit Date Medicare annual wellness visit, subseque nt February 14, 2025 8:47am Allergies, Adverse Reactions, Alerts Allergen Type Severity Reaction Last Updated Verified Status No Known Allergies Allergy Unknown February 14, 2025 9:14amYesActive Social History Smoking Status Status Start Date End Date Date of Observa tion Ex-smoker (finding) February 14, 2025 9:15am Observation Status Observation Response Date of Response Legal Sex Female (finding) Sex Assigned At BirthFemaleNovember 1959 Problems Active Problems Problem Diagnosis/Recorded Date Onset Date Stat us Medicare annual wellness vis it, subsequent February 14, 2025 9:27am Unknown Active ZEESHAN (generalized anxiety disorder) February 13, 2025 8:49am Unknown Active Primary osteoarthritis of both knees February 13 8:49am Unknown Active Primary hypothyroidism February 13, 2025 8:50am Unkn own Active Essential hypertension, benign February 13, 2025 8:4 9am Unknown Active Dyslipidemia February 13, 2025 8:50am Unknown A ctive Osteoporosis, post-menopausal February 13, 2025 8:50 am Unknown Active Encounter for long-term (cur rent) use of medications February 14, 2025 9:27am Unknown Active Prediabetes February 13, 2025 8:50am Unknown A ctive Gastroesophageal reflux disease February 13, 2025 8: 50am Unknown Active Vitamin D deficiency February 13, 2025 8:50am Unknow n Active Medications Medication Status Dose Units Route Directions Qty Days Refills S tart Date Stop Date End Date Reason(s) Instructions Adherence Levothyroxine 100 mcg capsule Discontinued 100 MCG PO Daily 30 5Sept2024 11:00pmSeptember 2024 9:43amLevothyroxine 100 mcg cejcbzzMzbjuj705WJCAQVmhmi619Duuxmjsbe 9th, 2025 9:43amComplies with drug therapyFluoxetine 20 mg cdftcnpHfwxor10AAKKMftql85488Yiswlkcz 2024 12:00am Complies with drug therapyMeloxicam 15 mg qrogfcEwhmjn36EKQYXbjflNzanotvw 2024 12:00amComplies with drug therapyRaloxifene 60 mg oksaxrOcslww31TFERQzham February 13, 2025 12:00amComplies with drug therapyLisinopril- Hydrochlorothiazide 10-12.5 mg dcsfllYumhwa0XAPMONsxgiJyzouxum 2024 12:00amComplies with drug therapyLevothyroxine 100 mcg jvtrioiYxovqeizafeq996TFM PODailySeptember 2024 11:00pmSept2024 1:07pmLevothyroxine 100 mcg lbhoictOmsfhjmqazmx800EIMNYKebil880Rtfthtztk 8th, 2025 1:06pmDecember 2024 8:52am Vital Signs Vital Reading Result Reference Range Collection Date/Time Height 64 [in_i] February 14, 2025 9:51rwKozurz42.55 kgDecember 2024 9:13amBody Rnvzungaphe54.1 [degF]97.6-99.0Dece2024 9:13amHeart Rate80 /cce28-224 February 14, 2025 9:13amRespiratory rate20 /abs19-63SlpnvcnaFebruary 14, 2025 9:13am Oxygen saturation by Pulse bursdxww45 %95-100February 14, 2025 9:13amBP Vaofczai408 mm[Hg]100-140February 14, 2025 9:13amBP Afpkwyngf80 mm[Hg]60-100 February 14, 2025 9:13amBMI (Body Mass Index)31.2 kg/o6WgqscmoiFebruary 14, 2025 9:13am Advance Directives Advance Directive Response Recorded Date/ Time Advance Directives No October 6:40am Insurance Providers Guarantor Xochitl Arnold Address [address] [facility] [address] Info[employer]Home Phone: Coverage Status Update:2024 Payer Group Member ID Coverage Type Subscriber Relationship to Subscriber Effective Date Expiration Date Medicare UNKNOWN Id: [id number] Encounters Encounter Location(s) Arrival/Admit Date Discharge/Departure Date Discharge/Departure Disposition Provider(s) Departed Physician/ Provider Office Visit -[facility] [place] February 14, 2025 8:47am February 14, 2025 10:12am Discharged to home care or self care (routine discharge) Felton Puga MD Recent Diagnosis Onset Date Admit Date Medicare annual wellness visit, subsequent Unkno wn February 14, 2025 8:47am Assessments Diagnosis Onset Date Resolution Status Admit Date Medicare annual wellness visit, subseque nt acute 2024 8:47am Plan of Treatment Author Felton [facility]uga [facility] 9:42amDue for labs and mammogram. Discussed proper diet and regular aerobic exercise.?? Need aerobic exercise 5-6 days a week for 30 minutes at a time.?? Smaller portions and limit total calories.?? Colonoscopy every 10 years.?? Tetanus every 10 years.?? Advised not to smoke.?? Future Tests Future scheduled test information is unavailable Pending Tests Test Name Ordered Date Scheduled Date Comprehensive Metabolic Panel February 14 9:31am MM screening mammo BI w/CADDecember 2024 9:31am Future Visits Future appointment information is unavailable Future Procedures Procedure Name Ordered Date Scheduled Date A1C with Estimated Average Glu February 14 9:31am Complete Blood Count Auto DiffDecember 2024 9:31amLipid PanelDecember 2024 9:31amFree T4 (Free Thyroxine)February 14, 2025 9:31amThyroid Stimulating HormoneDecember 2024 9:31am Future Medications Future medication information is unavailable Patient Instructions Patient instructions are unavailable
--- OUTSIDE RECORDS SUMMARY | 2025-02-27 07:12 | XMS_ITS | Clinical Summary ---
Author Organization [facility] Address [address] [place] [address] Phone Care Team Providers Care Mud Analysis Supervisor Name Role Phone Felton Puga MD Primary Care Provider + Allergies No known active allergies Medications MedicationSigDispense QuantityRefillsLast FilledStart DateEnd DateStatus calcium carbonate-vit D3-min 600 mg-10 mcg (400 unit) tablet Take 1 tablet by mouth twice a day.01/26/2023ctive FLUoxetine (PROzac) 20 mg capsule Take 1 capsule (20 mg) by mouth once daily.01/12/2024ctive levothyroxine (Synthroid, Levoxyl) 100 mcg tablet Take 1 tablet (100 mcg) by mouth once daily.03/18/2023ctive lisinopriL-hydrochlorothiazide 10-12.5 mg tablet Take 1 tablet by mouth once daily.11/23/2022ctive raloxifene (Evista) 60 mg tablet Take 1 tablet (60 mg) by mouth once daily.01/08/2023ctive melatonin 5 mg capsule Take 1 capsule (5 mg) by mouth once daily at bedtime.Active ibuprofen 600 mg tablet Indications:Discontinuity of ossicles of left earTake 1 tablet (600 mg) by mouth every 6 hours if needed for moderate pain (4 - 6) for up to 20 doses. 20 tablet 11/15/2024 9:28 AM EDT5Active Additional Information Patient not taking.Reported on 11/29/2024 traMADol (Ultram) 50 mg tablet Indications:Discontinuity of ossicles of left earTake 1 tablet (50 mg) by mouth every 4 hours if needed for severe pain (7 - 10) ((pain unrelieved by tylenol/ibuprofen)) for up to 12 doses. 12 tablet 11/15/2024 9:28 AM EDT5Active Additional Information Patient not taking.Reported on 11/29/2024 acetaminophen (TylenoL) 325 mg tablet Indications:Discontinuity of ossicles of left earTake 2 tablets (650 mg) by mouth every 6 hours if needed for mild pain (1 - 3) for up to 20 doses. 20 tablet 5Active Additional Information Patient not taking.Reported on 11/29/2024 ciprofloxacin-dexamethasone (CiproDEX) otic suspension Indications:Discontinuity of ossicles of left earAdminister 4 drops into the left ear 2 times a day. Do not fill before November 16, 2024. 7.5 mL 5Active Additional Information Patient not taking.Reported on 11/29/2024 Active Problems ProblemNoted DateDiagnosed DateHTN (hypertension)05/11/20240108Emcebhybmu85/12/2025 Briazhuhlixzdd06/12/2025SF leak from ear05/03/2024holesteatoma of left ear 05/03/2024Mixed conductive and sensorineural hearing loss of left ear with restricted hearing of right ear05/03/2024Discontinuity of ossicles of left ear 05/03/2024 Encounters DateTypeDepartmentCare BwsdUnijymfmppz89/15/2025Telephone [facility] [address] [place] [address] Nadya Blanc RN 11/29/2024 11:30 AM EDTOffice Visit [facility] [address] [place] [address] Victoria Britt MD Post-operative state (Primary Dx); Cholesteatoma of left ear; Mixed conductive and sensorineural hearing loss of left ear with restricted hearing of right ear; 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11/29/2024Travelfrom Last 3 Months Social History Tobacco UseTypesPacks/DayYears UsedDateSmoking Tobacco: NeverPassive Smoke Exposure: NeverSmokeless Tobacco: Never Tobacco Cessation:Counseling Given: Not Answered PHQ-2AnswerDate RecordedPatient Health Questionnaire-2 Qvcqv933/30/2025 CommentsNoSex and Gender InformationValueDate RecordedSex Assigned at BirthNot on fileLegal IgnLbrnwk86/29/2025 9:49 AM ESTGender IdentityNot on fileSexual OrientationNot on file Last Filed Vital Signs Vital SignReadingTime TakenCommentsBlood Finqyxbo263/71011/14/2024 1:30 PM EDT Uzbto216211/14/2024 1:30 PM CKNDaryyvavpre16.3 ??C (97.3 ??F)11/14/2024 1:30 PM EDTRespiratory Jnen972711/14/2024 1:30 PM EDTOxygen Zmrcanfmen38%11/14/2024 1:30 PM EDTInhaled Oxygen Concentration--Gcrvyv30.7 kg (182 lb 4.8 oz)11/29/2024 11:55 AM CLBOariyc486.1 cm (5' 5 )11/14/2024 8:00 AM EDTBody Mass Index30.34 11/14/2024 8:00 AM EDT Plan of Treatment Health MaintenanceDue DateLast DoneCommentsCT Txctgeehspgu1958FIT-DNA (Cologuard)1960FIT1960Lipid Panel1960 5318Lirnxazasdxvw1960 TSH Level1958Welcome to Medicare Visit1960MMR Vaccines (1 of 1 - Standard series)1959Hepatitis C Ewfshjhzk95/19/1976DTaP/Tdap/Td Vaccines (1 - Tdap)01/19/1980Zoster Vaccines (1 of 2)01/19/2008Pneumococcal Vaccine (2 of 2 - PPSV23, PCV20, or PCV21)01/15/201709/2565Irocqustf54/16/202212/, 02/14/2021, 12/06/2019Bone Density Scan3COVID-19 Vaccine (5 - season)504/, 01/03/2021, 06/10/2020, Additional history exists Influenza Vaccine (#1)2024RSV High Risk: (Elderly (60+) or Population) (1 - 1-dose 75+ series)01/18/20335704Vnzwgxszhvg44 Colorectal Cancer Klpvtzyhh77/28/2034HIB VaccinesAged OutNo longer eligible based on patient's age to complete this topicHPV VaccinesAged OutNo longer eligible based on patient's age to complete this topicHepatitis A VaccinesAged OutNo longer eligible based on patient's age to complete this topicHepatitis B VaccinesAged OutNo longer eligible based on patient's age to complete this topic IPV VaccinesAged OutNo longer eligible based on patient's age to complete this topicMeningococcal VaccineAged OutNo longer eligible based on patient's age to complete this topicRotavirus VaccinesAged OutNo longer eligible based on patient's age to complete this topic Medical Devices ImplantedTypeAreaManufacturerDevice IdentifierShelf Expiration DateModel / Serial / LotImplant, Ear, Wild[employer] Pro [place] [employer] - [id number] Implanted:Qty: 1 on 11/14/2024 by [facility] Implant[facility]: [id number] / / [id number] Matrix, Dural, Duragen Plus 1x1 - [id number] Implanted:Qty: 1 on 05/11/2024 by [facility] Brtit [facility] HospitalGraftLeft: CranialINTEGRA LIFESCIENCE:[id number]/ [id number] / / [id number] Insurance Care Teams Team MemberRelationshipSpecialtyStart DateEnd Date Felton Puga MD PCP - GeneralFamily Medicine05/05/24
--- OUTSIDE RECORDS SUMMARY | 2025-02-27 07:12 | XMS_ITS | Clinical Summary ---
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 Name Role Phone Unavailable Primary Care Provider Unavailabl e Allergies No known active allergies Medications MedicationSigDispense QuantityRefillsLast FilledStart DateEnd DateStatus Calcium Carb-Cholecalciferol 600-10 MG-MCG tablet Take 1 tablet by mouth in the morning and 1 tablet before bedtime.01/26/2023 Active meloxicam (Mobic) 15 MG tablet Take 1 tablet by mouth in the morning.3Active levothyroxine (Synthroid, Levoxyl) 100 MCG tablet Indications:Hypothyroidism, unspecifiedTAKE 1 TABLET BY MOUTH DAILY 90 tablet 4Active raloxifene (Evista) 60 MG tablet Indications:Age-related osteoporosis without current pathological fractureTAKE 1 TABLET BY MOUTH DAILY 90 tablet 5Active FLUoxetine (PROzac) 20 MG capsule Indications:ZEESHAN (generalized anxiety disorder)TAKE 1 CAPSULE BY MOUTH DAILY 30 capsule 5Active lisinopril-hydroCHLOROthiazide 10-12.5 MG tablet Indications:Essential hypertension, benignTake 1 tablet by mouth Daily 90 tablet 5Active Active Problems ProblemNoted DateDiagnosed DateChest pain07/11/2024 Assessment & Plan (07/11/2024 9:52 AM EDT): Develops severe SOB, fatigue and chest pain with exertion that resolved with rest. Not able to use treadmill due to OA knees and check lexiscan cardiolyte stress test. Class 1 obesity due to excess calories with serious comorbidity and body mass index (BMI) of 30.0 to 30.9 in adult07/11/2024Medicare annual wellness visit, uggeqqwzff02/12/2024 Assessment & Plan (02/11/2024 10:10 AM EST): Due for labs. Discussed proper diet and regular aerobic exercise. Need aerobic exercise 5-6 days a week for 30 minutes at a time. Smaller portions and limit total calories. Colonoscopy every 10 years. Tetanus every 10 years. Advised not to smoke. Discussed daily Aspirin therapy. Encounter for long-term (current) use of ljcnobowlmy99/12/2024Otorrhea of left ear02/11/2024 Assessment & Plan (02/11/2024 10:11 AM EST): Drainage for months and not able to visualize TM. Refer to ENT for evaluation. ZEESHAN (generalized anxiety disorder)09/29/2023 Assessment & Plan (07/11/2024 9:52 AM EDT): Symptoms controlled with prozac and continue at current dose. Assessment & Plan (10/30/2023 11:21 AM EDT): Symptoms controlled with prozac and continue at current dose. Assessment & Plan (09/29/2023 10:33 AM EDT): Severe symptoms and not functioning well. Start prozac and warned will take 2-3 weeks to notice improvement in mood. Plantar fasciitis of right foot08/19/2023 Assessment & Plan (09/29/2023 10:34 AM EDT): No change in symptoms and getting worse. Repeat prednisone tapered over 12 days. Refer to podiatryfor possible injections. Continue meds as prescribed. If develop new or worsening symptoms contact office. Assessment & Plan (08/19/2023 7:59 AM EDT): History and exam suggestive plantar fasciitis. Start prednisone x 5 days for inflammation and pain.Handout with stretches to patient and ice at end of day. Discussed importance of proper supportive shoes. If continue to have problems will need PT and x-ray. May need podiatry for injections. Continue meds as prescribed. If develop new or worsening symptoms contact office. Essential hypertension, kbczed7702/18/2023 Assessment & Plan (10/30/2023 11:21 AM EDT): BP controlled and monitor PRN. Assessment & Plan (08/19/2023 7:58 AM EDT): BP controlled and monitor PRN. Assessment & Plan (02/18/2023 8:50 AM EST): BP controlled and monitor PRN. Primary osteoarthritis of both knees02/18/2023 Assessment & Plan (07/11/2024 9:53 AM EDT): Pain stable and continue mobic. Increase activity and walk regularly. Assessment & Plan (08/19/2023 7:59 AM EDT): Pain stable and continue mobic. Increase activity and walk regularly. Assessment & Plan (02/18/2023 8:51 AM EST): Pain stable and continue mobic. Increase activity and walk regularly. Dbiullosciyy21/20/2023astroesophageal reflux exlzkuj4402/18/2023rimary drawnbyngajnvw09/20/2023 Assessment & Plan (07/11/2024 9:53 AM EDT): No signs of low thyroid and repeat labs. Continue synthroid. Assessment & Plan (02/18/2023 8:50 AM EST): No signs of low thyroid and recent labs normal. Continue synthroid. Osteoporosis, post-cnotgbqouw94/20/2166Ksaezwxymvu20/20/2023Vitamin D deficiency 02/18/2023Seasonal allergic rhinitis due to mazryu1102/18/2023 Assessment & Plan (08/19/2023 7:59 AM EDT): Symptoms controlled with medication and continue. Assessment & Plan (02/18/2023 8:51 AM EST): Symptoms controlled with medication and continue. Colon cancer iogxvuqbq58/20/2023 Immunizations ImmunizationAdministration DatesNext DuePneumococcal Conjugate PCV 13011/20/2016 Family History Medical HistoryRelationNameCommentsHeart diseaseFatherCADRelationNameStatus CommentsFatherDeceasedMotherDeceased Social History Tobacco UseTypesPacks/DayYears UsedDateSmoking Tobacco: [id number] - 1999Smokeless Tobacco: Never Tobacco Cessation:Counseling Given: Not Answered Alcohol UseStandard Drinks/WeekCommentsNot Currently0 (1 standard drink = 0.6 oz pure alcohol)Humiliation, Afraid, Rape, and Kick questionnaireAnswerDate RecordedWithin the last year, have you been afraid of your partner or ex-partner?No02/17/2023Within the last year, have you been humiliated or emotionally abused in other ways by your partner or ex-partner?No02/17/2023 Within the last year, have you been kicked, hit, slapped, or otherwise physically hurt by your partner or ex-partner?No02/17/2023Within the last year, have you been raped or forced to have any kind of sexual activity by your part ner or ex-partner?No02/17/2023Social Connection and Isolation PanelAnswerDate RecordedIn a typical week, how many times do you talk on the phone with family, friends, or neighbors?More than three times a week02/17/2023How often do you get together with friends or relatives?Three times a week02/17/2023How often do you attend pentecostal or mu-ism services?Patient rwoeldzm02/19/2023o you belong to any clubs or organizations such as pentecostal groups, unions, fraternal or athletic groups, or school groups?No02/17/2023How often do you attend meetings of the clubs or organizations you belong to?Patient dxeytstj65/19/2023re you , , , , never , or living with a partner? 02/17/2023UDIT-CAnswerDate RecordedQ1: How often do you have a drink containing alcohol?2-3 times a week02/17/2023Q2: How many drinks containing alcohol do you have on a typical day when you are drinking?1 or Q3: How often do you have six or more drinks on one occasion?Never02/17/2023Overall Financial Resource Strain (CARDIA)AnswerDate RecordedHow hard is it for you to pay for the very basics like food, housing, medical care, and heating?Patient declined 02/17/2023HQ-2AnswerDate RecordedPatient Health Questionnaire-2 Score0 02/11/2024Exercise Vital SignAnswerDate RecordedOn average, how many days per week do you engage in moderate to strenuous exercise (like a brisk walk)?Patient qsdenngv19/19/2023Minutes of Exercise per SessionNot on file02/17/2023Hunger Vital SignAnswerDate RecordedWithin the past 12 months, you worried that your food would run out before you got the money to buymore.Patient declined 02/17/2023Within the past 12 months, the food you bought just didn't last and you didn't have money to get more.Patient gqfciosd75/19/2023RAPARE - TransportationAnswerDate RecordedIn the past 12 months, has lack of transportation kept you from medical appointments or from getting medications?No 02/17/2023In the past 12 months, has lack of transportation kept you from meetings, work, or from getting things needed for daily living?No02/17/2023 Housing Stability Vital SignAnswerDate RecordedIn the last 12 months, was there a time when you were not able to pay the mortgage or rent on time?No02/17/2023 Number of Places Lived in the Last YearNot on file02/17/2023Unstable Housing in the Last YearNot on file02/17/2023CommentsUnknownSex and Gender InformationValueDate RecordedSex Assigned at BirthNot on fileLegal SexFemale 12/02/2022 1:25 PM EDTGender IdentityNot on fileSexual OrientationNot on file Last Filed Vital Signs Vital SignReadingTime TakenCommentsBlood Wpuvjyyu322/7605/01/2025 9:17 AM EDT Larer8859 9:17 AM USDRovfgcmbadg90.2 ??C (97.1 ??F)07/11/2024 9:17 AM EDTRespiratory Vexx191707/11/2024 9:17 AM EDTOxygen Ljldfkdbye70%07/11/2024 9:17 AM EDTInhaled Oxygen Concentration--Dqkeap39.6 kg (182 lb)07/11/2024 9:17 AM EDT Jimveb913.1 cm (5' 5 )07/11/2024 9:17 AM EDTBody Mass Index30.29007/11/2024 9:17 AM EDT Plan of Treatment DateTypeDepartmentCare Team (Latest Contact Info)Lseflynhdpa63/14/2026 1:45 PM ESTClinical Support [facility] [place] [facility] [address] [place] [address] Evelyn Casey, [facility] [address] [place] [address] Health MaintenanceDue DateLast DoneCommentsCT Rnlaknlaccng1958FIT-DNA 1958FIT1958FOBT1958Medicare Annual Wellness (AWV)1960 Encmgpdoxoadf1958Pneumococcal Vaccine: 65+ Years (2 of 2 - PPSV23, PCV20, or PCV21)Influenza Vaccine (#1)10/31/20246853Tmjinnuxf35/26/2025 02/25/2024, 02/18/2023, 02/18/2023, Additional history existsColonoscopy , 04/29/2023, 4Colorectal Cancer Screening 04/29/2033 Procedures Procedure NamePriorityDate/TimeAssociated DiagnosisCommentsMM TOMOSYNTHESIS SCREENING BI02/25/2024 12:03 PM EST from Last 3 Months or Most Recently Relevant to Health Maintenance Results * MM TOMOSYNTHESIS SCREENING BI (02/25/2024 12:03 PM EST)Anatomical Region LateralityModalityOtherSpecimen (Source)Anatomical Location / Laterality Collection Method / VolumeCollection TimeReceived Time02/25/2024 12:03 PM EST Narrative 02/25/2024 12:04 PM EST [facility] ?[address] ? [place] [address] ? Mammography Report ? Signed ? Patient: WEST,POPPY D ?MR#: [id number] ?? : 1960 ?Acct:[id number] ?? Age/Sex: 64 / F ?ADM Date: 02/25/24 ?? Loc: MAMMO ? Attending Dr: Felton Puga M.D. ? Ordering Physician: Felton Puga M.D. ?Results: ? Date of Service: 02/25/24 ?Follow Up: ? Procedure(s): MM tomosynthesis screening BI ?? Accession Number(s): [id number] ? cc: Felton Puga M.D. ? Patient Name: ? POPPY WEST ? MR#: [id number] ? : 1960 ? Exam Date: 02/25/2024 ?? Ordering Doctor: DR Felton Puga . ? RADIOLOGY REPORT ? PROCEDURE: ? MM TOMOSYNTHESIS SCREENING BI ? COMPARISON: ? MM TOMOSYNTHESIS SCREENING BI, 02/18/2023. ??MG MAMM SCREEN 3D ?? ANTONIA CAD, 02/17/2022. ??MG MAMM SCREEN 3D ANTONIA CAD, 02/14/2021. ??MG MAMM ANTONIA SCRN ?? W CAD DIG, 02/15/2013. ? INDICATIONS: ? Screening ? Calculator Name ? NCI Breast Cancer Risk Assessment Tool ?? 5 Year Breast Cancer Risk ? 1.80% ?? Lifetime Breast Cancer Risk ? 6.50% ?? Personal Breast Cancer ?No ?? Personal Ovarian Cancer ? No ?? Treatments ? None ?? Family Cancers ? None ? LOCATION: ? [facility] ? BREAST COMPOSITION: ? There are scattered areas of fibroglandular density. ? FINDINGS: ? DIAGNOSTIC CATEGORY 1--NEGATIVE. ? RIGHT BREAST: ??No significant suspicious finding. ??No significant change has ?? occurred. ? LEFT BREAST: ??No significant suspicious finding. ??No significant change has ?? occurred. ? RECOMMENDATIONS: ? ROUTINE MAMMOGRAM AND CLINICAL EVALUATION IN 12 MONTHS. ? PLEASE NOTE: ??A NORMAL MAMMOGRAM DOES NOT EXCLUDE THE POSSIBILITY OF BREAST ?? CANCER. ??A CLINICALLY SUSPICIOUS PALPABLE LUMP SHOULD BE BIOPSIED. ? Dictated by: Malcolm Gramajo M.D. on 02/25/2024 at 12:00 ? Approved by: Malcolm Gramajo M.D. on 02/25/2024 at 12:03 ? Dictated By: ?Malcolm Gramajo M.D. ? Signed By: ?02/25/24 1204 ? DD/ 1203 ? TD/TT: ? Jetting Machine Operator: Procedure Note Radiology, Radiologist, - 02/25/2024 [place] [address] Mammography Report Signed Patient: POPPY CHEATHAM [facility]#: [id number] : 8Acct:[id number] Age/Sex: 64 / FADM Date: 02/25/24 Loc: MAMMO Attending Dr: Felton Puga M.D. Ordering Physician: Felton Puga M.D.Results: Date of Service: 02/25/24Follow Up: Procedure(s): MM tomosynthesis screening BI Accession Number(s): [id number] cc: Felton Puga M.D. Patient Name: POPPY CHEATHAM MR#: [id number] : 1960 Exam Date: 02/25/2024 Ordering Doctor: DR Felton Puga . RADIOLOGY REPORT PROCEDURE: MM TOMOSYNTHESIS SCREENING BI COMPARISON: MM TOMOSYNTHESIS SCREENING BI, 02/18/2023. MG MAMM KXTRGT8C ANTONIA CAD, 02/17/2022. MG MAMM SCREEN 3D ANTONIA CAD, 02/14/2021. MG MAMM BILSCRN W CAD DIG, 02/15/2013. INDICATIONS: Screening Calculator Name NCI Breast Cancer Risk Assessment Tool 5 Year Breast Cancer Risk 1.80% Lifetime Breast Cancer Risk 6.50% Personal Breast Cancer No Personal Ovarian Cancer No Treatments None Family Cancers None LOCATION: [facility] BREAST COMPOSITION: There are scattered areas [...] M.D. on 02/25/2024 at 12:03 Dictated By: aMlcolm Gramajo M.D. Signed By:02/25/24 1204 DD/ 1203 TD/TT: Jetting Machine Operator: Authorizing ProviderResult TypeResult StatusMar Vivien [facility] Final Result from Last 3 Months or Most Recently Relevant to Health Maintenance Insurance
--- OUTSIDE RECORDS SUMMARY | 2025-02-27 07:12 | XMS_ITS | CCD ---
Author Organization [facility] Care Team Providers Care Coding Compliance Specialist Name Role Phone Felton Neumann Primary Care Provider [phone] FELTON NEUMANN Referring Unavailabl e NADERER, FELTON JURADO Primary Care Unavailabl e REQUEST, DR SEVILLA [...] NADERER, DR BURKS A Primary Care Unavailable ZiTelly ashford Consulting Unavailable NADERER, DR FELTON Lynn Primary Care Unavailable NADERER, DR FELTON Lynn Admitting Unavailable NADERER, DR FELTON Lynn Attending Unavailable NADERER, DR FELTON Lynn Consulting Unavailable Nill, Marcin Pinedo Attending Unavailable Nill, Marcin Pinedo Admitting Unavailable NADEREKhris, FELTON Primary Care Physician [phone] Marcin VALENTIN Attending Unavailable NADEREKhris, FELTON Referring Unavailable NILL, Marcin Pinedo Attending Unavailable NILEli, Marcin Pinedo Attending Unavailable Thien VANEGAS, Felton Unavailable Felton Neumann MD Primary Care Provider [phone] Felton Neumann MD Unavailable Felton Neumann MD Unavailable Unavailable Primary Care Provider Austin Neumann MD, Felton Jurado Primary Care Provider CONSTANCE SYKES Attending Unavailable NADERER, FELTON Attending Unavailable NADERER, FELTON Attending Unavailable NADERER, FELTON Attending Unavailable NADERER, FELTON Attending Unavailable NADERER, FELTON Attending Unavailable TIMCL, CONSTANCE Mcdonough Attending Unavailable NADERER, FELTON Referring Unavailable TIMCL, CONSTANCE Mcdonough Referring Unavailable ARCHANA MARTIN Attending Unavailable YAZMIN, VICTORIA E Admitting Unavailable YAZMIN, VICTORIA E Attending Unavailable MONY, CONSTANCE KIRK Referring Unavaila ble NADERER, FELTON SHELTON Primary Care Unavailabl e YAZMIN, VICTORIA E Referring Unavailable NADERER, FELTON SHELTON Primary Care Unavailabl e ARCHANA MARTIN Attending Unavailable NADERER, FELTON SHELTON Primary Care Unavailabl e YAZMIN, VICTORIA E Admitting Unavailable YAZMIN, VICTORIA E Attending Unavailable NADERER, FELTON SHELTON Primary Care Unavailabl e YAZMIN, VICTORIA E Attending Unavailable NADERER, FELTON SHELTON Primary Care Unavailabl e YAZMIN, VICTORIA E Attending Unavailable NADERER, FELTON SHELTON Primary Care Unavailabl e YAZMIN, VICTORIA E Attending Unavailable YAZMIN, VICTORIA E Attending Unavailable NADERER, FELTON SHELTON Primary Care Unavailabl e Thien VANEGAS, Felton Primary Care Provider Felton Neumann MD Unavailable Felton Neumann MD Unavailable Allergies Allergy ClassificationReported Allergen(s)Allergy TypeDate of OnsetReaction(s) Facility (1 source)No Known Medication Allergies; Translations: [No Known Medication Allergies]Propensity to adverse reactions (disorder)[facility] Repository Medications Current Medications MedicationDrug Class(es)DatesSig (Normalized)Sig (Original)acetaminophen 325 mg oral tablet (5 sources)Start: 14-33-6364qrnd 2 tablets by mouth every six hours for pain acetaminophen (TylenoL) 325 mg tablet Indications: Discontinuity of ossicles of left ear Take 2 tablets (650 mg) by mouth every 6 hours if needed for mild pain (1 - 3) for up to 20 doses. 20 tablet 11/14/2024 ActiveStart: 36-41-5683cznr 1 tablet by mouth every four hours as mpcvuj456 mg, oral, Every 4 hours PRN, pain mild (1-3), first line, Starting on 11/14/24 at 1229, Recovery (only), When able to take oral medications., If ordered PRN for pain, nurse is permitted to administer this medication for higher pain scores based on patient preference? YesStart: 05-11-2024 End: 66-88-9704lxya 975 mg by mouth once as needed for upxm501 mg, oral, Once, On Thu05/11/24 at 1830, For 1 dose, Recovery (only), If ordered PRN for pain, nu rse is permitted to administer this medication for higher pain scores based on patient preference? YesStart: 05-11-2024 End: 38-83-4401dkkz 2 tablets by mouth every eight hours for painacetaminophen (Tylenol) 500 mg tablet Indications: 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 , Cholesteatoma of left ear Take 2 tablets (1,000 mg) by mouth every 8 hours if needed for mild pain (1 - 3) for up to 15 days. 90tablet 05/11/2024 05/26/2024 Activeamoxicillin 875 mg / clavulanate 125 mg oral tablet (1 source)Penicillin-class AntibacterialStart: 05-11-2024 End: 72-55-7339jkjk 1 tablet by mouth twice dailyamoxicillin-pot clavulanate (Augmentin) 875-125 mg tablet Indications: 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 , Cholesteatoma of left ear Take 1 tablet (875 mg) by mouth 2 times a day for 7 days. 14 tablet 05/11/2024 05/18/2024 Activecalcium carbonate 600 mg / cholecalciferol 0.01 mg oral tablet (20 sources)Vitamin DStart: 33-87-1953bqgm 1 tablet by mouth in the morning Calcium Carb-Cholecalciferol 600-10 MG-MCG tablet Take 1 tablet by mouth in the morning and 1 tablet before bedtime. 01/26/2023 Activecalcium carbonate-vit D3- min 600 mg-10 mcg (400 unit) tablet (7 sources)Start: 15-04-8686fqdv 1 tablet by mouth twice dailycalcium carbonate- vit D3-min 600 mg-10 mcg (400 unit) tablet Take 1 tablet by mouth twice a day. 01/26/2023 Activecalcium chloride 0.0014 meq/ml / potassium chloride 0.004 meq/ml / sodium chloride 0.103 meq/ml / sodium lactate 0.028 meq/ml injectable solution (2 sources)Start: 11-14-2024 End: 65-65-0623xgvj 50 mL intravenously every hour50 mL/hr, intravenous, Continuous, Starting on 11/14/24 at 1245, For 1 day, Recovery (only)Start: 05-11-2024 End: 78-13-5544fres 50 mL intravenously every hour50 mL/hr, intravenous, Continuous, Starting on 05/11/24 at 1745, For 1 day, Recovery (only) ciprofloxacin 3 mg/ml / dexamethasone 1 mg/ml otic suspension (11 sources)Corticosteroid, Quinolone AntimicrobialStart: 11-16-2024 ciprofloxacin-dexamethasone (CiproDEX) otic suspension Indications: Discontinuity of ossicles of left ear Administer 4 drops into the left ear 2 times a day. Do not fill before November 16, 2024. 7.5 mL 11/16/2024 Active Start: 93-83-7191xieygalxzjwgk-dexamethasone (CiproDEX) otic suspension Indications: Discontinuity of ossicles of left ear Administer 4 drops into the left ear 2 times a day. Do not fill before November 16, 2024. 7.5 mL 11/16/2024 ActiveStart: 05-11-2024 End: 62-89-9665xvqgpnwxgbtca-dexamethasone (CiproDEX) otic suspension Indications: 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 , Cholesteatoma of left ear Administer 4 drops into the left ear 2 times a day for 7 days. 7.8 mL 05/11/2024 05/18/2024 Active Start: 03-23-2024 End: 47-32-2910uiqsycefnrhec-dexamethasone (CiproDEX) otic suspension 03/23/2024 05/10/2024 Discontinued (Entered in Error)Start: 03-23-2024 End: 47-40-1296bpihwfuwmypes-dexAMETHasone (CiproDEX) otic suspension Indications: Otorrhea of left ear Administer4 drops into the left ear in the morning and 4 drops before bedtime. Do all this for 7 days. 7.5 mL03/23/2024 03/30/2024 ActiveStart: 02-16-2024 End: 32-62-2850tyazgyszrykqw-dexAMETHasone (CiproDEX) otic suspension Indications: Chronic myringitis of left ear Administer 4 drops into the left ear in the morning and 4 drops before bedtime. Do all this for 7 days. 7.5 mL 02/16/2024 02/23/2024 Activeclotrimazole 10 mg/ml topical solution (7 sources)Azole AntifungalStart: 02-16-2024 End: 03-52-3960rdlsyeeiqydr (Lotrimin) 1 % external solution Indications: Chronic myringitis of left ear 4 drops to left ear 2 times daily for 7 days 10 mL 1 02/16/2024 03/23/2024 Discontinued (Therapy completed)docusate sodium 100 mg oral capsule (1 source)Start: 11-14-2024 End: 98-27-6140bjva 1 capsule by mouth twice daily for paindocusate sodium (Colace) 100 mg capsule Indications: Discontinuity of ossicles of left ear Take 1 capsule (100 mg) by mouth 2 times a day for 10 days. Take while using narcotics for pain control. 20 capsule 11/14/2024 11/24/2024 Activedocusate sodium 50 mg / sennosides, correction 8.6 mg oral tablet (1 source)Start: 05-11-2024 End: 46-50-2541dmrn 1 tablet by mouth once dailysennosides-docusate sodium (Senna with Docusate Sodium) 8.6-50 mg tablet Indications: CSF leak fromear , Cholesteatoma of left ear Take 1 tablet by mouth once daily for 10 days. 10 tablet ActiveFLUoxetine 20 mg oral capsule (20 sources)Serotonin Reuptake InhibitorStart: 10-60-5708bjna 1 capsule by mouth once dailyFLUoxetine (PROzac) 20 mg capsule Take 1 capsule (20 mg) by mouth once daily. 01/12/2024 ActiveStart: 47-48-9132auun 1 capsule by mouth once daily FLUoxetine (PROzac) 20 MG capsule Indications: ZEESHAN (generalized anxiety disorder) (CMS/HCC) Take 1 capsule (20 mg) by mouth Daily 30 capsule 3 09/29/2023 ActivehydroCHLOROthiazide 12.5 mg / lisinopril 10 mg oral tablet (20 sources)Thiazide Diuretic, Angiotensin Converting Enzyme InhibitorStart: 11-23-2022 End: 98-99-6512faew 1 tablet by mouth once dailylisinopriL-hydrochlorothiazide 10-12.5 mg tablet Take 1 tablet by mouth once daily. 11/23/2022 Active0.5 ml HYDROmorphone hydrochloride 1 mg/ml prefilled syringe (4 sources)Opioid AgonistStart: 50.5 mg, intravenous, Every 5 min PRN, pain severe (7-10), first line, Starting on Thu11/14/24 at 1229, Recovery (only), Max total of 4 mg regardless of dose.Start: 50.2 mg, intravenous, Every 5 min PRN, pain moderate (4-6), first line, Starting on Thu11/14/24 at 1229, Recovery (only), Max total of 4 mg regardless of dose.Start: 50.5 mg, intravenous, Every 5 min PRN, pain severe (7-10), first line, Starting on Thu05/11/24 at 1726, Recovery (only), Max total of 4 mg regardless of dose.Start: 50.2 mg, intravenous, Every 5 min PRN, pain moderate (4- 6), first line, Starting on Thu05/11/24 at 1726, Recovery (only), Max total of 4 mg regardless of dose.ibuprofen 600 mg oral tablet (2 sources)Nonsteroidal Anti-inflammatory DrugStart: 62-73-0593kekg 1 tablet by mouth every six hours in the morning for painibuprofen 600 mg tablet Indications: Discontinuity of ossicles of left ear Take 1 tablet (600 mg) by mouth every 6 hours if needed for moderate pain (4 - 6) for up to 20 doses. 20 tablet 11/15/2024 9:28 AM EDT 11/14/2024 Activelevothyroxine sodium 0.1 mg oral tablet (20 sources)l-ThyroxineStart: 09-33-6503gxlt 1 tablet by mouth once daily levothyroxine (Synthroid, Levoxyl) 100 MCG tablet Indications: Hypothyroidism, unspecified TAKE 1 TABLET BY MOUTH DAILY 90 tablet 3 11/05/2023 ActiveStart: 92-09-5629alsn 1 tablet by mouth once dailylevothyroxine 100 mcg (0.1 mg) Tab 100 mcg = 1 tab(s), Oral, Daily, Refills(s) 0 Start Date: 03/18/23 Status: Orderedmelatonin 5 mg oral capsule (5 sources)take 1 capsule by mouth once daily at bedtimemelatonin 5 mg capsule Take 1 capsule (5 mg) by mouth once daily at bedtime. Activemeloxicam 15 mg oral tablet (20 sources)Nonsteroidal Anti-inflammatory DrugStart: 01-08-2023 End: 05-72-9025dnfv 1 tablet by mouth in the morningmeloxicam (Mobic) 15 MG tablet Take 1 tablet by mouth in the morning. 01/09/2023 Activeondansetron 4 mg oral tablet (3 sources)Serotonin-3 Receptor AntagonistStart: 11-14-2024 End: 16-10-2123ednj 1 tablet by mouth every eight hours for nauseaondansetron (Zofran) 4 mg tablet Indications: Discontinuity of ossicles of left ear Take 1 tablet (4 mg) by mouth every 8 hours if needed for nausea or vomiting for up to 3 days. 9 tablet 11/14/2024 11/17/2024 ActiveStart: mg, intravenous, Once as needed, nausea/vomiting, first line, Starting on Thu11/14/24 at 1229, For 1 dose, Recovery (only), When administering via IV Push, administer over 3-5 minutes.Start: mg, intravenous, Once as needed, nausea/vomiting, first line, Starting on Thu05/11/24 at 1726, For 1 dose, Recovery (only), When administering via IV Push, administer over 3-5 minutes.oxyCODONE hydrochloride 5 mg oral tablet (2 sources)Opioid AgonistStart: 90-24-2169sxdq 1 tablet by mouth every four hours as needed5 mg, oral, Every 4 hours PRN, pain moderate (4-6), second line, Starting on Thu11/14/24 at 1229, Recovery (only), When able to take oral medications., If ordered PRN for pain, nurse is permitted to administer this medication for higher pain scores based on patient preference? YesStart: 05-11-2024 End: 49-14-1306mjkn 1 tablet by mouth every six hours for painoxyCODONE (Roxicodone) 5 mg immediate release tablet Indications: 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 , Cholesteatomaof left ear Take 1 tablet (5 mg) by mouth every 6 hours if needed for severe pain (7 - 10) for up to 3 days. 12 tablet 05/11/2024 05/14/2024 Activeoxygen (O2) therapy (1 source)Start: Dose, inhalation, Continuous - O2/gases, oxygen, Starting on Thu11/14/24 at 1229, Recovery (only), Device: Nasal Cannula, Rate in liters per minute: Other, Custom Value: 1-6 LPM, Keep O2 Sat Above:92%predniSONE 10 mg oral tablet (6 sources)Start: 09-29-2023 End: 36-99-8675ydtm 6 tablets by mouth once daily, then take 4 tablets by mouth once daily, then take 2 tablets bymouth once daily, then take 1 tablet by mouth once dailypredniSONE (Deltasone) 10 MG tablet Indications: Plantar fasciitis of right foot 6 PO daily x 3 days, 4 PO daily x 3 days, 2 PO daily x 3 days, 1 PO daily x 3 days 39 tablet 09/29/2023 10/30/2023 Discontinued End: 58-73-3197rrsz 1 tablet by mouth once dailypredniSONE 10 mg tablets,dose pack Take 1 tablet by mouth once daily. 05/10/2024 Discontinued (Entered in Error)prochlorperazine 5 mg/ml injectable solution (1 source)PhenothiazineStart: mg, intravenous, Once as needed, nausea/vomiting, second line, persistent post-op nausea/vomiting, Starting on Thu11/14/24 at 1229, For 1 dose, Recovery (only)promethazine (Phenergan) 12.5 mg in sodium chloride 0.9% 50 mL IV (1 source)Start: 18-23-439695.5 mg, intravenous, Administer over 15 Minutes, Once as needed, nausea/vomiting, first line, Nausea/vomiting, second line, Starting on Thu05/11/24 at 1726, For 1 dose, Recovery (only)raloxifene hydrochloride 60 mg oral tablet (20 sources)Estrogen Agonist/AntagonistStart: 15-54-4567jkqn 1 tablet by mouth once dailyraloxifene (Evista) 60 mg tablet Take 1 tablet (60 mg) by mouth once daily. 01/08/2023 ActivetraMADol hydrochloride 50 mg oral tablet (2 sources)Opioid AgonistStart: 33-27-4265ghte 1 tablet by mouth every four hours in the morning for paintraMADol (Ultram) 50 mg tablet Indications: Discontinuity of ossicles of left ear Take 1 tablet (50mg) by mouth every 4 hours if needed for severe pain (7 - 10) ((pain unrelieved by tylenol/ibuprofen )) for up to 12 doses. 12 tablet 11/15/2024 9:28 AM EDT 11/14/2024 Active Completed/Discontinued Medications MedicationDrug Class(es)DatesSig (Normalized)Sig (Original)DULoxetine 60 mg delayed release oral capsule (3 sources)Serotonin and Norepinephrine Reuptake Inhibitor End: 84-81-9988odjm 1 capsule by mouth every twenty-four hoursDULoxetine (Cymbalta) [address] capsule Take 1 capsule (60 mg) by mouth once every 24 hours. 05/10/2024 Discontinued (Entered in Error)montelukast 10 mg oral tablet (13 sources)Leukotriene Receptor AntagonistStart: 02-01-2023 End: 18-87-4232rwps 1 tablet by mouth once dailymontelukast (Singulair) 10 mg tablet Take 1 tablet (10 mg) by mouth once daily. 02/01/2023 05/10/2024 Discontinued (Entered in Error) Problems Active Problems Problem ClassificationProblemDateDocumented DateEpisodic/ChronicAnal and rectal conditions (1 source)Rectal polyp; Translations: [Rectal polyp]Onset: 63-70-7818Eqbfefov Anxiety disorders (20 sources)Generalized anxiety disorder; Translations: [Generalized anxiety disorder]Onset: 570664-24-5990MajcxhbWwigwzpyn of lipid metabolism (20 sources)Dyslipidemia; Translations: [Hyperlipidemia, unspecified]Onset: 466121-33-7277XuzsjjeZhegyzchig disorders (20 sources)Gastroesophageal reflux disease; Translations: [Gastro-esophageal reflux disease without esophagitis]Onset: 465818-74-1168QrdmkqiUuxpunnsf hypertension (20 sources)Benign essential hypertension; Translations: [Essential (primary) hypertension]Onset: 323700-41-4324HqglhnpMzknzee on above:Outside Source Comment: Last Assessment & Plan: BP controlled and monitor PRN.Mood disorders (6 sources)Depressive disorder; Translations: [Depression]Onset: 05-11-2024 76-11-5946HryqfzhQjcqcydvbns deficiencies (20 sources)Vitamin D deficiency; Translations: [Vitamin D deficiency, unspecified]Onset: 330273-21-1623BbcedmeOxzceckxzbnxxj (20 sources)Primary gonarthrosis, bilateral; Translations: [Bilateral primary osteoarthritis of knee]Onset: 532232-76-2857GyosqgwEktvumcxfxqo (20 sources)Postmenopausal osteoporosis; Translations: [Age-related osteoporosis without current pathological fracture]Onset: 998572-29-3377FlooxqzXvmni and unspecified benign neoplasm (1 source)Hyperplastic polyp of large lwyvkgvuq69-85-6070VkahlscpHilfw ear and sense organ disorders (2 sources)Hearing loss of left ear; Translations: [Other specified hearing loss, left ear]35-37-1492TgfyavnYsimc ear and sense organ disorders (2 sources)Chronic left myringitis; Translations: [Chronic myringitis, left ear] 19-72-0450GhaobhuAlrbl ear and sense organ disorders (13 sources)Mixed conductive AND sensorineural hearing loss; Translations: [Mixed conductive and sensorineural hearing loss, unilateral, left ear with restricted hearing on the contralateral side]Onset: 367686-73-5166Teqvdxg Other ear and sense organ disorders (4 sources)Mixed conductive and sensorineural hearing loss, unilateral, left ear with restricted hearing on the contralateral side; Translations: [Mixed conductive and sensorineural hearing loss, unilateral, left ear with restricted hearing on the contralateral side]Onset: 03-95-2229HazuyikRnfho ear and sense organ disorders (2 sources)Sensorineural hearing loss, unilateral, right ear, with restricted hearing on the contralateral side; Translations: [Sensorineural hearing loss, unilateral, right ear, with restricted hearing on the contralateral side]Onset: 87-79-5398HgymmpdZkpgd ear and sense organ disorders (16 sources)Cerebrospinal fluid otorrhea; Translations: [CSF otorrhea]Onset: 911287-09-9264PprrzqzoTshoq ear and sense organ disorders (14 sources)Cholesteatoma; Translations: [Unspecified cholesteatoma, left ear] Onset: 943196-92-2318CudxfwxuIngfd ear and sense organ disorders (4 sources)Unspecified cholesteatoma, left ear; Translations: [Unspecified cholesteatoma, left ear]Onset: 33-43-3823GmpaxwffOlrai injuries and conditions due to external causes (2 sources)Foreign body in left ear; Translations: [Foreign body in left ear, initial encounter]23-01-7809AeykwyckBuiyq non-traumatic joint disorders (2 sources)Joint pain; Translations: [Pain in unspecified joint]02-11-2024 EpisodicOther nutritional; endocrine; and metabolic disorders (9 sources)Obesity caused by energy imbalance; Translations: [Class 1 obesity due to excess calories with serious comorbidity and body mass index (BMI) of 30.0 to 30.9 in adult]Onset: 999493-99-9335XdctufqCybka nutritional; endocrine; and metabolic disorders (1 source)Richkpsmzt50-30-1125EkfqevvmLnfsl nutritional; endocrine; and metabolic disorders (1 source)Overweight in adulthood with body mass index of 25 or more but less than 5386-20-5290QudhdpzwFpeke upper respiratory disease (20 sources)Allergic rhinitis due to pollen; Translations: [Allergic rhinitis due to pollen]Onset: 514601-60-4341AviohuiFbnezua on above:Outside Source Comment: Last Assessment & Plan: Symptoms controlled with medication and continue.Residual codes; unclassified (1 source)Family history of cancer of zwwpu05-03-2940OjtzvaymWwwdygic codes; unclassified (1 source)Preoperative -19-4787CfqmxtflJauwqjec codes; unclassified (2 sources)Postoperative state; Translations: [Other specified postprocedural states]53-49-7207RmaiwlqjCzgpxsdy codes; unclassified (2 sources)Other specified postprocedural states; Translations: [Other specified postprocedural states]Onset: 20-29-2660UzdmzfhxBxinasq disorders (20 sources)Hypothyroidism, unspecified; Translations: [Unspecified acquired hypothyroidism]Onset: 289263-19-4207XeutkutJuarflfnzmss (5 sources)Patient encounter status; Translations: [Breast cancer screening by mammogram]18-88-2099Xlkkctqehxcy (1 source)Primary hypothyroidismOnset: 626184-04-2578Rigvwlo on above: Outside Source Comment: Last Assessment & Plan: No signs of low thyroid and recent labs normal. Continue synthroid.Unclassified (3 sources)Autogenerated ProblemOnset: 199654-48-2713Zfghzmxllefz (2 sources)Cranial cerebrospinal fluid leak, spontaneous; Translations: [Cranial cerebrospinal fluid leak, spontaneous]Onset: 20-89-9907Yfzbqdqgzbll (2 sources)Post-op; Translations: [Post-op]Onset: 26-90-4944Ofowddlozure (2 sources)Referral; Translations: [Referral]Onset: 05-03-2024 Past or Other Problems Problem ClassificationProblemDateDocumented DateEpisodic/ChronicDiabetes mellitus without complication (20 sources)Prediabetes; Translations: [Prediabetes]Onset: EpisodicMood disorders (20 sources)Mood disordersOnset: 588281-56-5177Ozxxasynuah chest pain (13 sources)Chest pain; Translations: [Chest pain, unspecified]Onset: 07-11-2024 49-88-3562KqejiprzWdqul aftercare (20 sources)Long-term current use of drug therapy; Translations: [Other extermination supervisor (current) drug therapy]Onset: 841199-03-5222OkfpwbwiPabdm connective tissue disease (20 sources)Plantar fasciitis of right foot; Translations: [Plantar fascial fibromatosis]Onset: 385376-26-3835DmjnnklwNbgsx ear and sense organ disorders (20 sources)Otorrhea of left ear; Translations: [Otorrhea, left ear]Onset: 847496-99-2737QaorroywStcpr ear and sense organ disorders (2 sources)Tinnitus, left ear; Translations: [Tinnitus, left ear]Onset: 11-31-3553PkcselqfSynsr ear and sense organ disorders (2 sources)Other specified disorders of left ear; Translations: [Other specified disorders of left ear]Onset: 25-41-3760VrddspjsTpmzh screening for suspected conditions (not mental disorders or infectious disease) (20 sources)Patient encounter status; Translations: [Encounter for screening mammogram for malignant neoplasm of breast]Onset: 33-86-8758KvmpmexqZpraff media and related conditions (13 sources)Dysfunction of left eustachian tube; Translations: [Unspecified Eustachian tube disorder, left ear]Onset: 802816-59-5793Oqgwqphf Unclassified (7 sources)Onset: 05-03-2024 Resolved: 974054-36-5879Gvcxeztavvgs (2 sources)Cranial cerebrospinal fluid leak, spontaneous; Translations: [Cranial cerebrospinal fluid leak, spontaneous]Onset: 05-11-2024 Results Test NameValueInterpretationReference RangeFacilityALL CBC WITH AUTO DIFFon 27-27-3262BSJVWWNNT ABSOLUTE AUTO0.1N[facility] HealthcareBasophils/100 WBC (Bld)1.3 % 0.2 - 2.0 %[facility] HealthcareEosinophils/100 WBC (Bld)1.8 %0.9 - 7.0 %[facility] HealthcareErythrocyte distribution width (RBC) [Ratio]13.5 %11.0 - 15.0 %[facility] HealthcareHematocrit (Bld) [Volume fraction]41.5 %36.0 - 48.0 %[facility] Hemoglobin (Bld) [Mass/Vol]13.5 g/dL12.0 - 16.0 g/dLNOMS HealthcareIMMATURE GRANULOCYTES ABS AUTO0.05HighNOMS HealthcareImmature granulocytes/100 WBC (Bld) 0.9 %High0.0 - 0.5 %[facility] HealthcareInterpretation and review of laboratory resultsAbnormalNOMS HealthcareLYMPHOCYTES ABSOLUTE AUTO1.8[facility] Lymphocytes/100 WBC (Bld)32.7 %20.5 - 60.0 %[facility] HospitalH (RBC) [Entitic mass]29.5 pg26.7 - 34.0 pgWright Memorial HospitalHC (RBC) [Mass/Vol]32.5 g/dL29.9 - 35.2 g/dLWright Memorial HospitalV (RBC) [Entitic vol]90.8 fL81.0 - 99.0 fLSaint Joseph Health CenterMONOCYTES ABSOLUTE AUTO0.4NOGolden Valley Memorial HospitalMonocytes/100 WBC (Bld)7.4 % 1.7 - 12.0 %[facility] CenterNEUTROPHILS ABSOLUTE AUTO3.1[facility] Neutrophils/100 WBC (Bld)55.9 %43.0 - 75.0 %[facility] CenterPlatelet mean volume (Bld) [Entitic vol]10.1 fL9.5 - 13.5 fLSaint Joseph Health CenterTBH EO #0.1[facility] TBH [id number] [facility] SystemTB RBC4.57N[facility] SystemTBH WBC5.5N[facility] HealthcareALL THYROID STIM HORMONEon 50-78-7622WEF Qn1.047 m[IU]/L [facility] CenterCLINISYNCNSaint [facility] KirkwoodSurgical pathology studyon 05-11-2024 Surgical pathology studyPathology report.total SEE COMMENT Surgical Pathology Case: [id number] Authorizing Provider: Victoria Britt MD Collected: 05/11/2024 1433 Ordering Location: [facility] Received: 05/11/2024 [address] [place] Pathologist: Navneet Gurrola MD Specimens: A) - MASTOID CONTENTS LEFT B) - EAR, MIDDLE EAR CONTENTS LEFT Path report.final diagnosis SEE COMMENT A. Left mastoid contents: - Disorganized gliotic tissue, consistent with encephalocele. B. Left middle ear contents: - Keratinizing squamous epithelium and keratin debris, consistent with cholesteatoma. - Mucosal fragment with chronic inflammation. 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 Will Lu (part A) jkw Laboratory comment By the signature on this report, the individual or group listed as making the Final Interpretation/Diagnosis certifies that they have reviewed this case. [...] is submitted in toto in one cassette. 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 [facility] CenterRadiology Study observation (narrative)[facility] CenterCT transfer of outside filmsOrdered By: Radiologist Radiology on 73-49-2866VSPHSaint Joseph Health Center Work Phone: Study Interpretation of outside studyon 05-05-2024 Outside images for comparison or treatment purposes, not interpreted by Radiologists.IMAGINGALL CBC WITH AUTO DIFFon 38-86-6680FMUQCBRPH ABSOLUTE AUTO 0.1NOMS HealthcareBasophils/100 WBC (Bld)0.9 %0.2 - 2.0 %[facility] Eosinophils/100 WBC (Bld)0.9 %0.9 - 7.0 %[facility] HealthcareErythrocyte distribution width (RBC) [Ratio]13.5 %11.0 - 15.0 %NOM HealthcareHematocrit (Bld) [Volume fraction]41.8 %36.0 - 48.0 %NOM HealthcareHemoglobin (Bld) [Mass/Vol]14 g/dL 12.0 - 16.0 g/dLNOMS HealthcareIMMATURE GRANULOCYTES ABS AUTO0.02N[facility] Immature granulocytes/100 WBC (Bld)0.4 %0.0 - 0.5 %NOMS HealthcareLYMPHOCYTES ABSOLUTE AUTO1.7NOMS HealthcareLymphocytes/100 WBC (Bld)29.6 %20.5 - 60.0 %[facility] HospitalH (RBC) [Entitic mass]30.2 pg26.7 - 34.0 pgNOKindred HospitalHC (RBC) [Mass/Vol]33.5 g/dL29.9 - 35.2 g/dLNOKindred HospitalV (RBC) [Entitic vol]90.1 fL 81.0 - 99.0 fLNONJ HealthcareMONOCYTES ABSOLUTE AUTO0.4NOM[facility] Healthcare Monocytes/100 WBC (Bld)7.5 %1.7 - 12.0 %NOMResearch Psychiatric CenterNEUTROPHILS ABSOLUTE AUTO 3.4NOMS HealthcareNeutrophils/100 WBC (Bld)60.7 %43.0 - 75.0 %[facility] Platelet mean volume (Bld) [Entitic vol]9.8 fL9.5 - 13.5 fLNOGolden Valley Memorial HospitalTBH EO #0.1NOMS The Metrohealth SystemTB TCX005AEMU The [facility] SystemTB RBC4.64NOMS The [facility] SystemTB WBC5.6 NOMResearch Psychiatric CenterCLINISYNCNOMS HealthcareECG 12-LEADon 00-16-4232[place] [address] Electrocardiograph Report Signed Patient: KEYON VALENZUELA MR#: [id number] : 1960 Acct:[id number] Age/Sex: 64 / F ADM Date: 05/04/24 Loc: LAB Attending Dr: Victoria Britt M.D. 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 Measurements Intervals [place] Rate: 87 P: 77 TX: 160 QRS: 22 QRSD: 97 T: 68 QT: 357 QTc: 430 Interpretive Statements SINUS RHYTHM INCOMPLETE RIGHT BUNDLE BRANCH BLOCK [90+ ms QRS DURATION, TERMINAL R IN V1/V2, 40+ ms S IN I/aVL/V4/V5/V6] No previous ECG available for comparison Electronically Signed On 05-04-2024 9:09:06 EST by BRAD KUMAR M.D. Dictated By: BRAD KUMAR M.D. Signed By: 05/04/24908 DD/ 9 TD/TT: Casting Supervisor:TBHRadiology, Radiologist, - 05/04/2024 [place] [address] Electrocardiograph Report Signed Patient: KEYON VALENZUELA MR#: [id number] : 1960 Acct:[id number] Age/Sex: 64 / F ADM Date: 05/04/24 Loc: LAB Attending Dr: Victoria Britt M.D. 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 Measurements Intervals [place] Rate: 87 P: 77 TX: 160 QRS: 22 QRSD: 97 T: 68 QT: 357 QTc: 430 Interpretive Statements SINUS RHYTHM INCOMPLETE RIGHT BUNDLE BRANCH BLOCK [90+ ms QRS DURATION, TERMINAL R IN V1/V2, 40+ ms S IN I/aVL/V4/V5/V6] No previous ECG available for comparison Electronically Signed On 05-04-2024 9:09:06 EST by BRAD KUMAR M.D. Dictated By: BRAD KUMAR M.D. Signed By: 05/04/24908 DD/ 0830 TD/TT: Casting Supervisor: [facility] FOR WOMENAnil HealthcareRadiology Study observation (narrative)[facility] CenterEC 12-LEAD Ordered By: Radiologist Radiology on 19-57-2434ZRRE [employer] Work Phone: ct ORBITS/SELLA WO IV CONTRASTon 07-25-1379MK ORBITS/SELLA WO IV CONTRASTTITLE OF EXAM: CT ORBITS/SELLA WO IV CONTRAST [...] jugular, and sigmoid plates are intact. [place]: Normal. LEFT: Treatment Changes: No appreciable surgical intervention. EAC/TM: No abnormal opacification. The tympanic membrane cannot be definitively differentiated from secretions within the middle tympanic cavity. Mastoids: Large volume mastoid effusions; the mastoid air cells are entirely filled with secretions. Questionerosive changes of the tegmen mastoideum at several locations, perhaps most conspicuously series 400/image 199. No appreciable associated intracranial collection. Middle Ear: Near complete filling of the epitympanic cavity. Partial filling of the middle tympanic cavity. Thescutum is sharp, the tegmen tympani is intact. [...] jugular, and sigmoid plates are intact. [place]: Normal. Orbits and face (included portions): Mild [...] electronically signed in approved by the interpreting radiologist.NormalNot AvailableComment on above:Order Comment: CT Temporal WO at [facility]. Please call patient to schedule.ANTINUCLEAR ANTIBODIES, IFAon 38-50-4606WYFTBJIPHDW ANTIBODIES, IFANegative.[facility] HealthcareComment on above: Negative <1:80 Borderline 1:80 Positive >1:80 ICAP nomenclature: AC-0 For more information about Hep-2 cell patterns use ANApatterns.org, the official website for the International Consensus on Antinuclear Antibody (HIRA) Patterns (ICAP). Performed at: [facility] [id number] Assurance Auditor: Sam Landin PhD, Phone: [phone] [facility] RHEUMATOID FACTORon 89-96-8829BJXOOTHPUR FACTOR (RF)<10.0NIRegional Hospital of [facility] Comment on above:Performed at: [facility] [address] [id number] Assurance Auditor: Sam Landin PhD, Phone: [phone] No Panel Informationon 47-86-9077MNCYZAGUHXJXG HealthcareALL CBC WITH AUTO DIFF on 94-30-7777ZJGEXHOBF ABSOLUTE AUTO0.1NOMS HealthcareBasophils/100 WBC (Bld)1.2 %0.2 - 2.0 %NOM HealthcareEosinophils/100 WBC (Bld)1.6 %0.9 - 7.0 %[facility] CenterErythrocyte distribution width (RBC) [Ratio]13.2 %11.0 - 15.0 %[facility] CenterHematocrit (Bld) [Volume fraction]41.1 %36.0 - 48.0 %[facility] Hemoglobin (Bld) [Mass/Vol]13.2 g/dL12.0 - 16.0 g/dLSaint Joseph Health CenterIMMATURE GRANULOCYTES ABS AUTO0.03NOGolden Valley Memorial HospitalImmature granulocytes/100 WBC (Bld)0.5 % 0.0 - 0.5 %[facility] CenterLYMPHOCYTES ABSOLUTE AUTO1.9NOGolden Valley Memorial Hospital Lymphocytes/100 WBC (Bld)32.1 %20.5 - 60.0 %[facility] HospitalH (RBC) [Entitic mass]29 pg26.7 - 34.0 pgWright Memorial HospitalHC (RBC) [Mass/Vol]32.1 g/dL29.9 - 35.2 g/dLSaint Joseph Health CenterMCV (RBC) [Entitic vol]90.3 fL81.0 - 99.0 fLSaint Joseph Health Center MONOCYTES ABSOLUTE AUTO0.6NOGolden Valley Memorial HospitalMonocytes/100 WBC (Bld)10.1 %1.7 - 12.0 %[facility] CenterNEUTROPHILS ABSOLUTE AUTO3.2NOMS HealthcareNeutrophils/100 WBC (Bld)54.5 %43.0 - 75.0 %[facility] CenterPlatelet mean volume (Bld) [Entitic vol] 10.1 fL9.5 - 13.5 fLSaint Joseph Health CenterTB EO #0.1NOMS [facility] SystemTB SPI861[facility] RBC4.55[facility] WBC5.8NOGolden Valley Memorial HospitalCLINISYNCNSaint Joseph Hospital of KirkwoodMM TOMOSYNTHESIS SCREENING BIon 03-92-5042VskMorrist[place], [place] [address] Mammography Report Signed Patient: KEYON VALENZUELA MR#: [id number] : 1960 Acct:[id number] Age/Sex: 64 / F ADM Date: 02/25/24 Loc: MAMMO Attending Dr: Felton Neumann M.D. Ordering Physician: Felton Neumann M.D. Results: Date of Service: 02/25/24 Follow Up: Procedure(s): MM tomosynthesis screening BI Accession Number(s): [id number] cc: Felton Neumann M.D. Patient Name: KEYON VALENZUELA MR#: [id number] : 1960 Exam Date: 02/25/2024 Ordering Doctor: DR Felton Neumann . RADIOLOGY REPORT PROCEDURE: MM TOMOSYNTHESIS SCREENING [...] Treatments None Family Cancers None LOCATION: [facility] BREAST COMPOSITION: There are scattered areas [...] PALPABLE LUMP SHOULD BE BIOPSIED. Dictated by: Telly Lew M.D. on 02/25/2024 at 12:00 Approved by: Telly Lew M.D. on 02/25/2024 at 12:03 Dictated By: Telly Lew M.D. Signed By: 02/25/24 1204 DD/ 1203 TD/TT: Casting Supervisor:TBHRadiology, Radiologist, MD - 02/25/2024 [place] [address] Mammography Report Signed Patient: KEYON VALENZUELA MR#: [id number] : 1960 Acct:[id number] Age/Sex: 64 / F ADM Date: 02/25/24 Loc: MAMMO Attending Dr: Felton Naderer M.D. Ordering Physician: Felton Neumann M.D. Results: Date of Service: 02/25/24 Follow Up: Procedure(s): MM tomosynthesis screening BI Accession Number(s): [id number] cc: Felton Neumann M.D. Patient Name: KEYON VALENZUELA MR#: [id number] : 1960 Exam Date: 02/25/2024 Ordering Doctor: DR Felton Neumann . RADIOLOGY REPORT PROCEDURE: MM TOMOSYNTHESIS SCREENING [...] Treatments None Family Cancers None LOCATION: [facility] BREAST COMPOSITION: There are scattered areas [...] PALPABLE LUMP SHOULD BE BIOPSIED. Dictated by: Telly Lew M.D. on 02/25/2024 at 12:00 Approved by: Telly Lew M.D. on 02/25/2024 at 12:03 Dictated By: Telly Lew M.D. Signed By: 02/25/24 1204 DD/ 1203 TD/TT: Casting Supervisor: NOMS HealthcareRadiology Study observation (narrative)[facility] TOMOSYNTHESIS SCREENING BIOrdered By: Radiologist Radiology on 64-98-4765WCZF Healthcare Work Phone: aLL MISCELLANEOUS TESTon 27-29-5074NGSIEQFZGOULI TEST COMMENT.NOMS HealthcareComment on above:Test Ordered: [id number] Beta-2 Transferrin Beta-2 Transferrin Note: Y8 Not [...] developed and its performance characteristics determined by [employer]. It has not been cleared or approved by the US Food and Drug Administration. This test was performed in a CLIA certified laboratory and is intended for clinical purposes. Performed at: [facility] [address] [id number] Assurance Auditor: Jarocho Fournier [facility], Phone: [phone] Performed at: [address] [id number] Assurance Auditor: Sam Landin PhD, Phone: [phone] LEFT EAR [id number] Beta-2 Transferrin CLINISYNCNONJ HealthcareXR FOOT RT MIN 3Von 56-44-3045HfaMorrist[place], [place] [address] XRay Report Signed Patient: KEYON VALENZUELA MR#: [id number] : 1960 Acct:[id number] Age/Sex: 63 / F ADM Date: 10/08/23 Loc: Attending Dr: Crystal Reis Ordering Physician: Crystal Reis Date of Service: 10/08/23 Procedure(s): XR foot RT min 3V Accession Number(s): [id number] cc: Crystal Reis; Felton Neumann M.D. [place] [id number] Patient Name: KEYON VALENZUELA MRN: [id number] date: 1960 Sex: F Assigned Patient Location: Current Patient Location: Accession/Order Number: [id number] Exam Date: 10/08/2023 11:08 Report Date: 10/12/2023 13:55 At the request of: CRYSTAL REIS Procedure: XR foot RT min 3V PROCEDURE: XR foot RT min 3V COMPARISON: None. HISTORY: RIGHT FOOT PAIN FINDINGS: BONES:No acute fracture or dislocation. Moderate enthesopathic spurring of the calcaneus at the Achilles and plantar insertions SOFT TISSUES:Negative. No visible soft tissue swelling. EFFUSION:None visible. OTHER: Negative. XR/XR foot RT min 3V IMPRESSION: Mild calcaneal enthesopathy Electronically authenticated by: SHANNA VALENZUELA Date: 10/12/2023 13:55 Dictated By: Shanna Valenzuela M.D. Signed By: 10/12/23 1402 DD/ 1355 TD/TT: Casting Supervisor:TBHRadiology, Radiologist, MD - 10/12/2023 [place] [address] XRay Report Signed Patient: KEYON VALENZUELA MR#: [id number] : 1960 Acct:[id number] Age/Sex: 63 / F ADM Date: 10/08/23 Loc: Attending Dr: Crystal Reis Ordering Physician: Crystal Reis Date of Service: 10/08/23 Procedure(s): XR foot RT min 3V Accession Number(s): [id number] cc: Crystal Reis; Felton Neumann M.D. [place] [id number] Patient Name: KEYON VALENZUELA MRN: [id number] date: 1960 Sex: F Assigned Patient Location: Current Patient Location: PT Accession/Order Number: [id number] Exam Date: 10/08/2023 11:08 Report Date: 10/12/2023 13:55 At the request of: CRYSTAL REIS Procedure: XR foot RT min 3V PROCEDURE: XR foot RT min 3V COMPARISON: None. HISTORY: RIGHT FOOT PAIN FINDINGS: BONES:No acute fracture or dislocation. Moderate enthesopathic spurring of the calcaneus at the Achilles and plantar insertions SOFT TISSUES:Negative. No visible soft tissue swelling. EFFUSION:None visible. OTHER: Negative. XR/XR foot RT min 3V IMPRESSION: Mild calcaneal enthesopathy Electronically authenticated by: SHANNA VALENZUELA Date: 10/12/2023 13:55 Dictated By: Shanna Valenzuela M.D. Signed By: 10/12/23 3889 DD/ 1928 TD/TT: Casting Supervisor: NELI HealthcareRadiology Study observation (narrative)NELI HealthcareXR FOOT RT MIN 3VOrdered By: Radiologist Radiology on 67-13-2352TVXK Healthcare Work Phone: ambulatory Visit Summaryon 26-13-5473Puylqjovpt Visit Summary KEYON VALENZUELA :1960 Visit Date:05/12/2023 Ambulatory Visit Instructions Your Diagnosis Hyperplastic rectal polyp Your Care Team Attending Physician - BARBIE VANEGAS, Marcin Pinedo Primary Care Physician - THIEN VANEGAS, FELTON This Is Your Medications List Contact prescribing physician if questions or concerns hydrochlorothiazide-lisinopril (hydrochlorothiazide-lisinopril 12.5 mg-10 mg Tab) levothyroxine (levothyroxine 100 mcg (0.1 mg) Tab) meloxicam (meloxicam 15 mg Tab) montelukast (montelukast 10 mg Tab) raloxifene (raloxifene 60 mg Tab) Procedures Performed Colonoscopy (04/29/2023), Cholecystectomy, Colonoscopy, MICHELLE BSO - Total abdominal hysterectomy and bilateral salpingo-oophorectomy. Medications What How Much When Instructions Unchanged hydrochlorothiazide-lisinopril (hydrochlorothiazide-lisinopril 12.5 mg-10 mg Tab) 1 Tablets By [...] you for choosing us for your care. [facility] HospitalGeneral Surgery Office/Clinic Noteon 71-13-2989Sjyyipe Surgery Office/Clinic NoteChief Complaint colonoscopy follow up HPI Staff 13 [...] swallowing difficulties, no hearing loss, no ear infection(s),no nose bleeds. Cardiovascular: normal blood pressure, no [...] Tobacco Use:. Never Smokeless Tobacco Use:. Cigarettes, 3per day. Started age 28.0 Years. Stopped age 38 Years., 04/07/2023 Family History Aneurysm: Father. Primary malignant neoplasm of colon: Sister. Immunizations Vaccine Date Status Comments influenza virus vaccine, inactivated - Not Given Patient Refuses SARS-CoV-2 (COVID-19) mRNA-1273 vaccine 06/15/2021 Recorded SARS-CoV-2 (COVID-19) mRNA-1273 vaccine 01/03/2021 Recorded SARS-CoV-2 (COVID-19) mRNA-1273 vaccine 06/10/2020 Recorded SARS-CoV-2 (COVID-19) mRNA-1273 vaccine 05/14/2020 Recorded 2023-03-18: TPV60 [facility] HospitalComment on above:Result Comment: Electronically Signed By: BARBIE VANEGAS, Marcin Travis.br\Date and Time Signed: 05/12/23 13:08 EDT Reminderson 13-99-9194Lkmzysqtp From: Nasima Truong LPN To: N - Clinical; Sent: 05/12/2023 13:00:44 EDT Show up: 03/29/2028 07:00:00 EST Subject: colonoscopy recall Due Date/Time: 04/29/2028 07:00:00 EST Reminder/Recall Patient due for surveillance colonoscopy 04/29/2028 due to family history of colon cancer.[facility] HospitalPathology Noteon 05-06-2023 Pathology [id number]#1.00TIFFAdams County HospitalOutside Colonoscopyon 25-44-8949Vhroiiw Colonoscopy [id number]#1.00TIFLancaster Municipal HospitalLon 15-68-0483QBnlzpuuy: [id number] Received: 05/01/23 Status: JAQCUELIN Best Num: [id number] Spec Type: Surgical Subm Dr: Marcin Valentin MD FACS Tissues: A Colon Biopsy (RECTAL POLYP) Procedures: HE/2, Gross/Micro L4 Age/ Patient Sex Location Account Attending Physician Keyon Valenzuela 63/F LABELL [id number] Marcin Valentin MD FACS SPEC NUM: [id number] RECD: 05/01/23 STATUS: OLIVIAKiersten BEST NUM: [id number] ANDREA: 04/29/[address]: Marcin Valentin MD FACS ENTERED: 05/01/[address] [facility] [address]: MagyLab SPEC TYPE: Surgical DEPT: OSWALD RADER ORDERED: HE/2, Gross/Micro L4 ORDERED: HE/2, Gross/Micro L4 Pathological Diagnosis Rectal polyp biopsy: -Small serrated hyperplastic polyp Clinical Information Rectal polyp, sigmoid diverticulosis Gross Description Received in formalin labeled with the patient's name, date of and rectal polyp is one reyna tissue measuring 0.3 cm. Entirely submitted in one cassette labeled A1. CPT Codes 17005 Specimen: [id number] Received: 05/01/23 Status: JACQUELIN Best Num: [id number] Spec Type: Surgical Subm Dr: Marcin Valentin MD FACS Tissues: A Colon Biopsy (RECTAL POLYP) Procedures: KIKA/Steven Napier/Terrie L4 Patient: Keyon Valenzuela [id number] (Continued) Signed (signature on file) Chin-Fernando Billingsley, MD 05/04/23 1840NoUniversity Hospitals Health SystemConsent for Procedure/Surgeryon 75-54-2281Fiiilda for Procedure/Surgery [id number]#1.00TIFFGerardoFormerly [facility], 1928–1983mingo [facility] CenterAmbulatory Visit Summaryon 48-40-1085Qsavnglpxv Visit Summary KEYON VALENZUELA :1960 Visit Date:04/07/2023 Ambulatory Visit Instructions Your Care Team Attending Physician - BARBIE VANEGAS, Marcin Pinedo Primary Care Physician - THIEN VANEGAS, FELTON Referring Physician - FELTON NEUMANN MD This Is Your Medications List Contact prescribing physician if questions or concerns hydrochlorothiazide-lisinopril (hydrochlorothiazide-lisinopril 12.5 mg-10 mg Tab) levothyroxine (levothyroxine 100 [...] Medications What How Much When Instructions Unchanged hydrochlorothiazide-lisinopril (hydrochlorothiazide-lisinopril 12.5 mg-10 mg Tab) 1 Tablets By [...] you for choosing us for your care. [facility] HospitalFacesheeton 27-58-4698Wxhmleite [id number]#1.00TIFLancaster Municipal HospitalInsurance Correspondenceon 67-36-9588Bzaugzjru Correspondence [id number]#1.00TIFLancaster Municipal HospitalPhysician Referralon 99-66-4068Twgxaqgvg Referral [id number]#1.00TIFLancaster Municipal HospitalXR DEXA AXIAL SKELETONon 53-65-6643Dno[address] [address] XRay Report Signed Patient: KEYON VALENZUELA MR#: [id number] : 1960 Acct:[id number] Age/Sex: 63 / F ADM Date: 02/24/23 Loc: RAD Attending Dr: Felton Neumann M.D. Ordering Physician: Felton Neumann M.D. Date of Service: 02/24/23 Procedure(s): XR DEXA axial skeleton Accession Number(s): [id number] cc: Felton Neumann M.D. [address] [address] Patient Name: KEYON VALENZUELA MRN: [id number] date: 1960 Sex: F Assigned Patient Location: [facility] Current Patient Location: RAD Accession/Order Number: [id number] Exam Date: 02/24/2023 08:30 Report Date: 02/24/2023 08:47 At the request of: FELTON NEUMANN Procedure: XR DEXA axial skeleton EXAMINATION: [...] - Moderate Fracture Risk Electronically authenticated by: TELLY LEW Date: 02/24/2023 08:47 Dictated By: Telly Lew M.D. Signed By: 02/24/2350 DD/ TD/TT: Casting Supervisor:TBHRadiology, Radiologist, - 02/24/2023 [place] [address] XRay Report Signed Patient: KEYON VALENZUELA MR#: [id number] : 1960 Acct:[id number] Age/Sex: 63 / F ADM Date: 02/24/23 Loc: [place] Attending Dr: Felton Neumann M.D. Ordering Physician: Felton Neumann M.D. Date of Service: 02/24/23 Procedure(s): XR DEXA axial skeleton Accession Number(s): [id number] cc: Felton Neumann M.D. The [address] [address] Patient Name: KEYON VALENZUELA MRN: [id number] date: 1960 Sex: F Assigned Patient Location: [facility] Current Patient Location: RAD Accession/Order Number: [id number] Exam Date: 02/24/2023 08:30 Report Date: 02/24/2023 08:47 At the request of: FELTON NEUMANN Procedure: XR DEXA axial skeleton EXAMINATION: [...] - Moderate Fracture Risk Electronically authenticated by: TELLY LEW Date: 02/24/2023 08:47 Dictated By: Telly Lew M.D. Signed By: 02/24/23849 DD/ 6 TD/TT: Casting Supervisor: NELI HealthcareRadiology Study observation (narrative)NOM HealthcareXR DEXA AXIAL SKELETONOrdered By: Radiologist Radiology on 38-07-3425TRLGSaint Joseph Health Center Work Phone: Physician Referralon 23-30-4751Uwvzsjalg Referral [id number]#1.00TIFFNoalUniversity Hospitals Ahuja Medical CenterMM TOMOSYNTHESIS SCREENING BIon 49-70-4092Tcx[address] [address] Mammography Report Signed Patient: KEYON VALENZUELA MR#: [id number] : 1960 Acct:[id number] Age/Sex: 63 / F ADM Date: 02/18/23 Loc: MAMMO Attending Dr: Felton Neumann M.D. Ordering Physician: Felton Neumann M.D. Results: Date of Service: 02/18/23 Follow Up: Procedure(s): MM tomosynthesis screening BI Accession Number(s): [id number] cc: Felton Neumann M.D. Patient Name: KEYON VALENZUELA MR#: [id number] : 1960 Exam Date: 02/18/2023 Ordering Doctor: [...] Treatments None Family Cancers None LOCATION: [facility] BREAST COMPOSITION: Scattered areas fibroglandular [...] PALPABLE LUMP SHOULD BE BIOPSIED. Dictated by: Shanna Valenzuela MD on 02/18/2023 at 11:37 Approved by: Shanna Valenzuela MD on 02/18/2023 at 11:38 Dictated By: Shanna Valenzuela M.D. Signed By: 02/18/23 1139 DD/ 1138 TD/TT: Casting Supervisor:TBHRadiology, Radiologist, - 02/18/2023 [place] [address] Mammography Report Signed Patient: KEYON VALENZUELA MR#: [id number] : 1960 Acct:[id number] Age/Sex: 63 / F ADM Date: 02/18/23 Loc: MAMMO Attending Dr: Felton Neumann M.D. Ordering Physician: Felton Neumann M.D. Results: Date of Service: 02/18/23 Follow Up: Procedure(s): MM tomosynthesis screening BI Accession Number(s): [id number] cc: Felton Neumann M.D. Patient Name: KEYON VALENZUELA MR#: [id number] : 1960 Exam Date: 02/18/2023 Ordering Doctor: DR Felton Neumann . RADIOLOGY REPORT PROCEDURE: MM TOMOSYNTHESIS SCREENING BI COMPARISON: MG MAMM SCREEN 3D ANTONIA CAD, 02/14/2021. MG MAMM SCREEN 3D ANTONIA CAD, 02/17/2022. INDICATIONS: screening Calculator Name NCI Breast Cancer Risk Assessment Tool 5 Year Breast Cancer Risk 1.80% Lifetime Breast Cancer Risk 6.80% Personal Breast Cancer No Personal Ovarian Cancer No Treatments None Family Cancers None LOCATION: [facility] BREAST COMPOSITION: Scattered areas fibroglandular [...] PALPABLE LUMP SHOULD BE BIOPSIED. Dictated by: Shanna Valenzuela MD on 02/18/2023 at 11:37 Approved by: Shanna Valenzuela MD on 02/18/2023 at 11:38 Dictated By: Shanna Valenzuela M.D. Signed By: 02/18/23 1139 DD/ 1138 TD/TT: Casting Supervisor: [facility] HealthcareRadiology Study observation (narrative)[facility] TOMOSYNTHESIS SCREENING BIOrdered By: Radiologist Radiology on 22-67-7785MJUN [employer] Work Phone: DAT - TSHon 06-14-5267VMZ4.292 uIU/mLNormal0.390-3.186 [facility] HospitalComment on above:Performed By: #### DATTSH #### [facility] [address] [place] [address] Dr. Mela Sr RANGESEE BELOWNormalThe Wellsburg HospitalComment on above: Result Comment: <0.34 UIU/ml HYPERTHYROID 0.34-5.60 UIU/ml EUTHYROID >5.60 UIU/ml HYPOTHYROIDPerformed By: #### DATTSH #### [facility] [address] [place] [address] Dr. Mela BillingsleyGLYCOHEMOGLOBIN A1Con [id number] RECOMMENDATIONSEE BELOWNormal The [facility] HospitalComment on above:Result Comment: ADA RECOMMENDED LIMIT 4.0 - 6.0 ADA THERAPEUTIC TARGET < 7.0 ACTION SUGGESTED > 7.0Performed By: #### DATA1C #### [facility] [address] [address] [address] Mela BillingsleyGlucose [Mass/Vol]117 mg/dLNormalThe [facility] HospitalComment on above:Performed By: #### DATA1C #### [facility] [address] [address] [address] Mela BillingsleyHbA1c (Bld) [Mass fraction]5.7 %Normal4.5-6.2The [facility] HospitalComment on above:Performed By: #### DATA1C #### [facility] [address] [address] [address] Mela BillingsleyMG MAMM SCREEN 3D ANTONIA CADon [id number] MAMM SCREEN 3D ANTONIA CAD Patient: KEYON VALENZUELA Exam Date: 02/17/2022 : 1960 Gender:F Ordering : DR FELTON NEUMANN . Admission #: [id number] Family : Order #: [id number] CLICK HERE TO VIEW EXAM RADIOLOGY REPORT [...] Treatments None Family Cancers None LOCATION: [facility] BREAST COMPOSITION: Scattered areas fibroglandular [...] PALPABLE LUMP SHOULD BE BIOPSIED. Dictated by: Telly Lew M.D. on 02/18/2022 at 10:14 Approved by: Telly Lew M.D. on 02/18/2022 at 11:38[facility] SpringfieldDAT - TSHon [id number] uIU/mLCritically low0.358-3.740[facility] HospitalComment on above:Performed By: #### DATTSH #### [facility] [address] [place] [address] Dr. Mela Sr [facility] HospitalComment on above: Result Comment: <0.34 UIU/ml HYPERTHYROID 0.34-5.60 UIU/ml EUTHYROID >5.60 UIU/ml HYPOTHYROIDPerformed By: #### DATTSH #### [facility] [address] [place] [address] Dr. Mela Casas AUTO DIFFon [id number] #0.1 103/ulNormal0.0-0.1[facility] HospitalComment on above:Performed By: #### DATCBC #### [facility] [address] [place] [address] Dr. Mela BillingsleyBasophils/100 WBC (Bld)1.3 %Normal0.2-2.0[facility] Comment on above:Performed By: #### DATCBC #### [facility] [address] [place] [address] Dr. Mela Kevin #0.1 103/ulNormal0.0-0.7The [facility] HospitalComment on above: Performed By: #### DATCBC #### [facility] [address] [place] [address] Dr. Mela Kilpatrickosinophils/100 WBC (Bld)1.7 %Normal0.9-7.0[facility] Comment on above:Performed By: #### DATCBC #### [facility] [address] [place] [address] Dr. Mela Kilpatrickrythrocyte distribution width (RBC) [Ratio]13.3 %Tyjcwb18.0-15.0 The [facility] HospitalComment on above:Performed By: #### DATCBC #### [facility] [address] [place] [address] Dr. Mela BillingsleyHematocrit (Bld) [Volume fraction]40.1 %Ngnnck08.0-48.0The [facility] HospitalComment on above:Performed By: #### DATCBC #### [facility] [address] [place] [address] Dr. Mela BillingsleyHemoglobin (Bld) [Mass/Vol]13.1 g/cMBgvtpy99.0-16.0The [facility] HospitalComment on above:Performed By: #### DATCBC #### [facility] [address] [place] [address] Dr. Mela Yee #0.03 10e3/ulNormal0.00-0.03The [facility] HospitalComment on above:Performed By: #### DATCBC #### [facility] [address] [place] [address] Dr. Mela Yee %0.6 %Critically high0.0-0.5The [facility] HospitalComment on above:Performed By: #### DATCBC #### [facility] [address] [place] [address] Dr. Mela CamejoMPH #1.6 103/ulNormal1.2-3.8The [facility] HospitalComment on above:Performed By: #### DATCBC #### [facility] [address] [place] [address] Dr. Mela Camejomphocytes/100 WBC (Bld)34.4 %Kqobmj32.5-60.0The [facility] HospitalComment on above:Performed By: #### DATCBC #### [facility] [address] [place] [address] Dr. Mela Tatum (RBC) [Entitic mass]29.5 tuEduyoh40.7-34.0The [facility] HospitalComment on above:Performed By: #### DATCBC #### [facility] [address] [place] [address] Dr. Mela Tatum (RBC) [Mass/Vol]32.7 g/nZDxuxwc02.9-35.2The [facility] HospitalComment on above:Performed By: #### DATCBC #### [facility] [address] [place] [address] Dr. Mela Tatum (RBC) [Entitic vol]90.3 vZLnwbja81.0-99.0The [facility] HospitalComment on above:Performed By: #### DATCBC #### [facility] [address] [place] [address] Dr. Mela Reynoso #0.4 103/ulNormal0.3-0.8The [facility] HospitalComment on above:Performed By: #### DATCBC #### [facility] [address] [place] [address] Dr. Mela Finchocytes/100 WBC (Bld)9.0 %Normal1.7-12.0[facility] Comment on above:Performed By: #### DATCBC #### [facility] [address] [place] [address] Dr. Mela Adam #2.5 103/ulNormal1.4-6.5The [facility] HospitalComment on above:Performed By: #### DATCBC #### [facility] [address] [place] [address] Dr. Mela Becerrautrophils/100 WBC (Bld)53.0 %Vyeapb90.0-75.0The [facility] HospitalComment on above:Performed By: #### DATCBC #### [facility] [address] [place] [address] Dr. Yilan ChangPlatelet mean volume (Bld) [Entitic vol]10.0 fLNormal9.5-13.5The [facility] HospitalComment on above:Performed By: #### DATCBC #### [facility] [address] [place] [address] Dr. Mela MoraT243 103/gyNbqxbq322-490Szn [facility] HospitalComment on above: Performed By: #### DATCBC #### [facility] [address] [place] [address] Dr. Mela BillingsleyRBC4.44 106/ulNormal4.20-5.40The [facility] HospitalComment on above:Performed By: #### DATCBC #### [facility] [address] [place] [address] Dr. Mela ColeBC4.8 103/ulNormal4.0-11.0The [facility] HospitalComment on above: Performed By: #### ELDERCBC #### [facility] [address] [place] [address] Dr. Mela Murrieta - TSHon 33-92-0621TRR3.178 uIU/mLCritically low0.358-3.740The [facility] HospitalComment on above:Performed By: #### ALVARO CORTEZ #### [facility] [address] [place] [address] Dr. Mela Sr [facility] HospitalComment on above: Result Comment: <0.34 UIU/ml HYPERTHYROID 0.34-5.60 UIU/ml EUTHYROID >5.60 UIU/ml HYPOTHYROIDPerformed By: #### ELDERBMP, DATTSH #### [facility] [address] [place] [address] Dr. Mela Murrieta- BMP WITH LIPIDon 95-47-8150Pmpon gap [Moles/Vol]13.1 mmol/L NormalThe [facility] HospitalComcorewell health [facility] on above:Performed By: #### ELDERBMP, DATTSH #### [facility] [address] [place] [address] Dr. Mela BillingsleyCalcium [Mass/Vol]9.0 mg/dLNormal8.5-10.1[facility] Comment on above:Performed By: #### DATBMP, DATTSH #### [facility] [address] [address] [address] Mela BillingsleyChloride [Moles/Vol]104 mmol/IImnddy08-215Idk [facility] Comment on above:Performed By: #### DATBMP, DATTSH #### [facility] [address] [address] [address] Mela BillingsleyCholesterol [Mass/Vol]193 mg/dLNormal<=200[facility] Comment on above:Performed By: #### DATBMP, DATTSH #### [facility] [address] [place] [address] Dr. Mela BillingsleyCholesterol in HDL [Mass/Vol]62 mg/dLCritically ygaz42-12Nuy [facility] HospitalComment on above:Performed By: #### DATBMP, DATTSH #### [facility] [address] [address] [address] Mela Hawleyesterol in LDL [Mass/Vol]120.0 mg/dLNormalThe [facility] HospitalComment on above:Performed By: #### DATBMP, DATTSH #### [facility] [address] [place] [address] Dr. Mela BillingsleyCO2 [Moles/Vol]27.0 mmol/YBxeucm90.0-32.0[facility] Comment on above:Performed By: #### DATBMP, DATTSH #### [facility] [address] [place] [address] Dr. Mela BillingsleyCreatinine [Mass/Vol]0.86 mg/dLNormal0.55-1.02The [facility] HospitalComment on above:Performed By: #### DATBMP, DATTSH #### [facility] [address] [address] [address] Plaza ChangEGFR-AF PRYDEINIG>60Normal>=60The [facility] HospitalComment on above:Performed By: #### DATBMP, DATTSH #### [facility] [address] [address] [address] Mela Murillo-NON AF PRYDEINIG>60Normal>=60The [facility] HospitalComment on above:Performed By: #### DATBMP, DATTSH #### [facility] [address] [address] [address] Mela Kramer NORMAL> or = 60 mg/dl - LOW CARDIOVASCULAR RISK <40 mg/dl - HIGH CARDIOVASCULAR RISKKettering Health SpringfieldComment on above:Performed By: #### DATBMP, DATTSH #### [facility] [address] [address] [address] Mela BillingsleyLDL CALC NORMALSEE BELOWKettering Health SpringfieldComment on above:Result Comment: <100 mg/dl OPTIMAL 100 - 129 mg/dl NEAR OR ABOVE OPTIMAL 130 - 159 mg/dl BORDERLINE HIGH 160 - 189 mg/dl HIGH >190 mg/dl VERY HIGH Performed By: #### DATBMP, DATTSH #### [facility] [address] [address] [address] Mela BillingsleyPotassium [Moles/Vol]4.1 mmol/LNormal3.5-5.1[facility] Comment on above:Performed By: #### DATBMP, DATTSH #### [facility] [address] [address] [address] Mela BillingsleySodium [Moles/Vol]140 mmol/BLaledw967-760Rsg [facility] Comment on above:Performed By: #### DATBMP, DATTSH #### [facility] [address] [address] [address] Mela BillingsleyTriglyceride [Mass/Vol]55 mg/dLNormal<=150The [facility] Comment on above:Performed By: #### DATBMP, DATTSH #### [facility] [address] [address] [address] Mela BillingsleyUrea nitrogen [Mass/Vol]14.0 mg/dLNormal7.0-18.0The [facility] HospitalComment on above:Performed By: #### DATBMP, DATTSH #### [facility] [address] [place] [address] Dr. Mela BillingsleyUrea nitrogen/Creatinine [Mass ratio]16.3 mg/mgNoSCCI Hospital LimaComcorewell health [facility] on above:Performed By: #### DATBMP, DATTSH #### [facility] [address] [place] [address] Dr. Mela BillingsleyVLDL CALC11.0 mg/dLNoSCCI Hospital LimaComcorewell health [facility] on above: Performed By: #### DATBMP, DATTSH #### [facility] [address] [place] [address] Dr. Mela BillingsleyGLYCOHEMOGLOBIN A1Con 20-13-5781EKY RECOMMENDATIONSEE BELOWNormal The [facility] HospitalComcorewell health [facility] on above:Result Comment: ADA RECOMMENDED LIMIT 4.0 - 6.0 ADA THERAPEUTIC TARGET < 7.0 ACTION SUGGESTED > 7.0Performed By: #### DATA1C #### [facility] [address] [place] [address] Dr. Mela BillingsleyGlucose [Mass/Vol]111 mg/dLCritically sihe23-704Hfi [facility] on above:Performed By: #### DATA1C #### [facility] [address] [place] [address] Dr. Mela BillingsleyPerformed By: #### DATBMP, DATTSH #### [facility] [address] [place] [address] Dr. Mela BillingsleyHbA1c (Bld) [Mass fraction]5.5 %Normal4.5-6.2[facility] on above:Performed By: #### DATA1C #### [facility] [address] [place] [address] Dr. Mela Willoughby QUEENIE DIGITAL SCREEN BILATERALon [id number] QUEENIE DIGITAL SCREEN BILATERALEXAMINATION: SCREENING DIGITAL BILATERAL MAMMOGRAM WITH TOMOSYNTHESIS, 02/14/2021 [...] to the patient regarding the results. [employer] recommends annual mammograms for women 40 years and older. Interpreted by: Case Licona DO Signed by: Case Licona DO 02/14/21 Final resultNormalKettering [facility] mammographic evidence of malignancy. BIRADS: BIRADS - CATEGORY 1 Negative. Normal interval follow-up is recommended in 12 months. OVERALL ASSESSMENT - NEGATIVE A letter of notification will be sent to the patient regarding the results. [employer] recommends annual mammograms for women 40 years and older. [facility] CONSOLIDATEDEXAMINATION: SCREENING DIGITAL BILATERAL MAMMOGRAM WITH TOMOSYNTHESIS, 02/14/2021 [...] concerning grouping of microcalcification in either breast. [facility] CONSOLIDATEDRadiology Study observation (narrative)AdECN Phone: maM QUEENIE DIGITAL SCREEN BILATERALOrdered By: Case Licona on [id number] Work Phone: maM QUEENIE DIGITAL SCREEN BILATERALon [id number] evidence of malignancy. Advise annual screening mammography. BI-RADS 1 BIRADS: BIRADS - CATEGORY1 Negative, no evidence of malignancy in either breast. OVERALL ASSESSMENT - NEGATIVE A letter of notification will be sent to the patient regarding the results. RECOMMENDATION: Routine bilateral annual screening mammography is recommended. Follow-up screening mammogram in 1 year is advised. [place], [place]: SCREENING DIGITAL BILATERAL MAMMOGRAM WITH TOMOSYNTHESIS, 12/06/2019 TECHNIQUE: Screening mammography was performed with tomosynthesis including MLO and CC views of the bilateral breasts.Computer aided detection was used for the interpretation of this exam. COMPARISON: 30 November 2018, [facility]; 29 February 2016[facility] HISTORY: Screening. Negative family history of breast cancer. Negative history of hormonal replacement therapy. No prior breast interventions. FINDINGS: The breasts are composed of scattered fibroglandular densities. No skin thickening, nipple contour changes, malignant type microcalcifications, areas of architectural distortion, or significant interval changes are noted.[facility] Direct Vet MarketingSSM REHABAleena, Rox Incoming Radiant Results From [employer] - 12/06/2019 1:27 PM EDT EXAMINATION: SCREENING DIGITAL BILATERAL MAMMOGRAM WITH TOMOSYNTHESIS, 12/06/2019 TECHNIQUE: Screening mammography was performed with tomosynthesis including MLO and CC views of the bilateral breasts. Computer aided detection was used for the interpretation of this exam. COMPARISON: 30 November 2018, [facility]; 29 February 2016[facility] HISTORY: Screening. Negative family history of [...] screening mammogram in 1 year is advised. [facility] CenterMiyowaSSM REHABYARED DIGITAL SCREEN W OR WO CAD BILATERALon [id number] evidence of malignancy. Advise annual screening mammography. BI-RADS 1 BIRADS: BIRADS - CATEGORY1 Negative, no evidence of malignancy in either breast. OVERALL ASSESSMENT - NEGATIVE A letter of notification will be sent to the patient regarding the results. RECOMMENDATION: Routine bilateral annual screening mammography is recommended. Follow-up screening mammogram in 1 year is advised. [facility] CenterMiyowaSSM REHABLINOEXAMINATION: BILATERAL DIGITAL SCREENING MAMMOGRAM, 11/30/2018 TECHNIQUE: CC and MLO views of the left and right breasts were obtained. Computer aided detection was utilized in the interpretation of this exam. 3D tomosynthesis images were obtained. COMPARISON: 19 December 2016; [facility]. HISTORY: Screening. Negative family history of breast cancer. Oral contraceptive usage times 6 months. Hormonal replacement therapy times 10 years. No prior breast interventions. FINDINGS: The breasts are composed of scattered fibroglandular densities. No skin thickening, nipple contour changes, or areas of architectural distortion are noted. Prior nodule in the outer half of the right breast is not redemonstrated.[facility] HospitalAleena Mhpn Incoming Radiant Results From [employer] - 11/30/2018 5:32 PM EDT EXAMINATION: BILATERAL DIGITAL SCREENING MAMMOGRAM, 11/30/2018 TECHNIQUE: CC and MLO views of the left and right breasts were obtained. Computer aided detection was utilized in the interpretation of this exam. 3D tomosynthesis images were obtained. COMPARISON: 19 December 2016; 22 February 2016 [facility]. HISTORY: Screening. Negative family history [...] screening mammogram in 1 year is advised. [facility] Direct [employer] MarketingSSM REHABLINO Vital Signs Date TimeVital SignValuePerforming AeiddguklMyvmfewj94-33-7579 11:55-0400Body mass index (BMI) [Ratio]30.34 kg/m5BpmwzVictoria Britt MD Work Phone: [facility]09-30-2025 11:55-0400 Body hkihyd79.69 kgVictoria Britt MD Work Phone: [facility]09-15-2025 13:30-0400 Body wfnpyuarbaq94.3 [degF]Victoria Yazmin MD Work Phone: 1(216)[address] [place], [place] 1296109-15-2025 13:30-0400 Diastolic blood utvzhxgr16 mm[Hg]Victoria Britt MD Work Phone: 1(216)[address] [place], [place] 1296109-15-2025 13:30-0400 Heart rate87 /Yanira Britt MD Work Phone: 1(216)[address] [place], [place] 1296109-15-2025 13:30-0400 Respiratory rate20 /Yanira Britt MD Work Phone: 1(216)[address] [place], [place] 1296109-15-2025 13:30-0400 SaO2% (BldA) [Mass fraction]93 %Victoria Britt MD Work Phone: 1()[address] [place], [place] 1296109-15-2025 13:30-0400 Systolic blood cwogpmpt907 mm[Hg]Victoria Britt MD Work Phone: 1()[address] [place], [place] 12[address]109-15-2025 08:00-0400 Body badgdo890.1 Alcon Britt MD Work Phone: 1()[address] [place], [place] 1296109-15-2025 08:00-0400 Body mass index (BMI) [Ratio]30.12 kg/q1AwedmVictoria Britt MD Work Phone: 1()[address] [place], [place] 12[address]109-15-2025 08:00-0400 Body oirawc40.1 kgVictoria Britt MD Work Phone: 1(216)[address] [place], [place] 12[address]107-29-2025 09:35-0400 Body lbwlev531.1 Alcon Britt MD Work Phone: 1(216)[address] [place], [place] 1296107-29-2025 09:35-0400 Body mass index (BMI) [Ratio]31.62 kg/e3GpgehVictoria Britt MD Work Phone: 1(216)[address] [place], [place] 12[address]107-29-2025 09:35-0400 Body dcofip32.18 kgVictoria Britt MD Work Phone: [facility]05-12-2025 09:17-0400 Body slkrub530.1 cmFelton Neumann MD Work Phone: 1(987)059-[address] [place], [place] [address]Rafweggngy50-78-1720 09:17-0400Body mass index (BMI) [Ratio]30.29 kg/m2Felton Neumann MD Work Phone: [facility] CenterBgjcrnkehu26-02-4193 09:17-0400Body temperature 97.11 [degF]Felton Neumann MD Work Phone: 1(921)761-[address] [place], [place] [address]Xbabkoogrf22-03-6692 09:17-0400Body zsvtsy03.56 kgFelton Neumann MD Work Phone: [facility] CenterZpznzaddyr54-45-1339 09:17-0400Diastolic blood bywqciai05 mm[Hg]Felton Neumann MD Work Phone: 1(721)267-[address] [place], [place] [address]Wzxlnsbhkn64-79-0126 09:17-0400Heart rate98 /min Felton Neumann MD Work Phone: 1(229)036-[address] [place], [place] [address]Gladyjhesk61-69-6084 09:17-0400Respiratory rate22 /minFelton Neumann MD Work Phone: 1(347)904-[address] [place], [place] [address]Tndzpwcygr58-22-2944 09:17-7622BeW1% (BldA) [Mass fraction]97 %Felton Neumann MD Work Phone: [facility] CenterQphedhsmvs28-93-3871 09:17-0400Systolic blood amcuyphb320 mm[Hg]Felton Neumann MD Work Phone: 1(674)082-[address] [place], [place] [address]Fymnlxraly76-25-7303 12:01-0400Body lfopas744.1 Alcon Britt MD Work Phone: [facility]03-28-2025 12:01-0400 Body mass index (BMI) [Ratio]31.62 kg/e9XvytiVictoria Britt MD Work Phone: [facility]03-28-2025 12:01-0400 Body newekc82.18 kgVictoria Britt MD Work Phone: 1(216)[address] [place], [place] 12[address]103-12-2025 18:15-0400 Body osgjxlymspf40.3 [degF]Victoria Britt MD Work Phone: 1(216)[address] [place], [place] 1296103-12-2025 18:15-0400 Diastolic blood uiwwyctu56 mm[Hg]Victoria Britt MD Work Phone: 1(216)[address] [place], [place] 12[address]103-12-2025 18:15-0400 Heart rate91 /Yanira Britt MD Work Phone: 1(216)[address] [place], [place] 12[address]103-12-2025 18:15-0400 Respiratory rate16 /Yanira Britt MD Work Phone: 1(216)[address] [place], [place] 1296103-12-2025 18:15-0400 SaO2% (BldA) [Mass fraction]95 %Victoria Britt MD Work Phone: 1(216)[address] [place], [place] 1296103-12-2025 18:15-0400 Systolic blood lcbomule220 mm[Hg]Victoria Britt MD Work Phone: 1(216)[address] [place], [place] 12[address]103-04-2025 11:35-0500 Body .1 cmSteena Britt MD Work Phone: 1(216)[address] [place], [place] 1296103-04-2025 11:35-0500 Body mass index (BMI) [Ratio]31.62 kg/f1QholnVictoria Britt MD Work Phone: 1(216)[address] [place], [place] 12[address]103-04-2025 11:35-0500 Body sndzpu48.18 kgVictoria Britt MD Work Phone: 1(216)[address] [place], [place] 1296101-22-2025 07:49-0500 Body .1 cmConstance Sykes MD Work Phone: [facility] CenterQhwulmuqdg76-04-8873 07:49-0500Body mass index (BMI) [Ratio]29.95 kg/m2RnzyufConstance Sykes MD Work Phone: [facility] CenterRhnvleylvf42-50-0458 07:49-0500Body .65 kgConstance Sykes MD Work Phone: [facility] CenterVmqoqzmtmf30-79-7367 07:49-0500Diastolic blood yluadrdh21 mm[Hg]Constance Sykes MD Work Phone: 1(233)[address] [place], [place] [address] CenterNxdpupzgxj69-76-5843 07:49-0500Heart rate78 /min Constance Sykes MD Work Phone: 1(030)[address] [place], [place] 2184901-22-2025 07:49-0500Systolic blood ohepwiff886 mm[Hg]Constance Sykes MD Work Phone: 1(758)[address] [place], [place] 2184912-17-2024 08:25-0500Body isujlb629.1 cmConstance Sykes MD Work Phone: 1(695)[facility] [place], [place] [address]Okdgcztqwg11-71-1972 08:25-0500Body mass index (BMI) [Ratio]29.95 kg/o7RtkvtxConstance Sykes MD Work Phone: 1(543)[facility]-[address] [place], [place] [address]Rtpwdcugaj79-32-0685 08:25-0500Body rijdwc70.65 kgConstance Sykes MD Work Phone: [facility] CenterYqjsvyxvbu57-24-7222 08:25-0500Diastolic blood jgkosgny86 mm[Hg]Constance Sykes MD Work Phone: [facility] CenterYpsvjyabdu67-89-1495 08:25-0500Systolic blood mm[Hg]Constance Sykes MD Work Phone: [facility] CenterCguqtairyi40-96-0023 09:19-0500Body .6 cmFelton Neumann MD Work Phone: [facility] CenterPytwlegcpw80-82-6540 09:19-0500Body mass index (BMI) [Ratio]30.9 kg/m2Felton Neumann MD Work Phone: [facility] CenterZxkdvnaljv40-26-6670 09:19-0500Body temperature 96.6 [degF]Felton Neumann MD Work Phone: [facility] CenterWednebkhsr81-25-4388 09:19-0500Body bvfjeq95.65 kgFelton Neumann MD Work Phone: [facility] CenterUoalodgyze05-14-8683 09:19-0500Diastolic blood uexbedxa75 mm[Hg]Felton Neumann MD Work Phone: [facility] CenterNutfhizkft05-86-0450 09:19-0500Heart rate93 /min Felton Neumann MD Work Phone: [facility] CenterSkjsnhncwi87-49-1048 09:19-0500Respiratory rate22 /minFelton Neumann MD Work Phone: [facility] CenterHleiquzzng69-61-9376 09:19-8090PvP4% (BldA) [Mass fraction]98 %Felton Neumann MD Work Phone: [facility] CenterWhkybunlrq25-05-3774 09:19-0500Systolic blood iisbyfap848 mm[Hg]Felton Neumann MD Work Phone: [facility] CenterAtqheqjzbs06-52-2280 10:33-0400Body wojpfk835.1 cmFelton Neumann MD Work Phone: [facility] CenterRgonypphag80-03-7377 10:33-0400Body mass index (BMI) [Ratio]29.95 kg/m2Felton Neumann MD Work Phone: [facility] Health CenterIuozlutjid25-98-4042 10:33-0400Body temperature 97.81 [degF]Felton Neumann MD Work Phone: [facility] CenterRvmqwvdxfu23-25-5644 10:33-0400Body ddooiy17.65 kgFelton Neumann MD Work Phone: [place] [address]Eskiqemblc25-28-2454 10:33-0400Diastolic blood clwysmom07 mm[Hg]Felton Neumann MD Work Phone: [facility] CenterAgvihkyzyr54-28-2434 10:33-0400Heart rate93 /min Felton Neumann MD Work Phone: [place] [address]Bfqjqitdud49-02-5141 10:33-0400Respiratory rate22 /minMarc Thien VANEGAS Work Phone: noGold[facility] Memorial HospitalWvejmwsunm64-81-4104 10:33-7385CoY2% (BldA) [Mass fraction]98 %Felton Neumann MD Work Phone: noms Mvjxezqjos77-82-1145 10:33-0400Systolic blood vroytoyg759 mm[Hg]Felton Neumann MD Work Phone: [facility] Encounters Encounter DateEncounter TypeCare ProviderFacilityStart: 11-29-2024 End: 94-17-9581Dwjjad follow up visit related to original Bertin Britt MD Work Phone: uh [facility] ClinicComment on above:Post-operative state (Primary Dx); Cholesteatoma of left ear; Mixed conductive and sensorineural hearing loss of left ear with restricted hearing of right ear; 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Start: 11-29-2024 End: 84-78-5877ltfqoihxxeYSGBAPiedmont Newnan AmbulatoryStart: 11-11-2024 End: 29-05-8095idisfffbpyRXHFISelect Medical TriHealth Rehabilitation Hospitaltart: 11-11-2024 End: 10-40-9578Iqspfyoajw hospital visit by Mathieu Britt MD Work Phone: uh [facility] Rehana ORComment on above: 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); Cholesteatoma of left ear; Mixed conductive and sensorineural hearing loss of left ear with restricted hearing of right earStart: 10-27-2024 End: 21-27-0026Nathbwbwg Result EncounterGeneric External Data ProviderNOMS External Department UnsolicitedStart: 10-27-2024 End: 56-31-0445Issphxxmq Result EncounterGeneric External Data ProviderNOMS External Department UnsolicitedStart: 09-29-2024 End: 74-94-3153EzuxkwPpyu Naderer MD Work Phone: noms [facility] FMComment on above:Essential hypertension, benignStart: 09-27-2024 End: 77-89-4489edcypxjkpvARWCFYR J [facility] Hospitaltart: 09-27-2024 End: 25-91-6500Yuztib outpatient visit 25 minutesVictoria Britt MD Work Phone: [facility] CenterComment on above:Cholesteatoma of left ear (Primary Dx); Mixed conductive and sensorineural hearing loss of left ear with restricted hearing of right ear; 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 Mary's [facility] AmbulatoryStart: 09-27-2024 End: 55-32-9695Sgfgnhrwb for other preprocedural examinationSArchbold - Grady [facility] AmbulatoryStart: 07-12-2024 End: 84-09-0545Ysywkwxct Result EncounterFelton Neumann MD Work Phone: noms External Department UnsolicitedStart: 07-12-2024 End: 92-30-2449Ebvrmlvpb Result EncounterFelton Neumann MD Work Phone: [facility] External Department UnsolicitedStart: 07-11-2024 End: 81-19-0651Obpnhl flowsColby Neumann MD Work Phone: NOMS CWM FMStart: 07-11-2024 End: 70-81-4267Tyibki flowsColby Neumann MD Work Phone: NOTF CWM FMStart: 07-11-2024 End: 22-23-1457Kleuyo outpatient visit 25 minutesFelton Neumann MD Work Phone: NOXV CWM FMComment on above:Essential hypertension, benign (CMS/HCC) (Primary Dx); Chest pain, unspecified type; ZEESHAN (generalized anxiety disorder) (CMS/HCC); Primary osteoarthritis of both knees; Primary hypothyroidism (CMS/HCC); Prediabetes; Dyslipidemia (CMS/HCC); Encounter for long-term (current) use of medicationsStart: 07-11-2024 End: 40-83-4589bqkqdzhktzNXBR NADERERNot AvailableStart: 05-27-2024 End: 78-25-6333Xnnujr follow up visit related to original Bertin Britt MD Work Phone: uh [facility] HospitalComment on above: Cholesteatoma of left ear (Primary Dx); Mixed conductive and sensorineural hearing loss of left ear with restricted hearing of right ear; 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; Post-operative stateStart: 05-27-2024 End: 94-94-2025wltktkztnzMDIZIPiedmont Newnan AmbulatoryStart: 05-11-2024 End: 16-27-1591Qrdegusxob hospital visit by Mathieu Britt MD Work Phone: uh [facility] Rehana ORComment on above: 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 (Primary Dx); Cholesteatoma of left earStart: 16-49-9966Eprawwmfoe and management of inpatient [facility] Systemtart: 05-05-2024 End: 35-32-4648Srkqibhsbs hospital visit by Anika External FilmEF RAD EXTERNAL FILM VIRTUALComment on above:ArrivedStart: 05-05-2024 End: 69-68-2292gqfumhzcaqAAYRWSelect Medical TriHealth Rehabilitation Hospitaltart: 05-05-2024 End: 01-80-7920Lzkcvscgn Result EncounterGeneric External Data ProviderNOMS External Department UnsolicitedStart: 05-05-2024 End: 33-60-2149Rrfrbumjy Result EncounterGeneric External Data ProviderNOMS External Department UnsolicitedStart: 05-04-2024 End: 58-98-1576Uggnesujb Result EncounterGeneric External Data ProviderNOMS External Department UnsolicitedStart: 05-04-2024 End: 86-61-7279Nycujsxir Result EncounterGeneric External Data ProviderNOMS External Department UnsolicitedStart: 05-03-2024 End: 23-18-4182Qiixol outpatient new 60 minutesVictoria Britt MD Work Phone: [facility] CenterComment on above:Cholesteatoma of left ear (Primary Dx); 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; Preoperative clearance; Mixed conductive and sensorineural hearing loss of left ear with restricted hearing of right ear; Discontinuity of ossicles of left earStart: 05-03-2024 End: 80-04-3796Owcvmqhsmkvf stateSteena Britt MD Work Phone: [facility] Work Phone: Start: 05-03-2024 End: 78-97-8955jhlprlawnnSIPJRPBMansfield Hospitaltart: 03-23-2024 End: 41-26-9109Mdydrjdustin Sykes MD Work Phone: noms CI ENTStart: 03-23-2024 End: 49-98-3157Yalchidustin Sykes MD Work Phone: noms CI ENTStart: 03-23-2024 End: 46-75-6080Dugvaz outpatient visit 15 minutesConstance Sykes MD Work Phone: noms CI ENTComment on above:Otorrhea of left ear (Primary Dx)Start: 03-23-2024 End: 24-03-0070vpyziqyovhCYENRH Sharonda SALASMISNot AvailableStart: 02-29-2024 End: 83-61-9190aglokvcowgPNQGJF H TIMMISNot AvailableStart: 02-25-2024 End: 90-88-7895Wussjmlfs Result EncounterFelton Neumann MD Work Phone: noms External Department UnsolicitedStart: 02-25-2024 End: 62-23-6157Exxmrdpgh Result EncounterFelton Neumann MD Work Phone: noms External Department UnsolicitedStart: 02-16-2024 End: 11-70-7204Hpwtfj Aristeo Sykes MD Work Phone: noms CI ENTStart: 02-16-2024 End: 72-27-0200Dqyrlm Aristeo Sykes MD Work Phone: noms CI ENTStart: 02-16-2024 End: 28-93-5856Pqyrmazfd Result EncounterGeneric External Data ProviderNOMS External Department UnsolicitedStart: 02-16-2024 End: 78-66-7584Hzmvfi outpatient new 45 Nasreen Sykes MD Work Phone: noms CI ENTComment on above:ETD (Eustachian tube dysfunction), left (Primary Dx); CSF otorrhea; Other specified hearing loss of left ear, unspecified hearing status on contralateral side; Chronic myringitis of left ear; Foreign body of left ear, initial encounterStart: 02-16-2024 End: 69-17-3227fjrkvpdkedWBJLDV H TIMMISNot AvailableStart: 02-11-2024 End: 16-05-0730Nkuvbf flowsColby Nuemann MD Work Phone: noms CW FMStart: 02-11-2024 End: 08-11-7779Xzzcwc Danyel Neumann MD Work Phone: noms CWM FMStart: 02-11-2024 End: 45-52-2537Oeptnj outpatient visit 15 minutesFelton Neumann MD Work Phone: noms CW FMComment on above:Medicare annual wellness visit, subsequent (Primary Dx); Essential hypertension, benign (CMS/HCC); Prediabetes; Primary hypothyroidism (CMS/HCC); Dyslipidemia (CMS/HCC); Encounter for long-term (current) use of medications; Arthralgia, unspecified joint; Otorrhea of left earStart: 02-11-2024 End: 07-28-5460Nhdcnrv encounter procedureFelton Neumann MD Work Phone: noms HealthcareStart: 02-11-2024 End: 25-51-5506mrkanpgxuhPJBW NADERERNot AvailableStart: 10-30-2023 End: 47-80-3668Sozzzt flowsColby Neumann MD Work Phone: noms CWM FMStart: 10-30-2023 End: 61-19-9360Puzkra flowsColby Neumann MD Work Phone: noms CWM FMStart: 10-30-2023 End: 02-43-5331Acrfvl outpatient visit 15 minutesFelton Neumann MD Work Phone: noms CWM FMComment on above:Essential hypertension, benign (CMS/HCC) (Primary Dx); ZEESHAN (generalized anxiety disorder) (CMS/HCC)Start: 10-30-2023 End: 94-09-8944jjilpsbnbuELDF NADERERNot AvailableStart: 10-12-2023 End: 48-97-3770Zylsyjkeo Result EncounterGeneric External Data ProviderNOMS External Department UnsolicitedStart: 10-12-2023 End: 04-99-4140Sctigcrcs Result EncounterGeneric External Data ProviderNOMS External Department UnsolicitedStart: 09-29-2023 End: 67-71-3170wrglazpyimLZRJ NADERERNot AvailableStart: 08-19-2023 End: 69-67-7931tceqgtnlgaLWFC NADERERNot AvailableStart: 05-12-2023 End: 29-04-1468ycswxngyphKzdrygw R NILLFacility: evueStart: 05-12-2023 End: 86-00-4883Lfscfpz encounter procedureMichael R NILL General Surgery Nill/Said Magy Start: 04-29-2023 End: 31-26-1939kmypetizpwIyixhrd R NillFacility:[facility]tart: 04-07-2023 End: 51-48-2120jsljsywwioKKYL NADERERFacility: BellevueStart: 02-24-2023 End: 57-00-4122Tmebsayor Result EncounterFelton Neumann MD Work Phone: noms External Department UnsolicitedStart: 02-24-2023 End: 21-69-4791Delsjvyja Result EncounterFelton Neumann MD Work Phone: noms External Department UnsolicitedStart: 02-20-2023 ambulatoryMichael NILLFacility:GS BellevueStart: 02-18-2023 End: 81-41-3515Dhnuzythk Result EncounterFelton Neumann MD Work Phone: noms External Department UnsolicitedStart: 02-18-2023 End: 55-64-7225Jteivoftc Result EncounterFelton Neumann MD Work Phone: noms External Department UnsolicitedStart: 06-04-2022 End: 28-67-8822gqrskrxoksFK NONE LISTED REQUESTFacility:B8Aowut: 02-17-2022 End: 16-83-5186eearkvulzxXxketn ZieberFacility:F1Jbvvp: 11-12-2021 End: 48-08-8167sghjxhdzhhCZ NONE LISTED REQUESTFacility:S3Riaau: 10-07-2021 End: 56-20-3882iuhlxykikoMJ NONE LISTED REQUESTFacility:L7Aaroq: 10-02-2021 End: 55-98-8939vriowfhdvkVW NONE LISTED REQUESTFacility:E7Lztuc: 02-14-2021 End: 49-18-0208dscfcbrtvtOOQT ADRIEN Hernández [facility]Start: 02-14-2021 End: 93-57-5331Ihzvkapztn hospital [facility] by [facility] MammographyComment on above:Breast cancer screening by mammogramStart: 12-06-2019 End: 59-20-3626Ycmslwhbyk hospital visit by physicianP[facility] MammographyComment on above:Breast cancer screening by mammogramStart: 11-30-2018 End: 81-10-2880Gqrwiejdov hospital visit by physicianP[facility] MammographyComment on above:Breast cancer screening by mammogram Procedures DateProcedureProcedure DetailPerforming ClinicianStart: 44-12-1977JRVZQ OXIMETRY, CONTINUOUSDebra Owens MD Work Phone: Start: 75-71-8622JRP CBC WITH AUTO DIFFGeneric External Data ProviderStart: 21-14-7963PXS THYROID STIM HORMONEFelton Neumann MD Work Phone: Start: 26-87-9576FYLMQ OXIMETRY, CONTINUOUSDebra Owens MD Work Phone: Start: 99-78-0021Ggwlf Interpretation of outside study Victoria Britt MD Work Phone: Start: 20-28-9792JA TRANSFER OF OUTSIDE FILMSGeneric External Data ProviderStart: 54-67-0459IGS CBC WITH AUTO DIFFGeneric External Data ProviderStart: 48-92-1261ZSY 12-LEADGeneric External Data ProviderStart: 39-14-8577VT TOMOSYNTHESIS SCREENING PJarc Thien VANEGAS Work Phone: Start: 49-66-7974VLI CBC WITH AUTO DIFFFelton Neumann MD Work Phone: Start: 20-05-7994YTYJYSNGZTC ANTIBODIES, IFAFelton Neumann MD Work Phone: Start: 43-76-9335OPY RHEUMATOID FACTORFelton Neumann MD Work Phone: Start: 68-38-3357KvvkkexeghtPwjmls Mony VANEGAS Work Phone: Start: 25-10-1384CWQ MISCELLANEOUS TESTHilary H Mony VANEGAS Work Phone: Start: 35-14-1068TF FOOT RT MIN 3VGeneric External Data ProviderStart: 19-49-6569JzuorhiavvcQsye Naderer MD Work Phone: Start: 66-85-9997FgebdqsrtpnOtytpfx NILL Start: 24-69-6925CI DEXA AXIAL SKELETONFelton Neumann MD Work Phone: Start: 80-18-3610LE TOMOSYNTHESIS SCREENING Caitlin Neumann MD Work Phone: Start: 21-10-4059IvvtdjqdckcOeny Naderer MD Work Phone: Start: 02-14-2021 End: 61-25-2823Oxwdujorc mammography bi 2-view breast inc [facility]Delicia Adrien Neumann MD Work Phone: Start: 38-68-8386Gtvpznkmf mammography bi 2-view breast inc [facility] Adrien Neumann Work Phone: Start: 12-56-1606Rojcjiqfg digital breast tomosynthesis biMarc Adrien Neumann Work Phone: CholecystectomyMichael NILL ColonoscopyMichael NILL Total abdominal hysterectomy with bilateral salpingo-oophorectomyMichael NILL Plan of Treatment DateCare ActivityDetailAuthorStart: 86-28-3347Knzonbbpg for malignant neoplasm of colonNOMS HealthcareStart: 64-83-4258XRU High Risk: (Elderly (60+) or Population) (1 - 1-dose 75+ series)RSV High Risk: (Elderly (60+) or Population) (1 - 1-dose 75+ series)[facility] Start: 03-15-2025 End: 58-33-0895Wquegmrj Rwjdiun0703/15/2025 1:45 PM EST Clinical Support [facility] [address] [place], [place] Evelyn Casey, [facility] [address] [place] [address] NOMAnil Vega AudiologyStart: 33-80-8283Ewzgrvate for malignant neoplasm of breastMammogramNOMS HealthcareStart: 02-14-2025 End: 38-43-5412Qcpihvx encounter zngwlepfu07/16/2025 9:00 AM EST Office Visit [facility] [address] [place] [address] Felton Neumann MD [address] [place] [address] NOMS CWM FMStart: 12-12-2025Medicare Annual Wellness (AWV)Medicare Annual Wellness (AWV)NOMS HealthcareStart: 11-29-2024 End: 11-32-1776Lulglku encounter kpuepcogl52/30/2025 11:30 AM EDT Office Visit [facility] [address] [place] [address] [place] [address] [place] [address] [facility]art: 11-14-2024 End: 14-89-4675Phypzimqs to same day surgery wcmbvl6111/14/2024 7:00 AM EDT - 11/14/2024 10:10 AM EDT [place] [address] [place] [address] [place] [address] [place] [address] Left Side Tympanoplasty with cartilage graft, possible OCR [52571 (CPT ) +1 more][facility] Re[place] ORComment on above:Left Side Tympanoplasty with cartilage graft, possible OCR [78689 (CPT ) +1 more]Start: 11-14-2024 End: 98-39-5672Uayjmdkefmley w/o mastoidect w/o ossicle recnstjTYMPANOPLASTY Cholesteatoma of left ear Mixed conductive and sensorineural hearing loss of left earwith restricted hearing of right ear 11/14/2024 7:00 AM EDTVirtual [facility] Rehana ORStart: 71-00-4608Ltygvexoky hospital visit by hlytfftzn56/15/2025 5:30 AM EDT Hospital Encounter [facility] [place] [address] [place] [address] [place] [address] [place] [address] [facility] [place] Start: 91-08-4899CVXOI-19 Vaccine ( season)COVID-19 Vaccine ( season)[facility]Start: 17-63-2016Wxadfvcbi vaccinationSaint Joseph Health CenterStart: 09-27-2024 End: 35-56-5854RES panel - Blood by Automated countCBC Lab Routine Pre-op testing Expected: 09/27/2024 (Approximate), Expires: 09/27/2025[facility] Service Area Work Phone: Comment on above:Expected: 09/27/2024 (Approximate), Expires: 09/27/2025Start: 09-27-2024 End: 60-46-9547Tdikabxhcgsru metabolic 2000 panel - Serum or PlasmaComprehensive Metabolic Panel Lab Routine Pre-op testing Expected: 09/27/2024 (Approximate), Expires: [facility]/2025[facility] Work Phone: Comment on above:Expected: 09/27/2024 (Approximate), Expires: 09/27/2025Start: 09-27-2024 End: 58-66-3861QEW 12 leadECG 12 lead ECG Routine Pre-op testing Expected: 09/27/2024 (Approximate), Expires: 09/27/2025[facility] Work Phone: Comment on above:Expected: 09/27/2024 (Approximate), Expires: 09/27/2025Start: 09-27-2024 End: 88-50-0304Auwgarp encounter lfocgjhvn89/29/2025 10:00 AM EDT Office Visit [facility] [address] [place] [address] [place] [address] [place] [address] [facility]art: 07-11-2024 End: 79-89-9903PDO W Auto Differential panel - BloodCBC and differential Lab Routine Encounter for long-term (current) use of medications Expected: 06/30 (Approximate), Expires: 07/11/2025NONJ HealthcareComment on above: Expected: 07/11/2024 (Approximate), Expires: 07/11/2025Start: 07-11-2024 End: 66-83-2447TG Heart Perfusion W single state of exerciseStress test with myocardial perfusion Cardiac Nuclear Medicine Routine Chest pain, unspecified typePrediabetes Dyslipidemia (CMS/HCC) Expected: 07/11/2024 (Approximate), Expires: 07/11/2026[facility] Work Phone: Comment on above:Expected: 07/11/2024 (Approximate), Expires: 07/11/2026Start: 07-11-2024 End: 62-61-8649Xapyseqyftr [Units/volume] in Serum or PlasmaTSH Lab Routine Primary hypothyroidism (CMS/HCC) Expected: 07/11/2024 (Approximate), Expires: 07/11/2025NONJ HealthcareComment on above:Expected: 07/11/2024 (Approximate), Expires: 07/11/2025Start: 07-11-2024 End: 51-92-6580Kqtfvffwk (T4) free [Mass/volume] in Serum or PlasmaT4, free Lab Routine Primary hypothyroidism (CMS/HCC) Expected: 07/11/2024 (Approximate), Expires: 07/11/2025NONJ HealthcareComment on above:Expected: 07/11/2024 (Approximate), Expires: 07/11/2025Start: 07-11-2024 End: 10-15-9804Lkfeqjp encounter procedureNOMS CWM FMComment on above:Arrived Start: 05-27-2024 End: 18-47-8699Pyylblk encounter orlochkrp43/28/2025 12:00 PM EDT Office Visit [facility] [address] [place] [address] [place] [address] [place] [address] [facility] 05-11-2024 End: 13-80-0020Oxcbwungx to same day surgery tmwxhp9205/11/2024 12:30 PM EDT - 05/11/2024 5:00 PM EDT [place] [facility] [place] [address] [place] [address] [place] [address] [place] [address] LEFT SIDE CANAL WALL UP TYMPANOMASTOIDECTOMY, POSSIBLE OSSICULOPLASTY, POSSIBLE CARTILAGE GRAFT, POSSIBLE MIDDLE CRANIAL FOSSA APPROACH FOR ENCEPHALOCELE REPAIR, POSSIBLE LUMBAR DRAIN PLACEMENT [09665 (CPT ) +1 more][facility] [place] Comment on above:LEFT SIDE CANAL WALL UP TYMPANOMASTOIDECTOMY, POSSIBLE OSSICULOPLASTY, POSSIBLE CARTILAGE GRAFT, POSSIBLE MIDDLE CRANIAL FOSSA APPROACH FOR ENCEPHALOCELE REPAIR, POSSIBLE LUMBAR DRAIN PLACEMENT [20888 (CPT ) +1 more] Start: 05-11-2024 End: 02-60-9962Ryfx mastoidect ntc/rcnsted canal wall ocrTYMPANOPLASTY, WITH MASTOIDECTOMY 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 Yes; Where will this surgery/delivery be performed? [facility]; What is the date of the surgery? 05/11/2024; Has this patient ever had a transfusion? Unknown; ... 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 Preoperative clearance Expected: 05/03/2024 (Approximate), Expires: 05/03/2025[facility] Work Phone: Comment on above:Expected: 05/03/2024 (Approximate), Expires: 05/03/2025Start: 05-03-2024 End: 62-14-3621ANG panel - Blood by Automated countCBC 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 Preoperative clearance Expected: 05/03/2024 (Approximate), Expires: 05/03/2025[facility] Service Area Work Phone: Comment on above:Expected: 05/03/2024 (Approximate), Expires: 05/03/2025Start: 05-03-2024 End: 93-69-3260Innpylgoxmohw metabolic 2000 panel - Serum or PlasmaComprehensive Metabolic Panel 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 Preoperative clearance Expected: 05/03/2024 (Approximate), Expires: 05/03/2025[facility] Work Phone: Comment on above:Expected: 05/03/2024 (Approximate), Expires: 05/03/2025Start: 05-03-2024 End: 35-22-9148Uuusqqz for Pre-Admission Testing VisitRequest for Pre-Admission Testing Visit Procedures Routine 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 Preoperative clearance Expected: 05/03/2024 (Approximate), Expires: 09/02/2024[facility] Work Phone: Comment on above:Expected: 05/03/2024 (Approximate), Expires: 09/02/2024Start: 03-23-2024 End: 21-72-8158Fzdzpfo encounter procedureNOMS CI ENTComment on above:Arrived Start: 02-29-2024 End: 06-90-7464Vlyyrzaiddyc / ancillary services zgqvyqnupc61/30/2024 2:30 PM EST Ancillary Procedure [facility] [address] [facility]OUTHE[facility] M[facility] [place] [place] [address] NOMS FNR CTStart: 70-39-7810Ilvfyoqic for malignant neoplasm of breastMammogramNOMS HealthcareStart: 02-16-2024 End: 52-93-4105Umtonwm encounter vrqhjruvg65/17/2024 8:40 AM EST Office Visit [facility] [address] [facility] [address] [place] [address] Constance Sykes MD [address] [facility] [address] [place] [address] Otorrhea of left earNOMS CI ENTComment on above: Otorrhea of left earStart: 02-11-2024 End: 36-64-7598Cybjr metabolic 1998 panel - Serum or PlasmaBasic metabolic panel Lab Routine Essential hypertension, benign (CMS/HCC) Expected: 02/11/2024 (Hattie roximate), Expires: 02/10/2025NONJ HealthcareComment on above:Expected: 02/11/2024 (Approximate), Expires: 02/10/2025Start: 02-11-2024 End: 00-73-6126KQJ W Auto Differential panel - BloodCBC and differential Lab Routine Encounter for long-term (current) use of medications Expected: 01/30 (Approximate), Expires: 02/10/2025NONJ HealthcareComment on above: Expected: 02/11/2024 (Approximate), Expires: 02/10/2025Start: 02-11-2024 End: 79-09-2224Lohfsvldeob sedimentation rateSedimentation rate, automated Lab Routine Arthralgia, unspecified joint Expected: 02/11/2024 (Approximate), Expires: 02/10/2025NONJ HealthcareComment on above:Expected: 02/11/2024 (Approximate), Expires: 02/10/2025Start: 02-11-2024 End: 52-71-6486Akidosmhwq A1c/Hemoglobin.total in BloodHemoglobin A1c Lab Routine Prediabetes Expected: 02/11/2024 (Approximate), Expires: 02/10/2025[facility] Work Phone: Comment on above:Expected: 02/11/2024 (Approximate), Expires: 02/10/2025Start: 02-11-2024 End: 02-79-8220Nqxtqdq function 2000 panel - Serum or PlasmaHepatic function panel Lab Routine Encounter for long-term (current) use of medications Expected: 02/11/2024 (Approximate), Expires: 02/10/2025NONJ HealthcareComment on above: Expected: 02/11/2024 (Approximate), Expires: 02/10/2025Start: 02-11-2024 End: 62-31-4566Udgtv 1996 panel - Serum or PlasmaLipid panel Lab Routine Dyslipidemia (CMS/HCC) Expected: 02/11/2024 (Approximate), Expires: 02/10/2025 NOMS HealthcareComment on above:Expected: 02/11/2024 (Approximate), Expires: 02/10/2025Start: 02-11-2024 End: 09-29-6565Ctmmoue Ab [Titer] in Serum by ImmunofluorescenceANA Lab Routine Arthralgia, unspecified joint Expected: 02/11/2024 (Approximate), Expires: 02/10/2025NONJ HealthcareComment on above:Expected: 02/11/2024 (Approximate), Expires: 02/10/2025Start: 02-11-2024 End: 27-60-7892Sjibxcwieo factor [Units/volume] in Serum or PlasmaRheumatoid factor Lab Routine Arthralgia, unspecified joint Expected: 02/11/2024 (Approximate), Expires: 02/10/2025NONJ HealthcareComment on above:Expected: 02/11/2024 (Approximate), Expires: 02/10/2025Start: 02-11-2024 End: 20-03-3673Guwjulabrxj [Units/volume] in Serum or PlasmaTSH Lab Routine Primary hypothyroidism (CMS/HCC) Expected: 02/11/2024 (Approximate), Expires: 02/10/2025NONJ HealthcareComment on above:Expected: 02/11/2024 (Approximate), Expires: 02/10/2025Start: 02-11-2024 End: 77-66-7680Rkgedpxld (T4) free [Mass/volume] in Serum or PlasmaT4, free Lab Routine Primary hypothyroidism (CMS/HCC) Expected: 02/11/2024 (Approximate), Expires: 02/10/2025NONJ HealthcareComment on above:Expected: 02/11/2024 (Approximate), Expires: 02/10/2025Start: 02-11-2024 End: 36-12-4840Cmwqgup encounter procedureNOTULSA ER & HOSPITAL – [place] FMComment on above:Arrived Start: 02-08-2024 End: 09-43-2587Rbbhrhy encounter gwhzjulbd32/09/2024 8:30 AM EST [facility] [address] [place] [phone] Felton Neumann MD [address] [place] [phone] [facility] FMStart: 39-72-3026QZPHN-19 Vaccine ( season)COVID-19 Vaccine ( season)[facility] 11-01[facility]2023 Influenza vaccinationInfluenza Vaccine (#1)[facility] HealthcareStart: 10-30-2023 End: 20-11-2703Wvclacg encounter dixjyoiio67/30/2024 10:30 AM EDT [facility] [address] [place] [id number] Felton Neumann MD [address] [place] [phone] ArrivedNOTULSA [facility] [place] FMComment on above:ArrivedStart: 61-93-8623Qvbuxocqd for malignant neoplasm of breastBreast cancer screenMercy HealthStart: 2023 Pneumococcal Vaccine: 65+ Years (2 of 2 - PPSV23 or PCV20)Pneumococcal Vaccine: 65+ Years (2 of 2 - PPSV23 or PCV20)[facility] HealthcareStart: 74-48-7770Hfgkjsdut for osteoporosisBone Density ScanBethesda North Hospital: 00-44-0206Jjoovvqfi for malignant neoplasm of breastMammogramBethesda North Hospital: 28-15-8638Hsqqtiadb for malignant neoplasm of breastBreast cancer screenRiverside Methodist Hospital: 40-70-8258Fypwrj cancer screenBreast cancer screenRiverside Methodist Hospital: 47-77-7199Xqzfilraw vaccinationFlu vaccine (#1)[facility]: 52-48-1210Bydkpiglm vaccinationFlu vaccine (#1)[facility]: 04-15-5582Bjxcgwkqc vaccinationFlu vaccine (#1)[facility]: 28-30-2883Oejzyifgumct vaccination [facility]: 41-56-2004Pditfvhuduxd Vaccine: 65+ Years (2 of 2 - PPSV23 or PCV20)Pneumococcal Vaccine: 65+ Years (2 of 2 - PPSV23 or PCV20)[facility]: 06-25-8594Urxfxhitvbgk Vaccine: 65+ Years (2 of 2 - PPSV23)Pneumococcal Vaccine: 65+ Years (2 of 2 - PPSV23)[facility] Start: 80-89-0484Ibzpydifukyb Vaccine: 65+ Years (2 of 2 - PPSV23, PCV20, or PCV21)Pneumococcal Vaccine: 65+ Years (2 of 2 - PPSV23, PCV20, or PCV21)[facility]: 59-15-3416Hqujm cancer screen colonoscopyColon cancer screen [facility]: 78-80-9619Fzbkuyqxj for malignant neoplasm of colonColon cancer screen [facility]: 01-19-2008 Shingles Vaccine (1 of 2)Shingles Vaccine (1 of 2)[facility]: 01-19-2008 Zoster Vaccines (1 of 2)Zoster Vaccines (1 of 2)[facility]: 03-48-2608Dtvbxvabj for malignant neoplasm of colonColon cancer screen colonoscopyAdena Health System: 38-19-1314Ojxoq panelLipid screenAdena Health System: 33-87-3321Dpyht screenLipid [facility]: 17-84-6421Ttlipkehc for malignant neoplasm of cervixAdena Health System: 27-21-9008WJlX/Tdap/Td Vaccines (1 - Tdap)DTaP/Tdap/Td Vaccines (1 - Tdap) [facility]: 17-93-5852Slzsyaau cancer screenCervical cancer screenRiverside Methodist Hospital: 02-90-6375Lkltzruwc for malignant neoplasm of cervixAdena Health System: 32-58-5762YQhA/Tdap/Td vaccine (1 - Tdap) DTaP/Tdap/Td vaccine (1 - Tdap)[facility]: 90-03-8906Gmvkoszcd C screeningHepatitis C ScreeningBethesda North Hospital: 1973 HIV screenHIV [facility]: 81-03-6053GDN screeningHIV screen [facility]: 64-97-9076SGLKA-19 Vaccine (1)COVID-19 Vaccine (1)[facility]: 21-06-9575GPF Vaccines (1 of 1 - Standard series)MMR Vaccines (1 of 1 - Standard series)[facility]: 66-44-9131Jfdwyi wellness visitWelcome to Medicare VisitBethesda North Hospital: 27-36-6771Rzggytefh C screenHepatitis C [facility]: 89-48-6002Wapinhvrz C screeningHepatitis C [facility]: 1960 Lipid panelLipid PanelBethesda North Hospital: 1960Medicare Annual Wellness (AWV)Medicare Annual Wellness (AWV)[facility] HealthcareStart: 34-87-8363Ykjrrxbtv for malignant neoplasm of colonNOMS HealthcareStart: 92-90-6640Kidoodgai for osteoporosisBone Density ScanBethesda North Hospital: 50-48-4921Utiorye stimulating hormone measurementTSH Level [facility]onECG 12 LeadECG 12 Lead ECG Routine 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 Preoperative clearance Ordered: 05/03/2024[facility] Work Phone: Comment on above:Ordered: 05/03/2024Surgical pathology studySurgical Pathology Exam Pathology and Cytology Timed 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 Release Upon Ordering for 1 Occurrences starting 05/11/2024[facility] Service Area Work Phone: Comment on above:Release Upon Ordering for 1 Occurrences starting 05/11/2024 Immunizations Immunization DateImmunizationNotesCare QmzekadzNdyeekia81-85-1512XZYZ-SwQ-5 (COVID-19) mRNA-1273 vaccineMichael NILL General Surgery Jpcihhkp59-88-6674BDDO-YjA-0 (COVID-19) mRNA-1273 vaccineMichael NILL General Surgery Stntzqwh52-31-4645BLBL-SqQ-6 (COVID-19) mRNA-1273 vaccineMichael NILL General Surgery Nqmwohdz36-08-1427UAMC-YiO-5 (COVID-19) mRNA-1273 vaccineMichael NILL Geneour [facility] BellueComment on above:Result Comment: 2023-03-18: AOM0363-37-0770neljekvmlvxs conjugate vaccine, 13 valent Felton Neumann MD Work Phone: NODQ HealthcareNEGATED: Highlighted row has not occurred!23-76-6805coeiqwsai virus vaccine, unspecified formulationMichael NILL Geneour [facility] of [facility] [place] Payers DatePayer CategoryPayerPolicy [id number] 2023Medicare (Managed Care)[id number] [id number] [id number]8-4939AwwdgtrHHXJRWH [facility] NN xxxxxxxxxxxx 2018-Present [phone] [address] [place] [address]abzvnekhomgf [id number].[facility] 25-55-1464PzoqigzWVSVDQV [facility] VIKI - EXCHANGE [id number] 2018-Present [phone] [address] [id number] 1.2.840.392803.1.13.239.2.7.3.465064.97777-66-9554Fliz-xtc21-88-5131Hzfctgv [id number] 2.16.840.1.972066.3.57[id number] 2.16.840.1.443271.3.57[id number] 2.16.840.1.668041.3.57[id number] 2.16.840.1.621787.3.57[id number] 2.16.840.1.576360.3.57[id number] 2.16.840.1.695731.3.579.2.[id number] 2.16.840.1.781380.3.579.2.[id number] 2.16.840.1.439741.3.57[id number] 2.16.840.1.942043.3.579.2.[id number] 2.16840.1.913690.3.579.2.455273-25-3577Ybolczy7410105 2.16.840.1.758394.3.579.2.192192-65-6501Uukulxv7735683 2.16840.1.171977.3.579.[id number] 2.16840.1.831446.3.579.[id number] 2.840.1.376846.3.579.2.[id number] 2.840.1.643980.3.57[id number] 2.840.1.637274.3.579.[id number] 2.0.1.581190.3.579.2.6[id number] 2.840.1.281398.3.579.2.3560[id number] 2.840.1.903135.3.579.[id number] 2.840.1.017641.3.57[id number] 2.840.1.338714.3.579.[id number] 2.16840.1.828123.3.579.2.8968Tbzugfg2773266 2.840.1.694519.3.579.2.593 Wvtmwsq4900007 2..840.1.6613[id number] 2.840.1.4259[id number] 2..840.1.154015.3.579.2.593 Social History DateTypeDetailFacilityTobacco smoking status NHISUnknown if ever smokedRiverside Methodist Hospital: 13-79-3021Dnp Assigned At BirthNot on fileRiverside Methodist Hospital: 04-23-2024 End: 16-25-6300Bftikruk to SARS-CoV-2 (event)Not sureUniversity [facility]als St. [facility] smoking status NHISTobacco smoking consumption unknownUpper [facility] Center [employer] Work Phone: start: 02-18-2023 End: 30-04-6824Qltrbli smoking statusEx-smoker (finding)[facility] [place] Start: 12-02-2022 End: 79-16-5760Hejrhjl smoking statusNeverGeneral Surgery BellevueStart: 02-17-2023 End: 92-54-7272Yfc Assigned At BirthFeTrinity Health Systemtart: 03-02-1989 End: 03-53-7683Hzumxav of tobacco useCurrent smokerNOMS HealthcareStart: 03-02-1989 End: 85-39-8604Yftucvi of tobacco useCigarette SmokerNOMS HealthcareStart: 02-17-2023 End: 03-62-9649Cgxpdimixi smoked current (pack per day) - Jrexxaot6NLZF HealthcareStart: 02-18-2023 End: 64-57-0896Qxezcxf use and exposureSmokeless tobacco non-userNOMS Healthcare Within the last year, have you been afraid of your partner or ex-partner?NoNOMS HealthcareAre you now , , , , never or living with a partner?MarriedNOMS HealthcareHow often to you have a drink containing alcohol?2-3 time sa weekNOMS HealthcareHow many standard drinks containing alcohol do you have on a typical day?1 or 2NOMS HealthcareHow often do you have 6 or more drinks on 1 occasion?NeverNONJ HealthcareStart: 02-16-2024 End: 84-75-0332Rcyjxapjr beverage intakeEx-drinker (finding)[facility] Start: 81-48-3158Ycfkxad smoking status NHISNever smoked tobaccoUnFisher-Titus Medical Center Work Phone: NEGATED: Highlighted rowStart: NINFHistory of tobacco usePassive smokerUnFisher-Titus Medical Center Work Phone: Medical Equipment Procedure CodeEquipment CodeEquipment Original TextEquipment IdentifierDates Graft Matrix, Dural, Duragen Plus 1x1 - [id number]: 05-11-2024 Implant, Ear, Wildcat Pro [place] Total - [id number]: 11-14-2024 Goals DatePatient GoalDesired Activity/StatePersonal health goal Functional Status TutwGcjujtpezyFxbrzoJuvubvqf37-80-3567Zffqelc Health Questionnaire 2 item (PHQ- 2) [Reported][facility] Work Phone: 1([phone]) 460-338109653703-19-1931Xgitjauyft statusUnFisher-Titus Medical Center09-30-2025Un[facility] Work Phone: 1(694) 370-910909802446-77-1270Nhrotnws - suicide severity rating scale screener - recent [C-SSRS][facility] Work Phone: 1([phone]) [phone]pqqf Health Questionnaire 2 item (PHQ-2) [Reported][facility] Work Phone: [phone]) [phone]adjn Health Questionnaire 2 item (PHQ-2) [Reported][facility] Clinical Notes 04-07-2023 to 11-29-2024 Note Date & DrvgCxacXvssiamc74-43-4157 History of Present illness Narrative* Victoria Britt MD - 11/29/2024 11:30 AM EDT History Of Present Illness: Keyon Valenzuela is a 64 y.o. female with a history of left mixed hearing loss, CSF leak of the left ear,and left cholesteatoma, patient is s/p left transmastoid repair of encephalocele and atticotomy on 05/11/24, now s/p left tympanoplasty with cartilage graft and OCR on 11/14/24. Recall 09/27/24: Keyon Valenzuela is a 64 y.o. 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 Doing well. No dizziness. Still has tinnitus in the left ear. Persistent left ear pain since surgery that does improve with tylenol and motrin. Did have new false teeth fitted earlier this year that she noticed exacerbates the ear pain. Will be seeing her dentist in 2 weeks. Surgical History: She has no past surgical history on file. Allergies: Patient has no known allergies. Medications: Current Outpatient Medications Medication Instructions acetaminophen (TYLENOL) 650 mg, oral, Every 6 hours PRN calcium carbonate-vit D3-min 600 mg-10 mcg (400 unit) tablet 1 tablet, 2 times daily ciprofloxacin-dexamethasone (CiproDEX) otic suspension 4 drops, Left Ear, 2 times daily FLUoxetine (PROZAC) 20 mg, Daily RT ibuprofen 600 mg, oral, Every 6 hours PRN levothyroxine (SYNTHROID, LEVOXYL) 100 mcg, Daily RT lisinopriL-hydrochlorothiazide 10-12.5 mg tablet 1 tablet, Daily RT melatonin 5 mg capsule 1 capsule, Nightly raloxifene (EVISTA) 60 mg, Daily RT traMADol (ULTRAM) 50 mg, oral, Every 4 hours PRN Review of Systems: A comprehensive 10-point review [...] synkinesis or facial tic. Ears Otoscopic examination: RIGHT: normal otoscopy of the tympanic membrane LEFT: Neotympanum intact and healing well into the ear canal Rinne positive, marinelli midline with 512 Nose: Dorsum symmetric with no visible or [...] extremities: Normal. Gait normal. Last Recorded Vitals: Weight 82.7 kg (182 lb 4.8 oz). Assessment/Plan 64 y.o. 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 Her neotympanum is healing appropriately and she feels her hearing immediately improved post-op, but had a slight decline after. Marinelli midline and AC>BC on left. - RTC 3 months with audiogram Patient seen and discussed with Dr. Britt. Reena Jimenez MD Neurotology Fellow I saw and evaluated the patient. I personally obtained the aburto and critical portions of the historyand physical exam or was physically present for aburto and critical portions performed by the resident/fellow. I reviewed the resident/fellow's documentation and discussed the patient with the resident/marquise plata. I agree with the resident/fellow's medical decision making as documented in the note. Victoria Britt MD documented in this [facility] Work Phone: 1([phone] 714-630309-15-2025 Miscellaneous Notes* Op Note - Victoria Britt MD - 11/14/2024 10:45 AM EDT Left Side Tympanoplasty with cartilage graft, OCR (L) Operative Note Date: 11/14/2024 OR Location: [facility] OR Name: Keyon Valenzuela, : 1960, Age: 64 y.o., , Sex: female Diagnosis Pre-op Diagnosis * Cholesteatoma of left ear [H71.92] * Mixed conductive and sensorineural hearing loss of left ear with restricted hearing of right ear [H90.A32] Post-op Diagnosis * Cholesteatoma of left ear [H71.92] * Mixed conductive and sensorineural hearing loss of left ear with restricted hearing of right ear [H90.A32] Procedures Left Side Tympanoplasty with cartilage graft, OCR 90215 - TX GRAFT EAR CRTLG AUTOGENOUS NOSE/EAR Left Side Tympanoplasty with cartilage graft, OCR 42341 - TX TYMPANOPLASTY W/O MASTOIDEC 1ST/REVJ PROSTH TORP TX GRAFT EAR CRTLG AUTOGENOUS NOSE/EAR [50774] TX TMPP MASTOIDECT NTC/RCNSTED WALL W/O OCR [76395] Surgeons * Victoria Britt - Primary Resident/Fellow/Other [place] Clerk: Surgeons and Role: * Nadya Cox MD - Resident - Assisting * Reena Jimenez MD - Fellow Staff: Admissions Clinician: Nadya Scrub Person: Fara Martinez Admissions Clinician: Rosamaria Martinez Scrub: Nadya Anesthesia Staff: Anesthesiologist: Debra Owens MD Pest Control Service Sales Agent: Shauna Lambert DO Procedure Summary Anesthesia: General ASA: II Estimated Blood Loss: 3mL Intra-op Medications: Administrations occurring from 0945 to 1255 on 11/14/24: Medication Name Total Dose mupirocin (Bactroban) 2 % ointment 1 Application lidocaine-epinephrine (Xylocaine W/EPI) 1 %-1:100,000 injection 6 mL balanced salts (BSS) intraocular solution 15 mL sodium chloride 0.9 % irrigation solution 1,000 mL EPINEPHrine HCl (PF) (Adrenalin) 1 mL in sodium chloride 0.9% 19 mL syringe 0.5 mL oxygen (O2) therapy Cannot be calculated ceFAZolin (Ancef) 1 g 2 g dexAMETHasone (Decadron) 4 mg/mL 10 mg esmolol 10 mg/mL 100 mg glycopyrrolate (Robinul) 0.2 mg/mL injection SYRINGE 0.2 mg LR bolus Cannot be calculated lidocaine PF (cardiac) syringe 2% 100 mg midazolam (Versed) 1 mg/1 mL 2 mg ondansetron 2 mg/mL 4 mg phenylephrine (Preet-Synephrine) 10 mg/250 mL NS (40 mcg/mL) infusion 3.15 mg phenylephrine 100 mcg/mL syringe 10 mL (prefilled) 920 mcg propofol (Diprivan) injection 10 mg/mL 200 mg remifentanil (Ultiva) 1,000 mcg in sodium chloride 0.9% 50 mL (20 mcg/mL) infusion 0.84 mg rocuronium 10 mg/mL 40 mg sugammadex (Bridion) 200 mg/2 mL injection 200 mg Anesthesia Record Intraprocedure I/O Totals Intake Remifentanil Drip 0.00 mL The total shown is the total volume documented since Anesthesia Start was filed. Phenylephrine Drip 0.00 mL The total shown is the total volume documented since Anesthesia Start was filed. Total Intake 0 mL Specimen: No specimens collected Drains and/or Catheters: * None in log * Tourniquet Times: Implants: Implants Type Name Action Serial No. ENT Implant IMPLANT, EAR, WILDCAT PRO ALTO TOTAL - [id number] Wasted ENT Implant IMPLANT, EAR, WILDCAT PRO ALTO TOTAL - [id number] Implanted Findings: 1. No residual cholesteatoma 2. No recurrent encephalocele 3. Footplate intact under a layer of mucosa. +RW reflex 4. FN bony covered 5. 5.25mm Wildcat Centered [place] TORP placed. Indications: Keyon Valenzuela is an 64 y.o. female who is having surgery for Cholesteatoma of left ear [H71.92] Mixed conductive and sensorineural hearing loss of left ear with restricted hearing of right ear [H90.A32]. She had prior resection without reconstruction of the ossicular chair and prior severe disease required a 2nd look with OCR for hearing rehabilitation. The patient was seen in the preoperative area. The risks, benefits, complications, treatment options, non-operative alternatives, expected recovery and outcomes were discussed with the patient. The possibilities of reaction to medication, pulmonary aspiration, injury to surrounding structures, bleeding, recurrent infection, the need for additional procedures, failure to diagnose a condition, and creating a complication requiring transfusion or operation were discussed with the patient. The patient concurred with the proposed plan, giving informed consent. The site of surgery was properly noted/marked if necessary per policy. The patient has been actively warmed in preoperative area. Preoperative antibiotics are not indicated. Venous thrombosis prophylaxis have been ordered including bilateral sequential compression devices Procedure Details: After receiving informed consent from the patient including the discussion of risks, benefits, and alternatives, the patient was taken to the operating room. The patient was placedsupine on the operative table. A surgical timeout was performed. After induction of satisfactory general anesthesia, the patient was turned 180 degrees towards the surgeon. Facial nerve electrodes were placed in orbicularis oculi and orbicularis vivi muscle. Placement was confirmed with facial monitoring. Continuous facial nerve monitoring was performed for the rest of the case, which lasted approximately 2 hours. Next, the patient was secured to the bed with 3 straps. Test roll was performed. The patient was adequately secured to the bed. The ear was then prepped and draped in usual sterile fashion. The ear canal was irrigated clear of Betadine. The surgical microscope was brought in, and using anappropriately-sized speculum, the ear canal was cleaned. A four-quadrant injection of 1:20,000 epinephrine was then performed. There was not a perforation. An anteriorly based tympanomeatal flap was then elevated. The annulus was identified. On entering the middle ear, there was no residual cholestatoma. The oval window was explored carefully given the concern for violation of the footplate at her prior operation. The footplate was intact with a +RW reflex. A perichondrial and cartilage graft was then harvest from a separate incision. The tragus was infiltrated with 1:20,000 epinephrine and then incised 2mm back from the dome to prevent cosmetic deformity. The perichondrium was stripped off and pressed. The cartilage was thinned to 0.2mm using the cartilage microtome. The harvest incision was closed with a 5-0Fast. The middle ear was copiously irrigated, then packed with Gelfoam, impregnated with Ciprodex. The graft, once it was pressed, was brought into the ear and placed in a medial fashion to the tympanic membrane. The prosthesis was sized with the sizers. A 5.25 mm Wildcat Stephie alto TORP prosthesis was used and positioned appropriately. The thinned cartilage was then placed over the cap of the prosthesis. A large piece of cartilage was also positioned posteriorly over the scutual defect. The flap waslaid back down, and the ear canal were was then packed with Gelfoam impregnated with Ciprodex. A cotton ball and Band-Aid were applied to the ear. The patient was returned to the care of Anesthesia after removal of the facial nerve electrodes. The patient was extubated without incident, and transferred to the recovery room in stable condition. Evidence of Infection: No Complications: None; patient tolerated the procedure well. Disposition: PACU - hemodynamically stable. Condition: stable Additional Details: Attending Attestation: I was present for the entire procedure. Victoria Britt documented in this [facility] Work Phone: [phone] 243-939009-15-2025 Surgery Surgical operation note* Op Note - Victoria Britt MD - 11/14/2024 10:45 AM EDT Left Side Tympanoplasty with cartilage graft, OCR (L) Operative Note Date: 11/14/2024 OR Location: [facility] OR Name: Keyon Valenzuela, : 1960, Age: 64 y.o., , Sex: female Diagnosis Pre-op Diagnosis * Cholesteatoma of left ear [H71.92] * Mixed conductive and sensorineural hearing loss of left ear with restricted hearing of right ear [H90.A32] Post-op Diagnosis * Cholesteatoma of left ear [H71.92] * Mixed conductive and sensorineural hearing loss of left ear with restricted hearing of right ear [H90.A32] Procedures Left Side Tympanoplasty with cartilage graft, OCR - TX GRAFT EAR CRTLG AUTOGENOUS NOSE/EAR Left Side Tympanoplasty with [place], OCR 97366 - TX TYMPANOPLASTY W/O MASTOIDEC 1ST/REVJ PROSTH TORP TX GRAFT EAR CRTLG AUTOGENOUS NOSE/EAR [] TX TMPP MASTOIDECT NTC/RCNSTED WALL W/O OCR [98287] Surgeons * Victoria Britt - Primary Resident/Fellow/Other [place] Clerk: Surgeons and Role: * Nadya Cox MD - Resident - Assisting * Reena Jimenez MD - Fellow Staff: Admissions Clinician: Nadya Scrub Person: Fara Martinez Admissions Clinician: Rosamaria Martienz Scrub: Nadya Anesthesia Staff: Anesthesiologist: Debra Owens MD Pest Control Service Sales Agent: Shauna Lambert DO Procedure Summary Anesthesia: General ASA: II Estimated Blood Loss: 3mL Intra-op Medications: Administrations occurring from 0945 to 1255 on 11/14/24: Medication Name Total Dose mupirocin (Bactroban) 2 % ointment 1 Application lidocaine-epinephrine (Xylocaine W/EPI) 1 %-1:100,000 injection 6 mL balanced salts (BSS) intraocular solution 15 mL sodium chloride 0.9 % irrigation solution 1,000 mL EPINEPHrine HCl (PF) (Adrenalin) 1 mL in sodium chloride 0.9% 19 mL syringe 0.5 mL oxygen (O2) therapy Cannot be calculated ceFAZolin (Ancef) 1 g 2 g dexAMETHasone (Decadron) 4 mg/mL 10 mg esmolol 10 mg/mL 100 mg glycopyrrolate (Robinul) 0.2 mg/mL injection SYRINGE 0.2 mg LR bolus Cannot be calculated lidocaine PF (cardiac) syringe 2% 100 mg midazolam (Versed) 1 mg/1 mL 2 mg ondansetron 2 mg/mL 4 mg phenylephrine (Preet-Synephrine) 10 mg/250 mL NS (40 mcg/mL) infusion 3.15 mg phenylephrine 100 mcg/mL syringe 10 mL (prefilled) 920 mcg propofol (Diprivan) injection 10 mg/mL 200 mg remifentanil (Ultiva) 1,000 mcg in sodium chloride 0.9% 50 mL (20 mcg/mL) infusion 0.84 mg rocuronium 10 mg/mL 40 mg sugammadex (Bridion) 200 mg/2 mL injection 200 mg Anesthesia Record Intraprocedure I/O Totals Intake Remifentanil Drip 0.00 mL The total shown is the total volume documented since Anesthesia Start was filed. Phenylephrine Drip 0.00 mL The total shown is the total volume documented since Anesthesia Start was filed. Total Intake 0 mL Specimen: No specimens collected Drains and/or Catheters: * None in log * Tourniquet Times: Implants: Implants Type Name Action Serial No. ENT Implant IMPLANT, EAR, WILDCAT PRO ALTO TOTAL - [id number] Wasted ENT Implant IMPLANT, EAR, WILDCAT PRO ALTO TOTAL - [id number] Implanted Findings: 1. No residual cholesteatoma 2. No recurrent encephalocele 3. Footplate intact under a layer of mucosa. +RW reflex 4. FN bony covered 5. 5.25mm [employer] [place] TORP placed. Indications: Keyon Valenzuela is an 64 y.o. female who is having surgery for Cholesteatoma of left ear [H71.92] Mixed conductive and sensorineural hearing loss of left ear with restricted hearing of right ear [H90.A32]. She had prior resection without reconstruction of the ossicular chair and prior severe disease required a 2nd look with OCR for hearing rehabilitation. The patient was seen in the preoperative area. The risks, benefits, complications, treatment options, non-operative alternatives, expected recovery and outcomes were discussed with the patient. The possibilities of reaction to medication, pulmonary aspiration, injury to surrounding structures, bleeding, recurrent infection, the need for additional procedures, failure to diagnose a condition, and creating a complication requiring transfusion or operation were discussed with the patient. The patient concurred with the proposed plan, giving informed consent. The site of surgery was properly noted/marked if necessary per policy. The patient has been actively warmed in preoperative area. Preoperative antibiotics are not indicated. Venous thrombosis prophylaxis have been ordered including bilateral sequential compression devices Procedure Details: After receiving informed consent from the patient including the discussion of risks, benefits, and alternatives, the patient was taken to the operating room. The patient was placedsupine on the operative table. A surgical timeout was performed. After induction of satisfactory general anesthesia, the patient was turned 180 degrees towards the surgeon. Facial nerve electrodes were placed in orbicularis oculi and orbicularis vivi muscle. Placement was confirmed with facial monitoring. Continuous facial nerve monitoring was performed for the rest of the case, which lasted approximately 2 hours. Next, the patient was secured to the bed with 3 straps. Test roll was performed. The patient was adequately secured to the bed. The ear was then prepped and draped in usual sterile fashion. The ear canal was irrigated clear of Betadine. The surgical microscope was brought in, and using anappropriately-sized speculum, the ear canal was cleaned. A four-quadrant injection of 1:20,000 epinephrine was then performed. There was not a perforation. An anteriorly based tympanomeatal flap was then elevated. The annulus was identified. On entering the middle ear, there was no residual cholestatoma. The oval window was explored carefully given the concern for violation of the footplate at her prior operation. The footplate was intact with a +RW reflex. A perichondrial and cartilage graft was then harvest from a separate incision. The tragus was infiltrated with 1:20,000 epinephrine and then incised 2mm back from the dome to prevent cosmetic deformity. The perichondrium was stripped off and pressed. The cartilage was thinned to 0.2mm using the cartilage microtome. The harvest incision was closed with a 5-0Fast. The middle ear was copiously irrigated, then packed with Gelfoam, impregnated with Ciprodex. The graft, once it was pressed, was brought into the ear and placed in a medial fashion to the tympanic membrane. The prosthesis was sized with the sizers. A 5.25 mm [employer] Stephie alto TORP prosthesis was used and positioned appropriately. The thinned cartilage was then placed over the cap of the prosthesis. A large piece of cartilage was also positioned posteriorly over the scutual defect. The flap waslaid back down, and the ear canal were was then packed with Gelfoam impregnated with Ciprodex. A cotton ball and Band-Aid were applied to the ear. The patient was returned to the care of Anesthesia after removal of the facial nerve electrodes. The patient was extubated without incident, and transferred to the recovery room in stable condition. Evidence of Infection: No Complications: None; patient tolerated the procedure well. Disposition: PACU - hemodynamically stable. Condition: stable Additional Details: Attending Attestation: I was present for the entire procedure. Victoria Britt [facility] [place] Work Phone: [phone] Hospital Discharge instructions* Discharge Instructions* Nadya Cox MD - 11/14/2024 10:03 AM EDT .PATIENT INSTRUCTIONS FOR: TYMPANOPLASTY A tympanoplasty is performed to reconstruct your eardrum (tympanic membrane). This is often done because there is a hole in the eardrum (i.e. perforation) or some type of structural problem with the eardrum (ie retraction). Eardrum problems can cause hearing loss, chronic infection, and lead to more serious conditions like cholesteatoma (ie. trapped skin behind the ear drum). There are many different ways to repair the eardrum depending on where hole is located and how big it is. Surgery to repair the eardrum is typically successful (90% or higher), but there are rare cases in which a residual hole may persist even after surgery. The procedure involves making an incision in the ear canal and sometimes behind the ear as well. The eardrum is lifted up to allow evaluation of the middle ear space and bones of hearing. If necessary, the bones of hearing can be rebuilt with a titanium prosthesis (MRI compatible). The ear drum is typically rebuilt with cartilage or tissue fromyour ear canal, but there are different materials and techniques that can be used. This is an outpatient procedure, meaning you will go home the same day. Recovery from surgery generally is 3-7 days and no strenuous activity is recommended for 10-days. The first post-op appointment is roughly 3-weeks after surgery. The hearing is rechecked (audiogram) 3-4 months after surgery. Please call the office if these are not scheduled. MEDICATIONS Ear drops: A topical antibiotic ear drop will be prescribed. This is to dissolve packing in your ear canal and prevent infection while everything heals. Start the ear drop 48h after surgery and continue them until your first follow-up appointment. The doctor will then advise if further use is needed. Pain medication: Narcotic pain medication is not always needed after ear surgery, but is often prescribed. For adults, consider a non-narcotic pain regimen of alternating ibuprofen 600 mg every 6 hours and acetaminophen 500-1000 mg every 6 hours. These can be staggered in 3-hour intervals if needed. Do not exceed 4000 mg of acetaminophen per day. If a narcotic is needed, please take as prescribedand only as needed. Do not drive or operate machinery while using narcotics. Avoid taking pain medication on an empty stomach. AFTER-CARE Incisional Care: 1) Behind the ear: You can ignore this section if an incision behind the ear was not performed. Remove the ear wrap (mastoid dressing) the day after your surgery. It can then be left off, but some patients like to sleep with it on the first week after surgery. Your incision is closed with sutures under the skin that will dissolve on their own. The outer layer of skin is closed with skin glue (i.e. liquid Band-Aid). If the incision is dry (no bleeding), then just leave the skin glue in place. Ifthere is mild bleeding through the skin glue, it can be cleaned with hydrogen peroxide and covered with an [id number]-[id number] antibiotic ointment or Vaseline. Hold pressure if the bleeding persists. Call the office if there are any concerns. It is ok to shower 24-hours after surgery. If some water gets in contact with the incision/skin glue it is ok, but try to avoid soaking the incision. 2) Ear canal: Incisions were made in your ear canal. They secured with packing. It is important to keep the ear canal dry, aside from the antibiotic drops that you will start the week after surgery. It is ok to shower 24-hours after surgery. When showering, coat a cotton ball with Vaseline and place that in the ear canal to keep it dry. After the shower, remove the Vaseline coated cotton ball andreplace it with a fresh, dry cotton ball. It is normal to have some bloody ooze and pain during thefirst week after the procedure. If there is bleeding from the ear canal, the cotton ball may need to replaced more frequently (2-5 times a day). Please call the office if the ear canal bleeding is excessive or concerning. There may also be an incision at the front of the ear canal where the cartilage graft was taken. These sutures will dissolve on their own and no additional care for that incision is needed. Do not pick, pull, rub or scratch your incision. Always wash your hands before and after contact with incision. Please keep a fresh cotton ball in your ear until your 1st post op visit. Other: You may experience some soreness when chewing, tinnitus, and even hear/experience a crackling noiseas the ear heals. You may experience temporary taste changes or altered taste. It is not unusual to experience dizziness for a couple days following an ear surgery. Call the office if this fails to improve by 3-4 days following surgery or if the vertigo is severe. Avoid lying on the operative ear for 1 week after surgery. No strenuous activity for 10 days after surgery, including no heavy lifting over 10 lbs. Do not travel on an airplane for 4 weeks, unless otherwise approved. Avoid situations where you might have to make sudden head movements. Do not blow your nose or sneeze with your mouth closed. Try not to blow your nose for at least 1 week after surgery. If you useCPAP, ask your doctor about when it is safe to resume its use. Call the office if you have a temperature over 100.3, your incision is red, swollen or coming apart, or if you have excessive drainage from your ear or incision. Do not wait until your appointment to report any problems or questions. The office number is [phone] and ask to speak with Dr. Britt's nurse. For urgent concerns after hours or on weekends: [phone] or the [facility] catalyst operator gasoline ([phone]) and ask for the on-call otolaryngology/ENT resident. FOLLOW-UP SCHEDULE The typical tympanoplasty patient care path is as follows: 3-4 weeks post-op: 1st follow-up appointment, removal of ear canal packing, discuss your healing course, and review the surgical details 3-4 months post-op: audiogram, review your healing course, and counseling on hearing rehabilitationif needed 12 months post-op: audiogram, ear examination, and discuss future monitoring needs Annual visits: yearly audiogram and ear examination until otherwise specified Chronic ear disease and cholesteatoma (if present) are lifelong conditions that require long-term follow-up. Monitoring the ear drum will also require extermination supervisor follow-up. Please discuss the long-term follow-up needs with Dr. Britt and his team. documented in this [facility] Work Phone: [phone] History and physical note* Victoria Britt MD - 11/14/2024 9:28 AM EDT History Of Present Illness Keyon Valenzuela is a 64 y.o. female presenting with history of encephalocele, cholesteatoma here for second look procedure. Past Medical History Medical History[1] Surgical History Surgical History[2] Social History She reports that she has never smoked. She has never been exposed to tobacco smoke. She has never used smokeless tobacco. No history on file for alcohol use and drug use. Family History Family History[3] Allergies Patient has no known allergies. Review of Systems neg Physical Exam Constitutional General appearance: Healthy-appearing, well-nourished, well groomed, [...] of extremities: Normal. Gait normal. Last Recorded Vitals Blood pressure 139/77, pulse 69, temperature 36.8 C (98.2 F), temperature source Temporal, resp. rate 16, height 1.651 m (5' 5 ), weight 82.1 kg (181 lb), SpO2 94%. 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 No pertinent surgical history. [3] No family history on file. [facility] [place] Work Phone: [phone] History and physical note* Victoria Britt MD - 11/14/2024 9:28 AM EDT History Of Present Illness Keyon Valenzuela is a 64 y.o. female presenting with history of encephalocele, cholesteatoma here for second look procedure. Past Medical History Medical History[1] Surgical History Surgical History[2] Social History She reports that she has never smoked. She has never been exposed to tobacco smoke. She has never used smokeless tobacco. No history on file for alcohol use and drug use. Family History Family History[3] Allergies Patient has no known allergies. Review of Systems neg Physical Exam Constitutional General appearance: Healthy-appearing, well-nourished, well groomed, [...] of extremities: Normal. Gait normal. Last Recorded Vitals Blood pressure 139/77, pulse 69, temperature 36.8 C (98.2 F), temperature source Temporal, resp. rate 16, height 1.651 m (5' 5 ), weight 82.1 kg (181 lb), SpO2 94%. 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 No pertinent surgical history. [3] No family history on file. [facility] [place] Work Phone: [phone] 743-271808-01-2025 Telephone encounter Note* Telephone Encounter - Felton Neumann MD - 09/30/2024 12:15 PM EDT [id number] Miscellaneous Notes* Telephone Encounter - Felton Neumann MD - 09/30/2024 12:15 PM EDT documented in this encounterSaint [facility] [id number] History of Present illness Narrative* Victoria Britt MD - 09/27/2024 10:00 AM EDT History Of Present Illness: Keyon Valenzuela is a 64 y.o. 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 Recall 05/27/24: Keyon Valenzuela is a 64 y.o. female with a [...] she has been exchanging use. Will be seeingher dentist in 2 weeks. Surgical History: She [...] convenience. Patient seen and discussed with Dr. Britt. Reena Jimenez MD Neurotology Fellow I saw and evaluated the patient. I personally obtained the aburto and critical portions of the historyand physical exam or was physically present for aburto and critical portions performed by the resident/fellow. I reviewed the resident/fellow's documentation and discussed the patient with the resident/f boni. I agree with the resident/fellow's medical decision making as documented in the note. Victoria Britt MD documented in this [facility] Work Phone: [phone] History of Present illness Narrative* Felton Neumann MD - 07/11/2024 9:53 AM EDTAssociated Problem(s): Primary osteoarthritis of both knees Pain stable and continue mobic. Increase activity and walk regularly. * Felton Neumann MD - 07/11/2024 9:53 AM EDTAssociated Problem(s): Primary hypothyroidism (CMS/HCC) No signs of low thyroid and repeat labs. Continue synthroid. * Felton Neumann MD - 07/11/2024 9:52 AM EDTAssociated Problem(s): ZEESHAN (generalized anxiety disorder) ([facility]) Symptoms controlled with prozac and continue at current dose. * Felton Neumann MD - 07/11/2024 9:52 AM EDTAssociated Problem(s): Chest pain Develops severe SOB, fatigue and chest pain with exertion that resolved with rest. Not able to use treadmill due to OA knees and check lexiscan cardiolyte stress test. * Felton Neumann MD - 07/11/2024 9:00 AM EDT Images from the original note were not included. Subjective Patient ID: Keyon Valenzuela is a 64 y.o. female who [...] test with myocardial perfusion documented in this encounterSaint [facility] [id number] History of Present illness Narrative* Victoria Britt MD - 05/27/2024 12:00 PM EDT History Of Present Illness: Keyon Valenzuela is a 64 y.o. female with a [...] for 2nd look in 6 mo. Victoria Britt MD documented in this [facility] Work Phone: [phone] Attending History and physical note* Victoria Britt MD - 05/11/2024 12:18 PM EDT H&P reviewed. The patient was examined and there are no changes to the H&P. Source Note - Victoria Britt MD - 05/03/2024 11:45 AM EST History Of Present Illness: Keyon Valenzuela is a 64 y.o. female who presents to me as a new patient for tegmen defect, referred heretoday by Constance Sykes MD. She reports an approximately 8- month history of daily clear fluid drainage from [...] severe mixed hearing loss with max ABG 35dBat 1000 Hz, WRS 100%, Type B tympanogram [...] definite stapes suprastructure appreciated. There is scutal erosionand multiple regions of tegmen dehiscence both in the mastoideum and more medially just lateral to the superior semicircular canal. Assessment/Plan 64 y.o. female who presents to me as a new patient for tegmen defect, referred here today by MD Dora. On examination, she has evidence of a [...] if she develops an infection of the exi sting cholesteatoma. 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 We will attempt to repair thetegmen defect from below, but discussed that a craniotomy may be required to adequately repair the more medial defect. These risks include, but are not limited to facial nerve injury, deafness in theoperated ear, vertigo, dizziness, imbalance, facial weakness or paralysis, change in sense of taste, perforation of eardrum, pain, bleeding, infection, scarring, need for further surgery, cholesteatoma recurrence, prosthesis extrusion, persistent spinal fluid leak, meningitis. The family and patient elected to proceed. We will schedule this in the near future, with our Neurosurgery team availableif a middle fossa craniotomy is necessary. Nadya Thakkar MD Neurotology Fellow I saw and evaluated the patient. I personally obtained the aburto and critical portions of the historyand physical exam or was physically present for aburto and critical portions performed by the resident/fellow. I reviewed the resident/fellow's documentation and discussed the patient with the resident/marquise plata. I agree with the resident/fellow's medical decision making as documented in the note. Victoria Britt MD [facility] [place] Work Phone: [phone] History and physical note* Victoria Britt MD - 05/11/2024 12:18 PM EDT H&P reviewed. The patient was examined and there are no changes to the H&P. Source Note - Victoria Britt MD - 05/03/2024 11:45 AM EST History Of Present Illness: Keyon Valenzuela is a 64 y.o. female who presents to me as a new patient for tegmen defect, referred heretoday by Constance Sykes MD. She reports an approximately 8- month history of daily clear fluid drainage from [...] severe mixed hearing loss with max ABG 35dBat 1000 Hz, WRS 100%, Type B tympanogram [...] definite stapes suprastructure appreciated. There is scutal erosionand multiple regions of tegmen dehiscence both in the mastoideum and more medially just lateral to the superior semicircular canal. Assessment/Plan 64 y.o. female who presents to me as a new patient for tegmen defect, referred here today by MD Dora. On examination, she has evidence of a [...] if she develops an infection of the exi sting cholesteatoma. 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 We will attempt to repair thetegmen defect from below, but discussed that a craniotomy may be required to adequately repair the more medial defect. These risks include, but are not limited to facial nerve injury, deafness in theoperated ear, vertigo, dizziness, imbalance, facial weakness or paralysis, change in sense of taste, perforation of eardrum, pain, bleeding, infection, scarring, need for further surgery, cholesteatoma recurrence, prosthesis extrusion, persistent spinal fluid leak, meningitis. The family and patient elected to proceed. We will schedule this in the near future, with our Neurosurgery team availableif a middle fossa craniotomy is necessary. Nadya Thakkar MD Neurotology Fellow I saw and evaluated the patient. I personally obtained the aburto and critical portions of the historyand physical exam or was physically present for aburto and critical portions performed by the resident/fellow. I reviewed the resident/fellow's documentation and discussed the patient with the resident/marquise plata. I agree with the resident/fellow's medical decision making as documented in the note. Victoria Britt MD documented in this [facility] Work Phone: [phone] Hospital Note* Hospital Course - De'Osmin Bill MD - 05/11/2024 11:20 AM EDT Keyon Valenzuela is a 64 y.o. 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 Britt on 05/11/24. Patient had an uncomplicated surgical course. Patient recovered in PACU and was transferred to [address] for post-operative care. Patient post-operative course was uncomplicated. On day of discharge, post- operative pain was well controlled with enteral pain medication, breathing on room air, voiding spontaneously ambulatingwell, and was tolerating a diet. Follow-up arranged. [facility] [place] Work Phone: [phone] Miscellaneous Notes* Hospital Course - Kehinde Bill MD - 05/11/2024 11:20 AM EDT Keyon Valenzuela is a 64 y.o. 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 Britt on 05/11/24. Patient had an uncomplicated surgical course. Patient recovered in PACU and was transferred to [address] for post-operative care. Patient post-operative course was uncomplicated. On day of discharge, post- operative pain was well controlled with enteral pain medication, breathing on room air, voiding spontaneously ambulatingwell, and was tolerating a diet. Follow-up arranged. [facility] this [facility] [place] Work Phone: [phone] Hospital Discharge instructions* Discharge Instructions* Kehinde Bill MD - 05/11/2024 10:14 AM EDT POST OPERATIVE INSTRUCTIONS AFTER EAR SURGERY Victoria Britt MD ? Romero Cruz MD ? Rhona Lin MD? Dallin Hopkins MD Most ear surgeries should have a 2-4 week postoperative appointment. Please be sure to call the doctor's office and make a follow-up appointment, if you don't already have it. Dressing or Band-Aid can be removed the day after surgery. Once removed, replace the cotton ball inthe ear as needed. Once the dressing is off, and if you have an incision behind your ear with stitches, clean the incision twice daily with soap and water and apply Vaseline or antibiotic ointment after cleaning. If you have paper strips or surgical glue over the incision, Do not apply anything behi nd the ear. Bloody drainage from the ear [...] your hearing may sound muffled and your voicemay echo in your ear during speech. Minor swelling of the face on the same side of the surgery is not uncommon. Small bruising near theeye or mouth is not uncommon from the [...] make specific suggestions for your care. Call [phone] ([phone]) or [phone] (after-hours) any time day or night if [...] avoid using a straw documented in this [facility] Work Phone: [phone]) 177-325303-11-2025 History of Present illness Narrative* Victoria Spangler - 05/10/2024 12:38 PM EDT Pharmacy Medication History Review Keyon Valenzuela is a 64 y.o. 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 Pharmacy calledthe patient prior to their scheduled procedure and reviewed the patient's qlklw-wy-lljfqieub medications for accuracy. Medications ADDED: Melatonin 5mg Medications CHANGED: none Medications REMOVED: Ciprodex Duloxetine 60mg Meloxicam 15mg Montelukast 10mg Prednisone 10mg Please review updated prior to admission medication list and comments regarding how patient may be taking medications differently by going to Admission tab --> Admission Orders --> Admit Orders/ Review prior to admission medications. Preferred pharmacy, last doses of medications, and allergies to be confirmed with patient by nursing the day of procedure. Sources used to complete the med history include: [facility] Pharmacy dispense history Patient interview Chart Review Care Everywhere Below are additional concerns with the patient's [employer] list. Patient states they are taking #1 tablet of levothyroxine 100mcg daily. There is NO fill history but shows ordered 11/05/23 #90 per [facility] clinical summary Victoria Spangler [facility] Please reach out via Secure Chat for questions documented in this [facility] Work Phone: [phone]) 941-852203-04-2025 History of Present illness Narrative* Victoria Britt MD - 05/03/2024 11:45 AM EST History Of Present Illness: Keyon Valenzuela is a 64 y.o. female who presents to me as a new patient for tegmen defect, referred heretoday by Constance Sykes MD. She reports an approximately 8- month history of daily clear fluid drainage from [...] severe mixed hearing loss with max ABG 35dBat 1000 Hz, WRS 100%, Type B tympanogram [...] definite stapes suprastructure appreciated. There is scutal erosionand multiple regions of tegmen dehiscence both in the mastoideum and more medially just lateral to the superior semicircular canal. Assessment/Plan 64 y.o. female who presents to me as a new patient for tegmen defect, referred here today by MD Droa. On examination, she has evidence of a [...] if she develops an infection of the exi sting cholesteatoma. 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 We will attempt to repair thetegmen defect from below, but discussed that a craniotomy may be required to adequately repair the more medial defect. These risks include, but are not limited to facial nerve injury, deafness in theoperated ear, vertigo, dizziness, imbalance, facial weakness or paralysis, change in sense of taste, perforation of eardrum, pain, bleeding, infection, scarring, need for further surgery, cholesteatoma recurrence, prosthesis extrusion, persistent spinal fluid leak, meningitis. The family and patient elected to proceed. We will schedule this in the near future, with our Neurosurgery team availableif a middle fossa craniotomy is necessary. Nadya Thakkar MD Neurotology Fellow I saw and evaluated the patient. I personally obtained the aburto and critical portions of the historyand physical exam or was physically present for aburto and critical portions performed by the resident/fellow. I reviewed the resident/fellow's documentation and discussed the patient with the resident/f boni. I agree with the resident/fellow's medical decision making as documented in the note. Victoria Britt MD documented in this [facility] Work Phone: [phone]) 944-425303-04-2025 Instructions* Patient Instructions* Nadya Gifford - 05/03/2024 11:45 AM EST Welcome to Dr. Britt's clinic. We are here to assist you through your ENT care at [facility]. Dr. Britt is an Ear surgeon. This means that she specializes in taking care of patients with complex ear problems. Dr. Britt's office number is [phone]. While you may see her at a satellite office, she has a team committed to help meet your healthcare needs at [facility]. This number is the most direct way to communicate with the office. Cathy is Dr. Britt's typing secretary and she answers the office phone from 8am-4pm Thu-Thu. She can help you with many general questions and information. Questions that she cannot answer will be directed to the appropriate staff. You may need to leave a message. In this case, someone from the team will call you back. Preet Blanc RN, is Dr. Britt's primary nurse and can be reached by calling the office. Preet is in clinic with Dr. Britt's on Mondays and Tuesdays. Non-urgent calls will be returned on non-clinic days typically . Sometimes, other team members will also be involved in your care. These people may include dieticians, social workers, speech therapists, portrait consultant, neurologist, and physical therapist. Dr. Britt will provide these referrals as needed. Please let her know if you would like to request a specific referral. For your convenience, Dr. Britt sees patients at several [facility] locations including [facility] and [facility] at the main campus of [facility]. While we try tomake your appointments as convenient as possible, occasionally a visit to another location may be ne cessary to provide the best care for you. We look forward to working with you to meet your healthcare goals. Dr. Britt makes every effort to run on time for your appointments. Therefore, if you are more than 30 minutes late unrelated to a scan or another appointment such therapy or audio you will have to reschedule. documented in this [facility] Work Phone: [phone]) 797-663401-22-2025 History of Present illness Narrative* Constance Sykes MD - 03/23/2024 8:00 AM EST Subjective Patient ID: Keyon Valenzuela is a 64 y.o. female who [...] recurred. I am still very suspicious of aCSF leak, and/or possibly a cholesteatoma. I will arrange for Keyon to see an psych nurse, Dr Victoria Britt, or one of her partners, for eval and tx. In the meantime I will restart drops and have pt get a copy of her CT to take to [facility]. documented in this encounterSaint Joseph Health [id number] History of Present illness Narrative* Constance Sykes MD - 02/16/2024 8:40 AM EST Images from the original note were not included. Subjective Patient ID: Keyon Valenzuela is a 64 y.o. female who [...] Problems Diagnosis Date Noted Essential hypertension, benign ([facility]) 02/18/2023 Primary osteoarthritis of both knees 02/18/2023 Dyslipidemia ([facility]) 02/18/2023 Gastroesophageal reflux disease 02/18/2023 Primary hypothyroidism ([facility]) 02/18/2023 Osteoporosis, post-menopausal ([facility]) 02/18/2023 Prediabetes 02/18/2023 Vitamin D deficiency 02/18/2023 Seasonal allergic rhinitis due to pollen 02/18/2023 Colon cancer screening 02/18/2023 Plantar fasciitis of right foot 08/19/2023 ZEESHAN (generalized anxiety disorder) ([facility]) 09/29/2023 Medicare annual wellness visit, subsequent 02/11/2024 Encounter for long-term (current) use of medications 02/11/2024 Otorrhea of left ear 02/11/2024 Resolved Ambulatory Problems Diagnosis Date Noted No Resolved Ambulatory Problems Past Medical History: Diagnosis Date At low risk for fall Benign essential hypertension ([facility]) Former smoker GERD without esophagitis Hypothyroidism, adult ([facility]) Non-seasonal allergic rhinitis due to pollen Obesity with body mass index (BMI) of 30.0 to 39.9 Osteoporosis, postmenopausal ([facility]) Right wrist pain Past Surgical History: Procedure [...] regular rate and rhythm; Patient ID: Keyon Valenzuela is a 64 y.o. female. Procedures Foreign [...] cholesteatoma and I am worried she has CSFotorrhea. I will start ciprodex and clotrimazole for her infection. I will also get a specimen of fluid for beta-2 transferrin and check a CT temporal bone to evaluate for a tegmen defect. documented in this encounterSaint Joseph Health [id number] History of Present illness Narrative* Felton Neumann MD - 02/11/2024 10:11 AM ESTAssociated Problem(s): Otorrhea of left ear Drainage for months and not able to visualize TM. Refer to ENT for evaluation. * Felton Neumann MD - 02/11/2024 10:10 AM ESTAssociated Problem(s): Medicare annual wellness visit, subsequent Due for labs. Discussed proper diet and regular aerobic exercise. Need aerobic exercise 5-6 days a week for 30 minutes at a time. Smaller portions and limit total calories. Colonoscopy every 10 years. Tetanus every 10 years. Advised not to smoke. Discussed daily Aspirin therapy. * Felton Neumann MD - 02/11/2024 9:15 AM EST Images from the original note were not included. Subjective Patient ID: Keyon Valenzuela is a 64 y.o. female who presents for Medicare Annual Wellness Visit Initial (WELLNESS). Presents for medicare annual wellness visit. Weight up 4 pounds in past year. Tries to stay active around house but no exercise. C/o increased pain in multiple joints limiting activity. Tries to watch diet and eat healthy. Increased fruits and vegetables. Smaller portions and limits snacking. Triesto limit total daily calories. Due for labs. [...] told bones in ears deteriorating but nothing couldbe done. Continues to have drainage from ear. [...] automated HIRA Rheumatoid factor documented in this encounterSaint Joseph Health [id number] History of Present illness Narrative* Felton Neumann MD - 10/30/2023 11:21 AM EDTAssociated Problem(s): ZEESHAN (generalized anxiety disorder) (CMS/HCC) Symptoms controlled with prozac and continue at current dose. * Felton Neumann MD - 10/30/2023 11:21 AM EDTAssociated Problem(s): Essential hypertension, benign (CMS/HCC) BP controlled and monitor PRN. * Felton Neumann MD - 10/30/2023 10:30 AM EDT Images from the original note were not included. Subjective Patient ID: Keyon Valenzuela is a 63 y.o. female who presents [...] and monitor PRN. ZEESHAN (generalized anxiety disorder) ([facility]) Symptoms controlled with prozac and continue at current dose. documented in this encounterSaint Joseph Health [id number] NoteChief Complaint consultation for colonoscopy HPI Staff 63 [...] denies asa, on Meloxicam prn, no SBE prophylaxis;abdominal operations significant for cholecystectomy and MICHELLE, last colonoscopy over 10 years ago, re portedly normal; fmhx of colon cancer in patient's sister, dx at 50, no fmhx of IBD; no tobacco use. Review of Systems PHQ Score Initial Depression Screen Score: 0 SCORE ROS - Provider Constitutional: no fever, no sweats, no weight loss. Eyes: no glasses, no blurred vision, no visual loss. ENMT: no dentures, no hoarseness, no swallowing difficulties, no hearing loss, no ear infection(s),no nose bleeds. Cardiovascular: normal blood pressure, no [...] Tobacco Use:. Never Smokeless Tobacco Use:. Cigarettes, 3per day. Started age 28.0 Years. Stopped age 38 Years., 04/07/2023 Family History Aneurysm: Father. Primary malignant neoplasm of colon: Sister. Immunizations Vaccine Date Status Comments influenza virus vaccine, keisha (more content not included)...[facility] CenterComment on above:Result Comment: Electronically Signed By: BARBIE VANEGAS, Marcin Diaz\Date and Time Signed: 04/07/23 19:36 ESTEvaluation + Plan note No data available for this section General Surgery [facility] Evaluation note* Diagnosis Breast cancer screening by mammogram documented in this encounter [facility] Work Phone: evaluation note* Diagnosis Essential hypertension, [...] [facility]* Diagnosis Essential hypertension, benign ([facility])- Primary Essential hypertension, benign Seasonal allergic rhinitis due to pollen Primary osteoarthritis of both knees Primary hypothyroidism ([facility]) Unspecified hypothyroidism Colon cancer screening Special screening for malignant neoplasms, colon Osteoporosis, post-menopausal ([facility]) Senile osteoporosis Essential hypertension, benign ([facility])- Primary Essential hypertension, benign Plantar fasciitis of right foot Primary osteoarthritis of both knees Seasonal allergic rhinitis due to pollen Plantar fasciitis of right foot- Primary ZEESHAN (generalized anxiety disorder) ([facility]) Generalized anxiety disorder Essential hypertension, benign ([facility])- Primary Essential hypertension, benign ZEESHAN (generalized anxiety disorder) ([facility]) Generalized anxiety disorder Medicare annual wellness visit, subsequent- Primary Essential hypertension, benign ([facility]) Essential hypertension, benign Prediabetes Other abnormal glucose Primary hypothyroidism ([facility]) Unspecified hypothyroidism Dyslipidemia ([facility]) Other and unspecified hyperlipidemia Encounter for long-term [...] [facility]* Diagnosis Essential hypertension, benign ([facility])- Primary Essential hypertension, benign ZEESHAN (generalized anxiety disorder) ([facility]) Generalized anxiety disorder documented in this encounter [facility]* Diagnosis Essential hypertension, benign ([facility])- Primary Essential hypertension, benign Seasonal allergic rhinitis due to pollen Primary osteoarthritis of both knees Primary hypothyroidism ([facility]) Unspecified hypothyroidism Colon cancer screening Special screening for malignant neoplasms, colon Osteoporosis, post-menopausal ([facility]) Senile osteoporosis Essential hypertension, benign ([facility])- Primary Essential hypertension, benign Plantar fasciitis of right foot Primary osteoarthritis of both knees Seasonal allergic rhinitis due to pollen Plantar fasciitis of right foot- Primary ZEESHAN (generalized anxiety disorder) ([facility]) Generalized anxiety disorder Essential hypertension, benign ([facility])- Primary Essential hypertension, benign ZEESHAN (generalized anxiety disorder) ([facility]) Generalized anxiety disorder Medicare annual wellness visit, subsequent- Primary Essential hypertension, benign (CMS/HCC) Essential hypertension, benign Prediabetes Other abnormal glucose Primary hypothyroidism (CMS/HCC) Unspecified hypothyroidism Dyslipidemia (CMS/HCC) Other and unspecified hyperlipidemia Encounter for long-term (current) use of medications Encounter for long-term (current) use of other medications Arthralgia, unspecified joint Otorrhea of left ear Otorrhea of left ear- Primary documented in this encounter [facility] HealthcareEvaluation note* Diagnosis Cholesteatoma of left ear- Primary 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 Preoperative clearance Unspecified pre-operative examination 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- Primary 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 documented in this encounter [facility] Work Phone: Evaluation note* Diagnosis 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- Primary 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 Cholesteatoma of left ear HTN (hypertension) Unspecified essential hypertension Depression Depressive disorder, not elsewhere classified Hypothyroidism Unspecified hypothyroidism documented in this encounter [facility] Work Phone: Evaluation note* Diagnosis Cholesteatoma of left ear- Primary 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) Other and unspecified hyperlipidemia Encounter for long-term (current) use of medications Encounter for long-term (current) use of other medications Arthralgia, unspecified joint Otorrhea of left ear Essential hypertension, benign ([facility])- Primary Essential hypertension, benign Chest pain, unspecified type ZEESHAN (generalized anxiety disorder) ([facility]) Generalized anxiety disorder Primary osteoarthritis of both knees Primary hypothyroidism ([facility]) Unspecified hypothyroidism Prediabetes Other abnormal glucose Dyslipidemia ([facility]) Other and unspecified hyperlipidemia Encounter for long-term [...] Essential hypertension, benign- Primary Essential hypertension, benign ZEEHSAN (generalized anxiety disorder) Generalized anxiety disorder Medicare [...] Essential hypertension, benign documented in this encounter [facility]* [...] of right ear documented in this encounter [facility] Work Phone: Evaluation note* Diagnosis Discontinuity of ossicles of left ear- Primary 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 documented in this encounter [facility] Work Phone: Evaluation note* Diagnosis Post-operative state- Primary Other postprocedural status 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 documented in this encounter [facility] Work Phone: Hospital Discharge instructions No data available for this section General Surgery [employer] Progress note No data available for this section General Surgery [employer] Reason for visit Narrative* Auth/CertSpecialtyDiagnoses / ProceduresReferred By ContactReferred To Contact Diagnoses 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 [G96.01] Procedures TX TMPP MASTOIDECT NTC/RCNSTED CANAL WALL OCR TX CRANIOTOMY FOR ENCEPHALOCELE REPAIR SKULL BASE TX GRAFT EAR CRTLG AUTOGENOUS NOSE/EAR TX THERAPEUTIC SPINAL PUNCTURE DRAINAGE CSF LEFT SIDE CANAL WALL UP TYMPANOMASTOIDECTOMY, POSSIBLE OSSICULOPLASTY, POSSIBLE CARTILAGE GRAFT, POSSIBLE MIDDLE CRANIAL FOSSA APPROACH FOR ENCEPHALOCELE REPAIR, POSSIBLE LUMBAR DRAIN PLACEMENT LEFT SIDE CANAL WALL UP TYMPANOMASTOIDECTOMY, POSSIBLE OSSICULOPLASTY, POSSIBLE CARTILAGE GRAFT, POSSIBLE MIDDLE CRANIAL FOSSA APPROACH FOR ENCEPHALOCELE REPAIR, POSSIBLE [place] [address] [place] [address] Phone: tel: fax: [facility] Rehana ARGUETA [address] [place] [address] fax: Referral IDStatusReasonStart DateExpiration DateVisits RequestedVisits [id number] [facility] Work Phone: Reason for visit Narrative* Auth/CertSpecialty Diagnoses / ProceduresReferred By ContactReferred To Contact Diagnoses 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 Cholesteatoma of left ear [H71.92] Mixed conductive and sensorineural hearing loss of left ear with restricted hearing of right ear [H90.A32] Procedures TX TYMPANOPLASTY W/O MASTOIDECT W/O OSSICLE RECNSTJ TX GRAFT EAR CRTLG AUTOGENOUS NOSE/EAR TX GRAFT EAR CRTLG AUTOGENOUS NOSE/EAR TX TMPP MASTOIDECT NTC/RCNSTED WALL W/O OCR Left Side Tympanoplasty with cartilage graft, possible OCR Left Side Tympanoplasty with cartilage graft, [place] [address] [place] [address] Phone: tel: fax: [place] [address] [place] [address] fax: Referral IDStatusReasonStart DateExpiration DateVisits RequestedVisits [id number] [facility] Work Phone: Reason for Referral StatusReasonSpecialtyDiagnoses / ProceduresReferred By ContactReferred To ContactClosedRadiology Diagnoses Breast cancer screening by mammogram Procedures TUYET DIGITAL SCREEN W OR WO CAD BILATERAL Felton Neumann MD [address] [place] [address] StatusReasonSpecialtyDiagnoses / ProceduresReferred By ContactReferred To ContactAuthorizedRadiology Diagnoses Breast cancer screening by mammogram Procedures TUYET QUEENIE DIGITAL SCREEN BILATERAL Felton Neumann MD [address] [place] [address] SpecialtyDiagnoses / ProceduresReferred By ContactReferred To ContactRadiology Diagnoses Breast cancer screening by mammogram Procedures [facility] DIGITAL SCREEN BILATERAL Felton Neumann MD [address] [place] [address] Referral IDStatusReasonStart DateExpiration DateVisits RequestedVisits [id number] Assessments Diagnosis Breast cancer screening by mammogram Diagnosis Breast cancer screening by mammogram Advance Directives TypeDate RecordedPatient RepresentativeExplanationAdvance Directives and Living WillPower of AttorneyTypeDate RecordedPatient RepresentativeExplanationACP- Advance DirectiveACP-Power of Aboriginal Education Worker Coordinator Summary Purpose Family History No Family History Records FoundNo Family History Records FoundNo Family History Records Found No data available for this section No Family History Records FoundNo Family History Records FoundNo Family History Records FoundNo Family History Records Found Additional Source Comments Reason for Visit (unrecogniz ed section and content) StatusReasonSpecialtyDiagnoses / ProceduresReferred By ContactReferred To ContactClosedRadiology Diagnoses Breast cancer screening by mammogram Procedures [facility] DIGITAL SCREEN W OR WO CAD BILATERAL Felton Neumann MD [address] [place] [address] StatusReasonSpecialtyDiagnoses / ProceduresReferred By ContactReferred To ContactPending ReviewRadiology Diagnoses Encounter for screening mammogram for malignant neoplasm of breast Procedures MAMMOGRAM DIGITAL SCREEN BILAT Felton Neumann MD [address] [place] [address] [facility] [address] [place] [id number] SpecialtyDiagnoses / ProceduresReferred By ContactReferred To ContactRadiology Diagnoses Breast cancer screening by mammogram Procedures [facility] DIGITAL SCREEN BILATERAL Felton Neumann MD [address] [place] [address] Referral IDStatusReasonStart DateExpiration DateVisits RequestedVisits [id number] Annual Wellness Visit InitialWELLNESSReasonCommentsEar ProblemOtorrhea of left ear SpecialtyDiagnoses / ProceduresReferred By ContactReferred To Contact Otolaryngology Diagnoses Otorrhea of left ear Procedures [place] OFFICE/OUTPATIENT [facility] Felton Neumann MD [address] [place] [address] Phone: tel: fax: Constance Sykes MD [address] [place] [address] Phone: tel: fax: Referral IDStatusReasonStart DateExpiration DateVisits RequestedVisits [id number] Specialty Services Required /[id number] mReasonCommentsEar ProblemFollow up CT [facility] 02/29/24ReasonCommentsReferralEar fluid leaking out of earReason FbgmwkbnBllb-nrQkunvgElresnopHzwsgo-hu5u f/upFatigueTired all the timeReason Onset DateCommentsMed Jswbqh6809/29/2024ReasonCommentsFollow-up3 month follow up visit. Care Teams (unrecognized sec tion and content) Team MemberRelationshipSpecialtyStart DateEnd Date Felton Neumann MD [address] [place] [address] PCP - GeneralFamily Medicine11/02/18Team MemberRelationshipSpecialtyStart DateEnd Date Felton Neumann MD [address] [place] [address] PCP - Xukbtsg28/1/ Felton Neumann MD [address] [place] [address] PCP - [facility] Medicine08/19/23Team MemberRelationshipSpecialtyStart DateEnd Date Felton Neumann MD [address] [place] [address] PCP - Bijohjp69/1/ Felton Neumann MD [address] [place] [address] PCP - [facility] Medicine08/19/23Team MemberRelationshipSpecialtyStart DateEnd Date Felton Neumann MD [address] [place] [address] PCP - Folbhro14/1/ Felton Neumann MD [address] [place] [address] PCP - [facility]08/19/23Team MemberRelationshipSpecialtyStart DateEnd Date Felton Neumann MD [address] [place] [address] PCP - Azhjnio18/1/ Felton Neumann MD [address] [place] [address] PCP - [facility]08/19/23Team MemberRelationshipSpecialtyStart DateEnd Date Felton Neumann MD [address] [place] [address] PCP - Dutgylu07/1/23 Felton Neumann MD [address] [place] [address] PCP - GeneralFamily Medicine08/19/23Team MemberRelationshipSpecialtyStart DateEnd Date Felton Neumann MD [address] [place] [address] PCP - Wbwhucl00/1/23 Felton Neumann MD [address] [place] [address] PCP - Generalmi Medicine08/19/23Team MemberRelationshipSpecialtyStart DateEnd Date Felton Neumann MD [address] [place] [address] PCP - Vmnhvgg57/1/ Felton Neumann MD [address] [place] [address] PCP - Generalmi Medicine08/19/23Team MemberRelationshipSpecialtyStart DateEnd Date Felton Neumann MD [address] [place] [address] PCP - GeneralFamily Medicine08/19/23Team MemberRelationshipSpecialtyStart DateEnd Date Felton Neumann MD [address] [place] [address] PCP - GeneralFamily Medicine08/19/23Team MemberRelationshipSpecialtyStart DateEnd Date Felton Neumann MD [address] [place] [address] PCP - GeneralFamily Medicine08/19/23 Felton Neumann MD [address] [place] [address] PCP - Medical [facility]03/02/2511Team MemberRelationshipSpecialtyStart Date End Date Felton Neumann MD [address] [place] [address] PCP - GeneralFamily Medicine05/05/24Team MemberRelationshipSpecialtyStart DateEnd Date Felton Neumann MD [address] [place] [address] PCP - GeneralFamily Medicine05/05/24Team MemberRelationshipSpecialtyStart DateEnd Date Felton eNumann MD [address] [place] [address] PCP - GeneralFamily Medicine05/05/24Team MemberRelationshipSpecialtyStart DateEnd Date Felton Neumann MD [address] [place] [address] PCP - GeneralFamily Medicine08/19/23 Felton Neumann MD [address] [place] [address] PCP - Medical [facility]03/02/2511Team MemberRelationshipSpecialtyStart Date End Date Felton Neumann MD [address] [place] [address] PCP - [facility]08/19/23 Felton Neumann MD [address] [place] [address] PCP - Medical [facility]03/02/2511Team MemberRelationshipSpecialtyStart Date End Date Felton Neumann MD [address] [place] [address] [facility] - [facility]08/19/23 Felton Neumann MD [address] [place] [address] [facility] - Medical [facility]03/02/2511Team MemberRelationshipSpecialtyStart Date End Date Felton Neumann MD [address] [place] [address] [facility]08/19/23 Felton Neumann MD [address] [place] [address] PCP - Medical [facility]03/02/2511Team MemberRelationshipSpecialtyStart Date End Date Felton Neumann MD [address] [place] [address] PCP - Generalmi Medicine05/05/24Team MemberRelationshipSpecialtyStart DateEnd Date Felton Neumann MD [address] [place] [address] PCP - [facility]05/05/24Team MemberRelationshipSpecialtyStart DateEnd Date Felton Neumann MD [address] [place] [address] PCP - [facility]05/05/24Team MemberRelationshipSpecialtyStart DateEnd Date [facility] MD [address] [place] [address] PCP - Wltxfbn28/1/ Felton Neumann MD [address] [place] [address] PCP - Medical [facility]03/02/2511Team MemberRelationshipSpecialtyStart Date End Date Felton Neumann MD [address] [place] [address] PCP - Zpjvlqq09/1/ Felton Neumann MD [address] [place] [address] PCP - Medical [place]03/02/2511Team MemberRelationshipSpecialtyStart Date End Date Felton Neumann MD [address] [place] [address] PCP - [id number] Felton Neumann MD [address] [place] [address] PCP - Medical [facility]03/02/2511 INFORMATION SOURCE (unrecogn ized section and content) DATE CREATED AUTHOR 02/17/2021 [facility] DATE CREATED AUTHOR AUTHOR'S ORGANIZ ATION 06/06/2022 [facility] DATE CREATED AUTHOR AUTHOR'S ORGANIZ ATION 05/05/2023 [facility] DATE CREATED AUTHOR AUTHOR'S ORGANIZ ATION 05/13/2023 [facility] DATE CREATED AUTHOR AUTHOR'S ORGANIZ ATION 07/11/2024 [facility] DATE CREATED AUTHOR AUTHOR'S ORGANIZ ATION 11/14/2024 [facility] DATE CREATED AUTHOR AUTHOR'S ORGANIZ ATION 12/16/2024 [facility] Scheduled Active and Recently Administ ered Medications (unrecognized section and content) Medication Order/ acetaminophen (Tylenol) tablet 975 mg (COMPLETED) 975 mg, oral, Once, On Thu05/11/24 at 1830, For 1 dose, Recovery (only), If ordered PRN for pain, nurse is permitted to administer this medication for higher pain scores based on patient preference? Yes * 1812 (Given - Provider: Clover Worrell, JOSUE) lidocaine (Xylocaine) 10 mg/mL (1 %) injection 0.1 mL 0.1 mL, subcutaneous, Once, On Thu05/11/24 at 1745, For 1 dose, Recovery (only), To be used for IV insertion ONLY * 1745 (Due) oxygen (O2) therapy inhalation, Once, On Thu05/11/24 at 1745, For 1 dose, Recovery (only), Device: Nasal Cannula, Rate in liters per minute: Other, Custom Value: 1-6 LPM, Keep O2 Sat Above: 92% * 1745 (Due) Medication Order/ lactated Ringer's infusion 50 mL/hr, intravenous, Continuous, Starting on Thu05/11/24 at 1745, For 1 day, Recovery (only) * 1745 (Due) Medication Order/ balanced salts (BSS) intraocular solution (CANCELED) As needed, Starting on Thu05/11/24 at 1419, Intraprocedure * 1419 (Given - Provider: Victoria Britt MD) ciprofloxacin-dexamethasone (CiproDEX) otic suspension (CANCELED) As needed, Starting on Thu05/11/24 at 1636, Intraprocedure * 1636 (Given - Provider: Victoria Britt MD - Comment: TOPICAL ON GELFOAM) EPINEPHrine HCl (PF) (Adrenalin) injection (CANCELED) As needed, Starting on Thu05/11/24 at 1420, Intraprocedure * 1420 (Given - Provider: Victoria Britt MD - Comment: IN 19ML NACL 0.9% INJECTABLE) gelatin absorbable (Gelfoam) 100 sponge (CANCELED) As needed, Starting on Thu05/11/24 at 1637, Intraprocedure * 1637 (Given - Provider: Victoria Britt MD - Comment: WITH CIPRODEX) HYDROmorphone (Dilaudid) [...] needed, Starting on Thu05/11/24 at 1421, Intraprocedure * 1421 (Given - Provider: Victoria Britt MD) ondansetron (Zofran) injection 4 mg 4 [...] needed, Starting on Thu05/11/24 at 1421, Intraprocedure * 1421 (Given - Provider: Victoria Britt MD - Comment: WITH 1ML EPINEPHRINE) Medication Order/ lidocaine (Xylocaine) 10 mg/mL (1 %) injection 0.1 mL 0.1 mL, subcutaneous, Once, On Thu11/14/24 at 1245, For 1 dose, Recovery (only), To be used for IV insertion ONLY * 1245 (Due) Medication Order/ lactated Ringer's infusion 50 mL/hr, intravenous, Continuous, Starting on Thu11/14/24 at 1245, For 1 day, Recovery (only) * 1245 (Due) Medication Order/ acetaminophen (Tylenol) tablet 650 mg 650 mg, oral, Every 4 hours PRN, pain mild (1-3), first line, Starting on Thu11/14/24 at 1229, Recovery (only), When able to take oral medications., If ordered PRN for pain, nurse is permitted to administer this medication for higher pain scores based on patient preference? Yes * 1314 (Given - Provider: Junie Leyva RN) balanced salts (BSS) intraocular solution (CANCELED) As needed, Starting on Thu11/14/24 at 1055, Intraprocedure * 1055 (Given - Provider: Victoria Britt MD - Comment: irrigation left ear) EPINEPHrine HCl (PF) (Adrenalin) 1 mL in sodium chloride 0.9% 19 mL syringe (CANCELED) As needed, Starting on Thu11/14/24 at 1055, Intraprocedure * 1055 (Canceled Entry - Provider: Victoria Britt MD) * 1223 (Given - Provider: Victoria Britt MD) HYDROmorphone (Dilaudid) injection 0.5 mg 0.5 mg, intravenous, Every 5 min PRN, pain severe (7-10), first line, Starting on Thu11/14/24 at 1229, Recovery (only), Max total of 4 mg regardless of dose. HYDROmorphone PF (Dilaudid) injection 0.2 mg 0.2 mg, intravenous, Every 5 min PRN, pain moderate (4-6), first line, Starting on Thu11/14/24 at 1229, Recovery (only), Max total of 4 mg regardless of dose. lidocaine-epinephrine (Xylocaine W/EPI) 1 %-1:100,000 injection (CANCELED) As needed, Starting on Thu11/14/24 at 1054, Intraprocedure * 1054 (Given - Provider: Victoria Britt MD) mupirocin (Bactroban) 2 % ointment (CANCELED) As needed, Starting on Thu11/14/24 at 1225, Intraprocedure * 1225 (Given - Provider: Victoria Britt MD) ondansetron (Zofran) injection 4 mg 4 mg, intravenous, Once as needed, nausea/vomiting, first line, Starting on Thu11/14/24 at 1229, For 1 dose, Recovery (only), When administering via IV Push, administer over 3-5 minutes. oxyCODONE (Roxicodone) immediate release tablet 5 mg 5 mg, oral, Every 4 hours PRN, pain moderate (4-6), second line, Starting on Thu11/14/24 at 1229, Recovery (only), When able to take oral medications., If ordered PRN for pain, nurse is permitted to administer this medication for higher pain scores based on patient preference? Yes oxygen (O2) therapy 1 Dose, inhalation, Continuous - O2/gases, oxygen, Starting on Thu11/14/24 at 1229, Recovery (only), Device: Nasal Cannula, Rate in liters per minute: Other, Custom Value: 1-6 LPM, Keep O2 Sat Above:92% * 1240 (Rate [facility] - Provider: Junie Leyva RN) prochlorperazine (Compazine) injection 5 mg 5 mg, intravenous, Once as needed, nausea/vomiting, second line, persistent post-op nausea/vomiting, Starting on Thu11/14/24 at 1229, For 1 dose, Recovery (only) sodium chloride 0.9 % irrigation solution (CANCELED) As needed, Starting on Thu11/14/24 at 1055, Intraprocedure * 1055 (Given - Provider: Victoria Britt MD) FOR RECORDS PERTAINING TO PATIENTS WHO ARE [...] BE BASED ON THE PRIMARY CLINICAL RECORDS. [employer] provides no warranty or guarantee of the accuracy or completeness of information in this document.
--- OUTSIDE RECORDS SUMMARY | 2025-02-27 07:13 | XMS_ITS | Patient Health Record ---
Author Organization [facility] in [place] Address [address] [place] [address] Care Team Providers Care Materials Recycler Name Role Phone Felton Puga MD Primary Care Provider Unavailab le Allergies No Known Allergies Reason For Referral No Information Medications Medication SIG (Take, Route, Frequency, Duration) Notes Start Date End Date Status DULoxetine HCl 60 MG 1 capsule Orally Once a day ActiveLevothyroxine Sodium 125 MCG1 tablet in the morning on an empty stomach Orally Once a dayActiveLisinopril-hydroCHLOROthiazide 10-12.5 MG1 tablet Orally Once a dayActiveMeloxicam 15 MG1 tablet Orally Once a day; Duration: 30 days 10/08/2023ctiveCalcium 600 MG1 tablet with meals Orally Twice a dayActive Meloxicam 15 MG1 tablet Orally Once a dayActiveMontelukast Sodium 10 MG1 tablet Orally Once a dayActivepredniSONE 10 MG1 tablet Orally Once a dayActivePROzac 20 MG1 capsule Orally Once a dayActive Social History Tobacco Use: Social History Observation Description Date Details (start date - stop date) Never Smoker NA - NA Tobacco Control (Standard) Question Answer Notes Tobacco use: Nonsmoker Problems Problem Type SNOMED Code ICD Code Onset Dates Problem Status W/U Status Risk Notes Problem Pain in right foot ([id number]) Righ t foot pain (M79.671) Activeconfirmed Plan Of Treatment Pending Test Test Name Order Date XR Foot RT (3 views) * 10/08/2023 XR foot RT min 3V 10/12/2023 Insurance Providers Payer Name Payer Address Payer Phone Subscriber Number Group Number Insured Name Patient Relationship to Insured Coverage Start Date Coverage End Date [employer] [address] [place] [phone] [id number] [place] - patient is the insured Medical (General) History Medical History History ICD Code Arthritis GERDHigh blood pressurethyroid issuesSurgical History Surgery Date(Month/Year) Hysterectomy
--- NOTE | 2025-02-27 07:16 | MM_ITS ---
Patient Name: KEYON CHEATHAM MR#: [id number] : 1960 Exam Date: 02/27/2025 Ordering Doctor: DR KIMMIE NEUMANN . RADIOLOGY REPORT PROCEDURE: MM TOMOSYNTHESIS SCREENING BI COMPARISON: MM TOMOSYNTHESIS SCREENING BI, 02/25/2024. MM TOMOSYNTHESIS SCREENING BI, 02/18/2023. MG MAMM SCREEN 3D ANTONIA CAD, 02/17/2022. MG MAMM ANTONIA SCRN W CAD DIG, 02/15/2013. INDICATIONS: Screening Calculator Name NCI Breast Cancer Risk Assessment Tool 5 Year Breast Cancer Risk 1.80% Lifetime Breast Cancer Risk 6.30% Personal Breast Cancer No Personal Ovarian Cancer No Treatments None Family Cancers None LOCATION: [facility] BREAST COMPOSITION: There are scattered areas of fibroglandular density. FINDINGS: RIGHT BREAST: No significant suspicious finding. LEFT BREAST: No significant suspicious finding. DIAGNOSTIC CATEGORY 1--NEGATIVE. RECOMMENDATIONS: ROUTINE MAMMOGRAM AND CLINICAL EVALUATION IN 12 MONTHS. Dictated by: Shamir Thakkar DO on 02/27/2025 at 11:51 Approved by: Shamir Thakkar DO on 02/27/2025 at 11:53
[2025-02-27 08:15] LABS: Hematocrit 41.7 % (36.0-48.0); Hemoglobin 13.4 g/dL (12.0-16.0); Immature Granulocytes Abs Auto 0.03 10^3/uL (0.00-0.03); Immature Granulocytes Pct Auto 0.6 % (0.0-0.5); Lymphocytes Absolute Auto 1.8 10^3/uL (1.2-3.8); Mean Corpuscular HGB Conc 32.1 g/dL (29.9-35.2); Mean Corpuscular Hemoglobin 29.5 pg (26.7-34.0); Mean Corpuscular Volume 91.6 fL (81.0-99.0); Platelet Count 240 10^3/uL (150-450); Red Blood Count 4.55 10^6/uL (4.20-5.40); White Blood Count 5.2 10^3/uL (4.0-11.0)
[2025-02-27 09:27] LABS: Alanine Aminotransferase 39 U/L (14-59); Albumin Globulin Ratio 1.1; Albumin Level 3.8 g/dL (3.4-5.0); Alkaline Phosphatase 89 U/L (46-116); Anion Gap 11.1; Aspartate Amino Transferase 23 U/L (15-37); Blood Urea Nitrogen 16.0 mg/dL (7.0-18.0); Calcium 9.7 mg/dL (8.5-10.1); Carbon Dioxide 30.2 mmol/L (21.0-32.0); Chloride 103 mmol/L (98-107); Cholesterol 235 mg/dL (<=200); Estimated GFR (African America >60 (>=60 mL/min/1.73m^2); Estimated GFR (Non-African Ame >60 (>=60 mL/min/1.73m^2); Globulin 3.5 g/dL; Glucose 100 mg/dL (74-106); HDL Cholesterol 58 mg/dL (40-60); Potassium 4.3 mmol/L (3.5-5.1); Sodium 140 mmol/L (136-145); Thyroid Stimulating Hormone 1.084 uIU/mL (0.358-3.740); Total Protein 7.3 g/dL (6.4-8.2); Triglycerides 117 mg/dL (<=150); VLDL CHOLESTEROL 23.4 mg/dL
== END 2025-02-27 07:10 | disposition home or self-care (01) ==
LOC: MAMMO 07:10
PROVIDERS: PCP Family Medicine; Visit Provider Family Medicine
DX: Z12.31 Encounter for screening mammogram for malignant neoplasm of breast (principal); E03.9 Hypothyroidism, unspecified; Z79.899 Other long term (current) drug therapy; E78.5 Hyperlipidemia, unspecified; R73.03 Prediabetes
CPT/HCPCS: 36415; 77063; 77067; 80053; 80061; 83036; 84439; 84443; 85025